=== PATIENT | male | born 1945 | race Caucasian/White ===

== ENCOUNTER 2017-05-19 15:28 | Emergency (ER) | payer OTHER ==
[~2017-05-19] VITALS: Ht 167.6 cm; Wt 79.8 kg
[~2017-05-19 15:28] MED LIST changes: -AUG0.05O4 TOP; -LDXO60 TOP; -NXM/40 PO; -OMEG10007 PO; -OXYC-57 PO; -TPRSR/50 PO
[2017-05-19 15:58] VITALS: BP 153/70; PULSE 84; TEMP 37.7; O2SAT 95; Ht 167.6 cm; Wt 79.8 kg
== END 2017-05-19 17:04 | disposition left against medical advice (07) ==
LOC: C.EDB 15:29
DX: Z53.21 Procedure and treatment not carried out due to patient leaving prior to being seen by health care provider (principal)

== ENCOUNTER → 2017-05-19 | Outpatient (CLI) | payer OTHER ==
[~2017-05-19] MED LIST: ASPI81TA21 PO; AUG0.05O4 TOP; BACL10TA PO; CHOL100027 PO; CLOP1TAB15 PO; COEN1CAP7 PO; CYAN100020 PO; ESOM40GR PO; EZET10TA63 PO; FISHOIL PO; LDXO60 TOP; LSN25 PO; MELA3TAB12 PO; MRLP17X PO; NITR0.4S76 BU; NRN100 PO; NSP500 PO; NXM/40 PO; OMEG10007 PO; OPTIRAY 320 IV PRN; OXYC-57 PO; TPRSR/50 PO
--- NOTE | 2017-05-19 14:01 | DIAGNOSTIC IMAGING REPORT ---
ABDOMEN AND PELVIS CT WITH IV AND ORAL CONTRAST FOR THE PURPOSE OF AN ENTEROGRAPHY CT DOSE: 753.93 mGycm HISTORY: Generalized ABD PAIN - ENTEROGRAPHY TECHNIQUE: Multiaxial CT images of the abdomen and pelvis were performed following the use of intravenous and oral Volumen contrast. A dose lowering technique was utilized adhering to the principles of ALARA. Sagittal, coronal, and maximum intensity projection images of the abdomen and pelvis were performed at the workstation by the radiologist. COMPARISON STUDY: Chest abdomen pelvis CTA 08/15/2016. FINDINGS: There are few small calcified pleural plaques bilaterally. No pneumoperitoneum. No pneumatosis. No suspicious lytic or blastic osseous lesions. A few borderline enlarged distal esophageal lymph nodes. Dominant lymph node measures 8 mm in short axis diameter. Punctate metallic density within the left upper quadrant anterior abdominal wall subcutaneous fat. This remains unchanged. There is a 2.2 cm diverticulum at the second portion of the duodenum. The liver, gallbladder, and pancreas are unremarkable. Punctate calcified granuloma within the spleen. Moderate bilateral cortical renal thinning/scarring. No hydronephrosis. Mild bilateral perinephric edema, unchanged. This is likely chronic. Mildly enlarged portacaval lymph node which may be reactive. Moderate calcified plaque within the normal caliber abdominal aorta. Bladder is not well-distended but appears unremarkable. The gallbladder is mildly distended. There is trace pericholecystic fluid and mild gallbladder wall thickening. There is surrounding inflammatory change. Therefore, these findings are consistent with acute cholecystitis. Common bile duct is normal in caliber. No bowel wall thickening or obstruction. Colonic diverticulosis. Normal appendix. The small bowel is normal and course and caliber. IMPRESSION: 1. There is gallbladder wall thickening with surrounding inflammatory change. This is consistent with acute cholecystitis. 2. No bowel wall thickening or obstruction. 3. Colonic diverticulosis. 4. Normal appendix. 5. These findings were discussed with Dr. Carrera at 1:55 PM on 05/19/17.. Electronically signed by: Julian Decker M.D. 05/19/2017 1:59 PM Dictated Date/Time: 05/19/2017 1:46 PM
== END | disposition home or self-care (01) ==
LOC: C.CTS 11:57
PROVIDERS: ATTEND Internal Medicine Gastroenterology
DX: R10.9 Unspecified abdominal pain (principal); K57.30 Diverticulosis of large intestine without perforation or abscess without bleeding; K82.8 Other specified diseases of gallbladder

== ENCOUNTER → 2017-05-19 | Outpatient (CLI) | payer OTHER ==
[~2017-05-19] MED LIST changes: -OPTIRAY 320 IV PRN
[2017-05-19 12:20] LABS: BLOOD UREA NITROGEN 20 mg/dl (7-18); BUN/CREATININE RATIO 16.4 (10-20); CALCIUM 9.2 mg/dl (8.5-10.1); CARBON DIOXIDE 27 mmol/L (21-32); CHLORIDE 104 mmol/L (98-107); GLUCOSE 137 mg/dl (70-99); POTASSIUM 3.4 mmol/L (3.5-5.1); SODIUM 138 mmol/L (136-145)
[2017-05-19 12:45] LABS: PHOSPHORUS 1.4 mg/dl (2.5-4.9)
== END | disposition home or self-care (01) ==
LOC: C.LAB 10:23
PROVIDERS: ATTEND Internal Medicine Gastroenterology
DX: R10.9 Unspecified abdominal pain (principal)

== ENCOUNTER 2017-06-01 17:40 | Emergency (ER) | payer OTHER ==
[~2017-06-01] VITALS: Ht 167.6 cm; Wt 76.0 kg
[2017-06-01 17:55] VITALS: Ht 167.6 cm; Wt 76.0 kg
[2017-06-01 18:15] VITALS: O2SAT 96
[2017-06-01] MEDS ORDERED: PIPERACILLIN/TAZOBACTAM 4.5 GM/100ML D5W IV STA (18:29)
[2017-06-01] MEDS ORDERED: SODIUM CHLORIDE 0.9% 1000ML 2,000 ML IV STA (18:29)
[2017-06-01] MEDS ORDERED: ACETAMINOPHEN 500 MG TAB PO STA (18:29)
[2017-06-01 18:35] LABS: URINE APPEARANCE CLOUDY (CLEAR); URINE COLOR DK YELLOW; URINE EPITHELIAL CELL AUTO >30 /lpf (0-5); URINE NITRITE NEG (NEG); URINE SPECIFIC GRAVITY 1.033 (1.000-1.030); UROBILINOGEN NEG (NEG)
[2017-06-01 18:36] LABS: MANUAL MICROSCOPIC REQUIRED? NO; REVIEW REQ? YES
[2017-06-01 18:38] LABS: URINE BILIRUBIN NEG (NEG)
[2017-06-01 18:46] LABS: URINE MUCUS PRESENT (NONE PRSENT)
[2017-06-01 18:59] LABS: BASO % 0.1 %; BASO ABS # 0.02 K/uL (0-0.2); COMPLETE YES; EOS % 1.1 %; IG% 0.2 %; LYMPH % 4.4 %; LYMPH ABS # 0.74 K/uL (1.2-3.4); MEAN CELL VOLUME 97.4 fL (80-100); MEAN CORPUSCULAR HEMOGLOBIN 32.4 pg (25-34); MEAN CORPUSCULAR HGB CONC 33.2 g/dl (32-36); MEAN PLATELET VOLUME 9.2 fL (7.4-10.4); MONO % 5.8 %; NEUT % 88.4 %; PLATELET COUNT 516 K/uL (130-400); WHITE BLOOD COUNT 16.96 K/uL (4.8-10.8)
[2017-06-01 19:08] LABS: ALT/SGPT 20 U/L (12-78); BLOOD UREA NITROGEN 19 mg/dl (7-18); BUN/CREATININE RATIO 14.4 (10-20); CALCIUM 8.8 mg/dl (8.5-10.1); CARBON DIOXIDE 23 mmol/L (21-32); CHLORIDE 101 mmol/L (98-107); GLUCOSE 140 mg/dl (70-99); MAGNESIUM 1.8 mg/dl (1.8-2.4); POTASSIUM 3.5 mmol/L (3.5-5.1); SODIUM 134 mmol/L (136-145)
[2017-06-01 19:13] LABS: ALKALINE PHOSPHATASE 146 U/L (45-117); AST/SGOT 20 U/L (15-37)
[2017-06-01] MEDS ORDERED: OPTIRAY 320 IV PRN (19:15)
--- NOTE | 2017-06-01 19:16 | DIAGNOSTIC IMAGING REPORT ---
CHEST ONE VIEW PORTABLE CLINICAL HISTORY: 71 years-old Male presenting with fever. TECHNIQUE: Portable upright AP view of the chest was obtained. COMPARISON: 08/15/2016. FINDINGS: Atherosclerosis of the aortic arch. Cardiac silhouette normal. Minimal hazy opacity in the lingula, new from prior. No pleural effusion or pneumothorax. Anterior cervical fusion hardware noted. Upper abdomen normal. IMPRESSION: 1. Minimal hazy opacity in the lingula, which could represent a focal infiltrate. Infectious etiology not excluded. Electronically signed by: Dwayne Powers M.D. 06/01/2017 7:15 PM Dictated Date/Time: 06/01/2017 7:14 PM
[2017-06-01] MEDS ORDERED: OXYC-57 PO (19:28)
[2017-06-01] MEDS ORDERED: OMEG10007 PO (19:28)
[2017-06-01 19:29] LABS: ISTAT CREATININE 1.2 mg/dl (0.6-1.3); ISTAT HEMOGLOBIN 12.2 g/dl (14.0-18.0); ISTAT IONIZED CALCIUM 1.14 mmol/l (1.12-1.32)
[2017-06-01] MEDS ORDERED: TPRSR/50 PO (19:31)
[2017-06-01] MEDS ORDERED: NXM/40 PO (19:46)
[2017-06-01] MEDS ORDERED: LDXO60 TOP (19:46)
[2017-06-01] MEDS ORDERED: AUG0.05O4 TOP (19:46)
--- NOTE | 2017-06-01 19:57 | DIAGNOSTIC IMAGING REPORT ---
ABD/PELVIS IV CONTRAST ONLY CLINICAL HISTORY: 71 years-old Male presenting with fever w/ gbag removed recently. TECHNIQUE: Multidetector CT of the abdomen and pelvis was performed after the administration of intravenous contrast. IV contrast: 118 mL of Optiray 320. A dose lowering technique was used consistent with the principles of ALARA (as low as reasonably achievable). COMPARISON: 05/19/2017. CT DOSE (mGy.cm): The estimated cumulative dose is 371.27 mGy.cm. 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 Lung bases: Lung bases clear. Normal heart size. Coronary artery calcification. No pericardial or pleural effusion. Liver: Interval development of periportal edema. Normal liver morphology. Heterogeneity of parenchymal enhancement along the gallbladder fossa subjacent to the subsequently described collection. No parenchymal liver lesion. Hepatic vasculature remains patent. Biliary: No intrahepatic or extrahepatic biliary ductal dilatation. Interval cholecystectomy with surgical clips noted. A 6.1 cm gas and fluid collection with significant surrounding inflammatory change is seen in the gallbladder fossa. This extends inferiorly minimally involving the hepatic flexure and transverse mesocolon. Pancreas: Small duodenal diverticulum suspected at the pancreatic head. Pancreatic parenchyma normal. Spleen: Normal. Adrenal glands: Normal. Kidneys and ureters: No nephrolithiasis. No hydronephrosis. Cortical defect in the interpolar region to lower pole of the left kidney, likely prior injury, infection, or infarct. Ureters normal. Bladder: Incompletely evaluated secondary to underdistention. Pelvic organs: Prostate and seminal vesicles normal. Bowel: Mild wall thickening of the hepatic flexure, which is felt to be secondary to adjacent gallbladder fossa inflammation. No bowel obstruction. Additional mild wall thickening of the gastric antrum adjacent to the gallbladder fossa collection also noted. Peritoneal cavity: Outside of the collection in the gallbladder fossa, no free fluid or gas. Vasculature: Atherosclerosis of the normal caliber abdominal aorta. IVC patent. Lymph nodes: Scattered prominent upper abdominal lymph nodes measuring up to 9 mm in the short axis, likely reactive. Abdominal wall: Minimal postsurgical changes noted in the ventral abdominal wall. Musculoskeletal: Degenerative changes of the spine. IMPRESSION: 1. Postsurgical changes of cholecystectomy with apparent interval development of a gas and fluid collection in the gallbladder fossa. The appearance in part could relate to expected postsurgical change, however the degree of surrounding inflammatory change and parenchymal changes in the liver are unexpected and concerning for the development of an abscess. 2. Reactive upper abdominal lymph nodes. Electronically signed by: Dwayne Powers M.D. 06/01/2017 7:55 PM Dictated Date/Time: 06/01/2017 7:48 PM
[2017-06-01 20:40] VITALS: TEMP 37.1
[2017-06-01 20:57] LABS: ZZUR CULT IF INDIC CLEAN CATCH NO
[2017-06-01 22:04] VITALS: BP 117/59; PULSE 74; O2SAT 96
--- NOTE | 2017-06-02 00:47 | EMERGENCY ROOM VISIT NOTE ---
History Report prepared by Joe: Megan Sousa Under the Supervision of: Dr. Kumar Davies D.O. First contact with patient: 18:10 Chief Complaint: FEVER Stated Complaint: SHAKING, URINARY PROBLEMS History of Present Illness The patient is a 71 year old male who presents to the Emergency Room with complaints of persistent fever starting today. He presents to the ED by EMS. The patient has been feeling hot and cold for the past 2 days with chills, shaking, and diaphoresis. Today, he started having a fever. He has had these symptoms before at which time they found that he had an infection. He reports dysuria, rhinorrhea, sore throat, and abdominal pain. He denies any cough, nausea, vomiting, or diarrhea. He had an oxycodone before EMS arrived. He had gallbladder surgery 2 weeks ago at [facility]. He does not have any open wounds or sores. Source of History: patient, family Onset: today Position: other (global) Quality: other (fever) Timing: other (persistent) Associated Symptoms: + chills, + diaphoresis, + sorethroat, + abdominal pain , + urinary symptoms, No cough, No nausea, No vomiting, No diarrhea Note: Pt reports rhinorrhea. Review of Systems See HPI for pertinent positives & negatives. A total of 10 systems reviewed and were otherwise negative. Past Medical & Surgical Medical Problems: (1) Arthritis (2) Crohn's disease (3) Diabetes (4) Gastroparesis (5) GERD (gastroesophageal reflux disease) (6) Psoriasis Family History Patient reports no known family medical history. Social History Smoking Status: Former Smoker Alcohol Use: none Drug Use: none Marital Status: Housing Status: lives with family Occupation Status: retired Current/Historical Medications Scheduled Aspirin Enteric Coated (Ecotrin Or Generic), 81 MG PO DAILY Cholecalciferol (Vitamin D 1000 Unit), 1,000 INTER.UNIT PO DAILY Clopidogrel (Plavix), 75 MG PO DAILY Coenzyme Q10 (Ubidecarenone) (Coq10), 200 MG PO DAILY Cyanocobalamin (Vitamin B12), 1 TAB PO DAILY Ezetimibe (Zetia), 10 MG PO DAILY Fish Oil ([place]-3), 3 CAP PO QAM Lisinopril (Lisinopril), 2.5 MG PO DAILY Melatonin-Pyridoxine (Melatonin), 1 TAB PO HS Metoprolol Succinate (Metoprolol Succinate ER), 1 TAB PO DAILY Nitroglycerin (Nitroglycerin Lingual), 1 SPRAY BU UD Polyethylene (Miralax), 17 GM PO UD Scheduled PRN Baclofen (Lioresal), 10 MG PO HS PRN for Muscle Spasms Betamethasone Dip Aug 0.05% (Diprolene 0.05%), 1 APPLN TOP BID PRN for Esomeprazole Magnesium (Nexium), 40 MG PO DAILY PRN for Dyspepsia Fluocinonide (Lidex 0.05% Oint), 1 APPLN TOP BID PRN for PRN Gabapentin (Gabapentin), 100 MG PO BID PRN for Pain Oxycodone/Acetaminophen 5MG/325MG (Percocet 5MG/325MG), 1 TABLET PO Q4H PRN for Pain Allergies Coded Allergies: Statins (Verified Allergy, Unknown, muscle aches, 06/01/17) HMG-CoA-R Inhibitors (Verified Adverse Reaction, Unknown, MUSCLE ACHES, ) Physical Exam Vital Signs Date Time Temp Pulse Resp B/P (MAP) Pulse Ox O2 Delivery O2 Flow Rate FiO2 06/01/17 22:04 74 12 117/59 96 06/01/17 20:40 37.1 81 22 109/61 95 Room Air 06/01/17 19:28 95 21 123/64 95 Room Air 06/01/17 18:27 98 06/01/17 18:15 96 Room Air 06/01/17 17:55 39.2 107 20 129/97 97 Room Air Physical Exam GENERAL: sitting up in bed, disheveled, ill appearing EYE EXAM: normal conjunctiva OROPHARYNX: no exudate, no erythema, lips, buccal mucosa, and tongue normal and mucous membranes are moist NECK: supple, no nuchal rigidity, no adenopathy, non-tender LUNGS: Clear to auscultation. Normal chest wall mechanics HEART: tachycardic, no murmurs, S1 normal and S2 normal ABDOMEN: abdomen is distended, port incisions clean dry and intact, minimal epigastric tenderness, normo-active bowel sounds, no masses, no rebound or guarding. BACK: Back is symmetrical on inspection and there is no deformity, no midline tenderness, no CVA tenderness. SKIN: no rashes and no bruising UPPER EXTREMITIES: upper extremities are grossly normal. LOWER EXTREMITIES: No pitting edema. NEURO EXAM: Normal sensorium, cranial nerves II-XII grossly intact, normal speech, no gross weakness of arms, no gross weakness of legs. Medical Decision & Procedures ER Provider Diagnostic Interpretation: Radiology results as stated below per my review and the radiologist's interpretation: CHEST ONE VIEW PORTABLE CLINICAL HISTORY: 71 years-old Male presenting with fever. TECHNIQUE: Portable upright AP view of the chest was obtained. COMPARISON: 08/15/2016. FINDINGS: Atherosclerosis of the aortic arch. Cardiac silhouette normal. Minimal hazy opacity in the lingula, new from prior. No pleural effusion or pneumothorax. Anterior cervical fusion hardware noted. Upper abdomen normal. IMPRESSION: 1. Minimal hazy opacity in the lingula, which could represent a focal infiltrate. Infectious etiology not excluded. Electronically signed by: Dwayne Powers M.D. 06/01/2017 7:15 PM Dictated Date/Time: 06/01/2017 7:14 PM ABD/PELVIS IV CONTRAST ONLY CLINICAL HISTORY: 71 years-old Male presenting with fever w/ gbag removed recently. TECHNIQUE: Multidetector CT of the abdomen and pelvis was performed after the administration of intravenous contrast. IV contrast: 118 mL of Optiray 320. A dose lowering technique was used consistent with the principles of ALARA (as low as reasonably achievable). COMPARISON: 05/19/2017. CT DOSE (mGy.cm): The estimated cumulative dose is 371.27 mGy.cm. 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 Lung bases: Lung bases clear. Normal heart size. Coronary artery calcification. No pericardial or pleural effusion. Liver: Interval development of periportal edema. Normal liver morphology. Heterogeneity of parenchymal enhancement along the gallbladder fossa subjacent to the subsequently described collection. No parenchymal liver lesion. Hepatic vasculature remains patent. Biliary: No intrahepatic or extrahepatic biliary ductal dilatation. Interval cholecystectomy with surgical clips noted. A 6.1 cm gas and fluid collection with significant surrounding inflammatory change is seen in the gallbladder fossa. This extends inferiorly minimally involving the hepatic flexure and transverse mesocolon. Pancreas: Small duodenal diverticulum suspected at the pancreatic head. Pancreatic parenchyma normal. Spleen: Normal. Adrenal glands: Normal. Kidneys and ureters: No nephrolithiasis. No hydronephrosis. Cortical defect in the interpolar region to lower pole of the left kidney, likely prior injury, infection, or infarct. Ureters normal. Bladder: Incompletely evaluated secondary to underdistention. Pelvic organs: Prostate and seminal vesicles normal. Bowel: Mild wall thickening of the hepatic flexure, which is felt to be secondary to adjacent gallbladder fossa inflammation. No bowel obstruction. Additional mild wall thickening of the gastric antrum adjacent to the gallbladder fossa collection also noted. Peritoneal cavity: Outside of the collection in the gallbladder fossa, no free fluid or gas. Vasculature: Atherosclerosis of the normal caliber abdominal aorta. IVC patent. Lymph nodes: Scattered prominent upper abdominal lymph nodes measuring up to 9 mm in the short axis, likely reactive. Abdominal wall: Minimal postsurgical changes noted in the ventral abdominal wall. Musculoskeletal: Degenerative changes of the spine. IMPRESSION: 1. Postsurgical changes of cholecystectomy with apparent interval development of a gas and fluid collection in the gallbladder fossa. The appearance in part could relate to expected postsurgical change, however the degree of surrounding inflammatory change and parenchymal changes in the liver are unexpected and concerning for the development of an abscess. 2. Reactive upper abdominal lymph nodes. Electronically signed by: Dwayne Powers M.D. 06/01/2017 7:55 PM Dictated Date/Time: 06/01/2017 7:48 PM Laboratory Results 06/01/17 18:03 Red Blood Count 3.80, Mean Corpuscular Volume 97.4, Mean Corpuscular Hemoglobin 32.4, Mean Corpuscular Hemoglobin Concent 33.2, Mean Platelet Volume 9.2, Neutrophils (%) (Auto) 88.4, Lymphocytes (%) (Auto) 4.4, Monocytes (%) (Auto) 5.8, Eosinophils (%) (Auto) 1.1, Basophils (%) (Auto) 0.1, Neutrophils # (Auto) 14.98, Lymphocytes # (Auto) 0.74, Monocytes # (Auto) 0.99, Eosinophils # (Auto) 0.19, Basophils # (Auto) 0.02 06/01/17 18:03 Test 06/01/17 18:03 06/01/17 18:15 06/01/17 18:27 06/01/17 19:12 White Blood Count 16.96 K/uL (4.8-10.8) Red Blood Count 3.80 M/uL (4.7-6.1) Hemoglobin 12.3 g/dL (14.0-18.0) Hematocrit 37.0 % (42-52) Mean Corpuscular Volume 97.4 fL (80-100) Mean Corpuscular Hemoglobin 32.4 pg (25-34) Mean Corpuscular Hemoglobin Concent 33.2 g/dl (32-36) Platelet Count 516 K/uL (130-400) Mean Platelet Volume 9.2 fL (7.4-10.4) Neutrophils (%) (Auto) 88.4 % Lymphocytes (%) (Auto) 4.4 % Monocytes (%) (Auto) 5.8 % Eosinophils (%) (Auto) 1.1 % Basophils (%) (Auto) 0.1 % Neutrophils # (Auto) 14.98 K/uL (1.4-6.5) Lymphocytes # (Auto) 0.74 K/uL (1.2-3.4) Monocytes # (Auto) 0.99 K/uL (0.11-0.59) Eosinophils # (Auto) 0.19 K/uL (0-0.5) Basophils # (Auto) 0.02 K/uL (0-0.2) RDW Standard Deviation 43.2 fL (36.4-46.3) RDW Coefficient of Variation 12.1 % (11.5-14.5) Immature Granulocyte % (Auto) 0.2 % Immature Granulocyte # (Auto) 0.04 K/uL (0.00-0.02) Prothrombin Time 11.0 SECONDS (9.0-12.0) Prothromb Time International Ratio 1.0 (0.9-1.1) Est Creatinine Clear Calc Drug Dose 47.0 ml/min Estimated GFR () 63.6 Estimated GFR (Non- 54.9 BUN/Creatinine Ratio 14.4 (10-20) Calcium Level 8.8 mg/dl (8.5-10.1) Magnesium Level 1.8 mg/dl (1.8-2.4) Total Bilirubin 0.4 mg/dl (0.2-1) Direct Bilirubin 0.1 mg/dl (0-0.2) Aspartate Amino Transf (AST/SGOT) 20 U/L (15-37) Alanine Aminotransferase (ALT/SGPT) 20 U/L (12-78) Alkaline Phosphatase 146 U/L (45-117) Total Creatine Kinase 35 U/L (39-308) Creatine Kinase MB < 0.5 ng/ml (0.5-3.6) Troponin I < 0.015 ng/ml (0-0.045) Total Protein 7.3 gm/dl (6.4-8.2) Albumin 2.9 gm/dl (3.4-5.0) Urine Color DK YELLOW Urine Appearance CLOUDY (CLEAR) Urine pH 5.0 (4.5-7.5) Urine Specific [place] 1.033 (1.000-1.030) Urine Protein 2+ (NEG) Urine Glucose (UA) NEG (NEG) Urine Ketones 1+ (NEG) Urine Occult Blood NEG (NEG) Urine Nitrite NEG (NEG) Urine Bilirubin NEG (NEG) Urine Urobilinogen NEG (NEG) Urine Leukocyte Esterase TRACE (NEG) Urine WBC (Auto) 5-10 /hpf (0-5) Urine RBC (Auto) 0-4 /hpf (0-4) Urine Hyaline Casts (Auto) 1-5 /lpf (0-5) Urine Epithelial Cells (Auto) >30 /lpf (0-5) Urine Bacteria (Auto) NEG (NEG) Urine Pathogenic Casts /lpf (0) Urine Mucus PRESENT (NONE PRSENT) Creatine Kinase MB Ratio (0-3.0) Bedside Lactic Acid Venous 1.28 mmol/L (0.90-1.70) Test 06/01/17 19:17 Bedside Hemoglobin 12.2 g/dl (14.0-18.0) Bedside Hematocrit 36 % (42-52) Bedside Sodium 135 mEq/L (135-144) Bedside Potassium 3.6 mEq/L (3.3-5.0) Bedside Chloride 100 mEq/L (101-112) Bedside Total CO2 23 mEq/l (24-31) Anion Gap 17.0 mmol/L (16-25) Bedside Blood Urea Nitrogen 20 mg/dl (7-18) Bedside Creatinine 1.2 mg/dl (0.6-1.3) Bedside Glucose (other) 115 mg/dl (70-99) Bedside Ionized Calcium (Sherri) 1.14 mmol/l (1.12-1.32) Laboratory results per my review. Medications Administered Medications (Trade) Dose Ordered Sig/Ramesh Route Start Time Stop Time Status Last Admin Dose Admin Piperacillin Sod/ Tazobactam Sod (Zosyn Iv) 4.5 gm NOW STAT IV 06/01/17 18:29 06/01/17 18:30 DC 06/01/17 19:30 4.5 GM Sodium Chloride 2,000 ml @ 999 mls/hr Q2H1M STAT IV 06/01/17 18:29 06/01/17 20:29 DC 06/01/17 19:30 999 MLS/HR Acetaminophen (Tylenol Tab) 1,000 mg NOW STAT PO 06/01/17 18:29 06/01/17 18:31 DC 06/01/17 19:30 1,000 MG ECG Indication: diaphoresis Rate (beats per minute): 93 Rhythm: sinus rhythm Findings: no ectopy, other (poor baseline) ED Course ED COURSE: Vital signs were reviewed and showed fever, tachycardia. The patients medical record was reviewed The above diagnostic studies were performed and reviewed. ED treatments and interventions as stated above. 1821: The patient was evaluated in room B11B. A complete history and physical examination was performed. 1828: Acetaminophen 1000 mg PO, NSS 2000 ml @ 999 mls/hr IV, Zosyn Iv 4.5 gm IV. 2005: I discussed the patient's case with Dr. Phillips, [facility]. He recommend the patient be transferred. 2007: I reevaluated the patient. His heart rate is down to the 80s. He is feeling better. 2016: I discussed the patient's case with Dr. Arana, [facility] surgery. He declines the patient. 2022: [facility] was paged, but they have a 24-48 hour wait so Daria was paged. 2040: I discussed the patient's case with Dr. Jackson, [facility]. The patient has been accepted to their facility, bed 20-37. 2054: Upon reevaluation, the patient is stable.I discussed my findings with the patient and his family and they understand and agree with the treatment plan. Based on the patients age, coexisting illnesses, exam and lab findings the decision to treat as an inpatient was made. The patient remained stable while under my care. The patient will be transferred to [facility] for further treatment. Medical Decision Differential diagnosis includes etiologies such as sepsis, UTI, pneumonia, metabolic, electrolyte abnormalities, cardiac sources, intracerebral event, toxicologic, neurologic, as well as others were entertained. Patient is a 71-year-old male that presents to the ER for fever. Positive presentation he is febrile and tachycardic. 2 weeks ago he had his gallbladder removed laparoscopically which was found to be necrotic. Patient was given 2 L normal saline along with Zosyn. CT of abdomen and pelvis shows 6cm abscess. Discussed with my surgeon who recommended transfer as there is no IR present. Discussed with [facility] initially and eventually [facility] who accepted the patient in transfer. Her return down to the 80s. Patient rested comfortably in the ER. He was given Tylenol. He was transferred to [facility] with an abdominal abscess. Medication Reconcilliation Current Medication List: was personally reviewed by me Blood Pressure Screening Patient's blood pressure: Normal blood pressure Blood pressure disposition: Did not require urgent referral Consults Time Called: 2003 Consulting Physician: Dr. Phillips, [facility] Returned Call: 2004 I discussed the patient's case with him. He recommend the patient be transferred. Additional Consults: Time Called: 2009 Consulted Physician: Dr. Arana, [facility], [facility] general surgery Returned Call: 2015 Additional Comments: I discussed the patient's case with him. He declines the patient. Time Called: 2022 Consulted Physician: Dr. Jackson, [facility] Returned Call: 2040 Additional Comments: I discussed the patient's case with him. The patient has been accepted to their facility, bed 20-37. Impression Primary Impression: Sepsis Additional Impression: Abdominal abscess Scribe Attestation The scribe's documentation has been prepared under my direction and personally reviewed by me in its entirety. I confirm that the note above accurately reflects all work, treatment, procedures, and medical decision making performed by me. Departure Information Dispostion Transfer Acute Care Facility Referrals Shaina Kenyon M.D. (PCP) Patient Instructions My [facility] Problem Qualifiers Primary Impression: Sepsis Sepsis type: sepsis due to unspecified organism Qualified Codes: A41.9 - Sepsis, unspecified organism
== END 2017-06-01 22:04 | disposition short-term general hospital (02) ==
LOC: EDBD 17:40 → C.EDB 17:41
DX: A41.9 Sepsis, unspecified organism (principal); K65.1 Peritoneal abscess; T81.4XXA Infection following a procedure, initial encounter; Y83.8 Other surgical procedures as the cause of abnormal reaction of the patient, or of later complication, without mention of misadventure at the time of the procedure; M19.90 Unspecified osteoarthritis, unspecified site; K50.90 Crohn's disease, unspecified, without complications; E11.9 Type 2 diabetes mellitus without complications; K21.9 Gastro-esophageal reflux disease without esophagitis; K31.84 Gastroparesis; L40.9 Psoriasis, unspecified; Z87.891 Personal history of nicotine dependence; Z79.82 Long term (current) use of aspirin

== ENCOUNTER → 2017-09-19 | Outpatient (CLI) | payer OTHER ==
[~2017-09-19] MED LIST changes: +AUG0.05O4 TOP; -ESOM40GR PO; -FISHOIL PO; +LDXO60 TOP; +NITR0.1S BU; -NITR0.4S76 BU; -NSP500 PO; +NXM/40 PO; +OMEG10007 PO; +OXYC-57 PO; +TPRSR/50 PO
--- NOTE | 2017-09-19 08:22 | DIAGNOSTIC IMAGING REPORT ---
ABDOMEN COMPLETE (US) CLINICAL HISTORY: Generalized abdominal pain. History of gallbladder surgery. COMPARISON STUDY: CT scan dated 06/01/2017, ultrasound dated 03/13/2012 FINDINGS: The pancreas appears normal as visualized. No focal hepatic masses are visualized. There is splenic masses are visualized. The spleen measures 11 cm. The gallbladder is surgically absent. There is no ductal dilatation. The common bile duct measures 5 mm. The right kidney measures 10.3 cm in length. The left kidney measures 10.3 cm in length. There is no hydronephrosis. There is no evidence of abdominal aortic dilatation. IMPRESSION: Surgically absent gallbladder. Otherwise unremarkable abdominal ultrasound. Electronically signed by: Guillermo Metcalf M.D. 09/19/2017 8:21 AM Dictated Date/Time: 09/19/2017 8:19 AM
== END | disposition home or self-care (01) ==
LOC: C.ULTR 06:56
PROVIDERS: ATTEND Internal Medicine Gastroenterology
DX: R10.9 Unspecified abdominal pain (principal)

== ENCOUNTER 2017-09-30 10:10 | Emergency (ER) | payer OTHER ==
[~2017-09-30] VITALS: Ht 167.6 cm; Wt 81.2 kg
[~2017-09-30 10:10] MED LIST changes: -ASPI81TA21 PO; -CHOL100027 PO; -COEN1CAP7 PO; -LDXO60 TOP; -OMEG10007 PO; -TPRSR/50 PO
[2017-09-30 10:12] VITALS: TEMP 36.8; O2SAT 98; Ht 167.6 cm; Wt 81.2 kg
[2017-09-30] MEDS ORDERED: NITROGLYCERIN OINT 2% 1GM PACKET EXT STA (10:24)
[2017-09-30] MEDS ORDERED: ASPIRIN 81 MG CHEW PO STA (10:24)
--- NOTE | 2017-09-30 10:30 | EMERGENCY ROOM VISIT NOTE ---
History Report prepared by Joe: Carlos Becker Under the Supervision of: Dr. Osbaldo Hoyos M.D. First contact with patient: 10:16 Chief Complaint: CHEST PAIN Stated Complaint: CHEST PAIN History of Present Illness The patient is a 72 year old male with a history of Crohn's disease, a heart attack, and stent placements who presents to the Emergency Room with complaints of intermittent chest pain that started 2 weeks ago. The patient's family doctor (Dr. Kenyon) reports that the patient has had some weakness and nausea as well, with his symptoms that are the worst at night. The patient was seen by Dr. Kenyon for a regular appointment this morning. The patient states that he currently is having some pain across his chest and up into his neck. He rates his pain as a 6 out of 10 in severity. The patient notes that twisting may make the pain a bit worse, and he adds that he has been short of breath with the pain. He says that nothing makes the pain better except for [place]. He states that he has been having intermittent nausea and sweats for 2 weeks, but they are not related to the pain. He notes that exertion does not worsen the pain. The patient says that he has been able to eat sometimes. He denies any cough, congestion, or vomiting. The patient's notes that the patient is scheduled for a colonoscopy in mid-October. The patient says that he has not had a stress test in the past few years. He states that he takes a baby Aspirin daily. The patient says that he has not taken any Nitroglycerin over the past few weeks. He adds that his last stent placement was over 10 years ago. The patient states that he has taken his daily medications this morning, including his blood pressure medication. Source of History: patient, spouse/significant other Onset: 2 weeks ago Position: chest Symptom Intensity: 6/10 Quality: other (pain) Timing: intermittent Modifying Factors (Worsening): movement Associated Symptoms: + diaphoresis, + neck pain, + SOB, + nausea, + weakness , No cough (or congestion), No vomiting Note: No other associated symptoms noted. Review of Systems See HPI for pertinent positives & negatives. A total of 10 systems reviewed and were otherwise negative. Past Medical & Surgical Medical Problems: (1) Arthritis (2) Crohn's disease (3) Diabetes (4) Gastroparesis (5) GERD (gastroesophageal reflux disease) (6) Psoriasis Family History Patient reports no known family medical history. Social History Smoking Status: Former Smoker Alcohol Use: none Drug Use: none Marital Status: Housing Status: lives with family Occupation Status: retired Current/Historical Medications Scheduled Aspirin Enteric Coated (Ecotrin Or Generic), 81 MG PO DAILY Cholecalciferol (Vitamin D 1000 Unit), 1,000 INTER.UNIT PO DAILY Clopidogrel (Plavix), 75 MG PO DAILY Coenzyme Q10 (Ubidecarenone) (Coq10), 200 MG PO DAILY Cyanocobalamin (Vitamin B12), 1 TAB PO DAILY Ezetimibe (Zetia), 10 MG PO DAILY Fish Oil ([place]-3), 3 CAP PO QAM Lisinopril (Lisinopril), 10 MG PO DAILY Melatonin-Pyridoxine (Melatonin), 1 TAB PO HS Metoprolol Succinate (Metoprolol Succinate ER), 1 TAB PO DAILY Nitroglycerin (Nitroglycerin Lingual), 1 SPRAY BU UD Polyethylene (Miralax), 17 GM PO UD Scheduled PRN Baclofen (Lioresal), 10 MG PO HS PRN for Muscle Spasms Betamethasone Dip Aug 0.05% (Diprolene 0.05%), 1 APPLN TOP BID PRN for Esomeprazole Magnesium (Nexium), 40 MG PO DAILY PRN for Dyspepsia Fluocinonide (Lidex 0.05% Oint), 1 APPLN TOP BID PRN for PRN Oxycodone/Acetaminophen 5MG/325MG (Percocet 5MG/325MG), 1 TABLET PO Q4H PRN for Pain Allergies Coded Allergies: Statins (Verified Allergy, Unknown, muscle aches, 09/30/17) HMG-CoA-R Inhibitors (Verified Adverse Reaction, Unknown, MUSCLE ACHES, ) Physical Exam Vital Signs Date Time Temp Pulse Resp B/P (MAP) Pulse Ox O2 Delivery O2 Flow Rate FiO2 09/30/17 14:45 64 9 09/30/17 14:15 64 22 09/30/17 14:00 152/82 09/30/17 13:45 70 16 09/30/17 13:30 155/74 09/30/17 13:15 55 13 09/30/17 13:14 56 09/30/17 13:00 138/76 09/30/17 12:45 59 12 09/30/17 12:30 141/83 09/30/17 12:15 56 9 09/30/17 12:10 60 8 09/30/17 12:00 140/80 09/30/17 11:40 60 10 09/30/17 11:30 137/75 09/30/17 11:10 60 10 09/30/17 11:00 145/69 09/30/17 10:58 98 Room Air 09/30/17 10:49 148/72 09/30/17 10:31 155/76 09/30/17 10:23 67 09/30/17 10:12 36.8 65 18 218/103 98 Room Air Physical Exam GENERAL: Patient is in no acute distress. HEENT: No acute trauma, normocephalic atraumatic, mucous membranes moist, no nasal congestion, no scleral icterus. NECK: No stridor, no adenopathy, no meningismus, trachea is midline. LUNGS: Clear to auscultation bilaterally, no wheeze, no rhonchi, breath sounds equal. HEART: Without murmurs gallops or rubs, regular rate and rhythm. CHEST: Possible mild discomfort across anterior chest wall. ABDOMEN: Soft, nontender, bowel sounds positive, no hernias, no peritonitis. EXTREMITIES: No cyanosis or edema, full range of motion of all the joints without pain or difficulty, no signs for acute trauma. NEUROLOGIC: Oriented x 3, no acute motor or sensory deficits, no focal weakness. SKIN: No rash, no jaundice, no diaphoresis. Medical Decision & Procedures ER Provider Diagnostic Interpretation: X-ray results as stated below per interpretation by me and the radiologist: CHEST ONE VIEW PORTABLE HISTORY: Atypical CHEST PAIN COMPARISON: Chest 06/01/2017. FINDINGS: The lungs are clear. Cardiac silhouette is normal in size. No pleural effusions. No pneumothorax. Cervical spinal fusion hardware is again noted. IMPRESSION: No acute process. Electronically signed by: Julian Decker M.D. 09/30/2017 10:47 AM Dictated Date/Time: 09/30/2017 10:46 AM Laboratory Results 09/30/17 10:30 09/30/17 10:30 Test 09/30/17 10:30 09/30/17 14:23 Red Blood Count 4.38 M/uL (4.7-6.1) Mean Corpuscular Volume 88.4 fL (80-100) Mean Corpuscular Hemoglobin 28.8 pg (25-34) Mean Corpuscular Hemoglobin Concent 32.6 g/dl (32-36) RDW Standard Deviation 43.8 fL (36.4-46.3) RDW Coefficient of Variation 13.5 % (11.5-14.5) Mean Platelet Volume 10.3 fL (7.4-10.4) Prothrombin Time 10.7 SECONDS (9.0-12.0) Prothromb Time International Ratio 1.0 (0.9-1.1) Activated Partial Thromboplast Time 25.7 SECONDS (21.0-31.0) Partial Thromboplastin Ratio 1.0 Anion Gap 5.0 mmol/L (3-11) Est Creatinine Clear Calc Drug Dose 44.2 ml/min Estimated GFR () 52.7 Estimated GFR (Non- 45.5 BUN/Creatinine Ratio 13.9 (10-20) Calcium Level 9.0 mg/dl (8.5-10.1) Phosphorus Level 2.8 mg/dl (2.5-4.9) Total Bilirubin 0.3 mg/dl (0.2-1) Aspartate Amino Transf (AST/SGOT) 17 U/L (15-37) Alanine Aminotransferase (ALT/SGPT) 19 U/L (12-78) Alkaline Phosphatase 99 U/L (45-117) Total Protein 7.0 gm/dl (6.4-8.2) Albumin 3.6 gm/dl (3.4-5.0) Globulin 3.4 gm/dl (2.5-4.0) Albumin/Globulin Ratio 1.1 (0.9-2) Lipase 258 U/L (73-393) D-Dimer 390 ug/L FEU (0-500) Troponin I < 0.015 ng/ml (0-0.045) Laboratory results reviewed by me. Medications Administered Medications (Trade) Dose Ordered Sig/Ramesh Route Start Time Stop Time Status Last Admin Dose Admin Nitroglycerin (Nitroglycerin 2% Oint) 1 inch NOW STAT EXT 09/30/17 10:24 09/30/17 10:27 DC 09/30/17 10:38 1 INCH Aspirin (Aspirin Chew) 324 mg NOW STAT PO 09/30/17 10:24 09/30/17 10:27 DC 09/30/17 10:38 324 MG Ketorolac Tromethamine (Toradol Inj) 30 mg STK-MED ONCE .ROUTE 09/30/17 13:37 09/30/17 13:38 DC 09/30/17 13:43 30 MG Al Hydroxide/Mg Hydroxide (Maalox Susp) 30 ml STK-MED ONCE .ROUTE 09/30/17 13:37 09/30/17 13:38 DC 09/30/17 13:40 30 ML ECG Indication: chest pain Rate (beats per minute): 67 Rhythm: sinus rhythm Findings: PVC, no acute ischemic change, other (baseline artifact) ED Course 1017: The patient was evaluated in room B10. A complete history and physical exam was performed. 1024: Ordered Aspirin Chew 324 mg PO, Nitroglycerin 2% Oint 1 inch EXT. 1133: Upon reexamination the patient is feeling better with the Nitro, and his blood pressure is better too. I discussed results and treatment plan with the patient. He verbalizes agreement and understanding. The patient will be evaluated for further management. 1203: Discussed the patient's case with Dr. Smith - [facility] rfid specialist. The patient will be evaluated for further management. 1509: At the recommendation of Dr. Smith who did an evaluation, the patient will go home and follow-up as an outpatient. The patient was discharged. Medical Decision Differential diagnosis includes but is not limited to musculoskeletal pain, gastritis, reflux, CT, angina, anemia, PE, aortic dissection. There is no leukocytosis or concerning anemia. No significant electrolyte abnormality or kidney failure. There is no hepatitis or coagulopathy. Cardiac enzyme testing 1 is not consistent with acute cardiac injury. EKG shows a sinus rhythm with a rate of 67. There is no acute ischemia by EKG. Chest film does not show pneumonia or pneumothorax. The patient was given oral aspirin and nitroglycerin paste. He felt better after these medications. His blood pressure improved. Given his cardiac history, given his chest discomfort and improvement with aspirin and nitroglycerin, I did feel a cardiac workup was warranted. A hospital stay seemed warranted. I spoke to the patient and case management. The on-call hospitalist was consulted. After being seen by the hospitalist, the patient decided that he wanted to leave. The hospitalist on-call felt the patient was stable for discharge. I went back to talk with the patient, he was adamant that he was leaving and not returning to this hospital. I did express to him that the ER was always open and willing to see him for any worsening symptoms or chest discomfort. His was present during the conversation. Patient has agreed to follow with his doctor next week. Medication Reconcilliation Current Medication List: was personally reviewed by me Blood Pressure Screening Patient's blood pressure: Elevated blood pressure Referred to rfid specialist. Consults Time Called: 1145 Consulting Physician: Dr. Sarah RDZ rfid specialist Returned Call: 1203 Discussed the patient's case with Dr. Sarah RDZ rfid specialist. The patient will be evaluated for further management. Impression Primary Impression: Precordial chest pain Scribe Attestation The scribe's documentation has been prepared under my direction and personally reviewed by me in its entirety. I confirm that the note above accurately reflects all work, treatment, procedures, and medical decision making performed by me. Departure Information Dispostion Home / Self-Care Referrals Shaina Kenyon M.D. (PCP) Forms Call Back Authorization, HOME CARE DOCUMENTATION FORM, IMPORTANT VISIT INFORMATION Patient Instructions My [facility] Additional Instructions see your doctor as as outpatient next week return for worsening chest pain rest do not over exert yourself return for worsening symptoms or pain
--- NOTE | 2017-09-30 10:48 | DIAGNOSTIC IMAGING REPORT ---
CHEST ONE VIEW PORTABLE HISTORY: Atypical CHEST PAIN COMPARISON: Chest 06/01/2017. FINDINGS: The lungs are clear. Cardiac silhouette is normal in size. No pleural effusions. No pneumothorax. Cervical spinal fusion hardware is again noted. IMPRESSION: No acute process. Electronically signed by: Julian Decker M.D. 09/30/2017 10:47 AM Dictated Date/Time: 09/30/2017 10:46 AM
[2017-09-30 10:55] LABS: HEMATOCRIT 38.7 % (42-52); HEMOGLOBIN 12.6 g/dL (14.0-18.0); MEAN CELL VOLUME 88.4 fL (80-100); MEAN CORPUSCULAR HEMOGLOBIN 28.8 pg (25-34); MEAN CORPUSCULAR HGB CONC 32.6 g/dl (32-36); MEAN PLATELET VOLUME 10.3 fL (7.4-10.4); PLATELET COUNT 238 K/uL (130-400); RED CELL DISTRIBUTION WIDTH CV 13.5 % (11.5-14.5); RED CELL DISTRIBUTION WIDTH SD 43.8 fL (36.4-46.3); WHITE BLOOD COUNT 8.45 K/uL (4.8-10.8)
[2017-09-30 10:58] VITALS: O2SAT 98
[2017-09-30 11:07] LABS: PTT PATIENT 25.7 SECONDS (21.0-31.0)
[2017-09-30 11:15] LABS: ALBUMIN 3.6 gm/dl (3.4-5.0); BLOOD UREA NITROGEN 21 mg/dl (7-18); CARBON DIOXIDE 27 mmol/L (21-32); CREATININE 1.51 mg/dl (0.60-1.40); GLUCOSE 110 mg/dl (70-99); LIPASE 258 U/L (73-393); SODIUM 139 mmol/L (136-145)
[2017-09-30 11:21] LABS: ALKALINE PHOSPHATASE 99 U/L (45-117); ALT/SGPT 19 U/L (12-78); AST/SGOT 17 U/L (15-37)
--- NOTE | 2017-09-30 12:26 | History and Physical ---
History & Physical Date & Time of Service: Sep 30, 2017 at 12:15 Chief Complaint: Chest Pain Primary Care Physician: Shaina Kenyon M.D. History of Present Illness Source: patient 72 y/o M Hx CAD - distant stent placement, HTH, HPL, Crohn's, CKD 2-3, GERD. Presents with persistent CP x 2 weeks. The pain is bilateral and involves the chest and upper abdomen. It does not worsen with exertion and does not respond to NTG. He is occasionally nauseous and states the pain can worsen with inspiration. He denies vomiting, diaphoresis or lightheadedness. The pt does state that the pain is exacerbated when he twists left or right and is disturbing his sleep due to persistence. He has not taken any analgesics. Past Medical/Surgical History PAST MEDICAL HISTORY: 1. CAD, he has a very distant history of an AR with a cath and placement of 3 stents. 2. Probable CKD, 2-3. 3. The patient states that he had a previous history of diabetes, but has not required medication for approximately one year - may have coincided with weight loss. 4. Hyperlipidemia. 5. Hypertension. 6. Formerly obese 7. Gastroparesis. 8. Crohn's - not requiring treatment per pt 9. Osteoarthritis Surgical: 1. Fusion of cervical spine Family History Patient reports no known family medical history. Does not know cause of parent's demise Social History Smoking Status: Former Smoker Drug Use: none Marital Status: Housing status: lives with family Occupational Status: retired Immunizations History of Influenza Vaccine: Yes Influenza Vaccine Date: Jun 11, 2011 History of Tetanus Vaccine?: Yes Tetanus Immunization Date: Mar 11, 2008 History of Pneumococcal: Unknown Pneumococcal Date: Jun 11, 2010 History of Hepatitis B Vaccine: Yes Hepatitis Immunization Date: Mar 11, 2012 Multi-Drug Resistant Organisms History of MDRO: Yes Type of MDRO: MRSA Allergies Coded Allergies: Statins (Verified Allergy, Unknown, muscle aches, 09/30/17) HMG-CoA-R Inhibitors (Verified Adverse Reaction, Unknown, MUSCLE ACHES, ) Home Medications Scheduled Aspirin Enteric Coated (Ecotrin Or Generic), 81 MG PO DAILY Cholecalciferol (Vitamin D 1000 Unit), 1,000 INTER.UNIT PO DAILY Clopidogrel (Plavix), 75 MG PO DAILY Coenzyme Q10 (Ubidecarenone) (Coq10), 200 MG PO DAILY Cyanocobalamin (Vitamin B12), 1 TAB PO DAILY Ezetimibe (Zetia), 10 MG PO DAILY Fish Oil ([place]-3), 3 CAP PO QAM Lisinopril (Lisinopril), 10 MG PO DAILY Melatonin-Pyridoxine (Melatonin), 1 TAB PO HS Metoprolol Succinate (Metoprolol Succinate ER), 1 TAB PO DAILY Nitroglycerin (Nitroglycerin Lingual), 1 SPRAY BU UD Polyethylene (Miralax), 17 GM PO UD Scheduled PRN Baclofen (Lioresal), 10 MG PO HS PRN for Muscle Spasms Betamethasone Dip Aug 0.05% (Diprolene 0.05%), 1 APPLN TOP BID PRN for Esomeprazole Magnesium (Nexium), 40 MG PO DAILY PRN for Dyspepsia Fluocinonide (Lidex 0.05% Oint), 1 APPLN TOP BID PRN for PRN Oxycodone/Acetaminophen 5MG/325MG (Percocet 5MG/325MG), 1 TABLET PO Q4H PRN for Pain Review of Systems Constitutional: No fever, No chills, No sweats Eyes: No worsening of vision ENT: No hearing loss, No unusual epistaxis, No nasal symptoms Respiratory: + shortness of breath (difficulty with deep breaths), No cough, No sputum, No wheezing Cardiovascular: + chest pain, No orthopnea, No PND Abdomen: + pain (epigastric), + nausea Musculoskeletal: + joint pain (BL costal margins) Genitourinary - Male: No hematuria, No dysuria Neurologic: No memory loss, No paralysis, No weakness Psychiatric: No depression symptoms Endocrine: No fatigue Hematologic / Lymphatic: No abnormal bleeding/bruising Integumentary: No rash Allergic / Immunologic: No environmental allergies Physical Exam Vital Signs Date Time Temp Pulse Resp B/P (MAP) Pulse Ox O2 Delivery O2 Flow Rate FiO2 09/30/17 10:58 98 Room Air 09/30/17 10:12 36.8 65 18 218/103 98 Room Air General Appearance: WD/WN, no apparent distress, + pertinent finding (Pleasant , elderly male - in no distress) Head: normocephalic Eyes: normal inspection Neck: supple, no JVD Respiratory/Chest: lungs clear, normal breath sounds, no respiratory distress, no accessory muscle use, + pertinent finding (Chest wall is tender to palpation - mostly at sternal area) Cardiovascular: regular rate, rhythm, no edema, no gallop, no JVD Abdomen/GI: normal bowel sounds, non tender, soft Back: normal inspection, no CVA tenderness Extremities/Musculoskelatal: normal inspection, no calf tenderness, normal capillary refill, no pedal edema, normal range of motion Neurologic/Psych: door liner II-XII nml as tested, no motor/sensory deficits, alert, oriented x 3 Skin: normal color Diagnostics Laboratory Results Results Past 24 Hours Test 09/30/17 10:30 09/30/17 12:13 Range/Units White Blood Count 8.45 4.8-10.8 K/uL Red Blood Count 4.38 4.7-6.1 M/uL Hemoglobin 12.6 14.0-18.0 g/dL Hematocrit 38.7 42-52 % Mean Corpuscular Volume 88.4 80-100 fL Mean Corpuscular Hemoglobin 28.8 25-34 pg Mean Corpuscular Hemoglobin Concent 32.6 32-36 g/dl RDW Standard Deviation 43.8 36.4-46.3 fL RDW Coefficient of Variation 13.5 11.5-14.5 % Platelet Count 238 130-400 K/uL Mean Platelet Volume 10.3 7.4-10.4 fL Prothrombin Time 10.7 9.0-12.0 SECONDS Prothromb Time International Ratio 1.0 0.9-1.1 Activated Partial Thromboplast Time 25.7 21.0-31.0 SECONDS Partial Thromboplastin Ratio 1.0 Sodium Level 139 136-145 mmol/L Potassium Level 4.0 3.5-5.1 mmol/L Chloride Level 107 98-107 mmol/L Carbon Dioxide Level 27 21-32 mmol/L Anion Gap 5.0 3-11 mmol/L Blood Urea Nitrogen 21 7-18 mg/dl Creatinine 1.51 0.60-1.40 mg/dl Est Creatinine Clear Calc Drug Dose 44.2 ml/min Estimated GFR () 52.7 Estimated GFR (Non- 45.5 BUN/Creatinine Ratio 13.9 10-20 Random Glucose 110 70-99 mg/dl Calcium Level 9.0 8.5-10.1 mg/dl Total Bilirubin 0.3 0.2-1 mg/dl Aspartate Amino Transf (AST/SGOT) 17 15-37 U/L Alanine Aminotransferase (ALT/SGPT) 19 12-78 U/L Alkaline Phosphatase 99 45-117 U/L Troponin I < 0.015 0-0.045 ng/ml Total Protein 7.0 6.4-8.2 gm/dl Albumin 3.6 3.4-5.0 gm/dl Globulin 3.4 2.5-4.0 gm/dl Albumin/Globulin Ratio 1.1 0.9-2 Lipase 258 73-393 U/L CXR normal EKG Sinus, PACs, no acute changes or evidence of acute ischemia Impression Assessment and Plan 72 y/o M Hx CAD - distant stent placement, HTH, HPL, Crohn's, CKD 2-3, GERD. Presents with persistent CP x 2 weeks. The pain is bilateral and involves the chest and upper abdomen. It does not worsen with exertion and does not respond to NTG. He is occasionally nauseous and states the pain can worsen with inspiration. He denies vomiting, diaphoresis or lightheadedness. The pt does state that the pain is exacerbated when he twists left or right and is disturbing his sleep due to persistence. He has not taken any analgesics. 1) CP - due top the persistence of his pain, diffuse location, reproducibility, this is more likely either musculoskeletal or possibly GI-related. He does not have a troponin elevation or EKG changes despite the duration of the pain. We will provide the pt with a dose of Toradol and a GI cocktail. We will check an additional troponin and a D-dimer as well. If no relevant abnormalities are present, would consider outpt stress-testing. He is on daily ASA, Bblocker, fish oil and Zetia - he is statin intolerant. It is noted that the pt had a similar presentation the previous year where the pain was again persistent and unresponsive. A dissection was ruled out at the time, however, he did not have follow-up stress testing. Stress testing should therefore be scheduled regardless, but is unlikely to take place until the holiday has passed. We would then recommend that the pt return to the hospital with new or worsening symptoms, or if he is unable to control his pain. 2) Crohn's = not currently treated - scheduled for upper and lower scope later in month. 3) HTN - cont Metoprolol, Lisinopril 4) CKD - creat slightly above baseline per records - will receive IVF prior to DC Please consider above a consult Dispo - pt will be discharged from the ER - advised on above and follow-up stress testing Total time for this consult including review of labs, records, EKG - additional labs and treatment of pt in ER - discussion with pt//ER attending - 38 min
[2017-09-30] MEDS ORDERED: KETOROLAC TROMETHAMINE 30 MG/ML VIAL IV STA (12:40)
[2017-09-30] MEDS ORDERED: SODIUM CHLORIDE 0.9% 1000ML 1,000 ML IV SCH (12:45)
[2017-09-30] MEDS ORDERED: ALUMINUM/MAGNESIUM SUSP 30 ML UDC PO STA (12:54)
[2017-09-30] MEDS ORDERED: KETOROLAC TROMETHAMINE 30 MG/ML VIAL ONE (13:37)
[2017-09-30] MEDS ORDERED: ALUMINUM/MAGNESIUM SUSP 30 ML UDC ONE (13:37)
[2017-09-30 14:00] VITALS: BP 152/82
[2017-09-30 14:45] VITALS: PULSE 64
[2018-02-05] MEDS ORDERED: LISI-461 PO (10:20)
[2018-02-05] MEDS ORDERED: CHOL100027 PO (11:48)
[2018-02-05] MEDS ORDERED: ASPI-319 PO (11:48)
[2018-02-05] MEDS ORDERED: LRS10 PO (15:13)
[2018-02-05] MEDS ORDERED: EZET10TA66 PO (15:13)
[2018-02-05] MEDS ORDERED: AMT25 PO (15:13)
[2018-02-05] MEDS ORDERED: PLV75 PO (15:13)
[2018-02-05] MEDS ORDERED: DPRSO45 TOP (15:13)
[2018-02-05] MEDS ORDERED: PANT40TA2 PO (15:13)
[2018-02-05] MEDS ORDERED: MELA1CAP9 PO (15:19)
[2018-02-05] MEDS ORDERED: MOML PO (15:19)
[2018-02-05] MEDS ORDERED: VTMB122500 SL (15:19)
[2018-02-05] MEDS ORDERED: COEN1CAP7 PO (19:18)
[2018-02-05] MEDS ORDERED: OMEG10007 PO (19:28)
[2018-02-05] MEDS ORDERED: TPRSR/50 PO (19:31)
[2018-02-05] MEDS ORDERED: LDXO60 TOP (19:46)
[2018-02-07] MEDS ORDERED: LISI-726 PO (14:55)
[2018-02-07] MEDS ORDERED: HYDR25TA5 PO (14:55)
[2018-02-07] MEDS ORDERED: DXY100 PO (14:55)
== END 2017-09-30 15:17 | disposition home or self-care (01) ==
LOC: C.EDB 10:10
DX: R07.2 Precordial pain (principal); I25.2 Old myocardial infarction; K50.90 Crohn's disease, unspecified, without complications; Z79.82 Long term (current) use of aspirin; E11.43 Type 2 diabetes mellitus with diabetic autonomic (poly)neuropathy; K21.9 Gastro-esophageal reflux disease without esophagitis; L40.9 Psoriasis, unspecified; Z87.891 Personal history of nicotine dependence; Z79.899 Other long term (current) drug therapy; Z95.5 Presence of coronary angioplasty implant and graft; E78.5 Hyperlipidemia, unspecified; N18.3 Chronic kidney disease, stage 3 (moderate); I12.9 Hypertensive chronic kidney disease with stage 1 through stage 4 chronic kidney disease, or unspecified chronic kidney disease; M19.90 Unspecified osteoarthritis, unspecified site; Z98.1 Arthrodesis status; Z79.01 Long term (current) use of anticoagulants

== ENCOUNTER → 2017-10-18 | Outpatient (CLI) | payer OTHER ==
[~2017-10-18] MED LIST changes: +ASPI81TA21 PO; +CHOL100027 PO; +COEN1CAP7 PO; +LDXO60 TOP; +LISI-461 PO; -LSN25 PO; -NRN100 PO; +OMEG10007 PO; +TPRSR/50 PO
--- NOTE | 2017-10-18 14:50 | DIAGNOSTIC IMAGING REPORT ---
CERVICAL SPINE 4 OR 5 VIEWS CLINICAL HISTORY: Neck pain. COMPARISON STUDY: Cervical spine fluoroscopic images February 26, 2009. FINDINGS: The patient is status post C5-C6 and C6-C7 anterior fusion and discectomy. Fusion at the C5-C6 level appears complete. There is partial bony incorporation at the C6-C7 level. No fracture is identified. Hardware is intact. Moderate multilevel bony neural foraminal narrowing is present. IMPRESSION: 1. No acute cervical spine fracture or subluxation. 2. Status post C5-6 and C6-C7 anterior discectomy and fusion. Hardware intact. 3. Moderate multilevel bony neural foraminal narrowing. Electronically signed by: Martín Travis M.D. 10/18/2017 2:49 PM Dictated Date/Time: 10/18/2017 2:47 PM
== END | disposition home or self-care (01) ==
LOC: C.RDSM 11:14
PROVIDERS: ATTEND Family Medicine
DX: M54.2 Cervicalgia (principal); Z98.1 Arthrodesis status

== ENCOUNTER → 2018-05-06 | Outpatient (CLI) | payer OTHER ==
[~2018-05-06] MED LIST changes: +AMT25 PO; +ASPI-319 PO; -ASPI81TA21 PO; -AUG0.05O4 TOP; -BACL10TA PO; -CLOP1TAB15 PO; -CYAN100020 PO; +DPRSO45 TOP; +DXY100 PO; -EZET10TA63 PO; +EZET10TA66 PO; +HYDR25TA5 PO; -LISI-461 PO; +LISI-726 PO; +LRS10 PO; +MELA1CAP9 PO; -MELA3TAB12 PO; +MOML PO; -MRLP17X PO; -NITR0.1S BU; -NXM/40 PO; -OXYC-57 PO; +PANT40TA2 PO; +PLV75 PO; +VTMB122500 SL
--- NOTE | 2018-05-07 06:03 | PAP/PSG TECHNICIAN REPORT ---
[facility] Energy Risk Management Analyst Polysomnogram Report Study name: None Report date: 05/07/2018 Study date: 05/06/2018 Referring Physician: Ranjan Savage Name: SARAI FREEMAN Interpreting Physician: Jarocho See M.D. Date of : 1945 Energy Risk Management Analyst: Edison August RPSGT. Sex: Male Age: 72 StudyType: PSG Weight: 195 lbs Height: 72 years, Height 5' 6" BMI: 31.47 Medications: CLOPIDOGREL BISULFATE 75 MG, METOPROLOL SUCCINATE ER 50 MG, NITROGLYCERIN 0.4 MG, LISINOPRIL 20 MG, CO Q 10 200 MG, ASPIRIN 81 MG, MELATONIN 10 MG Patient History PATIENT HAS HISTORY OF HYPERTENSION, CAD AND MYOCARDIAL INFARCTION. ALSO HAS HISTORY OF FEELING LOW ON ENERGY AND TIRED MOST OF THE DAY. HE GENERALLY WILL TAKE SEVERAL NAPS A DAY. 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 HE IS HERE TODAY FOR AN EVALUATION FOR BROOK. ESS = 9 RM 5 Parameters Monitored NPSG: E1-M2, E2-M1, Fp1-M2, Fp2-M1, F3-M2, F4-M2, F4-M1, C3-M2, C4-M2, C4-M1, O1-M2, O2-M2, O2-M1, T3-M2, T4-M1, P3-M2, P4-M1, CHIN1, CHIN2, HR, EKG, Legs, PFLOW, SNOR, FLOW, CFLOW, Tidal Volume, THOR, ABDO, SpO2, PLTH, CPRESS, ETCO2 Wave, ETCO2, pH Sleep Architecture Sleep Stages Time at Lights Off 9:01:27 PM STAGES Time (min.) TST (%) Time at Lights On 5:32:57 AM Wake 284.5 -- Total Recording Time (TRT) 512.00 min. N1 16.0 7 Total Sleep Period (TSP) 338.0 min. N2 157.5 69 Total Sleep Time (TST) 227.0min. N3 28.5 13 Awake Time 284.5 min. REM 25.0 11 Wake after Sleep Onset 111.0 min. Sleep Efficiency (SE) 44 % Sleep Onset Latency (DELORIS) 173.5 min. Number of Stage 1 Shifts None Awakenings 11 Stage Changes 52 Number of REM periods 2 REM 25.0 11 REM Latency 181.5 min. NREM 202.0 89 Body Position Analysis Supine Right Left Side Prone Vertical Total Sleep Time (min.) 238.3 0.0 166.5 166.50 0.0 0.0 Total Sleep Time (%) 27% 0% 73% 73 0% N/A% Total Sleep Time REM (min.) 6.5 0.0 18.5 None 0.0 0.0 Total Sleep Time NREM (min.) 54.0 0.0 148.0 None 0.0 0.0 Intermittent Wake (min.) 177.8 0.0 106.7 None 0.0 0.0 Total Sleep Period (%) 34% None None None None None Arousals Myoclonus (PLM) * Events Count Index Events Count Index Spontaneous 53 14 Events Awake (PLMW) 176 37.1 Respiratory 15 4.2 Events Asleep w/ Arousal (PLMA) 4 1.1 PLM 4 1 Events Asleep w/o Arousal (PLMS) 66 17.4 Snoring 1 0 Total Asleep 70 18.5 Total 73 19 Total 246 29 Respiratory Analysis * CA OA MA CH H RERA Total Count 0 69 5 0 42 0 116 Index 0.0 18.2 1.3 0 11.1 0 30.7 Mean Duration 0.0 19.0 18.3 0.00 21.3 0.0 19.8 Longest Duration 0.0 33.8 20.6 0.00 20.6 0.0 40.9 Respiratory Event Summary Total Supine ~Supine Right Left Prone REM NREM Apneas Count 74 74 0 N/A 0 N/A 8 66 Index 19.6 73 0 N/A 0.0 N/A 19 20 Hypopneas (4% Desat) Count 42 16 26 N/A 26 N/A 13 29 Index 11.1 15.9 9 N/A 9.4 N/A 31.2 8.6 Apneas & All Hypopneas Count 116 90 26 N/A 26 N/A 21 95 Index 30.7 89 9 N/A 9 N/A 50.4 28.2 Respiratory Events (Policy Officer+All Hyp+RERA) Count 116 90 26 N/A 26 N/A 21 95 Index 30.7 89 9 N/A 9.4 N/A 50.4 28.2 Respiratory Related Arousal Count 15 90 4 N/A 4 N/A 4 12 Index 4.2 12 1 N/A 1 N/A 10 4 Snoring Analysis Supine Right Left Prone REM NREM Total Snore duration 1.0 min Snores count 11 N/A 47 N/A 5 53 58 Snore mean duration 1.0 Sec Snores index 11 N/A 17 N/A 12.0 15.7 15.3 TST with snoring (%) 0.4% Desaturation Event Summary: Minimum %SpO2 Event Count Mean/Min/Max Duration(sec.) Desaturation Index % Time In Bed > 90 137 21.2 / 9.8 / 55.8 17.2 96.0 86 - 90 2 24.1 / 15.3 / 33.0 6.3 3.8 81 - 85 0 N/A 0.0 0.2 76 - 80 0 N/A 0.0 0.0 71 - 75 0 N/A 0.0 0.0 66 - 70 0 N/A 0.0 0.0 61 - 65 0 N/A 0.0 0.0 56 - 60 0 N/A 0.0 0.0 51 - 55 0 N/A 0.0 0.0 < 50 0 N/A 0.0 0.0 Total REM NREM Awake <50% 0.0 min. 0.0 min. 0.0 min. 0.0 min. 51 - 60% 0.0 min. 0.0 min. 0.0 min. 0.0 min. 61 - 70% 0.0 min. 0.0 min. 0.0 min. 0.0 min. 71 - 80% 0.0 min. 0.0 min. 0.0 min. 0.0 min. 81 - 90% 20.0 min. 6.3 min. 11.4 min. 2.3 min. 91 - 100% 477.5 min. 18.7 min. 190.6 min. 268.2 min. Average 93 92 93 94 Minimum SpO2 80 80 87 88 Desaturation Event Index 16.1 50.4 27.3 5.3 # Desat. Events below 89% 25 11 13 1 Time(%) with Saturation below 89% 0.8 0.5 0.2 0.0 Time(min.) with Saturation below 89% 4.0 2.6 1.2 0.1 Time (mins) REM (mins) NREM (mins) % of TST SpO2 Below 90% 83 20 N63 3.4 SpO2 Below 88% 12 0 0 1 Heart Rate Analysis Min (bpm) Max (bpm) Average (bpm) Awake 37 83 74 NREM 56 75 69 REM 58 77 69 Overall 56 77 69 Supplemental O2 Values Minimum O2 level: None Value Start Time End Time Energy Risk Management Analyst Comments Mr. Freeman slept in the left and supine positions. PVC's noted. Leg movements noted. No bruxism noted. Snoring was noted and scored as a 3 on a scale of 1 through 5. (0=no snoring, 5=snoring loud enough to be heard through a closed door or down the blanco way) Mr. Freeman awoke to use the restroom 1 time during the night. Mr. Freeman stated I slept as well as I do when I am in my own bed. The final report will be interpreted and signed by a sleep physician. The completed physician report will then be placed in the patient medical record. Therapy (cm H2O) 0 TIB (min.) 511.5 TST (min.) 227.0 Sleep Onset (min.) 173.5 REM Onset From Sleep (min.) 181.5 Sleep Efficiency % 44 Wakefulness (%) 56 Wakefulness (min.) 284.5 NREM 1 (%) 7 NREM 1 (min.) 16.0 NREM 2 (%) 69 NREM 2 (min.) 157.5 NREM 3 (%) 13 NREM 3 (min.) 28.5 REM (%) 11 REM (min.) 25.0 # Arousals 73 Arousal Index 19 # Snore 58 Snore Index 15.3 AHI 30.7 AHI Supine 89 AHI Non-Supine 9 NREM AHI 28.2 REM AHI 50.4 RDI 30.7 # Obstructive Apnea 69 # Central Apnea 0 # Mixed Apnea 5 # Hypopneas 42 RERAs 0 Total Respiratory Events 120 Time Below SpO2 89% (min.) 3.8 Mean NREM SpO2 (%) 93 Mean REM SpO2 (%) 92 Mean Sleep SpO2 (%) 93 Min NREM SpO2 (%) 87 Min REM SpO2 (%) 80 Position Supine (min.) 238.3 Position Non-supine (min.) 166.5 LM Index Sleep 18.5 LM Index NREM 16.9 LM Index REM 31.2 Mean Heart Rate (bpm) 69 Min Heart Rate (bpm) 56
--- NOTE | 2018-05-15 08:21 | POLYSOMNOGRAPH REPORT ---
CLINICAL DATA: A 72-year-old male with BMI of 31.[address] Savage with previous history of coronary artery disease, fatigue, and napping during the day. 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 SLEEP ARCHITECTURE: Total recording time was 512 minutes. Total sleep period was 338 minutes. Total sleep time was 227 minutes divided between 202 minutes of non-REM sleep and 25 minutes of REM sleep. Sleep latency was markedly delayed at 173.5 minutes. REM latency was 181.5 minutes. Sleep efficiency was 44%. Wake after sleep onset was 111 minutes. Sleep consisted of stage N1 7%, stage N2 69%, stage N3 13%, and REM 11%. AROUSAL DATA: 73 arousals were recorded for an index of 19 per hour. PLM DATA: 70 limb movements during sleep were noted for an index of 18.5 per hour with an arousal index of 1.1 per hour. RESPIRATORY DATA: Severe sleep apnea was documented. The AHI was 30.7. There were 69 obstructive and 5 mixed apneic episodes. The longest duration of apnea was 33.8 seconds. There were 42 hypopneic episodes. The longest hypopneic episode was 20.6 seconds. OXIMETRY DATA: Nocturnal hypoxemia was seen. Oxygen enoch was 80% during REM. Mean saturation was 93%. Time below 88% was 12 minutes. EKG: Heart rates ranged from 56 to 77 beats per minute. PVCs were noted. ADJUSTER AND INSPECTOR'S COMMENTS: The patient slept in the left and supine positions. Snoring was moderate, rated 3 on a scale of 1 through 5. The patient had marked delayed sleep onset. Once sleep was achieved, severe sleep apnea was seen. IMPRESSION: Severe obstructive sleep apnea/hypopnea with an AHI of 30.7 with nocturnal hypoxemia. RECOMMENDATIONS: The patient may benefit from a repeat sleep study with CPAP or sleep medicine consultation. If a repeat sleep study with CPAP is considered, the patient should be given Ambien 10 mg to use on the night of CPAP titration study. MTDD
== END | disposition home or self-care (01) ==
LOC: C.NEUR 20:00
PROVIDERS: ATTEND Internal Medicine Cardiovascular Disease
DX: G47.33 Obstructive sleep apnea (adult) (pediatric) (principal); G47.36 Sleep related hypoventilation in conditions classified elsewhere

== ENCOUNTER 2019-12-27 11:00 | Inpatient (IN) ==
--- NOTE | 2019-12-27 11:40 | XRay Report ---
XR chest 1V portable CLINICAL HISTORY: 74 years-old Male presenting with Chest Pain. TECHNIQUE: Portable upright AP view of the chest was obtained. COMPARISON: 12/06/2019. FINDINGS: Atherosclerosis of the aortic arch. Cardiac silhouette top normal in size. No focal opacity. No large effusion or pneumothorax. Anterior cervical fusion hardware. Upper abdomen normal. IMPRESSION: 1. No acute cardiopulmonary disease. ACT 112: Negative or not required by law. Electronically signed by: Dwayne Powers M.D. 12/27/2019 11:38 AM
[2019-12-27 11:55] LABS: Basophils # (auto) 0.04 K/uL (0-0.2); Basophils % (auto) 0.3 %; Eosinophils # (auto) 0.62 K/uL (0-0.5); Eosinophils % (auto) 4.8 %; Hematocrit (blood only) 42.9 % (42-52); Hemoglobin 14.1 g/dL (14.0-18.0); Immature Granulocytes # (auto) 0.05 K/uL (0.00-0.02); Immature Granulocytes % (auto) 0.4 %; Lymphocytes # (auto) 3.05 K/uL (1.2-3.4); Lymphocytes % (auto) 23.4 %; Mean Corpuscular Hemoglobin 30.4 pg (25-34); Mean Corpuscular Hgb Conc 32.9 g/dL (32-36); Mean Corpuscular Volume 92.5 fL (80-100); Monocytes # (auto) 1.05 K/uL (0.11-0.59); Monocytes % (auto) 8.1 %; Platelet Count 240 K/uL (130-400); RDW Coefficient of Variation 13.9 % (11.5-14.5); RDW Standard Deviation 46.7 fL (36.4-46.3); Red Blood Count 4.64 M/uL (4.7-6.1); White Blood Count 13.01 K/uL (4.8-10.8)
[2019-12-27 12:03] LABS: Appearance Urine Clear (Clear); Bacteria Urine Automated Negative (Negative); Bilirubin Urine Negative (Negative); Blood Urine 3+ (Negative); Color Urine Yellow; Glucose Urine UA Negative (Negative); Ketones Urine Negative (Negative); Leukocyte Esterase Urine Negative (Negative); Nitrite Urine Negative (Negative); Protein Urine 2+ (Negative); Specific Gravity Urine 1.019 (1.000-1.030); Urobilinogen Urine Negative (Negative)
[2019-12-27 12:08] LABS: INR 1.1 (0.9-1.1); Partial Thromboplastin Ratio 1.1; Partial Thromboplastin Time 30.8 Seconds (21.0-31.0); Prothrombin Time 11.3 Seconds (9.0-12.0)
--- NOTE | 2019-12-27 12:08 | Emergency Department Note ---
Impression & Plan Non-ST elevated myocardial infarction, ILIA (acute kidney injury), Elevated troponin I level, Acute electrocardiogram changes, Hypoglycemia Allergies Allergies Allergy/AdvReac Type Severity Reaction Status Date / Time Uidelzw-Xee-Qyt Reductase Allergy Unknown muscle Verified 12/27/19 11:21 Inhibitor aches HMG-CoA-R Inhibitors AdvReac Unknown MUSCLE Uncoded 12/27/19 11:21 ACHES Home Meds Home Medications Medication Instructions Recorded Confirmed glipizide 5 mg tablet 5 mg PO DAILY tab 05/16/19 12/27/19 amitriptyline 25 mg tablet 25 mg PO DAILY 06/14/19 12/27/19 baclofen 10 mg tablet 10 mg PO TID PRN 06/14/19 12/27/19 betamethasone dipropionate 0.05 % 1 appln TOP BID PRN 06/14/19 12/27/19 topical cream magnesium chloride 71.5 mg 143 mg PO BID tab 06/14/19 12/27/19 (magnesium chloride) tablet,delayed release omega-3 fatty acids 1,000 mg 1,000 mg PO DAILY 06/14/19 12/27/19 capsule pravastatin 10 mg tablet 10 mg PO DAILY 06/14/19 12/27/19 triamcinolone acetonide 0.1 % 1 appln TOP DAILY PRN 06/14/19 12/27/19 topical cream chlorpheniramine maleate [Allergy 4 mg PO Q8H PRN 08/01/19 12/27/19 (chlorpheniramine)] cholecalciferol (vitamin D3) 1,000 unit PO DAILY 08/01/19 12/27/19 [Vitamin D3] insulin glargine [Lantus Solostar 12 unit SUBCUT QPM 08/01/19 12/27/19 U-100 Insulin] lisinopril 40 mg PO DAILY 08/01/19 12/27/19 aspirin 81 mg PO DAILY 12/27/19 12/27/19 fluticasone propionate [Flonase 2 sprays INTNAS DAILY PRN 12/27/19 12/27/19 Allergy Relief] Previous Rx's Medication Instructions Recorded nitroglycerin 400 mcg/spray 0.4 mg SL Q5M PRN #4.9 gm 06/22/19 translingual clopidogrel 75 mg tablet 75 mg PO DAILY #90 tab 07/14/19 metoprolol succinate 50 mg 50 mg PO DAILY #90 tab 08/07/19 tablet,extended release 24 hr hydrochlorothiazide 12.5 mg tablet 12.5 mg PO DAILY #90 tab 09/06/19 pantoprazole 40 mg tablet,delayed 40 mg PO BID #180 tab 10/15/19 release ED Provider Note NAME: SARAI FREEMAN AGE: 74 SEX: M ARRIVES VIA: Ambulance INFORMANT: [Patient] ED PROVIDER(S): Jarocho Piña MD CHIEF COMPLAINT: Hypertension and shortness of breath PLAN: Disposition: Admitted Condition: [Good] MEDICAL DECISION MAKING: The patient presented and was complaining of chest pressure. He also noted hypertension. ECG revealed T wave inversions which were new laterally. Blood work was obtained. Chest imaging was negative. Patient was found to have a slight leukocytosis. He did have left lower quadrant abdominal pain and noted constipation. CT imaging was negative except for constipation. The patient was found to have an elevated troponin concerning for non-ST elevation [place]. He does have an extensive coronary history. The patient was started on IV heparin and Nitropaste was applied. He had already taken his metoprolol for the day. He was given additional baby aspirin. I did consult with Dr. Christianson of cardiology and he agreed with the treatment. The patient will be seen in the hospital for consultation. I discussed the case with the [facility] hospitalist team. He will be admitted under Dr. Ryder. Patient and were educated. They were pleased with the treatment. The patient was admitted for further management. Triage Nursing notes reviewed and agree them. [Additional history obtained from] the patient's [Prior medical records reviewed] the patient has a history of diabetes and hypertension. Coronary disease noted. Vital Signs: reviewed and remarkable for [no significant abnormalities] Differential diagnosis: Reactive airway disease, benign hypertension, hypertensive crisis, ACS, pneumonia, pneumothorax, COPD, CHF, infections, cardiac ischemia, pulmonary embolism, musculoskeletal, gastrointestinal, as well as other pathologies. ER treatment provided: IV heparin Nitropaste Oral aspirin Diagnostics interpreted by me: ECG:Rate: 66 Rhythm: Normal sinus rhythm [place]: Normal axis QRS: Prolonged QT ST segements: T wave inversions laterally Other: No PACs or PVCs Cardiac Monitoring: Cardiac monitoring ordered by me: The patient was placed on continuous cardiac monitoring and observed. It revealed a normal sinus rhythm at 74 beats per minute without ectopy or evidence of dysrhythmia. Laboratory studies: [See below] elevated troponin, mild ILIA, mild hypoglycemia. Imaging studies: chest x-ray and CT scan performed. These were negative for acute pathology. Constipation noted on CT. Consultation(s): Cardiology and internal medicine HPI: The patient is a 74 year old male who presents to the Emergency Room with complaints of shortness of breath and hypertension. This started this morning and is stable. The patient also notes the following associated symptoms, cough for 1 month, left lower quadrant abdominal pain, constipation. The patient notes his blood pressure was over 200 systolic this morning. The patient has laxatives for the constipation as relieving factors. Current pain is rated as 4/10. Patient denies any recent travel or sick contacts. He does have a cardiac history. Pt denies LOC, headache, fevers, chills, diaphoresis, visual changes, neck pain, chest pain, breathing difficulties, nausea, vomiting, abdominal pain, back pain, melena, hematochezia, urinary symptoms, numbness, weakness, lymphadenopathy, rash, or other complaints. ROS: See above HPI for pertinent positives & negatives. A total of [10] systems reviewed and were otherwise negative. PAST MEDICAL HISTORY:[See Below] CAD, hypertension, chronic kidney disease PAST SURGICAL HISTORY:[See Below]coronary stent FAMILY HISTORY:[See Below] SOCIAL HISTORY:[See Below] . Former smoker HOME MEDICATIONS:[See above] ALLERGIES:[See above] VITALS:[See Below] PHYSICAL EXAMINATION: GENERAL: Awake, alert, well-appearing, in no distress HENT: Normocephalic, atraumatic. Oropharynx unremarkable. EYES: Normal conjunctiva. Sclera non-icteric. NECK: Inspection normal. Non-tender. Supple. No nuchal rigidity. FROM. No masses. RESPIRATORY: Clear to auscultation. No wheezes. No rales. Normal respiratory effort. CARDIAC: Normal rate. Normal rhythm. No murmurs. No rubs. Extremities warm and well perfused. Pulses equal. No JVD. GI: Soft, non-distended. No tenderness to palpation. No rebound or guarding. No masses. RECTAL: Deferred. MUSCULOSKELETAL: Atraumatic. Chest examination reveals no tenderness. The back is symmetrical on inspection without obvious abnormality. There is no CVA tenderness to palpation. No joint edema. LOWER EXTREMITIES: Calves are equal size bilaterally and non-tender. No edema. No discoloration. NEURO: Normal sensorium. No sensory or motor deficits noted. SKIN: No rash or jaundice noted. ED COURSE: Procedures: [none] [Critical Care:] I have personally spent greater than 36 minutes of critical care time in the direct management of this patient. This includes bedside care, interpretation of diagnostic studies, and testing, discussion with consultants, patient, and family members, and other required patient management activities. This 36 minutes is in excess of all separately billable procedures. Jarocho Piña MD Past Med/Surg History Social History Preferred Language: Niuean marital status: Current Living Situation: Spouse current occupational status: retired Feels Safe at Home: Yes Smoking Status: Former smoker Tobacco Type: cigarettes ; Age Started Using Tobacco: 8 ; Age Quit Using Tobacco: 48 ; packs per day: 1 ; Results & Data (ED) Vital Signs Vital Signs - 24 hr 12/27/19 10:55 12/27/19 11:04 12/27/19 11:25 Temperature 37.1 C Temperature Source Oral Pulse Rate 73 66 Pulse Rate from SpO2 Sensor 65 Pulse Rhythm Regular Pulse Strength Normal Respiratory Rate 15 12 Respiratory Effort / Characteristics Non-Labored Spontaneous Respiratory Depth Normal Respiratory Pattern Regular Blood Pressure 165/91 H 165/91 H Blood Pressure Mean 115 121 Blood Pressure Position Lying Pulse Oximetry 97 99 97 Oxygen Delivery Method Room Air Room Air Room Air Oxygen Flow Rate 97 Sepsis Recent Fever Within 48 Hours No Sepsis New/Unexplained Change in Mental Status No Sepsis Action Taken by Nursing No Action Required 12/27/19 11:37 12/27/19 12:00 12/27/19 12:30 Temperature Temperature Source Pulse Rate 71 65 66 Pulse Rate from SpO2 Sensor 71 65 67 Pulse Rhythm Pulse Strength Respiratory Rate 21 13 12 Respiratory Effort / Characteristics Respiratory Depth Respiratory Pattern Blood Pressure 172/95 H 149/92 H 146/74 H Blood Pressure Mean 117 115 99 Blood Pressure Position Pulse Oximetry 99 98 96 Oxygen Delivery Method Room Air Room Air Room Air Oxygen Flow Rate Sepsis Recent Fever Within 48 Hours Sepsis New/Unexplained Change in Mental Status Sepsis Action Taken by Nursing 12/27/19 13:01 Temperature Temperature Source Pulse Rate 71 Pulse Rate from SpO2 Sensor 71 Pulse Rhythm Pulse Strength Respiratory Rate 14 Respiratory Effort / Characteristics Respiratory Depth Respiratory Pattern Blood Pressure 178/55 H Blood Pressure Mean 95 Blood Pressure Position Pulse Oximetry 97 Oxygen Delivery Method Room Air Oxygen Flow Rate Sepsis Recent Fever Within 48 Hours Sepsis New/Unexplained Change in Mental Status Sepsis Action Taken by Nursing Laboratory Data Result diagrams: 12/27/19 11:42 12/27/19 11:42 Lab Results 12/27/19 12/27/19 12/27/19 Range/Units 11:30 11:42 11:42 WBC 13.01 H (4.8-10.8) K/uL RBC 4.64 L (4.7-6.1) M/uL Hgb 14.1 (14.0-18.0) g/dL Hct 42.9 (42-52) % MCV 92.5 (80-100) fL MCH 30.4 (25-34) pg MCHC 32.9 (32-36) g/dL RDW Std Deviation 46.7 H (36.4-46.3) fL RDW Coeff of Amalia 13.9 (11.5-14.5) % Plt Count 240 (130-400) K/uL MPV 10.0 (7.4-10.4) fL Immature Gran % (Auto) 0.4 % Neut % (Auto) 63.0 % Lymph % (Auto) 23.4 % [place] % (Auto) 8.1 % Eos % (Auto) 4.8 % Baso % (Auto) 0.3 % Immature Gran # (Auto) 0.05 H (0.00-0.02) K/uL Neut # (Auto) 8.20 H (1.4-6.5) K/uL Lymph # (Auto) 3.05 (1.2-3.4) K/uL [place] # (Auto) 1.05 H (0.11-0.59) K/uL Eos # (Auto) 0.62 H (0-0.5) K/uL Baso # (Auto) 0.04 (0-0.2) K/uL PT 11.3 (9.0-12.0) Seconds INR 1.1 (0.9-1.1) APTT 30.8 (21.0-31.0) Seconds PTT Ratio 1.1 Sodium (136-145) mmol/L Potassium (3.5-5.1) mmol/L Chloride (98-107) mmol/L Carbon Dioxide (21-32) mmol/L Anion Gap (3-11) BUN (7-18) mg/dl Creatinine (0.6-1.4) mg/dl Est Cr Clr Drug Dosing ml/min Est GFR ( Amer) Est GFR (Non-Af Amer) BUN/Creatinine Ratio (10-20) Glucose (70-99) mg/dl POC Glucose (70-99) mg/dl Calcium (8.5-10.1) mg/dl Magnesium (1.8-2.4) mg/dl Total Bilirubin (0.2-1) mg/dl AST (15-37) U/L ALT (12-78) U/L Alkaline Phosphatase (45-117) U/L Troponin I (0-0.045) ng/ml Total Protein (6.4-8.2) gm/dl Albumin (3.4-5.0) gm/dl Globulin (2.5-4.0) gm/dl Albumin/Globulin Ratio (0.9-2) Lipase (73-393) U/L Specimen Hemolysis Urine Color Yellow Urine Appearance Clear (Clear) Urine pH 5.0 (4.5-7.5) Ur Specific Barry 1.019 (1.000-1.030) Urine Protein 2+ H (Negative) Urine Glucose (UA) Negative (Negative) Urine Ketones Negative (Negative) Urine Blood 3+ H (Negative) Urine Nitrite Negative (Negative) Urine Bilirubin Negative (Negative) Urine Urobilinogen Negative (Negative) Ur Leukocyte Esterase Negative (Negative) Urine WBC (Auto) 1-5 (0-5) /hpf Urine RBC (Auto) 10-30 H (0-4) /hpf U Hyaline Cast (Auto) 1-5 (0-5) /lpf U Epithel Cells (Auto) 10-20 H (0-5) /lpf Urine Bacteria (Auto) Negative (Negative) Influenza Type A (PCR) (Neg) Influenza Type B (PCR) (Neg) 12/27/19 12/27/19 12/27/19 Range/Units 11:42 11:45 12:52 WBC (4.8-10.8) K/uL RBC (4.7-6.1) M/uL Hgb (14.0-18.0) g/dL Hct (42-52) % MCV (80-100) fL MCH (25-34) pg MCHC (32-36) g/dL RDW Std Deviation (36.4-46.3) fL RDW Coeff of Amalia (11.5-14.5) % Plt Count (130-400) K/uL MPV (7.4-10.4) fL Immature Gran % (Auto) % Neut % (Auto) % Lymph % (Auto) % [place] % (Auto) % Eos % (Auto) % Baso % (Auto) % Immature Gran # (Auto) (0.00-0.02) K/uL Neut # (Auto) (1.4-6.5) K/uL Lymph # (Auto) (1.2-3.4) K/uL [place] # (Auto) (0.11-0.59) K/uL Eos # (Auto) (0-0.5) K/uL Baso # (Auto) (0-0.2) K/uL PT (9.0-12.0) Seconds INR (0.9-1.1) APTT (21.0-31.0) Seconds PTT Ratio Sodium 138 (136-145) mmol/L Potassium 3.9 (3.5-5.1) mmol/L Chloride 109 H (98-107) mmol/L Carbon Dioxide 27 (21-32) mmol/L Anion Gap 2.0 L (3-11) BUN 36 H (7-18) mg/dl Creatinine 2.59 H (0.6-1.4) mg/dl Est Cr Clr Drug Dosing 26.9 ml/min Est GFR ( Amer) 27.1 Est GFR (Non-Af Amer) 23.4 BUN/Creatinine Ratio 13.8 (10-20) Glucose 65 L (70-99) mg/dl POC Glucose 67 L* (70-99) mg/dl Calcium 8.6 (8.5-10.1) mg/dl Magnesium 1.7 L (1.8-2.4) mg/dl Total Bilirubin 0.4 (0.2-1) mg/dl AST 55 H (15-37) U/L ALT 22 (12-78) U/L Alkaline Phosphatase 75 (45-117) U/L Troponin I 4.430 H* (0-0.045) ng/ml Total Protein 7.5 (6.4-8.2) gm/dl Albumin 3.5 (3.4-5.0) gm/dl Globulin 4.0 (2.5-4.0) gm/dl Albumin/Globulin Ratio 0.9 (0.9-2) Lipase 244 (73-393) U/L Specimen Hemolysis Urine Color Urine Appearance (Clear) Urine pH (4.5-7.5) Ur Specific Barry (1.000-1.030) Urine Protein (Negative) Urine Glucose (UA) (Negative) Urine Ketones (Negative) Urine Blood (Negative) Urine Nitrite (Negative) Urine Bilirubin (Negative) Urine Urobilinogen (Negative) Ur Leukocyte Esterase (Negative) Urine WBC (Auto) (0-5) /hpf Urine RBC (Auto) (0-4) /hpf U Hyaline Cast (Auto) (0-5) /lpf U Epithel Cells (Auto) (0-5) /lpf Urine Bacteria (Auto) (Negative) Influenza Type A (PCR) Neg for Influ A (Neg) Influenza Type B (PCR) Neg for Influ B (Neg) Administered Medications Heparin Sodium/Dextrose (Heparin Sodium/Dextrose) 25,000 units in 500 mls @ 27 mls/hr IV .[id number] [facility]; Protocol Stop: 01/26/20 12:44 Last Admin: 12/27/19 13:13 Dose: 1,350 units/hr, 27 mls/hr Documented by: [id number] Cosigned by: [id number] Sodium Chloride (Nss 1000ml) 1,000 mls @ 125 mls/hr IV .Q8H STA Stop: 12/27/19 20:39 Last Admin: 12/27/19 13:12 Dose: 125 mls/hr Documented by: [id number] Discontinued Medications Aspirin (Aspirin) 243 mg PO NOW STA Stop: 12/27/19 12:33 Last Admin: 12/27/19 13:11 Dose: 243 mg Documented by: [id number] Heparin Sodium (Beef Lung) (Heparin Sod 5000u Heart Alert) Confirm Administered Dose 5,000 units .ROUTE .STK-MED ONE Stop: 12/27/19 12:53 Last Admin: 12/27/19 13:13 Dose: 5,000 units Documented by: [id number] Cosigned by: [id number] Heparin Sodium/Dextrose () 1 ea N/A NOW STA; Protocol Stop: 12/27/19 12:33 Last Admin: 12/27/19 13:28 Dose: Not Given Documented by: [id number] Nitroglycerin (Nitro-Bid 2%) 0.5 inch EXT NOW STA Stop: 12/27/19 12:33 Last Admin: 12/27/19 13:10 Dose: 0.5 inch Documented by: [id number] Discharge Plan Visit Data Chief Complaint: Illness ED Provider: Jarocho Piña Discharge Problem: Non-ST elevated myocardial infarction, ILIA (acute kidney injury), Elevated troponin I level, Acute electrocardiogram changes, Hypoglycemia Discharge Instructions Interventions: ED Discharge Assessment Last Done: 12/27/19 14:39 Forms Stand Alone Forms: My [facility] Prescriptions Prescriptions: No Action clopidogrel 75 mg tablet 75 mg PO DAILY Qty: 90 RF: 3 metoprolol succinate 50 mg tablet extended release 24 hr 50 mg PO DAILY Qty: 90 RF: 3 pantoprazole 40 mg tablet,delayed release (DR/EC) 40 mg PO BID Qty: 180 RF: 3 glipizide 5 mg tablet 5 mg PO DAILY RF: 0 nitroglycerin 400 mcg/spray spray,non-aerosol 0.4 mg SL Q5M PRN (Reason: chest pain) Qty: 4.9 RF: 1 amitriptyline 25 mg tablet 25 mg PO DAILY RF: 0 baclofen 10 mg tablet 10 mg PO TID PRN (Reason: muscle spasms) RF: 0 betamethasone dipropionate 0.05 % cream 1 appln TOP BID PRN (Reason: flare ups) RF: 0 Slow-Mag 71.5 mg tablet,delayed release (DR/EC) 143 mg PO BID RF: 0 omega-3 fatty acids [Fish Oil Concentrate] 1,000 mg capsule 1,000 mg PO DAILY RF: 0 pravastatin 10 mg tablet 10 mg PO DAILY RF: 0 triamcinolone acetonide 0.1 % cream 1 appln TOP DAILY PRN (Reason: flare ups) RF: 0 hydrochlorothiazide 12.5 mg tablet 12.5 mg PO DAILY Qty: 90 RF: 3 aspirin 81 mg Tablet,Delayed Release (Dr/Ec) 81 mg PO DAILY RF: 0 fluticasone propionate [Flonase Allergy Relief] 50 mcg/actuation spray,suspension 2 sprays INTNAS DAILY PRN (Reason: Congestion) RF: 0 lisinopril 40 mg Tablet 40 mg PO DAILY RF: 0 Lantus Solostar U-100 Insulin 100 unit/mL (3 mL) insulin pen 12 unit subcut QPM RF: 0 cholecalciferol (vitamin D3) [Vitamin D3] 1,000 unit Tablet,Chewable 1,000 unit PO DAILY RF: 0 chlorpheniramine maleate [Allergy (chlorpheniramine)] 4 mg tablet 4 mg PO Q8H PRN (Reason: Itching) RF: 0 Referrals Referrals: Shaina Kenyon [Primary Care Provider] -
[2019-12-27 12:15] LABS: Albumin Level 3.5 gm/dl (3.4-5.0); BUN Creatinine Ratio 13.8 (10-20); Calcium 8.6 mg/dl (8.5-10.1); Creatinine Clr Calc Pharmacy 26.9 ml/min; Est GFR (African American) 27.1; Est GFR (Non-African American) 23.4; Magnesium 1.7 mg/dl (1.8-2.4); Potassium 3.9 mmol/L (3.5-5.1)
[2019-12-27 12:23] LABS: Albumin Globulin Ratio 0.9 (0.9-2); Bilirubin,Total 0.4 mg/dl (0.2-1); Total Protein 7.5 gm/dl (6.4-8.2); Troponin I 4.43 ng/ml (0-0.045)
--- NOTE | 2019-12-27 12:26 | CT Scan Report ---
CT SCAN OF THE ABDOMEN AND PELVIS WITHOUT IV CONTRAST CLINICAL HISTORY: Left lower quadrant abdominal pain. Dyspnea. Chills. COMPARISON STUDY: Abdominal CT dated 05/25/2019. TECHNIQUE: CT scan of the abdomen and pelvis is performed from the lung bases to the proximal femora. Images are reviewed in the axial, sagittal, and coronal planes. IV contrast was not administered for this examination as per the referring clinician. Note that the examination was performed in suboptim al fashion without oral and IV contrast. A dose lowering technique was utilized adhering to the [facility] of [place]. CT DOSE: 656.36 mGy.cm FINDINGS: Lung bases: The heart is normal in size and without pericardial effusion. The coronary arteries are d ensely calcified. There is a small hiatal hernia. Calcified plural plaque is noted at the left lung b ase. The lung bases are otherwise clear. Liver: The unenhanced liver is normal in size, contour, and attenuation. There is no intrahepatic dorita iary ductal dilatation. Gallbladder: Surgically absent noting clips in the gallbladder fossa. Spleen: Normal in size and attenuation. A calcified splenic granuloma is noted. Pancreas: Unremarkable. Adrenal glands: Unremarkable. Kidneys: The unenhanced kidneys demonstrate cortical atrophy and are without hydronephrosis. There ar e no renal calculi identified. There is no evidence of contour deforming renal mass lesion. Abdominal vasculature: The abdominal aorta is normal in course and caliber noting moderate to advance d atherosclerotic calcification. Bowel: There is no bowel obstruction. There is mild colonic diverticulosis without CT evidence of ac lummi diverticulitis. The appendix is well visualized and normal. Peritoneum: There is no intraperitoneal free air or abdominal ascites. There is a small fat-containin g umbilical hernia. Lymphadenopathy: None. Pelvic viscera: The bladder, prostate, and seminal vesicles are normal as visualized. Skeletal structures: The skeletal structures are osteopenic. Moderate lumbosacral spondylosis is obs erved. No lytic or blastic lesions are seen. IMPRESSION: 1. There are no acute infectious or inflammatory findings in the abdomen or pelvis. 2. Mild colonic diverticulosis without CT evidence of acute diverticulitis. ACT 112: Negative or not required by law. Electronically signed by: Osbaldo Martinez M.D. 12/27/2019 12:25 PM
[2019-12-27 12:29] LABS: Influenza A virus by PCR Neg for Influ A (Neg); Influenza B virus by PCR Neg for Influ B (Neg)
[2019-12-27] MEDS ORDERED: ASPIRIN CHEW 324 MG PO STA (12:32)
[2019-12-27] MEDS ORDERED: NITROGLYCERIN 2% OINTMENT 30GM TUBE EXT STA (12:32)
[2019-12-27] MEDS ORDERED: SODIUM CHLORIDE 0.9% 1000ML 1,000 ML IV STA (12:40)
[2019-12-27] MEDS ORDERED: HEPARIN SQ 5000 UNIT HEART ALERT CARP ONE (12:52)
[2019-12-27] MEDS: HEPARIN SODIUM/DEXTROSE 25,000 UNITS/500 ML BAG IV SCH (13:13)
--- NOTE | 2019-12-27 14:33 | History & Physical Report ---
Date of Service December 27, 2019 Assessment & Plan (1) Chest pain: - Admit to telemetry for observation With unstable angina, trop + at 4, ECG with TWIs lateral leads Now ches tpain free with ASA and nitro - Cardiology consult - Follow serial cardiac biomarkers, initial troponin was 4.430, trending 2 more sets - Will order ECHO. - Checking lipids, A1c morning labs - Will make NPO after midnight for possible cardiac cath tomorrow if ILIA improved. - Continue Pravastatin 10mg daily. Patient is intolerant of higher dosing due muscle cramping and pain. - Heparin drip started. -continue ASA, Plavix, metoprolol - Supportive management with O2 -continue nitropaste, and morphine -needs improved BP control--> start diltiazem 30mg po q6h (2) NSTEMI (non-ST elevated myocardial infarction): as above (3) Acute kidney injury: -Acute renal failure in setting of chronic kidney disease stage 3. Cr elevated at 2.59 with baseline of 1.4-1.7. -Hold HCTZ and Lisinopril. -Will order 1000ml NSS bolus at 70mls/hr x 1. -Repeat BMP at 1800. UA with 3+ blood and 2+ protein, no casts BUN elevated also -seems prerenal in setting of diuretic and ACEi use -check Ur Na+ and Ur chief engineer research (4) Chronic kidney disease: as above, -avoid nephrotoxins -renally dose medications (5) Hypertension: -BP elevated at 178/55. Noted to be 205/115 upon waking this morning. With hypertensive urgency/emergency with elevated troponin and NSTEMI -HCTZ and Lisinopril held d/t elevated Cr. -Continue metoprolol PO 50mg daily. -can give Lopressor 5mg IV q4 PRN for SBP >180 and diastolic BP >110. -start diltiazem 30mg po q6h -started nitropaste 1 in q6h (6) Diabetes: - Type II Diabetes. - Glipizide held. - Continue Lantus, but will decrease dose to 6 units from his home dose of 12 units as he will be make NPO after midnight. - HgbA1C in AM. (7) GERD (gastroesophageal reflux disease): -Continue pantoprazole. (8) Psoriasis: -Currently controlled. Hold home topicals. (9) Crohn's disease: - Currently controlled. Patient c/o constipation. Had CT abd/pel on admission for report of abd pain which he is now denying -normal CT, nontender on exam - Daily Miralax dose and MOM PRN. (10) Hypomagnesemia: -Replace with 1gm IV x 1 dose. Repeat lab in AM. (11) DVT prophylaxis: DVT proph - Heparin Drip CODE: Full Code Dispo: From home, likely to remain in the hospital x 2-3 days. History of Present Illness Chief Complaint: Chest pain, dizziness Primary Care Provider: Shaina Kenyon 74 yo male presents today with c/o chest pain and dizziness which started upon waking this morning around 8am. He also reports nausea and chills. He did not take his temperature at home, but reports subjective fevers. He is currently afebrile. Patient reports he took his BP upon waking, and it was noted to be 205/115, so the EMS was summoned. He also reports chest pressure radiating down his arms bilaterally. Patient has a hx of CAD and acute MD on FEBRUARY 23, 2004. Hx of cardiac stent to the mid RCA in 2003, and stent placement to the early-mid RCA in 2007, followed with a proximal left circumflex stent placement several days later in February 2008. He has a hx of HTN on HCTZ and lisinopril. Cr noted to be elevated today at 2.59. He has baseline CKD stage III with a baseline Cr of 1.4-1.7. Patient has a hx of type II diabetes with last Hgb A1C noted to be 7.9% October 2018. Glucose noted to be 67 upon arrival. He denies eating any breakfast this morning as he was not feeling well. He is currently on glipizide and lantus. Other PMH includes a hx of GERD, gastroparesis, Crohn's disease, psoriasis, arthritis, vitamin D deficiency, and constipation. Allergies Allergy/AdvReac Type Severity Reaction Status Date / Time Rxtzhzw-Pke-Yet Reductase Allergy Unknown muscle Verified 12/27/19 11:21 Inhibitor aches HMG-CoA-R Inhibitors AdvReac Unknown MUSCLE Uncoded 12/27/19 11:21 ACHES Home Medications Home Medications Medication Instructions Recorded Confirmed Type glipizide 5 mg tablet 5 mg PO DAILY tab 05/16/19 12/27/19 History betamethasone dipropionate 0.05 % 1 appln TOP BID PRN 06/14/19 12/27/19 History topical cream magnesium chloride 71.5 mg 143 mg PO BID tab 06/14/19 12/27/19 History (magnesium chloride) tablet,delayed release omega-3 fatty acids 1,000 mg 3,000 mg PO DAILY 06/14/19 12/27/19 History capsule pravastatin 10 mg tablet 10 mg PO HS 06/14/19 12/27/19 History triamcinolone acetonide 0.1 % 1 appln TOP DAILY PRN 06/14/19 12/27/19 History topical cream nitroglycerin 400 mcg/spray 0.4 mg SL Q5M PRN #4.9 gm 06/22/19 12/27/19 Rx translingual clopidogrel 75 mg tablet 75 mg PO DAILY #90 tab 07/14/19 12/27/19 Rx chlorpheniramine maleate [Allergy 4 mg PO Q8H PRN 08/01/19 12/27/19 History (chlorpheniramine)] cholecalciferol (vitamin D3) 1,000 unit PO DAILY 08/01/19 12/27/19 History [Vitamin D3] insulin glargine [Lantus Solostar 12 unit SUBCUT QPM 08/01/19 12/27/19 History U-100 Insulin] lisinopril 40 mg PO DAILY 08/01/19 12/27/19 History metoprolol succinate 50 mg 50 mg PO DAILY #90 tab 08/07/19 12/27/19 Rx tablet,extended release 24 hr hydrochlorothiazide 12.5 mg tablet 12.5 mg PO DAILY #90 tab 09/06/19 12/27/19 Rx pantoprazole 40 mg tablet,delayed 40 mg PO BID #180 tab 10/15/19 12/27/19 Rx release aspirin 81 mg PO HS 12/27/19 12/27/19 History coQ10 (ubiquinol) 400 mg PO DAILY 12/27/19 12/27/19 History fluticasone propionate [Flonase 2 sprays INTNAS DAILY PRN 12/27/19 12/27/19 History Allergy Relief] melatonin 10 mg PO HS 12/27/19 12/27/19 History vitamin E 400 unit PO DAILY 12/27/19 12/27/19 History Past Med/Surg History Medical History (Updated 12/27/19 @ 18:05 by Kat Ryder MD) Accelerated hypertension Arthritis (Chronic) Chest pain (Acute 07/11/14) Chronic kidney disease (Chronic) Constipation (Acute) Crohn's disease (Chronic) Diabetes (Chronic) Dysmetria (Resolved) Expressive aphasia Gastroparesis (Chronic) GERD (gastroesophageal reflux disease) (Chronic) Hypertension (Chronic) Psoriasis (Chronic) Pyelonephritis (Resolved) Thrombocytopenia (Acute) Vitamin D deficiency (Chronic) Surgical History (Updated 12/27/19 @ 18:06 by Kat Ryder MD) History of cardiac catheterization History of Cath Stent 1 Type Drug-Eluting History of Cath Stent 2 Proximal Right Coronary Artery History of cholecystectomy History of PTCA Family History Father Coronary heart disease Brother Pulmonary embolism Colon cancer Hx of CABG Mother Coronary heart disease Social History Preferred Language: Nicaraguan Metal Trimmer Required: No Beliefs That Will Affect Care: None marital status: Current Living Situation: Spouse current occupational status: retired Other Information That Helps Us Care for You: No Feels Safe at Home: Yes Safety Concerns: Feels Safe At This Time Smoking Status: Former smoker Tobacco Type: cigarettes ; Age Started Using Tobacco: 8 ; Age Quit Using Tobacco: 48 ; packs per day: 1 ; Do You Dip or Chew Tobacco: Yes ; Second Hand Exposure: Yes ; Tobacco Cessation Education Requested by Patient: No Hx Alcohol Use: No Hx Substance Use: No Review of Systems Constitutional: + chills; no fever Eyes: no worsening vision Ear, Nose, Mouth, Throat: + dizziness Respiratory: no dyspnea Cardiovascular: + chest pain and + radiating jaw, neck or arm pain (radiating to the bilateral arms ) Gastrointestinal: + nausea and + constipation; no abdominal pain and no vomiting Genitourinary: no dysuria and no hematuria Neurologic: no falls Endocrine: no fatigue Physical Exam Physical Exam: Temp Pulse Resp BP Pulse Ox 37.1 C 71 14 178/55 H 97 12/27/19 10:55 12/27/19 13:01 12/27/19 13:01 12/27/19 13:01 12/27/19 13:01 Laboratory Results WBC 13.01 K/uL (4.8-1 0.8) H 12/27/19 11:42 RBC 4.64 M/uL (4.7-6. 1) L 12/27/19 11:42 Hgb 14.1 g/dL (14.0-1 8.0) 12/27/19 11:42 Hct 42.9 % (42-52) 12/27/19 11:42 MCV 92.5 fL (80-100) 12/27/19 11:42 MCH 30.4 pg (25-34) 12/27/19 11:42 MCHC 32.9 g/dL (32-36) 12/27/19 11:42 RDW Std Deviation 46.7 fL (36.4-46. 3) H 12/27/19 11:42 RDW Coeff of Amalia 13.9 % (11.5-14.5 ) 12/27/19 11:42 Plt Count 240 K/uL (130-400 ) 12/27/19 11:42 MPV 10.0 fL (7.4-10.4 ) 12/27/19 11:42 Immature Gran % (A uto) 0.4 % 12/27/19 11:42 Neut % (Auto) 63.0 % 12/27/19 11:42 Lymph % (Auto) 23.4 % 12/27/19 11:42 Treasure % (Auto) 8.1 % 12/27/19 11:42 Eos % (Auto) 4.8 % 12/27/19 11:42 Baso % (Auto) 0.3 % 12/27/19 11:42 Immature Gran # (A uto) 0.05 K/uL (0.00-0 .02) H 12/27/19 11:42 Neut # (Auto) 8.20 K/uL (1.4-6. 5) H 12/27/19 11:42 Lymph # (Auto) 3.05 K/uL (1.2-3. 4) 12/27/19 11:42 Treasure # (Auto) 1.05 K/uL (0.11-0 .59) H 12/27/19 11:42 Eos # (Auto) 0.62 K/uL (0-0.5) H 12/27/19 11:42 Baso # (Auto) 0.04 K/uL (0-0.2) 12/27/19 11:42 PT 11.3 Seconds (9.0 -12.0) 12/27/19 11:42 INR 1.1 (0.9-1.1) 12/27/19 11:42 APTT 30.8 Seconds (21. 0-31.0) 12/27/19 11:42 PTT Ratio 1.1 12/27/19 11:42 Sodium 138 mmol/L (136-1 45) 12/27/19 11:42 Potassium 3.9 mmol/L (3.5-5 .1) 12/27/19 11:42 Chloride 109 mmol/L (98-10 7) H 12/27/19 11:42 Carbon Dioxide 27 mmol/L (21-32) 12/27/19 11:42 Anion Gap 2.0 (3-11) L 12/27/19 11:42 BUN 36 mg/dl (7-18) H 12/27/19 11:42 Creatinine 2.59 mg/dl (0.6-1 .4) H 12/27/19 11:42 Est Cr Clr Drug Do sing 26.9 ml/min 12/27/19 11:42 Est GFR ( A nico) 27.1 12/27/19 11:42 Est GFR (Non-Af Am er) 23.4 12/27/19 11:42 BUN/Creatinine Rat io 13.8 (10-20) 12/27/19 11:42 Glucose 65 mg/dl (70-99) L 12/27/19 11:42 POC Glucose 67 mg/dl (70-99) L* 12/27/19 12:52 Calcium 8.6 mg/dl (8.5-10 .1) 12/27/19 11:42 Magnesium 1.7 mg/dl (1.8-2. 4) L 12/27/19 11:42 Total Bilirubin 0.4 mg/dl (0.2-1) 12/27/19 11:42 AST 55 U/L (15-37) H 12/27/19 11:42 ALT 22 U/L (12-78) 12/27/19 11:42 Alkaline Phosphata se 75 U/L (45-117) 12/27/19 11:42 Troponin I 4.430 ng/ml (0-0. 045) H* 12/27/19 11:42 Total Protein 7.5 gm/dl (6.4-8. 2) 12/27/19 11:42 Albumin 3.5 gm/dl (3.4-5. 0) 12/27/19 11:42 Globulin 4.0 gm/dl (2.5-4. 0) 12/27/19 11:42 Albumin/Globulin R atio 0.9 (0.9-2) 12/27/19 11:42 Lipase 244 U/L (73-393) 12/27/19 11:42 Specimen Hemolysis 12/27/19 11:42 Urine Color Yellow 12/27/19 11:30 Urine Appearance Clear (Clear) 12/27/19 11:30 Urine pH 5.0 (4.5-7.5) 12/27/19 11:30 Ur Specific Gravit y 1.019 (1.000-1.0 30) 12/27/19 11:30 Urine Protein 2+ (Negative) H 12/27/19 11:30 Urine Glucose (UA) Negative (Negati ve) 12/27/19 11:30 Urine Ketones Negative (Negati ve) 12/27/19 11:30 Urine Blood 3+ (Negative) H 12/27/19 11:30 Urine Nitrite Negative (Negati ve) 12/27/19 11:30 Urine Bilirubin Negative (Negati ve) 12/27/19 11:30 Urine Urobilinogen Negative (Negati ve) 12/27/19 11:30 Ur Leukocyte Noemy ase Negative (Negati ve) 12/27/19 11:30 Urine WBC (Auto) 1-5 /hpf (0-5) 12/27/19 11:30 Urine RBC (Auto) 10-30 /hpf (0-4) H 12/27/19 11:30 U Hyaline Cast (Au to) 1-5 /lpf (0-5) 12/27/19 11:30 U Epithel Cells (A uto) 10-20 /lpf (0-5) H 12/27/19 11:30 Urine Bacteria (Au to) Negative (Negati ve) 12/27/19 11:30 Influenza Type A ( PCR) Neg for Influ A (Neg) 12/27/19 11:45 Influenza Type B ( PCR) Neg for Influ B (Neg) 12/27/19 11:45 Constitutional: + obese; no acute distress Eyes: normal visual ochoa by confrontation ENMT: Ears: no hearing impairment Neck: normal visual inspection and trachea midline Thyroid: normal thyroid Respiratory: normal respiratory effort, lungs clear to auscultation Cardiovascular: RRR, no murmur, no edema Gastrointestinal (Abdomen): normal bowel sounds, soft, nontender, no hepatosplenomegaly Musculoskeletal: Extremities: extremities normal to inspection Skin: no rashes, warm and dry Psychiatric: A+Ox3, euthymic affect Lymphatic: no cervical lymphadenopathy Results & Data Results & Data ([facility]) Vital Signs (Past 12 Hours) Vital Signs Temp Pulse Resp BP Pulse Ox 12/27/19 13:01 71 14 178/55 H 97 12/27/19 12:30 66 12 146/74 H 96 12/27/19 12:00 65 13 149/92 H 98 12/27/19 11:37 71 21 172/95 H 99 12/27/19 11:25 97 12/27/19 11:04 66 12 165/91 H 99 12/27/19 10:55 37.1 C 73 15 165/91 H 97 ECG Indication: chest pain Additional Comments: 27-DEC-2019 11:08:49 [facility] ROUT[facility] RETRIEVAL Normal sinus rhythm ST & T wave abnormality, consider lateral ischemia Prolonged QT Abnormal ECG When compared with ECG of 01-AUG-2019 15:57, Criteria for Inferior infarct are no longer Present T wave inversion now evident in Lateral leads 25mm/s 10mm/mV 150Hz 9.0.9 12SL 241 EMMA: 11 Referred by: REFERRED SELF Unconfirmed Vent. rate 66 BPM ME interval 146 ms QRS duration 72 ms QT/QTc 450/471 ms P-R-T axes 66 16 144 Code Status & VTE Plan Code Status Full Code VTE Prophylaxis Plan VTE Prophylaxis will be ordered: Yes Supervising Physician Co-Signing Physician Notes ENDOCRINOLOGY TEACHER Supervision note: I have personally seen and examined the patient and discussed and verified the noel points of the history and physical along with the plan with ZAN Koroma with the following exceptions and/or additions: Pt presented with substernal chest pain and dizziness with pain radiating to bilateral upper extremities. [place] like a tight squeezing. Resolved with receiving nitro in ER. No recent fevers or chills, no abd pain but apparently did have some earlier nad had a CT abd/pel but now denies this. History and ROS reviewed Discussed case with Cardiology Vitals reviewed-quite hypertensive NAD, AAOx3 Anicteric sclerae, MMM RRR no mgr CTAB no wcr Abd +BS sot NT ND Ext no edema ECG reviewed--> +TWIs lateral leads, changed from previous ECHO with preserved EF, severe LVH 74 yo male here with NSTEMI and hypertensive emergency, ILIA. -heparin gtt, DAPT, metoprolol -add diltiazem as above -hydrate and plan for cath tomorrow Discussed his care with on phone PG Care Time/CCT Total # of Minutes Spent Total Time Spent with Patient: Total time spent is greater than 50% in coordination of care (as documented) at patient's floor/unit and/or counseling patient: Coding Level of Care Code 86793 Initial Inpt Care Lvl 3 Diagnoses Chest pain I25.9 Chest pain type: chest pain due to myocardial ischemia Ischemic chest pain type: unspecified angina pectoris type NSTEMI (non-ST elevated myocardial infarction) I21.4 Acute kidney injury N17.9 Chronic kidney disease N18.3 Chronic kidney disease stage: stage 3 (moderate) Hypertension I10 Hypertension type: unspecified Diabetes E11.22; N18.3; Z79.4 Chronic kidney disease stage: stage 3 (moderate) Diabetes mellitus complication detail: with chronic kidney disease Diabetes mellitus complication status: with kidney complications Diabetes mellitus vermin exterminator insulin use: with usp use Diabetes mellitus type: type 2 GERD (gastroesophageal reflux disease) K21.9 Esophagitis presence: without esophagitis Psoriasis L40.9 Crohn's disease K50.90 Digestive disease complication type: without complication Gastrointestinal tract location: unspecified location Hypomagnesemia E83.42 DVT prophylaxis Z29.9 (1) Diabetes Chronic kidney disease stage: stage 3 (moderate) Diabetes mellitus complication detail: with chronic kidney disease Diabetes mellitus complication status: with kidney complications Diabetes mellitus usp insulin use: with usp use Diabetes mellitus type: type 2 Qualified Code(s): E11.22 - Type 2 diabetes mellitus with diabetic chronic kidney disease; N18.3 - Chronic kidney disease, stage 3 (moderate); Z79.4 - terminal make up operator (current) use of insulin (2) Crohn's disease Digestive disease complication type: without complication Gastrointestinal tract location: unspecified location Qualified Code(s): K50.90 - Crohn's disease, unspecified, without complications (3) Chronic kidney disease Chronic kidney disease stage: stage 3 (moderate) Qualified Code(s): N18.3 - Chronic kidney disease, stage 3 (moderate) (4) GERD (gastroesophageal reflux disease) Esophagitis presence: without esophagitis Qualified Code(s): K21.9 - Gastro-esophageal reflux disease without esophagitis (5) Chest pain Chest pain type: chest pain due to myocardial ischemia Ischemic chest pain type: unspecified angina pectoris type Qualified Code(s): I25.9 - Chronic ischemic heart disease, unspecified (6) Hypertension Hypertension type: unspecified Qualified Code(s): I10 - Essential (primary) hypertension
[2019-12-27] MEDS ORDERED: CARBOHYDRATES FOR HYPOGLYCEMIA PO PRN (15:18)
[2019-12-27] MEDS ORDERED: MAGNESIUM HYDROXIDE SUSP 30 ML UDC PO PRN (15:18)
[2019-12-27] MEDS ORDERED: GLUCOSE 10 TABS/TUBE PO PRN (15:18)
[2019-12-27] MEDS ORDERED: GLUCOSE 40% GEL 15 GM TUBE PO PRN (15:18)
[2019-12-27] MEDS ORDERED: FLUTICASONE PROPIONATE NA SPR 16 GM BTL NAE PRN (15:18)
[2019-12-27] MEDS ORDERED: GLUCAGON FOR INJ 1 MG VIAL SQ PRN (15:18)
[2019-12-27] MEDS ORDERED: DEXTROSE 50% 50 ML SYRINGE IV PRN (15:18)
[2019-12-27] MEDS ORDERED: MoRPHine SULFATE 2 MG/ML CARP IV PRN (15:18)
[2019-12-27] MEDS ORDERED: ONDANSETRON INJ 2 MG/ML 2 ML VIAL IV PRN (15:18)
[2019-12-27] MEDS ORDERED: SODIUM CHLORIDE 0.9% 1000ML 1,000 ML IV ONE (15:25)
[2019-12-27] MEDS ORDERED: MAGNESIUM SULFATE / D5W 1 GM/100 ML BAG IV ONE (15:30)
[2019-12-27] MEDS ORDERED: METOPROLOL TARTRATE 1 MG/ML VIAL IV PRN (15:34)
--- NOTE | 2019-12-27 15:48 | Electrocardiogram Report ---
Test Reason : Blood Pressure : / mmHG Vent. Rate : 066 BPM Atrial Rate : 066 BPM P-R Int : 146 ms QRS Dur : 072 ms QT Int : 450 ms P-R-T Axes : 066 016 144 degrees QTc Int : 471 ms Normal sinus rhythm Prolonged QT Abnormal ECG When compared with ECG of 01-AUG-2019 15:57, Criteria for Inferior infarct are no longer Present T wave inversion now evident in Lateral leads Confirmed by David Christianson ([id number]) on 12/27/2019 3:48:03 PM Referred By: REFERRED SELF Confirmed By:Slim Christianson
[2019-12-27] MEDS ORDERED: METOPROLOL TARTRATE 1 MG/ML VIAL IV SCH (16:00)
--- NOTE | 2019-12-27 16:42 | Cardiology Consultation ---
Date of Consultation December 27, 2019 Assessment & Plan (1) NSTEMI (non-ST elevated myocardial infarction): Patient has known history of coronary artery disease having previously undergone percutaneous intervention to the right coronary artery and circumflex. His symptoms and biomarker elevation are consistent with an acute coronary syndrome. He does have some fairly nonspecific EKG changes as well. Certainly 1 could see elevations in the cardiac biomarkers with severe hypertension, but I doubt to this degree. He is currently pain-free. Ideally we will perform coronary angiography but I would like to see his renal function improved 1st. He can be continued on his beta-joe, topical nitrates, aspirin and heparin. I will add Plavix to his regimen as well. (2) Acute kidney injury: Will continue hydration overnight. Hopefully this will improve renal function to the point we can perform coronary angiography safely. (3) Accelerated hypertension: He reports high blood pressures at home. His medical record confirms the fact that he tends to have poorly controlled hypertension. At this point I think we can try a nitroglycerin infusion. If that is not successful in controlling his blood pressure than oral short-acting diltiazem may be helpful. He likely will require intensification of his antihypertensive regimen. This could include change from metoprolol to carvedilol. Changed to labetalol. Addition of amlodipine. History of Present Illness Reason for Consultation: Chest pain, elevated troponin Requesting Physician: Britni Attending Physician: Kat Ryder MD History of Present Illness The patient is a 74-year-old gentleman with a known history of coronary disease having previously undergone percutaneous intervention on 3 occasions who awoke from sleep early this morning with symptoms chest discomfort. This was described as a severe pressure sensation in the precordium. It was associated with a headache and diaphoresis. Patient also apparently had some symptoms of nausea. He took his blood pressure which was elevated. He attributed his symptoms to elevated blood pressure. His alerted EMS who arrived. Apparently he was administered his usual blood pressure medicines by his prior to transport to the hospital. He states that his symptoms lasted approximately an hour before improving. He apparently has had similar episodes in the past. He recognized the symptoms from previous hospitalizations. On most days he has no symptoms of this nature. However with exertion such as at ascending hills he does have significant dyspnea and has to stop on occasion due to breathing difficulty. He also claims to have some occasional chest discomforts with activity. Does check his blood pressure regularly and reports elevated readings most of the time. He states that his blood pressure generally speaking is 160-170 systolic. A blood pressure of 200 systolic is not unusual. Currently claims to be feeling well. He is not experiencing symptoms of chest discomfort, dizziness, diaphoresis, abdominal discomfort or breathing difficulty. Allergies Allergy/AdvReac Type Severity Reaction Status Date / Time Oloitwg-Vny-Omk Reductase Allergy Unknown muscle Verified 12/27/19 11:21 Inhibitor aches HMG-CoA-R Inhibitors AdvReac Unknown MUSCLE Uncoded 12/27/19 11:21 ACHES Home Medications Home Medications Medication Instructions Recorded Confirmed Type glipizide 5 mg tablet 5 mg PO DAILY tab 05/16/19 12/27/19 History amitriptyline 25 mg tablet 25 mg PO DAILY 06/14/19 12/27/19 History baclofen 10 mg tablet 10 mg PO TID PRN 06/14/19 12/27/19 History betamethasone dipropionate 0.05 % 1 appln TOP BID PRN 06/14/19 12/27/19 History topical cream magnesium chloride 71.5 mg 143 mg PO BID tab 06/14/19 12/27/19 History (magnesium chloride) tablet,delayed release omega-3 fatty acids 1,000 mg 1,000 mg PO DAILY 06/14/19 12/27/19 History capsule pravastatin 10 mg tablet 10 mg PO DAILY 06/14/19 12/27/19 History triamcinolone acetonide 0.1 % 1 appln TOP DAILY PRN 06/14/19 12/27/19 History topical cream nitroglycerin 400 mcg/spray 0.4 mg SL Q5M PRN #4.9 gm 06/22/19 12/27/19 Rx translingual clopidogrel 75 mg tablet 75 mg PO DAILY #90 tab 07/14/19 12/27/19 Rx chlorpheniramine maleate [Allergy 4 mg PO Q8H PRN 08/01/19 12/27/19 History (chlorpheniramine)] cholecalciferol (vitamin D3) 1,000 unit PO DAILY 08/01/19 12/27/19 History [Vitamin D3] insulin glargine [Lantus Solostar 12 unit SUBCUT QPM 08/01/19 12/27/19 History U-100 Insulin] lisinopril 40 mg PO DAILY 08/01/19 12/27/19 History metoprolol succinate 50 mg 50 mg PO DAILY #90 tab 08/07/19 12/27/19 Rx tablet,extended release 24 hr hydrochlorothiazide 12.5 mg tablet 12.5 mg PO DAILY #90 tab 09/06/19 12/27/19 Rx pantoprazole 40 mg tablet,delayed 40 mg PO BID #180 tab 10/15/19 12/27/19 Rx release aspirin 81 mg PO DAILY 12/27/19 12/27/19 History fluticasone propionate [Flonase 2 sprays INTNAS DAILY PRN 12/27/19 12/27/19 History Allergy Relief] Patient History Medical History Accelerated hypertension Arthritis (Chronic) Chest pain (Acute 07/11/14) Chronic kidney disease (Chronic) Constipation (Acute) Crohn's disease (Chronic) Diabetes (Chronic) Dysmetria Expressive aphasia Gastroparesis (Chronic) GERD (gastroesophageal reflux disease) (Chronic) Hypertension (Chronic) Hypokalemia (Acute) Hypomagnesemia (Acute) Psoriasis (Chronic) Pyelonephritis (Acute) Pyelonephritis (Acute) Sepsis (Acute) Thrombocytopenia (Acute) Thrombocytopenia (Acute) UTI (urinary tract infection) (Acute) UTI (urinary tract infection) (Acute) Vitamin D deficiency (Chronic) Surgical History History of cardiac catheterization History of Cath Stent 1 Type Drug-Eluting History of Cath Stent 2 Proximal Right Coronary Artery History of PTCA Family History Father Coronary heart disease Brother Pulmonary embolism Colon cancer Hx of CABG Mother Coronary heart disease Social History Preferred Language: Slovak Statistical Assistant Required: No Beliefs That Will Affect Care: None marital status: Current Living Situation: Spouse current occupational status: retired Other Information That Helps Us Care for You: No Feels Safe at Home: Yes Safety Concerns: Feels Safe At This Time Smoking Status: Former smoker Tobacco Type: cigarettes ; Age Started Using Tobacco: 8 ; Age Quit Using Tobacco: 48 ; packs per day: 1 ; Do You Dip or Chew Tobacco: Yes ; Second Hand Exposure: Yes ; Tobacco Cessation Education Requested by Patient: No Hx Alcohol Use: No Hx Substance Use: No Review of Systems Review of Systems: All systems reviewed & are unremarkable except as noted in HPI & below He does report constipation but had a bowel movement earlier this morning. He does report a productive cough which is chronic in nature. He had some subjective fevers and chills recently but nothing documented as abnormal. No swelling in lower extremities. Physical Exam Physical Exam: The patient is alert and oriented. Mood and affect appeared normal. He answered all questions appropriately. HEENT: Pupils are equal and reactive to light and accommodation. Extraocular movements are intact. The sclerae are anicteric. Neuro: Cranial nerves intact Neck: Patient's neck is supple. He has palpable carotid pulses bilaterally without bruits on auscultation. There is no evidence of jugular venous distention. The thyroid is not enlarged. Lungs: Clear to auscultation bilaterally. He has good air movement without use of accessory muscles. No rales wheezes or rhonchi. Cardiac: Heart demonstrates a regular rate and rhythm. Normal S1 and S2. No murmurs on examination. Pulses: The patient has palpable radial pulses bilaterally that are equal in intensity Extremities: There was no evidence of hypoperfusion. There is no cyanosis or clubbing. There is no edema. Skin: I did not appreciate any rashes on examination today. Results & Data ([facility]) Vital Signs (Past 12 Hours) Vital Signs Temp Pulse Resp BP BP Pulse Ox 12/27/19 15:00 36.3 C L 18 173/85 H 96 12/27/19 13:01 71 14 178/55 H 97 12/27/19 12:30 66 12 146/74 H 96 12/27/19 12:00 65 13 149/92 H 98 12/27/19 11:37 71 21 172/95 H 99 12/27/19 11:25 97 12/27/19 11:04 66 12 165/91 H 99 12/27/19 10:55 37.1 C 73 15 165/91 H 97 Laboratory Results Abnormal Lab Results 12/27/19 12/27/19 12/27/19 11:30 11:42 11:42 WBC 13.01 H RBC 4.64 L Hgb 14.1 Hct 42.9 MCV 92.5 MCH 30.4 MCHC 32.9 RDW Std Deviation 46.7 H RDW Coeff of Amalia 13.9 Plt Count 240 MPV 10.0 Immature Gran % (Auto) 0.4 Neut % (Auto) 63.0 Lymph % (Auto) 23.4 [place] % (Auto) 8.1 Eos % (Auto) 4.8 Baso % (Auto) 0.3 Immature Gran # (Auto) 0.05 H Neut # (Auto) 8.20 H Lymph # (Auto) 3.05 [place] # (Auto) 1.05 H Eos # (Auto) 0.62 H Baso # (Auto) 0.04 PT 11.3 INR 1.1 APTT 30.8 PTT Ratio 1.1 Sodium Potassium Chloride Carbon Dioxide Anion Gap BUN Creatinine Est Cr Clr Drug Dosing Est GFR ( Amer) Est GFR (Non-Af Amer) BUN/Creatinine Ratio Glucose POC Glucose Calcium Magnesium Total Bilirubin AST ALT Alkaline Phosphatase Troponin I Total Protein Albumin Globulin Albumin/Globulin Ratio Lipase Specimen Hemolysis Urine Color Yellow Urine Appearance Clear Urine pH 5.0 Ur Specific [place] 1.019 Urine Protein 2+ H Urine Glucose (UA) Negative Urine Ketones Negative Urine Blood 3+ H Urine Nitrite Negative Urine Bilirubin Negative Urine Urobilinogen Negative Ur Leukocyte Esterase Negative Urine WBC (Auto) 1-5 Urine RBC (Auto) 10-30 H U Hyaline Cast (Auto) 1-5 U Epithel Cells (Auto) 10-20 H Urine Bacteria (Auto) Negative Influenza Type A (PCR) Influenza Type B (PCR) 12/27/19 12/27/19 12/27/19 11:42 11:45 12:52 WBC RBC Hgb Hct MCV MCH MCHC RDW Std Deviation RDW Coeff of Amalia Plt Count MPV Immature Gran % (Auto) Neut % (Auto) Lymph % (Auto) [place] % (Auto) Eos % (Auto) Baso % (Auto) Immature Gran # (Auto) Neut # (Auto) Lymph # (Auto) [place] # (Auto) Eos # (Auto) Baso # (Auto) PT INR APTT PTT Ratio Sodium 138 Potassium 3.9 Chloride 109 H Carbon Dioxide 27 Anion Gap 2.0 L BUN 36 H Creatinine 2.59 H Est Cr Clr Drug Dosing 26.9 Est GFR ( Amer) 27.1 Est GFR (Non-Af Amer) 23.4 BUN/Creatinine Ratio 13.8 Glucose 65 L POC Glucose 67 L* Calcium 8.6 Magnesium 1.7 L Total Bilirubin 0.4 AST 55 H ALT 22 Alkaline Phosphatase 75 Troponin I 4.430 H* Total Protein 7.5 Albumin 3.5 Globulin 4.0 Albumin/Globulin Ratio 0.9 Lipase 244 Specimen Hemolysis Urine Color Urine Appearance Urine pH Ur Specific [place] Urine Protein Urine Glucose (UA) Urine Ketones Urine Blood Urine Nitrite Urine Bilirubin Urine Urobilinogen Ur Leukocyte Esterase Urine WBC (Auto) Urine RBC (Auto) U Hyaline Cast (Auto) U Epithel Cells (Auto) Urine Bacteria (Auto) Influenza Type A (PCR) Neg for Influ A Influenza Type B (PCR) Neg for Influ B 12/27/19 12/27/19 14:45 16:21 WBC RBC Hgb Hct MCV MCH MCHC RDW Std Deviation RDW Coeff of Amalia Plt Count MPV Immature Gran % (Auto) Neut % (Auto) Lymph % (Auto) [place] % (Auto) Eos % (Auto) Baso % (Auto) Immature Gran # (Auto) Neut # (Auto) Lymph # (Auto) [place] # (Auto) Eos # (Auto) Baso # (Auto) PT INR APTT PTT Ratio Sodium Potassium Chloride Carbon Dioxide Anion Gap BUN Creatinine Est Cr Clr Drug Dosing Est GFR ( Amer) Est GFR (Non-Af Amer) BUN/Creatinine Ratio Glucose POC Glucose 150 H 146 H Calcium Magnesium Total Bilirubin AST ALT Alkaline Phosphatase Troponin I Total Protein Albumin Globulin Albumin/Globulin Ratio Lipase Specimen Hemolysis Urine Color Urine Appearance Urine pH Ur Specific [place] Urine Protein Urine Glucose (UA) Urine Ketones Urine Blood Urine Nitrite Urine Bilirubin Urine Urobilinogen Ur Leukocyte Esterase Urine WBC (Auto) Urine RBC (Auto) U Hyaline Cast (Auto) U Epithel Cells (Auto) Urine Bacteria (Auto) Influenza Type A (PCR) Influenza Type B (PCR) Diagnostic Findings Chest x-ray did not demonstrate any acute cardiopulmonary disease Abdominal CT did not demonstrate any acute findings. Diverticulosis. Stress echocardiogram performed 07/24/2019: Normal baseline images with moderate LVH. No valvular abnormalities. Normal augmentation with dobutamine infusion. No inducible ischemia. ECG Additional Comments: Normal sinus rhythm with T-wave inversions in lateral precordial leads PG Care Time/CCT Total # of Minutes Spent Total Time Spent with Patient: Total time spent is greater than 50% in coordination of care (as documented) at patient's floor/unit and/or counseling patient: Coding Level of Care Code 65429 Initial Inpt Care Lvl 3 Diagnoses NSTEMI (non-ST elevated myocardial infarction) I21.4 Acute kidney injury N17.9 Accelerated hypertension I10
[2019-12-27] MEDS ORDERED: STAT IV Infusion **Titration per Protocol STA (16:43)
[2019-12-27] MEDS ORDERED: NITROGLYCERIN/D5W 100MCG/ML 250 ML IV SCH (16:45)
--- NOTE | 2019-12-27 16:53 | XCELERA ---
[id number] \\[id number]
[2019-12-27] MEDS: CLOPIDOGREL BISULFATE 75 MG TAB PO SCH (17:17)
[2019-12-27] MEDS: INSULIN ASPART 100 UNITS/ML 3 ML PEN SC SCH ×2 (17:25→20:23)
[2019-12-27] MEDS ORDERED: NITROGLYCERIN 2% OINTMENT 30GM TUBE EXT SCH (18:00)
[2019-12-27] MEDS: dilTIAZem HCL 30 MG TAB PO SCH ×2 (18:11→23:12)
[2019-12-27 18:18] LABS: BUN Creatinine Ratio 13.4 (10-20); Calcium 8.3 mg/dl (8.5-10.1); Creatinine Clr Calc Pharmacy 26.8 ml/min; Est GFR (African American) 28.1; Est GFR (Non-African American) 24.3
[2019-12-27 18:25] LABS: Troponin I 4.33 ng/ml (0-0.045)
[2019-12-27] MEDS: MAGNESIUM CHLORIDE 64MG DELAYED REL TAB PO SCH (20:22)
[2019-12-27] MEDS: PANTOprazole 40 MG TAB PO SCH (20:22)
[2019-12-27] MEDS: INSULIN GLARGINE SOLOSTAR 100 UNITS/ML 3 ML PEN SQ SCH (20:23)
[2019-12-27] MEDS: SODIUM CHLORIDE 0.9% 1000ML 1,000 ML IV SCH (20:42)
[2019-12-27 21:05] LABS: Partial Thromboplastin Ratio > 5.0
[2019-12-27 21:10] LABS: Partial Thromboplastin Time > 139.0 Seconds (21.0-31.0)
[2019-12-27 22:58] LABS: Partial Thromboplastin Ratio 2.5
[2019-12-27 23:08] LABS: Partial Thromboplastin Time 69.2 Seconds (21.0-31.0)
[2019-12-28 05:48] LABS: Hematocrit (blood only) 35.1 % (42-52); Hemoglobin 11.6 g/dL (14.0-18.0); Mean Corpuscular Hemoglobin 29.7 pg (25-34); Mean Platelet Volume 10.2 fL (7.4-10.4); Platelet Count 190 K/uL (130-400); RDW Coefficient of Variation 13.9 % (11.5-14.5); RDW Standard Deviation 45.3 fL (36.4-46.3); White Blood Count 9.38 K/uL (4.8-10.8)
[2019-12-28] MEDS: dilTIAZem HCL 30 MG TAB PO SCH ×3 (05:59→17:01)
[2019-12-28] MEDS: SODIUM CHLORIDE 0.9% 1000ML 1,000 ML IV SCH (05:59)
[2019-12-28 06:11] LABS: Partial Thromboplastin Ratio 2.5
[2019-12-28 06:16] LABS: Estimated Average Glucose 160 mg/dl; Hemoglobin A1C 7.2 % (4.5-5.6)
[2019-12-28 06:22] LABS: BUN Creatinine Ratio 12.5 (10-20); Creatinine Clr Calc Pharmacy 26.3 ml/min; Est GFR (African American) 27.3; Est GFR (Non-African American) 23.6; Magnesium 1.5 mg/dl (1.8-2.4); Potassium 3.8 mmol/L (3.5-5.1)
[2019-12-28] MEDS ORDERED: MAGNESIUM SULFATE / D5W 1 GM/100 ML BAG IV ONE ×2 (07:00→10:30)
[2019-12-28] MEDS: PRAVASTATIN SOD 10 MG TAB PO SCH (07:57)
[2019-12-28] MEDS: ASPIRIN 81 MG ECTAB PO SCH (07:57)
[2019-12-28] MEDS: CHOLECALCIFEROL 1,000 UNITS 25 MCG TAB PO SCH (07:58)
[2019-12-28] MEDS: PANTOprazole 40 MG TAB PO SCH ×2 (07:58→20:15)
[2019-12-28] MEDS: CLOPIDOGREL BISULFATE 75 MG TAB PO SCH (07:58)
[2019-12-28] MEDS: MAGNESIUM CHLORIDE 64MG DELAYED REL TAB PO SCH ×2 (07:59→20:15)
[2019-12-28] MEDS: INSULIN ASPART 100 UNITS/ML 3 ML PEN SC SCH ×4 (08:31→20:37)
[2019-12-28] MEDS ORDERED: METOPROLOL SUCC 50MG EXT REL TAB PO SCH (09:00)
[2019-12-28] MEDS ORDERED: PRAVASTATIN SOD 10 MG TAB PO SCH (09:00)
--- NOTE | 2019-12-28 10:41 | Nephrology Consultation ---
Date of Consultation December 28, 2019 Assessment & Plan (1) Acute kidney injury: -- ILIA in the setting of hypertensive urgency and NSTEMI. Urinalysis w/ microscopic hematuria. Noncontrast abdominal CT negative for mass or obstruction -- Stop Lisinopril and HCTZ -- Recheck urinalysis in am. If persistent hematuria may require Urology evaluation for cystoscopy prior to discharge -- Monitor serial PRP (2) Chronic kidney disease: -- Baseline Cr 1.7. 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 Recommend holding cardiac cath until renal function recovers. Will need IV hydration prior to and following cardiac cath for renal protection. Patient may benefit from a staged procedure if he needs PCI to limit dye load -- Await further Cardiology input History of Present Illness Reason for Consultation: ILIA/CKD Attending Physician: Kat Ryder MD History of Present Illness Mr. Negron is a 74 year old white male who is seen at the request of Dr. Ryder for evaluation of ILIA/CKD. Medical records in the EMR were reviewed today and are summarized as follows: Mr. Negron has stage III CKD (moderate impairment). His baseline Cr has been 1.7 w/ EGFR 55.4 cc/min. Previous evaluation revealed acellular urine sediment, no significant proteinuria and ~ 10 cm kidneys without obstruction/mass. His renal impairment is attributed to microvascular disease. Mr. Negron medical history is also significant for AODM, HTN, crohn's disease, GERD, BROOK, DOLAN, TIA, expressive aphasia and ASCVD s/p PCI x 3. Mr. Negron awoke this morning w/ chest pressure radiating down both arms, diaphoresis and THOMAS. His SBP was > 200 mmHg at the time. He was transported to the ED where ECG revealed TWI in lateral leads and Troponin I was 4.43. He was diagnosed w/ NQWMI and admitted to the PCU for IV Metoprolol and NTG. Echocardiogram revealed LVEF 55 - 60% w/ moderate LVH. No WMA. Cr was 2.59 on admission and urinalysis revealed microscopic hematuria. Noncontrast abdominal CT was negative for mass or hydronephrosis. Patient is now receiving IV hydration in anticipation of cardiac catheterization. Allergies Allergy/AdvReac Type Severity Reaction Status Date / Time Dgkireq-Uey-Imn Reductase Allergy Unknown muscle Verified 12/27/19 11:21 Inhibitor aches HMG-CoA-R Inhibitors AdvReac Unknown MUSCLE Uncoded 12/27/19 11:21 ACHES Home Medications Home Medications Medication Instructions Recorded Confirmed Type glipizide 5 mg tablet 5 mg PO DAILY tab 05/16/19 12/27/19 History betamethasone dipropionate 0.05 % 1 appln TOP BID PRN 06/14/19 12/27/19 History topical cream magnesium chloride 71.5 mg 143 mg PO BID tab 06/14/19 12/27/19 History (magnesium chloride) tablet,delayed release omega-3 fatty acids 1,000 mg 3,000 mg PO DAILY 06/14/19 12/27/19 History capsule pravastatin 10 mg tablet 10 mg PO HS 06/14/19 12/27/19 History triamcinolone acetonide 0.1 % 1 appln TOP DAILY PRN 06/14/19 12/27/19 History topical cream nitroglycerin 400 mcg/spray 0.4 mg SL Q5M PRN #4.9 gm 06/22/19 12/27/19 Rx translingual clopidogrel 75 mg tablet 75 mg PO DAILY #90 tab 07/14/19 12/27/19 Rx chlorpheniramine maleate [Allergy 4 mg PO Q8H PRN 08/01/19 12/27/19 History (chlorpheniramine)] cholecalciferol (vitamin D3) 1,000 unit PO DAILY 08/01/19 12/27/19 History [Vitamin D3] insulin glargine [Lantus Solostar 12 unit SUBCUT QPM 08/01/19 12/27/19 History U-100 Insulin] lisinopril 40 mg PO DAILY 08/01/19 12/27/19 History metoprolol succinate 50 mg 50 mg PO DAILY #90 tab 08/07/19 12/27/19 Rx tablet,extended release 24 hr hydrochlorothiazide 12.5 mg tablet 12.5 mg PO DAILY #90 tab 09/06/19 12/27/19 Rx pantoprazole 40 mg tablet,delayed 40 mg PO BID #180 tab 10/15/19 12/27/19 Rx release aspirin 81 mg PO HS 12/27/19 12/27/19 History coQ10 (ubiquinol) 400 mg PO DAILY 12/27/19 12/27/19 History fluticasone propionate [Flonase 2 sprays INTNAS DAILY PRN 12/27/19 12/27/19 History Allergy Relief] melatonin 10 mg PO HS 12/27/19 12/27/19 History vitamin E 400 unit PO DAILY 12/27/19 12/27/19 History Patient History Medical History (Updated 12/27/19 @ 18:05 by Kat Ryder MD) Accelerated hypertension Arthritis (Chronic) Chest pain (Acute 07/11/14) Chronic kidney disease (Chronic) Constipation (Acute) Crohn's disease (Chronic) Diabetes (Chronic) Dysmetria (Resolved) Expressive aphasia Gastroparesis (Chronic) GERD (gastroesophageal reflux disease) (Chronic) Hypertension (Chronic) Psoriasis (Chronic) Pyelonephritis (Resolved) Thrombocytopenia (Acute) Vitamin D deficiency (Chronic) Surgical History (Updated 12/27/19 @ 18:06 by Kat Ryder MD) History of cardiac catheterization History of Cath Stent 1 Type Drug-Eluting History of Cath Stent 2 Proximal Right Coronary Artery History of cholecystectomy History of PTCA Family History Father Coronary heart disease Brother Pulmonary embolism Colon cancer Hx of CABG Mother Coronary heart disease Social History Preferred Language: Bhutanese Communication Ability: Effective [employer] Operations Intelligence Chief Required: No Beliefs That Will Affect Care: None marital status: Current Living Situation: Spouse current occupational status: retired Other Information That Helps Us Care for You: No Feels Safe at Home: Yes Safety Concerns: Feels Safe At This Time Smoking Status: Former smoker Tobacco Type: cigarettes ; Age Started Using Tobacco: 8 ; Age Quit Using Tobacco: 48 ; packs per day: 1 ; Do You Dip or Chew Tobacco: Yes ; Second Hand Exposure: Yes ; Tobacco Cessation Education Requested by Patient: No Hx Alcohol Use: No Hx Substance Use: No Review of Systems Constitutional: no fever Eyes: no problem reported Ear, Nose, Mouth, Throat: no problem reported Respiratory: no cough and no dyspnea Cardiovascular: no chest pain, no palpitations and no edema Gastrointestinal: no abdominal pain, no nausea, no vomiting and no diarrhea/loose stools Genitourinary: no dysuria and no urinary hesitancy Musculoskeletal: no back pain Integumentary: no rash Neurologic: no falls, no dizziness and no confusion Physical Exam Constitutional: not in distress Eyes: PERRL, conjunctivae normal, anicteric sclerae ENMT: external ear and nose normal, oropharynx normal Neck: trachea midline, no thyromegaly Respiratory: normal respiratory effort, lungs clear to auscultation Cardiovascular: RRR, no murmur, no edema Gastrointestinal (Abdomen): normal bowel sounds, soft, nontender, no hepatosplenomegaly Musculoskeletal: Extremities: no cyanosis Skin: no rashes, warm and dry Neurologic: awake; not confused Results & Data Vital Signs (Past 12 Hours) Vital Signs Temp Pulse Pulse Resp BP Pulse Ox 12/28/19 08:44 68 12/28/19 07:01 37.1 C 69 22 154/77 H 96 12/28/19 05:59 138/77 12/28/19 04:00 36.9 C 70 20 161/84 H 97 12/27/19 22:59 37.1 C 68 18 119/75 96 Laboratory Results Laboratory Tests 12/27/19 12/28/19 12/28/19 17:44 01:40 05:08 WBC Hgb Hct Plt Count Sodium 138 Potassium 3.8 Chloride 109 H Carbon Dioxide 25 BUN 32 H Creatinine 2.57 H Glucose 126 H Calcium 8.0 L Troponin I 4.330 H* 4.080 H* 12/28/19 05:08 WBC 9.38 Hgb 11.6 L Hct 35.1 L Plt Count 190 Sodium Potassium Chloride Carbon Dioxide BUN Creatinine Glucose Calcium Troponin I PG Care Time/CCT Total # of Minutes Spent Total Time Spent with Patient: Total time spent is greater than 50% in coordin ation of care (as documented) at patient's floor/unit and/or counseling patient: Coding Level of Care Code 37657 Inpt Consult Level 5 Diagnoses Acute kidney injury N17.9 Chronic kidney disease N18.3 Chronic kidney disease stage: stage 3 (moderate) NSTEMI (non-ST elevated myocardial infarction) I21.4 (1) Chronic kidney disease Chronic kidney disease stage: stage 3 (moderate) Qualified Code(s): N18.3 - Chronic kidney disease, stage 3 (moderate)
[2019-12-28] MEDS: POLYETHYLENE (MIRALAX) 17 GM PACK PO SCH (11:01)
--- NOTE | 2019-12-28 11:03 | Hospitalist Progress Note ---
Date of Service December 28, 2019 Assessment & Plan (1) Chest pain: Presented with unstable angina, trop + at 4, ECG with TWIs lateral leads Has known CAD with a h/o stents to RCA, LAD Trop serially 4 x three Remains chest pain free after initially receiving nitropaste, ASA, and improved control of BP NSTEMI ECHO with preserved EF, no WMA, mod LVH Lipid panel good - Cardiology consult appreciated-plan for cath but renal function not improving as below--> plan for cath once renal function improves hopefully by Tuesday -continue heparin gtt - Continue Pravastatin 10mg daily. Patient is intolerant of higher dosing due muscle cramping and pain. -continue ASA, Plavix -change metoprolol to Coreg for improved BP control--> start Coreg 12.5mg po bid -needs improved BP control--> added Imdur 90mg po daily -nitropaste prn SBP>180 -continue tele monitoring -replace lytes as needed (2) NSTEMI (non-ST elevated myocardial infarction): as above (3) Acute kidney injury: -Acute renal failure in setting of chronic kidney disease stage 3. Cr elevated at 2.59 on admission with baseline of 1.4-1.7. Today housing liaison not improved despite hydration-remain sat 2.57 FeNa 2.6% consistent with ATN, no casts in UA, but with protein and microscopic hematuria CT abd/pel non-con on admission without obstruction ATN likely secondary to hypertensive urgency and NSTEMI in settin gof taking HCTZ and lisinopril at home making urine, not volume overloaded, lytes ok -permanently dc HCTZ and Lisinopril. -dc IVFs as not improving renal function and want to avoid volume overload -needs improved BP control--> Nephro recommends starting Imdur, stopping diltiazem, and changing metoprolol to Coreg -follow I/O, daily weights -follow BMP in AM -Appreciate Nephro consult -avoid cardiac cath right now and Nephro recommends staged procedure if possible in future to avoid excessive dye load, along with periprocedural IVF hydration (4) Chronic kidney disease: as above, -avoid nephrotoxins -renally dose medications (5) Hypertension: -BP elevated at 205/115 on admission--> now improved with addition of diltiazem and isosorbide With hypertensive urgency/emergency with elevated troponin and NSTEMI -HCTZ and Lisinopril held d/t elevated Cr. -change metoprolol to Coreg 12.5mg po bid and titrate up as able to based on HR -can give nitropaste SBP >180 -dc diltiazem -add Imdur 90mg daily (6) Diabetes: - Type II Diabetes. - Glipizide held. - Continue Lantus, but at decreased dose of 6 units from his home dose of 12 units - HgbA1C 7.2% here (7) GERD (gastroesophageal reflux disease): -Continue pantoprazole. (8) Psoriasis: -Currently controlled. Hold home topicals. (9) Crohn's disease: - Currently controlled. Patient c/o constipation. Had CT abd/pel on admission for report of abd pain which he is now denying -normal CT, nontender on exam - Daily Miralax dose and MOM PRN. (10) Hypomagnesemia: Low again today -Replace with 2gm IV - Repeat lab in AM. (11) DVT prophylaxis: DVT proph - Heparin Drip CODE: Full Code Dispo: continued stay on PCU Admission and Anticipated Discharge Date Admission Date: December 27, 2019 Subjective Pt feeling very well today. Denies any chest pain. No SOB, no abd pain or nausea. He is making urine. I discussed the case with Nephrology and Cardiology Tele with NSR, rates 60-70s Review of Systems Review of Systems: All systems reviewed & are unremarkable except as noted in HPI & below Physical Exam Constitutional: WD/WN, vitals as above Eyes: + anicteric sclerae Neck: trachea midline, no thyromegaly Respiratory: normal respiratory effort, lungs clear to auscultation Cardiovascular: RRR, no murmur, no edema Chest (Breasts): Chest: normal inspection of chest Gastrointestinal (Abdomen): normal bowel sounds, soft, nontender, no hepatosplenomegaly Musculoskeletal: Extremities: extremities normal to inspection; no cyanosis and no clubbing Skin: no rashes, warm and dry Neurologic: moves all extremities and awake; no focal motor deficits Psychiatric: A+Ox3, euthymic affect Lymphatic: no lymphedema Results & Data Results & Data ([facility]) Vital Signs (Past 12 Hours) Vital Signs Temp Pulse Pulse Resp BP Pulse Ox 12/28/19 08:44 68 12/28/19 07:01 37.1 C 69 22 154/77 H 96 12/28/19 05:59 138/77 12/28/19 04:00 36.9 C 70 20 161/84 H 97 Laboratory Results 12/28/19 12/28/19 12/28/19 Range/Units 17:42 16:15 12:02 WBC (4.8-10.8) K/uL RBC (4.7-6.1) M/uL Hgb (14.0-18.0) g/dL Hct (42-52) % MCV (80-100) fL MCH (25-34) pg MCHC (32-36) g/dL RDW Std Deviation (36.4-46.3) fL RDW Coeff of Amalia (11.5-14.5) % Plt Count (130-400) K/uL MPV (7.4-10.4) fL APTT 62.0 H* (21.0-31.0) Seconds PTT Ratio 2.2 Sodium 139 (136-145) mmol/L Potassium 4.1 (3.5-5.1) mmol/L Chloride 109 H (98-107) mmol/L Carbon Dioxide 25 (21-32) mmol/L Anion Gap 5.0 (3-11) BUN 30 H (7-18) mg/dl Creatinine 2.61 H (0.6-1.4) mg/dl Est Cr Clr Drug Dosing 25.9 ml/min Est GFR ( Amer) 26.8 Est GFR (Non-Af Amer) 23.1 BUN/Creatinine Ratio 11.6 (10-20) Glucose 137 H (70-99) mg/dl POC Glucose 119 H (70-99) mg/dl Estimat Average Glucose mg/dl Hemoglobin A1c (4.5-5.6) % Calcium 8.0 L (8.5-10.1) mg/dl Magnesium 2.1 (1.8-2.4) mg/dl Troponin I (0-0.045) ng/ml Triglycerides (0-150) mg/dl Cholesterol (0-200) mg/dl LDL Cholesterol, Calc mg/dl VLDL Cholesterol, Calc mg/dl HDL Cholesterol mg/dl Cholesterol/HDL Ratio Ur Random Creatinine mg/dl Ur Random Sodium mmol/L 03/12/28/19 12/28/19 Range/Units 11:12 07:31 05:08 WBC (4.8-10.8) K/uL RBC (4.7-6.1) M/uL Hgb (14.0-18.0) g/dL Hct (42-52) % MCV (80-100) fL MCH (25-34) pg MCHC (32-36) g/dL RDW Std Deviation (36.4-46.3) fL RDW Coeff of Amalia (11.5-14.5) % Plt Count (130-400) K/uL MPV (7.4-10.4) fL APTT 70.0 H* (21.0-31.0) Seconds PTT Ratio 2.5 Sodium (136-145) mmol/L Potassium (3.5-5.1) mmol/L Chloride (98-107) mmol/L Carbon Dioxide (21-32) mmol/L Anion Gap (3-11) BUN (7-18) mg/dl Creatinine (0.6-1.4) mg/dl Est Cr Clr Drug Dosing ml/min Est GFR ( Amer) Est GFR (Non-Af Amer) BUN/Creatinine Ratio (10-20) Glucose (70-99) mg/dl POC Glucose 128 H 120 H (70-99) mg/dl Estimat Average Glucose mg/dl Hemoglobin A1c (4.5-5.6) % Calcium (8.5-10.1) mg/dl Magnesium (1.8-2.4) mg/dl Troponin I (0-0.045) ng/ml Triglycerides (0-150) mg/dl Cholesterol (0-200) mg/dl LDL Cholesterol, Calc mg/dl VLDL Cholesterol, Calc mg/dl HDL Cholesterol mg/dl Cholesterol/HDL Ratio Ur Random Creatinine mg/dl Ur Random Sodium mmol/L 12/28/19 12/28/19 12/28/19 Range/Units 05:08 05:08 05:08 WBC 9.38 (4.8-10.8) K/uL RBC 3.90 L (4.7-6.1) M/uL Hgb 11.6 L (14.0-18.0) g/dL Hct 35.1 L (42-52) % MCV 90.0 (80-100) fL MCH 29.7 (25-34) pg MCHC 33.0 (32-36) g/dL RDW Std Deviation 45.3 (36.4-46.3) fL RDW Coeff of Amalia 13.9 (11.5-14.5) % Plt Count 190 (130-400) K/uL MPV 10.2 (7.4-10.4) fL APTT (21.0-31.0) Seconds PTT Ratio Sodium 138 (136-145) mmol/L Potassium 3.8 (3.5-5.1) mmol/L Chloride 109 H (98-107) mmol/L Carbon Dioxide 25 (21-32) mmol/L Anion Gap 4.0 (3-11) BUN 32 H (7-18) mg/dl Creatinine 2.57 H (0.6-1.4) mg/dl Est Cr Clr Drug Dosing 26.3 ml/min Est GFR ( Amer) 27.3 Est GFR (Non-Af Amer) 23.6 BUN/Creatinine Ratio 12.5 (10-20) Glucose 126 H (70-99) mg/dl POC Glucose (70-99) mg/dl Estimat Average Glucose 160 mg/dl Hemoglobin A1c 7.2 H (4.5-5.6) % Calcium 8.0 L (8.5-10.1) mg/dl Magnesium 1.5 L (1.8-2.4) mg/dl Troponin I (0-0.045) ng/ml Triglycerides 209 H (0-150) mg/dl Cholesterol 182 (0-200) mg/dl LDL Cholesterol, Calc 105 mg/dl VLDL Cholesterol, Calc 42 mg/dl HDL Cholesterol 35 mg/dl Cholesterol/HDL Ratio 5 Ur Random Creatinine mg/dl Ur Random Sodium mmol/L 12/28/19 12/27/19 12/27/19 Range/Units 01:40 Unknown Unknown WBC (4.8-10.8) K/uL RBC (4.7-6.1) M/uL Hgb (14.0-18.0) g/dL Hct (42-52) % MCV (80-100) fL MCH (25-34) pg MCHC (32-36) g/dL RDW Std Deviation (36.4-46.3) fL RDW Coeff of Amalia (11.5-14.5) % Plt Count (130-400) K/uL MPV (7.4-10.4) fL APTT (21.0-31.0) Seconds PTT Ratio Sodium (136-145) mmol/L Potassium (3.5-5.1) mmol/L Chloride (98-107) mmol/L Carbon Dioxide (21-32) mmol/L Anion Gap (3-11) BUN (7-18) mg/dl Creatinine (0.6-1.4) mg/dl Est Cr Clr Drug Dosing ml/min Est GFR ( Amer) Est GFR (Non-Af Amer) BUN/Creatinine Ratio (10-20) Glucose (70-99) mg/dl POC Glucose (70-99) mg/dl Estimat Average Glucose mg/dl Hemoglobin A1c (4.5-5.6) % Calcium (8.5-10.1) mg/dl Magnesium (1.8-2.4) mg/dl Troponin I 4.080 H* (0-0.045) ng/ml Triglycerides (0-150) mg/dl Cholesterol (0-200) mg/dl LDL Cholesterol, Calc mg/dl VLDL Cholesterol, Calc mg/dl HDL Cholesterol mg/dl Cholesterol/HDL Ratio Ur Random Creatinine 75.7 mg/dl Ur Random Sodium 102 mmol/L 12/27/19 12/27/19 12/27/19 Range/Units 22:07 20:00 19:26 WBC (4.8-10.8) K/uL RBC (4.7-6.1) M/uL Hgb (14.0-18.0) g/dL Hct (42-52) % MCV (80-100) fL MCH (25-34) pg MCHC (32-36) g/dL RDW Std Deviation (36.4-46.3) fL RDW Coeff of Amalia (11.5-14.5) % Plt Count (130-400) K/uL MPV (7.4-10.4) fL APTT 69.2 H* > 139.0 H* (21.0-31.0) Seconds PTT Ratio 2.5 > 5.0 Sodium (136-145) mmol/L Potassium (3.5-5.1) mmol/L Chloride (98-107) mmol/L Carbon Dioxide (21-32) mmol/L Anion Gap (3-11) BUN (7-18) mg/dl Creatinine (0.6-1.4) mg/dl Est Cr Clr Drug Dosing ml/min Est GFR ( Amer) Est GFR (Non-Af Amer) BUN/Creatinine Ratio (10-20) Glucose (70-99) mg/dl POC Glucose 102 H (70-99) mg/dl Estimat Average Glucose mg/dl Hemoglobin A1c (4.5-5.6) % Calcium (8.5-10.1) mg/dl Magnesium (1.8-2.4) mg/dl Troponin I (0-0.045) ng/ml Triglycerides (0-150) mg/dl Cholesterol (0-200) mg/dl LDL Cholesterol, Calc mg/dl VLDL Cholesterol, Calc mg/dl HDL Cholesterol mg/dl Cholesterol/HDL Ratio Ur Random Creatinine mg/dl Ur Random Sodium mmol/L PG Care Time/CCT Total # of Minutes Spent Total Time Spent with Patient: Total time spent is greater than 50% in coordination of care (as documented) at patient's floor/unit and/or counseling patient: Coding Level of Care Code 70686 Subseq Hosp Care Lvl 3 Diagnoses Chest pain I25.9 Chest pain type: chest pain due to myocardial ischemia Ischemic chest pain type: unspecified angina pectoris type NSTEMI (non-ST elevated myocardial infarction) I21.4 Acute kidney injury N17.9 Chronic kidney disease N18.3 Chronic kidney disease stage: stage 3 (moderate) Hypertension I10 Hypertension type: unspecified Diabetes E11.22; N18.3; Z79.4 Chronic kidney disease stage: stage 3 (moderate) Diabetes mellitus complication detail: with chronic kidney disease Diabetes mellitus complication status: with kidney complications Diabetes mellitus nursing home insulin use: with terminal press operator use Diabetes mellitus type: type 2 GERD (gastroesophageal reflux disease) K21.9 Esophagitis presence: without esophagitis Psoriasis L40.9 Crohn's disease K50.90 Digestive disease complication type: without complication Gastrointestinal tract location: unspecified location Hypomagnesemia E83.42 DVT prophylaxis Z29.9 (1) Diabetes Chronic kidney disease stage: stage 3 (moderate) Diabetes mellitus complication detail: with chronic kidney disease Diabetes mellitus complication status: with kidney complications Diabetes mellitus terminal press operator insulin use: with terminal press operator use Diabetes mellitus type: type 2 Qualified Code(s): E11.22 - Type 2 diabetes mellitus with diabetic chronic kidney disease; N18.3 - Chronic kidney disease, stage 3 (moderate); Z79.4 - intermediate accountant (current) use of insulin (2) Crohn's disease Digestive disease complication type: without complication Gastrointestinal tract location: unspecified location Qualified Code(s): K50.90 - Crohn's disease, unspecified, without complications (3) Chronic kidney disease Chronic kidney disease stage: stage 3 (moderate) Qualified Code(s): N18.3 - Chronic kidney disease, stage 3 (moderate) (4) GERD (gastroesophageal reflux disease) Esophagitis presence: without esophagitis Qualified Code(s): K21.9 - Gastro- esophageal reflux disease without esophagitis (5) Chest pain Chest pain type: chest pain due to myocardial ischemia Ischemic chest pain type: unspecified angina pectoris type Qualified Code(s): I25.9 - Chronic ischemic heart disease, unspecified (6) Hypertension Hypertension type: unspecified Qualified Code(s): I10 - Essential (primary) hypertension
[2019-12-28] MEDS: HEPARIN SODIUM/DEXTROSE 25,000 UNITS/500 ML BAG IV SCH (11:04)
[2019-12-28] MEDS ORDERED: NITROGLYCERIN 2% OINTMENT 30GM TUBE EXT PRN (11:08)
--- NOTE | 2019-12-28 12:13 | Cardiology Progress Note ---
Date of Service December 28, 2019 Assessment & Plan (1) NSTEMI (non-ST elevated myocardial infarction): Most likely related to acute coronary syndrome. This is based on his description of symptoms and biomarker elevation. Less likely hypertensive emergency. Will continue heparinization for another 24 hours. Can be discontinued at that time. Will continue dual anti-platelet therapy. He has been started on oral nitrates. Good blood pressure control is also paramount. (2) Acute kidney injury: Hopefully his renal function will improve. He will likely need coronary angiography at some point. If it is felt that he has reasonable chance of im proving his renal function over the next 2 days then postponing his catheterization seen reasonable based on the absence of recurrent symptoms. (3) Accelerated hypertension: Metoprolol changed to carvedilol. Isosorbide mononitrate added. Nikita inhibitor discontinued due to presumed acute renal injury Admission and Anticipated Discharge Date Admission Date: December 27, 2019 Subjective This morning patient may be feeling well. He did report some atypical chest discomfort last night. This appeared to be fleeting in nature and he attributed to arthritis. He was not similar to his presenting symptoms of chest discomfort. Otherwise he has been ambulatory to the [facility] and back without additional symptoms. Review of Systems Review of Systems: Per HPI Physical Exam Physical Exam: The patient is alert and oriented. Mood and affect appeared n ormal. He answered all questions appropriately. HEENT: Pupils are equal and reactive to light and accommodation. Extraocular movements are intact. The sclerae are anicteric. Neuro: Cranial nerves intact Lungs: Clear to auscultation bilaterally. He has good air movement without use of accessory muscles. No rales wheezes or rhonchi. Cardiac: Heart demonstrates a regular rate and rhythm. Normal S1 and S2. No murmurs on examination. Pulses: The patient has palpable radial pulses bilaterally that are equal in intensity Extremities: There was no evidence of hypoperfusion. There is no cyanosis or clubbing. There is no edema. Skin: I did not appreciate any rashes on examination today. Results & Data ([facility]) Vital Signs (Past 12 Hours) Vital Signs Temp Pulse Pulse Resp BP Pulse Ox 12/28/19 11:30 36.9 C 63 16 170/72 H 96 12/28/19 11:12 37.0 C 64 20 174/94 H 99 12/28/19 08:44 68 12/28/19 07:01 37.1 C 69 22 154/77 H 96 12/28/19 05:59 138/77 12/28/19 04:00 36.9 C 70 20 161/84 H 97 Laboratory Results Abnormal Lab Results 12/27/19 12/27/19 12/27/19 11:42 11:45 12:52 WBC RBC Hgb Hct MCV MCH MCHC RDW Std Deviation RDW Coeff of Amalia Plt Count MPV APTT PTT Ratio Sodium 138 Potassium 3.9 Chloride 109 H Carbon Dioxide 27 Anion Gap 2.0 L BUN 36 H Creatinine 2.59 H Est Cr Clr Drug Dosing 26.9 Est GFR ( Amer) 27.1 Est GFR (Non-Af Amer) 23.4 BUN/Creatinine Ratio 13.8 Glucose 65 L POC Glucose 67 L* Estimat Average Glucose Hemoglobin A1c Calcium 8.6 Magnesium 1.7 L Total Bilirubin 0.4 AST 55 H ALT 22 Alkaline Phosphatase 75 Troponin I 4.430 H* Total Protein 7.5 Albumin 3.5 Globulin 4.0 Albumin/Globulin Ratio 0.9 Triglycerides Cholesterol LDL Cholesterol, Calc VLDL Cholesterol, Calc HDL Cholesterol Cholesterol/HDL Ratio Lipase 244 Specimen Hemolysis Ur Random Creatinine Ur Random Sodium Influenza Type A (PCR) Neg for Influ A Influenza Type B (PCR) Neg for Influ B 12/27/19 12/27/19 12/27/19 14:45 16:21 17:44 WBC RBC Hgb Hct MCV MCH MCHC RDW Std Deviation RDW Coeff of Amalia Plt Count MPV APTT PTT Ratio Sodium 139 Potassium 4.0 Chloride 109 H Carbon Dioxide 24 Anion Gap 6.0 BUN 34 H Creatinine 2.51 H Est Cr Clr Drug Dosing 26.8 Est GFR ( Amer) 28.1 Est GFR (Non-Af Amer) 24.3 BUN/Creatinine Ratio 13.4 Glucose 130 H POC Glucose 150 H 146 H Estimat Average Glucose Hemoglobin A1c Calcium 8.3 L Magnesium Total Bilirubin AST ALT Alkaline Phosphatase Troponin I 4.330 H* Total Protein Albumin Globulin Albumin/Globulin Ratio Triglycerides Cholesterol LDL Cholesterol, Calc VLDL Cholesterol, Calc HDL Cholesterol Cholesterol/HDL Ratio Lipase Specimen Hemolysis Ur Random Creatinine Ur Random Sodium Influenza Type A (PCR) Influenza Type B (PCR) 12/27/19 12/27/19 12/27/19 19:26 20:00 22:07 WBC RBC Hgb Hct MCV MCH MCHC RDW Std Deviation RDW Coeff of Amalia Plt Count MPV APTT > 139.0 H* 69.2 H* PTT Ratio > 5.0 2.5 Sodium Potassium Chloride Carbon Dioxide Anion Gap BUN Creatinine Est Cr Clr Drug Dosing Est GFR ( Amer) Est GFR (Non-Af Amer) BUN/Creatinine Ratio Glucose POC Glucose 102 H Estimat Average Glucose Hemoglobin A1c Calcium Magnesium Total Bilirubin AST ALT Alkaline Phosphatase Troponin I Total Protein Albumin Globulin Albumin/Globulin Ratio Triglycerides Cholesterol LDL Cholesterol, Calc VLDL Cholesterol, Calc HDL Cholesterol Cholesterol/HDL Ratio Lipase Specimen Hemolysis Ur Random Creatinine Ur Random Sodium Influenza Type A (PCR) Influenza Type B (PCR) 12/27/19 12/27/19 12/28/19 Unknown Unknown 01:40 WBC RBC Hgb Hct MCV MCH MCHC RDW Std Deviation RDW Coeff of Amalia Plt Count MPV APTT PTT Ratio Sodium Potassium Chloride Carbon Dioxide Anion Gap BUN Creatinine Est Cr Clr Drug Dosing Est GFR ( Amer) Est GFR (Non-Af Amer) BUN/Creatinine Ratio Glucose POC Glucose Estimat Average Glucose Hemoglobin A1c Calcium Magnesium Total Bilirubin AST ALT Alkaline Phosphatase Troponin I 4.080 H* Total Protein Albumin Globulin Albumin/Globulin Ratio Triglycerides Cholesterol LDL Cholesterol, Calc VLDL Cholesterol, Calc HDL Cholesterol Cholesterol/HDL Ratio Lipase Specimen Hemolysis Ur Random Creatinine 75.7 Ur Random Sodium 102 Influenza Type A (PCR) Influenza Type B (PCR) 12/28/19 12/28/19 12/28/19 05:08 05:08 05:08 WBC 9.38 RBC 3.90 L Hgb 11.6 L Hct 35.1 L MCV 90.0 MCH 29.7 MCHC 33.0 RDW Std Deviation 45.3 RDW Coeff of Amalia 13.9 Plt Count 190 MPV 10.2 APTT PTT Ratio Sodium 138 Potassium 3.8 Chloride 109 H Carbon Dioxide 25 Anion Gap 4.0 BUN 32 H Creatinine 2.57 H Est Cr Clr Drug Dosing 26.3 Est GFR ( Amer) 27.3 Est GFR (Non-Af Amer) 23.6 BUN/Creatinine Ratio 12.5 Glucose 126 H POC Glucose Estimat Average Glucose 160 Hemoglobin A1c 7.2 H Calcium 8.0 L Magnesium 1.5 L Total Bilirubin AST ALT Alkaline Phosphatase Troponin I Total Protein Albumin Globulin Albumin/Globulin Ratio Triglycerides 209 H Cholesterol 182 LDL Cholesterol, Calc 105 VLDL Cholesterol, Calc 42 HDL Cholesterol 35 Cholesterol/HDL Ratio 5 Lipase Specimen Hemolysis Ur Random Creatinine Ur Random Sodium Influenza Type A (PCR) Influenza Type B (PCR) 12/28/19 12/28/19 12/28/19 05:08 07:31 11:12 WBC RBC Hgb Hct MCV MCH MCHC RDW Std Deviation RDW Coeff of Amalia Plt Count MPV APTT 70.0 H* PTT Ratio 2.5 Sodium Potassium Chloride Carbon Dioxide Anion Gap BUN Creatinine Est Cr Clr Drug Dosing Est GFR ( Amer) Est GFR (Non-Af Amer) BUN/Creatinine Ratio Glucose POC Glucose 120 H 128 H Estimat Average Glucose Hemoglobin A1c Calcium Magnesium Total Bilirubin AST ALT Alkaline Phosphatase Troponin I Total Protein Albumin Globulin Albumin/Globulin Ratio Triglycerides Cholesterol LDL Cholesterol, Calc VLDL Cholesterol, Calc HDL Cholesterol Cholesterol/HDL Ratio Lipase Specimen Hemolysis Ur Random Creatinine Ur Random Sodium Influenza Type A (PCR) Influenza Type B (PCR) PG Care Time/CCT Total # of Minutes Spent Total Time Spent with Patient: Total time spent is greater than 50% in coordination of care (as documented) at patient's floor/unit and/or counseling patient: Coding Level of Care Code 82920 Subseq Obs Care Lvl 3 Diagnoses NSTEMI (non-ST elevated myocardial infarction) I21.4 Acute kidney injury N17.9 Accelerated hypertension I10
[2019-12-28 12:31] LABS: Partial Thromboplastin Ratio 2.2
[2019-12-28] MEDS: ISOSORBIDE MONO EXTENDED REL 30 MG TABCR PO SCH (12:39)
[2019-12-28 18:13] LABS: BUN Creatinine Ratio 11.6 (10-20); Creatinine Clr Calc Pharmacy 25.9 ml/min; Est GFR (African American) 26.8; Est GFR (Non-African American) 23.1; Magnesium 2.1 mg/dl (1.8-2.4); Potassium 4.1 mmol/L (3.5-5.1)
[2019-12-28] MEDS ORDERED: CYCLOBENZAPRINE HCL 5 MG TAB PO PRN (19:29)
[2019-12-28] MEDS: carvediloL 12.5 MG TAB PO SCH (20:15)
[2019-12-28] MEDS: INSULIN GLARGINE SOLOSTAR 100 UNITS/ML 3 ML PEN SQ SCH (20:38)
[2019-12-29 05:53] LABS: Hematocrit (blood only) 34.4 % (42-52); Hemoglobin 11.2 g/dL (14.0-18.0); Mean Corpuscular Hemoglobin 29.3 pg (25-34); Mean Corpuscular Hgb Conc 32.6 g/dL (32-36); Mean Corpuscular Volume 90.1 fL (80-100); Mean Platelet Volume 10.1 fL (7.4-10.4); Platelet Count 186 K/uL (130-400); RDW Coefficient of Variation 13.9 % (11.5-14.5); Red Blood Count 3.82 M/uL (4.7-6.1); White Blood Count 9.61 K/uL (4.8-10.8)
[2019-12-29 06:18] LABS: BUN Creatinine Ratio 12.7 (10-20); Calcium 8.3 mg/dl (8.5-10.1); Creatinine Clr Calc Pharmacy 25.6 ml/min; Est GFR (African American) 26.7; Potassium 3.7 mmol/L (3.5-5.1)
[2019-12-29 06:25] LABS: Partial Thromboplastin Ratio 2.1
[2019-12-29 06:32] LABS: Partial Thromboplastin Time 58.7 Seconds (21.0-31.0)
[2019-12-29] MEDS: CLOPIDOGREL BISULFATE 75 MG TAB PO SCH (07:54)
[2019-12-29] MEDS: PANTOprazole 40 MG TAB PO SCH ×2 (07:54→20:32)
[2019-12-29] MEDS: PRAVASTATIN SOD 10 MG TAB PO SCH (07:54)
[2019-12-29] MEDS: CHOLECALCIFEROL 1,000 UNITS 25 MCG TAB PO SCH (07:54)
[2019-12-29] MEDS: ISOSORBIDE MONO EXTENDED REL 30 MG TABCR PO SCH (07:54)
[2019-12-29] MEDS: MAGNESIUM CHLORIDE 64MG DELAYED REL TAB PO SCH ×2 (07:54→20:31)
[2019-12-29] MEDS: carvediloL 12.5 MG TAB PO SCH ×2 (07:55→20:32)
[2019-12-29] MEDS: POLYETHYLENE (MIRALAX) 17 GM PACK PO SCH (07:55)
[2019-12-29] MEDS: ASPIRIN 81 MG ECTAB PO SCH (07:55)
[2019-12-29] MEDS: INSULIN ASPART 100 UNITS/ML 3 ML PEN SC SCH ×4 (07:57→20:33)
[2019-12-29] MEDS ORDERED: carvediloL 12.5 MG TAB PO SCH (09:00)
--- NOTE | 2019-12-29 10:30 | Hospitalist Progress Note ---
Date of Service December 29, 2019 Assessment & Plan (1) NSTEMI (non-ST elevated myocardial infarction): Patient with mild chest pain that is greatly improved since presentation. I do appreciate cardiology consultation, I eventual plan is for catheterization if renal function improves. They are also recommending discontinuation of heparin which we will order. Continue the aspirin and Plavix. Patient is intolerant to statins outside of pravastatin 10 mg which has been continued. Unfortunately, renal function has not recovered at all yet, may need to do staged catheterization versus aggressive medical intervention. (2) Acute kidney injury: Patient being followed by nephrology. Microscopic hematuria has been noted. He now has dysuria and we will check a repeat urinalysis. Unfortunately his lab work has not improved. I will continue to monitor off of lisinopril and hydrochlorothiazide. (3) Hypertension: Most improved with medication changes. Continue isosorbide 90 mg along with Coreg 12.5 mg twice daily. (4) Diabetes: Patient is on sliding scale along with Lantus 6 units every afternoon. Blood sugars have been acceptable on this. Admission and Anticipated Discharge Date Admission Date: December 27, 2019 Subjective Patient asleep easily arousable. Patient has no new complaints. He does describe some vague chest pressure across his chest. He has no shortness of breath. Vital signs appear stable outside of some mild hypertension. Renal function has not improved much by lab work. In addition, patient tells me he has developed dysuria yesterday afternoon. He is noticed no gross hematuria. He denies any fevers and chills. He denies any shortness of breath. Physical Exam Constitutional: cooperative; no acute distress Neck: trachea midline, no thyromegaly Respiratory: normal respiratory effort Auscultation: lungs clear to auscultation bilaterally; no crackles, no rales, no rhonchi and no wheezes Cardiovascular: Rate/Rhythm: regular rate and regular rhythm Heart Sounds: normal S1 and normal S2 Vessels: no JVD Extremities: no pedal edema No chest wall tenderness Gastrointestinal (Abdomen): Inspection/Auscultation: abdomen normal to inspection Percussion/Palpation: abdomen soft; abdomen nontender, no guarding, abdomen not rigid and no hepatosplenomegaly Skin: no rashes, warm and dry Results & Data Results & Data ([facility]) Vital Signs (Past 12 Hours) Vital Signs Temp Pulse Pulse Resp BP BP Pulse Ox 12/29/19 06:57 37.1 C 80 16 146/65 H 94 12/29/19 04:53 37.6 C H 80 18 145/69 H 95 12/29/19 01:12 68 12/29/19 00:10 36.7 C 69 18 128/64 96 Laboratory Results WBCs 9.6, hemoglobin 11.2, hematocrit of 34.4. Sodium 138, potassium 3.7, chloride 107, CO2 24. BUN 33 with creatinine to 2.62, this is not appreciably changed since admission. PG Care Time/CCT Total # of Minutes Spent Total Time Spent with Patient: Total time spent is greater than 50% in coordination of care (as documented) at patient's floor/unit and/or counseling patient: Coding Level of Care Code 70902 Subseq Hosp Care Lvl 2 Diagnoses NSTEMI (non-ST elevated myocardial infarction) I21.4 Acute kidney injury N17.9 Hypertension I10 Hypertension type: unspecified Diabetes E11.22; N18.3; Z79.4 Chronic kidney disease stage: stage 3 (moderate) Diabetes mellitus complication detail: with chronic kidney disease Diabetes mellitus complication status: with kidney complications Diabetes mellitus intermediate card tender insulin use: with intermediate card tender use Diabetes mellitus type: type 2 (1) Diabetes Chronic kidney disease stage: stage 3 (moderate) Diabetes mellitus complication detail: with chronic kidney disease Diabetes mellitus complication status: with kidney complications Diabetes mellitus intermediate card tender insulin use: with intermediate card tender use Diabetes mellitus type: type 2 Qualified Code(s): E11.22 - Type 2 diabetes mellitus with diabetic chronic kidney disease; N18.3 - Chronic kidney disease, stage 3 (moderate); Z79.4 - superintendent container terminal (current) use of insulin (2) Hypertension Hypertension type: unspecified Qualified Code(s): I10 - Essential (primary) hypertension
[2019-12-29] MEDS: HEPARIN SODIUM/DEXTROSE 25,000 UNITS/500 ML BAG IV SCH (11:10)
--- NOTE | 2019-12-29 11:39 | Nephrology Progress Note ---
Date of Service December 29, 2019 Assessment & Plan (1) Acute kidney injury: 74-year-old gentlemen with stage III CKD with a variable creatinine around 1.4-1.7, secondary to microvascular disease. Admitted to the hospital with NSTEMI. Started on IV heparin and optimized medical therapy with carvedilol, Imdur and nitroglycerin. On admission he was found to have ILIA with creatinine of 2.6 which has been stable over last few days. Was also found to have proteinuria and hematuria with no prior history of either. Imaging showed otherwise normal size kidney and bladder. Cardiac catheterization has been on hold considering AK I and stabilization of symptoms. Unclear etiology for acute kidney injury, ? Hemodynamic. Blood pressure initially was high which improved and has been slightly variable. EF normal. Record review shows there has been progressive worsening of renal function over last few months, creatinine was 1.4 in August 2019 and 1.9 in October and on admission this time creatinine was 2.6. With new finding of proteinuria and hematuria, there is some concern for possible underlying glomerular pathology. Lisinopril and hydrochlorothiazide has been on hold since admission. --pending repeat UA, if proteinuria and hematuria persist and no further improvement in renal function, will consider serological workup --considering complain of dysuria, if UA shows any evidence of bacteriuria, suggest starting on antibiotic for UTI --as patient remain chest pain-free and has been able to do minimum activity without any symptom, if no improvement in renal function, would suggest to continue hold catheterization for now while continued on optimized medical therapy --monitor renal function with daily renal panel --okay to hold lisinopril for now however if blood pressure not at goal, renal function stays relatively stable and no sign of hyperkalemia, it would be reasonable to resume lisinopril Will follow Subjective Guille Was seen and examined in his room this morning. Overall he is feeling well, denies any shortness of breath or chest pain. Has been getting off the bed and going to the bathroom and remained asymptomatic with those activities. He reports some dysuria since yesterday. Renal function staying about the same with creatinine around 2.5-2.6 over last few days, electrolyte acceptable. Blood pressure has been relatively well controlled. Review of Systems Review of Systems: All systems reviewed & are unremarkable except as noted in HPI & below Physical Exam Constitutional: WD/WN, vitals as above no acute distress Respiratory: normal respiratory effort, lungs clear to auscultation Cardiovascular: RRR, no murmur, no edema Skin: no rashes, warm and dry Neurologic: awake; no focal motor deficits and not confused Psychiatric: A+Ox3, euthymic affect Results & Data Vital Signs (Past 12 Hours) Vital Signs Temp Pulse Pulse Resp BP BP Pulse Ox 12/29/19 06:57 37.1 C 80 16 146/65 H 94 12/29/19 04:53 37.6 C H 80 18 145/69 H 95 12/29/19 01:12 68 12/29/19 00:10 36.7 C 69 18 128/64 96 PG Care Time/CCT Total # of Minutes Spent Total Time Spent with Patient: Total time spent is greater than 50% in coordination of care (as documented) at patient's floor/unit and/or counseling patient: Coding Level of Care Code 30299 Subseq Hosp Care Lvl 3 Diagnoses Acute kidney injury N17.9
--- NOTE | 2019-12-29 12:06 | Cardiology Progress Note ---
Date of Service December 29, 2019 Assessment & Plan (1) NSTEMI (non-ST elevated myocardial infarction): The patient likely presented with an acute coronary syndrome. He remains stable off a heparin drip. Continue dual anti-platelet therapy. May proceed with cardiac catheterization next week. (2) Acute kidney injury: Creatinine remains stable. (3) Accelerated hypertension: Adequate control on regimen of carvedilol and isosorbide mononitrate. Admission and Anticipated Discharge Date Admission Date: December 27, 2019 Subjective The patient is resting comfortably in bed without complaints of chest pain or dyspnea. We have discussed need for cardiac catheterization. Physical Exam Physical Exam: In general this is a well-developed well-nourished white male in no acute distress. HEENT exam is negative. Neck is supple with full carotid upstrokes. There are no carotid bruits. Jugular venous pressure is flat at 90. There is no thyromegaly. Cardiovascular exam reveals a regular rhythm with a normal S1 and S2. No obvious murmurs. Lungs are clear without rales, rhonchi, or wheezes. Abdomen is soft and nontender without bruits. Extremities reveal intact radial artery and posterior tibial pulses bilaterally. There is no peripheral edema. Results & Data ([facility]) Vital Signs (Past 12 Hours) Vital Signs Temp Pulse Pulse Resp BP BP Pulse Ox 12/29/19 08:00 63 12/29/19 06:57 37.1 C 80 16 146/65 H 94 12/29/19 04:53 37.6 C H 80 18 145/69 H 95 12/29/19 01:12 68 12/29/19 00:10 36.7 C 69 18 128/64 96 Diagnostic Findings site monitor noted normal sinus rhythm without significant dysrhythmia. PG Care Time/CCT Total # of Minutes Spent Total Time Spent with Patient: Total time spent is greater than 50% in coordination of care (as documented) at patient's floor/unit and/or counseling patient: Coding Level of Care Code 76546 Subseq Hosp Care Lvl 3 Diagnoses NSTEMI (non-ST elevated myocardial infarction) I21.4 Acute kidney injury N17.9 Accelerated hypertension I10
[2019-12-29] MEDS: INSULIN GLARGINE SOLOSTAR 100 UNITS/ML 3 ML PEN SQ SCH (20:33)
[2019-12-29 22:15] LABS: Appearance Urine Cloudy (Clear); Bacteria Urine Automated Negative (Negative); Bilirubin Urine Negative (Negative); Blood Urine 3+ (Negative); Color Urine Orange; Epithelial Cell Urine Auto 0-5 /lpf (0-5); Glucose Urine UA Negative (Negative); Ketones Urine Trace (Negative); Leukocyte Esterase Urine 2+ (Negative); Nitrite Urine Negative (Negative); Protein Urine 1+ (Negative); RBC Urine Automated >30 /hpf (0-4); Specific Gravity Urine 1.018 (1.000-1.030); Urobilinogen Urine Negative (Negative); WBC Urine Automated >30 /hpf (0-5)
[2019-12-30 06:20] LABS: Basophils # (auto) 0.03 K/uL (0-0.2); Basophils % (auto) 0.3 %; Eosinophils # (auto) 0.49 K/uL (0-0.5); Eosinophils % (auto) 5.2 %; Hematocrit (blood only) 33.7 % (42-52); Hemoglobin 10.8 g/dL (14.0-18.0); Immature Granulocytes # (auto) 0.03 K/uL (0.00-0.02); Immature Granulocytes % (auto) 0.3 %; Lymphocytes # (auto) 2.23 K/uL (1.2-3.4); Lymphocytes % (auto) 23.5 %; Mean Corpuscular Hemoglobin 29.6 pg (25-34); Mean Corpuscular Volume 92.3 fL (80-100); Mean Platelet Volume 10.2 fL (7.4-10.4); Monocytes # (auto) 1.17 K/uL (0.11-0.59); Monocytes % (auto) 12.3 %; Neutrophils # (auto) 5.54 K/uL (1.4-6.5); Neutrophils % (auto) 58.4 %; Platelet Count 169 K/uL (130-400); RDW Coefficient of Variation 13.8 % (11.5-14.5); RDW Standard Deviation 46.8 fL (36.4-46.3); Red Blood Count 3.65 M/uL (4.7-6.1); White Blood Count 9.49 K/uL (4.8-10.8)
[2019-12-30 06:50] LABS: Calcium 8.7 mg/dl (8.5-10.1); Creatinine Clr Calc Pharmacy 24.9 ml/min; Est GFR (African American) 23.8; Est GFR (Non-African American) 20.5; Potassium 3.9 mmol/L (3.5-5.1)
[2019-12-30] MEDS: ISOSORBIDE MONO EXTENDED REL 30 MG TABCR PO SCH (08:37)
[2019-12-30] MEDS: PRAVASTATIN SOD 10 MG TAB PO SCH (08:37)
[2019-12-30] MEDS: CLOPIDOGREL BISULFATE 75 MG TAB PO SCH (08:37)
[2019-12-30] MEDS: MAGNESIUM CHLORIDE 64MG DELAYED REL TAB PO SCH (08:37)
[2019-12-30] MEDS: ASPIRIN 81 MG ECTAB PO SCH (08:37)
[2019-12-30] MEDS: CHOLECALCIFEROL 1,000 UNITS 25 MCG TAB PO SCH (08:37)
[2019-12-30] MEDS: POLYETHYLENE (MIRALAX) 17 GM PACK PO SCH (08:37)
[2019-12-30] MEDS: carvediloL 12.5 MG TAB PO SCH ×2 (08:38→20:41)
[2019-12-30] MEDS: PANTOprazole 40 MG TAB PO SCH ×2 (08:38→20:41)
[2019-12-30] MEDS: INSULIN ASPART 100 UNITS/ML 3 ML PEN SC SCH ×4 (08:39→20:42)
[2019-12-30] MEDS ORDERED: FLUCONAZOLE 100 MG TAB PO ONE (09:30)
--- NOTE | 2019-12-30 09:30 | Hospitalist Progress Note ---
Date of Service December 30, 2019 Assessment & Plan (1) NSTEMI (non-ST elevated myocardial infarction): Patient's chest pain has completely resolved and he is no longer on IV heparin. I do appreciate cardiology consultation, eventual plan is for catheterization if renal function improves. Continue the aspirin and Plavix. Patient is intolerant to statins outside of pravastatin 10 mg which has been continued. Renal function still has not recovered, will defer to cardiology and nephrology regarding possible cardiac catheterization early next week. (2) Acute kidney injury: Patient being followed by nephrology. Microscopic hematuria has been noted. Repeat urinalysis shows leuk esterases, over 30 WBCs and RBCs as well as yeast. Concern for possible UTI versus symptomatic funguria. Will start patient on IV Rocephin along with Diflucan pending culture results. Nephrology had previously suggested urology consultation, will ask them to evaluate as well. (3) Hypertension: Most improved with medication changes. Continue isosorbide 90 mg along with Coreg 12.5 mg twice daily. (4) Diabetes: Patient is on sliding scale along with Lantus 6 units every afternoon. Blood sugars have been acceptable on this. Admission and Anticipated Discharge Date Admission Date: December 27, 2019 Subjective Patient is awake and alert. He has no further complaints of chest pain or pressure and has been off heparin for the past 24 hours. He does note continued dysuria. He is now noting some pink-tinged urine as well. He denies any suprapubic or CVA pain. He has been afebrile. He is mildly hypertensive. Physical Exam Constitutional: cooperative; no acute distress Neck: trachea midline, no thyromegaly Respiratory: normal respiratory effort Auscultation: lungs clear to auscultation bilaterally; no crackles, no rales, no rhonchi and no wheezes Cardiovascular: Rate/Rhythm: regular rate and regular rhythm Heart Sounds: normal S1 and normal S2 Gastrointestinal (Abdomen): Inspection/Auscultation: abdomen normal to inspection Percussion/Palpation: abdomen soft; abdomen nontender, no guarding, abdomen not rigid and no hepatosplenomegaly Skin: no rashes, warm and dry Genitourinary: no CVA tenderness No suprapubic tenderness Results & Data Results & Data ([facility]) Vital Signs (Past 12 Hours) Vital Signs Temp Pulse Pulse Resp BP Pulse Ox 12/30/19 08:13 37.4 C 79 20 156/72 H 93 12/30/19 03:41 37.4 C 78 18 142/76 H 95 12/29/19 23:31 37.5 C 76 18 136/67 96 12/29/19 22:53 80 PG Care Time/CCT Total # of Minutes Spent Total Time Spent with Patient: Total time spent is greater than 50% in coordination of care (as documented) at patient's floor/unit and/or counseling patient: Coding Level of Care Code 12610 Subseq Hosp Care Lvl 2 Diagnoses NSTEMI (non-ST elevated myocardial infarction) I21.4 Acute kidney injury N17.9 Hypertension I10 Hypertension type: unspecified Diabetes E11.22; N18.3; Z79.4 Diabetes mellitus type: type 2 Diabetes mellitus [facility] insulin use: with long goods drier use Diabetes mellitus complication status: with kidney complications Diabetes mellitus complication detail: with chronic kidney disease Chronic kidney disease stage: stage 3 (moderate) (1) Hypertension Hypertension type: unspecified Qualified Code(s): I10 - Essential (primary) hypertension (2) Diabetes Diabetes mellitus type: type 2 Diabetes mellitus [facility] insulin use: with long goods drier use Diabetes mellitus complication status: with kidney complications Diabetes mellitus complication detail: with chronic kidney disease Chronic kidney disease stage: stage 3 (moderate) Qualified Code(s): E11.22 - Type 2 diabetes mellitus with diabetic chronic kidney disease; N18.3 - Chronic kidney disease, stage 3 (moderate); Z79.4 - [facility] (current) use of insulin
[2019-12-30] MEDS: cefTRIAXone SODIUM 2,000 MG in DEXTROSE 5% 50 ML IV SCH (10:20)
--- NOTE | 2019-12-30 11:04 | Cardiology Progress Note ---
Date of Service December 30, 2019 Assessment & Plan (1) NSTEMI (non-ST elevated myocardial infarction): The patient presented with an acute coronary syndrome. Remains stable off a heparin drip. Continue dual anti-platelet therapy. May proceed with cardiac catheterization this week. (2) Acute kidney injury: Creatinine remains stable. (3) Accelerated hypertension: Adequate control on current regimen of carvedilol and isosorbide mononitrate. Admission and Anticipated Discharge Date Admission Date: December 27, 2019 Subjective The patient is resting comfortably in bed without complaints of chest pain or dyspnea. Physical Exam 2 Physical Exam: In general this is a well-developed well-nourished white male in no acute distress. HEENT exam is negative. Neck is supple with full carotid upstrokes. There are no carotid bruits. Jugular venous pressure is flat at 90. There is no thyromegaly. Cardiovascular exam reveals a regular rhythm with a normal S1 and S2. No obvious murmurs. Lungs are clear without rales, rhonchi, or wheezes. Abdomen is soft and nontender without bruits. Extremities reveal intact radial artery pulses bilaterally. There is no peripheral edema. Results & Data ([facility]) Vital Signs (Past 12 Hours) Vital Signs Temp Pulse Resp BP Pulse Ox 12/30/19 08:13 37.4 C 79 20 156/72 H 93 12/30/19 03:41 37.4 C 78 18 142/76 H 95 12/29/19 23:31 37.5 C 76 18 136/67 96 PG Care Time/CCT Total # of Minutes Spent Total Time Spent with Patient: Total time spent is greater than 50% in coordination of care (as documented) at patient's floor/unit and/or counseling patient: Coding Level of Care Code 73834 Subseq Hosp Care Lvl 3 Diagnoses NSTEMI (non-ST elevated myocardial infarction) I21.4 Acute kidney injury N17.9 Accelerated hypertension I10
--- NOTE | 2019-12-30 11:16 | Nephrology Progress Note ---
Date of Service December 30, 2019 Assessment & Plan (1) Acute kidney injury: 74-year-old gentlemen with stage III CKD with a variable creatinine around 1.4-1.7, secondary to microvascular disease. Admitted to the hospital with NSTEMI. Started on IV heparin and optimized medical therapy with carvedilol, Imdur and nitroglycerin. On admission he was found to have ILIA with creatinine of 2.6 which has been stable over last few days. Was also found to have proteinuria and hematuria with no prior history of either. Imaging showed otherwise normal size kidney and bladder. Cardiac catheterization has been on hold considering AK I and stabilization of symptoms. Unclear etiology for acute kidney injury, ? Hemodynamic. Blood pressure initially was high which improved and has been slightly variable. EF normal. Record review shows there has been progressive worsening of renal function over last few months, creatinine was 1.4 in August 2019 and 1.9 in October and on admission this time creatinine was 2.6. With new finding of proteinuria and hematuria, there is some concern for possible underlying glomerular pathology. Lisinopril and hydrochlorothiazide has been on hold since admission. Renal function continues to worsen, with persistent proteinuria and hematuria. --24 h urine for proteinuria and CrCl, serological workup --encourage adequate po intake. --considering complain of dysuria, if UA shows any evidence of bacteriuria, suggest starting on antibiotic for UTI --as patient remain chest pain-free and has been able to do minimum activity without any symptom and renal function worsening, hold catheterization for now while continued on optimized medical therapy --monitor renal function with daily renal panel Will follow Subjective Guille Was seen and examined in his room this morning. Overall he is feeling well, denies any shortness of breath or chest pain. Has been getting off the bed and going to the bathroom and remained asymptomatic with those activities. Renal function continues to worsen, creatinine 2.9, electrolyte acceptable. Blood pressure has been relatively well controlled. UO decent, unmeasured. Review of Systems Review of Systems: All systems reviewed & are unremarkable except as noted in HPI & below Physical Exam Constitutional: WD/WN, vitals as above no acute distress Respiratory: normal respiratory effort, lungs clear to auscultation Cardiovascular: RRR, no murmur, no edema Skin: no rashes, warm and dry Neurologic: awake; no focal motor deficits and not confused Psychiatric: A+Ox3, euthymic affect Results & Data Vital Signs (Past 12 Hours) Vital Signs Temp Pulse Resp BP Pulse Ox 12/30/19 08:13 37.4 C 79 20 156/72 H 93 12/30/19 03:41 37.4 C 78 18 142/76 H 95 12/29/19 23:31 37.5 C 76 18 136/67 96 PG Care Time/CCT Total # of Minutes Spent Total Time Spent with Patient: Total time spent is greater than 50% in coordination of care (as documented) at patient's floor/unit and/or counseling patient: Coding Level of Care Code 46992 Subseq Hosp Care Lvl 3 Diagnoses Acute kidney injury N17.9
[2019-12-30] MEDS: INSULIN GLARGINE SOLOSTAR 100 UNITS/ML 3 ML PEN SQ SCH (20:42)
[2019-12-31 06:58] LABS: Basophils # (auto) 0.03 K/uL (0-0.2); Basophils % (auto) 0.3 %; Eosinophils # (auto) 0.61 K/uL (0-0.5); Eosinophils % (auto) 5.7 %; Hematocrit (blood only) 35.9 % (42-52); Hemoglobin 11.8 g/dL (14.0-18.0); Immature Granulocytes # (auto) 0.02 K/uL (0.00-0.02); Immature Granulocytes % (auto) 0.2 %; Lymphocytes # (auto) 1.99 K/uL (1.2-3.4); Lymphocytes % (auto) 18.7 %; Mean Corpuscular Hemoglobin 29.7 pg (25-34); Mean Corpuscular Hgb Conc 32.9 g/dL (32-36); Mean Corpuscular Volume 90.4 fL (80-100); Mean Platelet Volume 10.3 fL (7.4-10.4); Monocytes # (auto) 1.17 K/uL (0.11-0.59); Neutrophils # (auto) 6.81 K/uL (1.4-6.5); Neutrophils % (auto) 64.1 %; Platelet Count 194 K/uL (130-400); RDW Coefficient of Variation 13.6 % (11.5-14.5); RDW Standard Deviation 44.6 fL (36.4-46.3); Red Blood Count 3.97 M/uL (4.7-6.1); White Blood Count 10.63 K/uL (4.8-10.8)
[2019-12-31 07:31] LABS: BUN Creatinine Ratio 12.6 (10-20); Calcium 8.8 mg/dl (8.5-10.1); Creatinine Clr Calc Pharmacy 21.3 ml/min; Est GFR (African American) 21.4; Est GFR (Non-African American) 18.4; Potassium 4.2 mmol/L (3.5-5.1)
[2019-12-31] MEDS: INSULIN ASPART 100 UNITS/ML 3 ML PEN SC SCH ×4 (07:59→20:58)
[2019-12-31] MEDS: FLUCONAZOLE 50 MG TAB PO SCH (08:00)
[2019-12-31] MEDS: PRAVASTATIN SOD 10 MG TAB PO SCH (08:00)
[2019-12-31] MEDS: CLOPIDOGREL BISULFATE 75 MG TAB PO SCH (08:00)
[2019-12-31] MEDS: ISOSORBIDE MONO EXTENDED REL 30 MG TABCR PO SCH (08:00)
[2019-12-31] MEDS: PANTOprazole 40 MG TAB PO SCH ×2 (08:00→20:58)
[2019-12-31] MEDS: CHOLECALCIFEROL 1,000 UNITS 25 MCG TAB PO SCH (08:00)
[2019-12-31] MEDS: POLYETHYLENE (MIRALAX) 17 GM PACK PO SCH ×2 (08:00→20:57)
[2019-12-31] MEDS: carvediloL 12.5 MG TAB PO SCH ×2 (08:00→20:56)
[2019-12-31] MEDS: ASPIRIN 81 MG ECTAB PO SCH (08:00)
[2019-12-31] MEDS ORDERED: BETAMETHASONE DIP AUG (DIPROLENE) 0.05% CR 15 GM TUBE EXT PRN (10:00)
[2019-12-31] MEDS ORDERED: SENNA 8.6 MG TAB PO ONE (10:00)
--- NOTE | 2019-12-31 10:26 | Nephrology Progress Note ---
Date of Service December 31, 2019 Assessment & Plan (1) Acute kidney injury: 74-year-old gentlemen with stage III CKD with a variable creatinine around 1.4-1.7, secondary to microvascular disease. Admitted to the hospital with NSTEMI. Started on IV heparin and optimized medical therapy with carvedilol, Imdur and nitroglycerin. On admission he was found to have ILIA with creatinine of 2.6 which has been stable over last few days. Was also found to have proteinuria and hematuria with no prior history of either. Imaging showed otherwise normal size kidney and bladder. Cardiac catheterization has been on hold considering AK I and stabilization of symptoms. Unclear etiology for acute kidney injury, ? Hemodynamic. Blood pressure initially was high which improved and has been slightly variable. EF normal. Record review shows there has been progressive worsening of renal function over last few months, creatinine was 1.4 in August 2019 and 1.9 in October and on admission this time creatinine was 2.6. With new finding of proteinuria and hematuria, there is some concern for possible underlying glomerular pathology. Lisinopril and hydrochlorothiazide has been on hold since admission. Renal function continues to worsen, with persistent proteinuria and hematuria. Otherwise asymptomatic, no uremic symptoms. --waiting on serological workup and 24 h urine proteinuria and CrCl. --encourage adequate po intake. --as patient remain chest pain-free and has been able to do minimum activity without any symptom and renal function worsening, hold catheterization for now while continued on optimized medical therapy --monitor renal function with daily renal panel Will follow Subjective Guille Was seen and examined in his room this morning. Overall he is feeling well, denies any shortness of breath or chest pain. Continues to have dysuria. Has been getting off the bed and going to the bathroom and remained asymptomatic with those activities. Renal function continues to worsen, creatinine 3.2, electrolyte remained acceptable. Blood pressure has been relatively well controlled. UO decent, net positive. Review of Systems Review of Systems: All systems reviewed & are unremarkable except as noted in HPI & below Physical Exam Constitutional: WD/WN, vitals as above no acute distress Respiratory: normal respiratory effort, lungs clear to auscultation Cardiovascular: RRR, no murmur, no edema Skin: no rashes, warm and dry Neurologic: awake; no focal motor deficits and not confused Psychiatric: A+Ox3, euthymic affect Results & Data Vital Signs (Past 12 Hours) Vital Signs Temp Pulse Pulse Resp BP BP Pulse Ox 12/31/19 07:30 37.0 C 73 20 149/76 H 95 12/31/19 04:31 36.6 C 78 20 148/70 H 96 12/31/19 01:16 37.2 C 77 16 159/67 H 95 12/30/19 23:17 75 PG Care Time/CCT Total # of Minutes Spent Total Time Spent with Patient: Total time spent is greater than 50% in coordination of care (as documented) at patient's floor/unit and/or counseling patient: Coding Level of Care Code 97245 Subseq Hosp Care Lvl 3 Diagnoses Acute kidney injury N17.9
[2019-12-31] MEDS: cefTRIAXone SODIUM 2,000 MG in DEXTROSE 5% 50 ML IV SCH (10:42)
--- NOTE | 2019-12-31 11:31 | Urology Consultation ---
Date of Consultation December 31, 2019 Assessment & Plan (1) Microscopic hematuria: 74 yo M with multiple comorbidities admitted for NSTEMI and ILIA. - Case reviewed with Dr. Conner - CT abd/pelvis reviewed, no acute findings - No need for acute urological intervention at present - Nephrology notes reviewed, undergoing workup, appreciate recs - Plan for outpatient cystoscopy in 3-4 months with our service to complete hematuria work-up Thank you for allowing us to participate in the acute care of Mr. Negron. Please reconsult us with additional questions, concerns or changes in patient status. History of Present Illness Attending Physician: Gregorio Keller MD History of Present Illness 74 yo M with multiple comorbidities admitted for NSTEMI and ILIA. New consultation for microscopic hematuria. Patient admitted via [facility] on 12/27/19. Presented with symptoms of shortness of breath and hypertension. EKG showed T wave inversions laterally and elevated troponin concerning for non-ST elevation SC. Treated with IV heparin, Nitropaste, and PO aspirin in ED. Creatinine on arrival was 2.59. UA with 2+ protein, 3+ blood, 10-30 RBCs, 10-20 epi's. Admitted for further evaluation and management. Currently being followed by Cardiology, Medicine, and Nephrology. Nephrology consulted due to ILIA, proteinuria and hematuria - undergoing serological workup and 24 h urine proteinuria and CrCl. Chart review Afebrile Creatinine 3.15 WBC - 10.63 Hgb - 11.8 UA (12/28) - 3+ blood, 1+ protein, 2+ Leuks, >30 WBCs, >30 RBCs, budding yeast, negative bacteria, negative nitrites UC&S - Three types of organisms present, all moderate counts Imaging: CT abd/pelvis wo con IMPRESSION: 1. There are no acute infectious or inflammatory findings in the abdomen or pelvis. 2. Mild colonic diverticulosis without CT evidence of acute diverticulitis. Awake, alert, resting comfortably in bed. No issues over night. Offers no complaints. Voiding spontaneously. Some urinary urgency. No daytime frequency. Nocturia x 1. No gross hematuria. No abdominal pain, flank pain, or suprapubic pain. No f/c/n/v. History of tobacco use. Quit cigarette smoking 50 years ago. Smoked 1 ppd for 30 years. Current tobacco chewing. Has never seen a urologist. No history of kidney stones. Denies personal history of prostate, kidney or bladder cancer. Family history of prostate cancer - Brother. He is unsure of prior PSA screening. He says Dr. Carrera examines his prostate. No additional urological concerns at this time. Allergies Allergy/AdvReac Type Severity Reaction Status Date / Time Azuaunz-Zhi-Ccx Reductase Allergy Unknown muscle Verified 12/27/19 11:21 Inhibitor aches HMG-CoA-R Inhibitors AdvReac Unknown MUSCLE Uncoded 12/27/19 11:21 ACHES Home Medications Home Medications Medication Instructions Recorded Confirmed Type glipizide 5 mg tablet 5 mg PO DAILY tab 05/16/19 12/27/19 History betamethasone dipropionate 0.05 % 1 appln TOP BID PRN 06/14/19 12/27/19 History topical cream magnesium chloride 71.5 mg 143 mg PO BID tab 06/14/19 12/27/19 History (magnesium chloride) tablet,delayed release omega-3 fatty acids 1,000 mg 3,000 mg PO DAILY 06/14/19 12/27/19 History capsule pravastatin 10 mg tablet 10 mg PO HS 06/14/19 12/27/19 History triamcinolone acetonide 0.1 % 1 appln TOP DAILY PRN 06/14/19 12/27/19 History topical cream nitroglycerin 400 mcg/spray 0.4 mg SL Q5M PRN #4.9 gm 06/22/19 12/27/19 Rx translingual clopidogrel 75 mg tablet 75 mg PO DAILY #90 tab 07/14/19 12/27/19 Rx chlorpheniramine maleate [Allergy 4 mg PO Q8H PRN 08/01/19 12/27/19 History (chlorpheniramine)] cholecalciferol (vitamin D3) 1,000 unit PO DAILY 08/01/19 12/27/19 History [Vitamin D3] insulin glargine [Lantus Solostar 12 unit SUBCUT QPM 08/01/19 12/27/19 History U-100 Insulin] lisinopril 40 mg PO DAILY 08/01/19 12/27/19 History metoprolol succinate 50 mg 50 mg PO DAILY #90 tab 08/07/19 12/27/19 Rx tablet,extended release 24 hr hydrochlorothiazide 12.5 mg tablet 12.5 mg PO DAILY #90 tab 09/06/19 12/27/19 Rx pantoprazole 40 mg tablet,delayed 40 mg PO BID #180 tab 10/15/19 12/27/19 Rx release aspirin 81 mg PO HS 12/27/19 12/27/19 History coQ10 (ubiquinol) 400 mg PO DAILY 12/27/19 12/27/19 History fluticasone propionate [Flonase 2 sprays INTNAS DAILY PRN 12/27/19 12/27/19 History Allergy Relief] melatonin 10 mg PO HS 12/27/19 12/27/19 History vitamin E 400 unit PO DAILY 12/27/19 12/27/19 History Patient History Medical History Accelerated hypertension Arthritis (Chronic) Chest pain (Acute 07/11/14) Chronic kidney disease (Chronic) Constipation (Acute) Crohn's disease (Chronic) Diabetes (Chronic) Dysmetria (Resolved) Expressive aphasia Gastroparesis (Chronic) GERD (gastroesophageal reflux disease) (Chronic) Hypertension (Chronic) Psoriasis (Chronic) Pyelonephritis (Resolved) Thrombocytopenia (Acute) Vitamin D deficiency (Chronic) Surgical History History of cardiac catheterization History of Cath Stent 1 Type Drug-Eluting History of Cath Stent 2 Proximal Right Coronary Artery History of cholecystectomy History of PTCA Family History Father Coronary heart disease Brother Pulmonary embolism Colon cancer Hx of CABG Mother Coronary heart disease Social History Preferred Language: Sudanese Communication Ability: Effective Special Education Resource Teacher Required: No Beliefs That Will Affect Care: None marital status: Current Living Situation: Spouse current occupational status: retired Other Information That Helps Us Care for You: No Feels Safe at Home: Yes Safety Concerns: Feels Safe At This Time Smoking Status: Former smoker Tobacco Type: cigarettes ; Age Started Using Tobacco: 8 ; Age Quit Using Tobacco: 48 ; packs per day: 1 ; Do You Dip or Chew Tobacco: Yes ; Second Hand Exposure: Yes ; Tobacco Cessation Education Requested by Patient: No Hx Alcohol Use: No Hx Substance Use: No Review of Systems Constitutional: as per Subjective / HPI Gastrointestinal: as per Subjective / HPI Genitourinary: + as per Subjective / HPI Physical Exam Constitutional: well developed, well nourished and + obese; no acute distress Respiratory: normal respiratory effort and able to speak in complete sentences; no respiratory distress and no labored breathing Cardiovascular: Extremities: no pedal edema Gastrointestinal (Abdomen): Inspection/Auscultation: abdomen normal to inspection; abdomen not distended Percussion/Palpation: abdomen soft; abdomen nontender and no guarding Neurologic: moves all extremities and awake Psychiatric: A+Ox3, euthymic affect Genitourinary: no CVA tenderness Voiding spontaneously, urine not vi sualized during exam Results & Data Vital Signs (Past 12 Hours) Vital Signs Temp Pulse Resp BP BP Pulse Ox 12/31/19 07:30 37.0 C 73 20 149/76 H 95 12/31/19 04:31 36.6 C 78 20 148/70 H 96 12/31/19 01:16 37.2 C 77 16 159/67 H 95 PG Care Time/CCT Total # of Minutes Spent Total Time Spent with Patient: Total time spent is greater than 50% in coordination of care (as documented) at patient's floor/unit and/or counseling patient: Coding Level of Care Code 08732 Inpt Consult Level 3 Diagnoses Microscopic hematuria R31.29
--- NOTE | 2019-12-31 12:22 | Cardiology Progress Note ---
Date of Service December 31, 2019 Assessment & Plan (1) NSTEMI (non-ST elevated myocardial infarction): The patient likely presented with an acute coronary syndrome. The plan was to consider cardiac catheterization this week, however, his renal function continues to deteriorate. It may be best to follow a conservative medical strategy at this time. The case was discussed with Dr. Christianson. (2) Acute kidney injury: Creatinine continues to increase. (3) Accelerated hypertension: Adequate control on current regimen of carvedilol and isosorbide mononitrate. Admission and Anticipated Discharge Date Admission Date: December 27, 2019 Subjective The patient is resting comfortably in bed without complaints of chest pain or dyspnea. Was able to ambulate the hallways yesterday without symptoms. We have discussed following a conservative medical strategy at this time. A cardiac cat heterization may place his kidneys at risk. Physical Exam Physical Exam: In general this is a well-developed well-nourished white male in no acute distress. HEENT exam is negative. Neck is supple with full carotid upstrokes. There are no carotid bruits. Jugular venous pressure is flat at 90. There is no thyromegaly. Cardiovascular exam reveals a regular rhythm with a normal S1 and S2. No obvious murmurs. Lungs are clear without rales, rhonchi, or wheezes. Abdomen is soft and nontender without bruits. Extremities reveal intact radial artery pulses bilaterally. There is no peripheral edema. Results & Data ([facility]) Vital Signs (Past 12 Hours) Vital Signs Temp Pulse Resp BP BP Pulse Ox 12/31/19 11:08 36.5 C 77 18 122/57 L 95 12/31/19 07:30 37.0 C 73 20 149/76 H 95 12/31/19 04:31 36.6 C 78 20 148/70 H 96 12/31/19 01:16 37.2 C 77 16 159/67 H 95 PG Care Time/CCT Total # of Minutes Spent Total Time Spent with Patient: Total time spent is greater than 50% in coordination of care (as documented) at patient's floor/unit and/or counseling patient: Coding Level of Care Code 89517 Subseq Hosp Care Lvl 3 Diagnoses NSTEMI (non-ST elevated myocardial infarction) I21.4 Acute kidney injury N17.9 Accelerated hypertension I10
[2019-12-31 13:44] LABS: Patient Weight 87.4 kg
--- NOTE | 2019-12-31 13:57 | Hospitalist Progress Note ---
Date of Service December 31, 2019 Assessment & Plan (1) NSTEMI (non-ST elevated myocardial infarction): Initial admission for chest pain, now resolved. Troponin peak 4.43 on admission. CXR clear on admission. History of x3 PCI to RCA and circumflex. Occurred in setting of hypertensive urgency. Continue ASA, Plavix, ISMN, Pravastatin (intolerant to higher intensity statins). Cardiac cath planned if renal function improved. (2) Acute kidney injury: ILIA on CKD stage 3. New microscopic hematuria/proteinuria. CT A/P w/o contrast ruled out post obstructive cause. Hopefully due to UTI/funguria (started treatment 12/29), prior history of this; will request previous urine cultures from [facility]. Otherwise multiple outstanding labs at this time including PIEDAD, ANCA, C3/4, Protein electrophoresis, GBM Ab, Urine 24 hour protein, electrophoresis. Appreciate nephrology ongoing management and recommendations. Main reason for continued stay. (3) Complicated urinary tract infection: Suspected from PMHx, dysuria and mixed urine culture in setting of ILIA. Bladder scan for PVR, although based on CT A/P urine retention is not an issue. Request prior urine cultures from [facility]. PSA in AM. Continue ceftriaxone 2g IV daily (started 12/29). Budding yeast on UA - continue fluconazole 50mg daily. (4) Microscopic hematuria: Appreciate urology r/v Cystoscopy planned for 3-4 months as outpatient. Suspect secondary to infection as above however. (5) Hypertension: Stable. Outpatient meds HCTZ/lisinopril discontinued secondary to ILIA Metoprolol succinate switched to carvedilol 12.5mg BID New medication this admission ISMN ER 90 mg QAM. (6) Diabetes: Hypoglycemia on admission HbA1C 7.2 BSG 87-138 last 24 hours. Continue Lantus 6 units QPM + Novolog (13 total units in last 24 hours) correction 30, carb ratio 1:10 (will tighten aim given NSTEMI 110-140) (7) Constipation: Increase MiraLAX to BID, Senna dose today. Possibly increasing risk of UTI. (8) Psoriasis: Restart home meds topical betamethasone 0.05% BID BEATRICE on affected areas. (9) GERD (gastroesophageal reflux disease): Continue pantoprazole. (10) DVT prophylaxis: No chemical anticoagulation since heparin drip was discontinued a number of days ago. Will start heparin 5000 units SQ q8h. Admission and Anticipated Discharge Date Admission Date: December 27, 2019 Continue PT/OT. Unclear discharge at this time as Cr continues to increase. Subjective Reviewed HPI and clinical course with the patient. No further chest pains, orthopnea, PND, palpitations. Patient reports continuing dysuria although improved since he started anti biotics yesterday. Remains constipated without a significant BM since admission. Urine output remains good. No back/flank pain. No fevers/chills. Review of Systems Review of Systems: All systems reviewed & are unremarkable except as noted in HPI & below Physical Exam Constitutional: well developed and + obese; no acute distress Eyes: + anicteric sclerae; normal pupil size ENMT: external ear and nose normal, oropharynx normal Neck: normal visual inspection and trachea midline Respiratory: normal respiratory effort; no respiratory distress Auscultation: lungs clear to auscultation bilaterally; no crackles, no rales, no rhonchi and no wheezes Cardiovascular: Rate/Rhythm: regular rate and regular rhythm Heart Sounds: no murmur Vessels: no JVD Extremities: normal capillary refill and + pedal edema Chest (Breasts): Chest: normal inspection of chest Gastrointestinal (Abdomen): Inspection/Auscultation: abdomen normal to inspection Percussion/Palpation: abdomen soft; abdomen nontender, no guarding, abdomen not rigid and no hepatosplenomegaly Musculoskeletal: Extremities: extremities normal to inspection Skin: no rashes, warm and dry Neurologic: moves all extremities and awake; no focal motor deficits and not confused Psychiatric: A+Ox3, euthymic affect Genitourinary: no CVA tenderness Results & Data Results & Data ([facility]) Vital Signs (Past 12 Hours) Vital Signs Temp Pulse Pulse Resp BP BP Pulse Ox 12/31/19 11:08 36.5 C 77 18 122/57 L 95 12/31/19 08:00 82 12/31/19 07:30 37.0 C 73 20 149/76 H 95 12/31/19 04:31 36.6 C 78 20 148/70 H 96 PG Care Time/CCT Total # of Minutes Spent Total Time Spent with Patient: Total time spent is greater than 50% in coordination of care (as documented) at patient's floor/unit and/or counseling patient: Coding Level of Care Code 75986 Subseq Hosp Care Lvl 3 Diagnoses NSTEMI (non-ST elevated myocardial infarction) I21.4 Acute kidney injury N17.9 Complicated urinary tract infection N39.0 Microscopic hematuria R31.29 Hypertension I10 Hypertension type: unspecified Diabetes E11.22; N18.3; Z79.4 Chronic kidney disease stage: stage 3 (moderate) Diabetes mellitus complication detail: with chronic kidney disease Diabetes mellitus complication status: with kidney complications Diabetes mellitus superintendent container terminal insulin use: with superintendent container terminal use Diabetes mellitus type: type 2 Constipation K59.00 Constipation type: unspecified constipation type Psoriasis L40.9 GERD (gastroesophageal reflux disease) K21.9 Esophagitis presence: without esophagitis DVT prophylaxis Z29.9 (1) Diabetes Chronic kidney disease stage: stage 3 (moderate) Diabetes mellitus complication detail: with chronic kidney disease Diabetes mellitus complication status: with kidney complications Diabetes mellitus fdc insulin use: with fdc use Diabetes mellitus type: type 2 Qualified Code(s): E11.22 - Type 2 diabetes mellitus with diabetic chronic kidney disease; N18.3 - Chronic kidney disease, stage 3 (moderate); Z79.4 - emt intermediate (current) use of 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
[2019-12-31 14:25] LABS: Urine Creatinine 70.6 mg/dl
[2019-12-31 14:39] LABS: Urine Total Protein 32.4 mg/dl
[2019-12-31] MEDS: HEPARIN SOD 5,000 UNIT/0.5 ML VIAL SQ SCH ×2 (17:18→20:57)
[2019-12-31 19:09] LABS: Total Protein 24 Hour Urine 664.2 mg/24 Hr (0-149.1)
[2019-12-31] MEDS: INSULIN GLARGINE SOLOSTAR 100 UNITS/ML 3 ML PEN SQ SCH (20:56)
[2019-12-31] MEDS ORDERED: ACETAMINOPHEN 325 MG TAB PO PRN (23:12)
[2020-01-01] MEDS: HEPARIN SOD 5,000 UNIT/0.5 ML VIAL SQ SCH ×3 (05:27→20:45)
[2020-01-01 06:33] LABS: BUN Creatinine Ratio 13.1 (10-20); Calcium 8.5 mg/dl (8.5-10.1); Creatinine Clr Calc Pharmacy 21.3 ml/min; Est GFR (African American) 21.4; Est GFR (Non-African American) 18.4; Potassium 3.9 mmol/L (3.5-5.1)
[2020-01-01 06:38] LABS: Prostate Specific Antigen 2.72 ng/ml (0-4)
[2020-01-01] MEDS: INSULIN ASPART 100 UNITS/ML 3 ML PEN SC SCH ×4 (08:36→20:43)
[2020-01-01] MEDS: ISOSORBIDE MONO EXTENDED REL 30 MG TABCR PO SCH (08:38)
[2020-01-01] MEDS: carvediloL 12.5 MG TAB PO SCH ×2 (08:38→20:43)
[2020-01-01] MEDS: PRAVASTATIN SOD 10 MG TAB PO SCH (08:38)
[2020-01-01] MEDS: FLUCONAZOLE 50 MG TAB PO SCH (08:38)
[2020-01-01] MEDS: PANTOprazole 40 MG TAB PO SCH ×2 (08:38→20:43)
[2020-01-01] MEDS: ASPIRIN 81 MG ECTAB PO SCH (08:38)
[2020-01-01] MEDS: CLOPIDOGREL BISULFATE 75 MG TAB PO SCH (08:38)
[2020-01-01] MEDS: CHOLECALCIFEROL 1,000 UNITS 25 MCG TAB PO SCH (08:38)
[2020-01-01] MEDS: POLYETHYLENE (MIRALAX) 17 GM PACK PO SCH ×2 (08:39→20:44)
[2020-01-01] MEDS: cefTRIAXone SODIUM 2,000 MG in DEXTROSE 5% 50 ML IV SCH (10:43)
--- NOTE | 2020-01-01 12:01 | Nephrology Progress Note ---
Date of Service January 01, 2020 Assessment & Plan (1) Acute kidney injury: 74-year-old gentlemen with stage III CKD with a variable creatinine around 1.4-1.7, secondary to microvascular disease. Admitted to the hospital with NSTEMI. Started on IV heparin and optimized medical therapy with carvedilol, Imdur and nitroglycerin. On admission he was found to have ILIA with creatinine of 2.6 which has been stable over last few days. Was also found to have proteinuria and hematuria with no prior history of either. Imaging showed otherwise normal size kidney and bladder. Cardiac catheterization has been on hold considering AK I and stabilization of symptoms. Unclear etiology for acute kidney injury, ? Hemodynamic. Blood pressure initially was high which improved and has been slightly variable. EF normal. Record review shows there has been progressive worsening of renal function over last few months, creatinine was 1.4 in August 2019 and 1.9 in October and on admission this time creatinine was 2.6. With new finding of proteinuria and hematuria, there is some concern for possible underlying glomerular pathology. Lisinopril and hydrochlorothiazide has been on hold since admission. Renal function has been stable last 3 days, otherwise asymptomatic, no uremic symptoms. BP well controlled. -- continue to monitor renal function with daily renal panel, hopefully renal function will start to improve soon --waiting on serological workup --encourage adequate po intake. --as patient remain chest pain-free and has been able to do minimum activity without any symptom and renal function worsening, hold catheterization for now while continued on optimized medical therapy Will follow Subjective Guille Was seen and examined in his room this morning. Overall he is feeling well, denies any shortness of breath or chest pain. Anxious to be discharged home as he has been feeling well. Renal function relatively stable over last 3 days, creatinine 3.2, electrolyte remained acceptable. Blood pressure has been relatively well controlled. UO decent, net positive. Review of Systems Review of Systems: All systems reviewed & are unremarkable except as noted in HPI & below Physical Exam Constitutional: WD/WN, vitals as above Respiratory: normal respiratory effort, lungs clear to auscultation Cardiovascular: RRR, no murmur, no edema Skin: no rashes, warm and dry Neurologic: awake; no focal motor deficits and not confused Psychiatric: A+Ox3, euthymic affect Results & Data Vital Signs (Past 12 Hours) Vital Signs Temp Pulse Pulse Resp BP Pulse Ox 01/01/20 07:35 69 01/01/20 06:53 36.9 C 75 20 124/55 L 95 01/01/20 04:23 37.5 C 76 20 150/66 H 97 01/01/20 01:03 72 PG Care Time/CCT Total # of Minutes Spent Total Time Spent with Patient: Total time spent is greater than 50% in coordination of care (as documented) at patient's floor/unit and/or counseling patient: Coding Level of Care Code 83209 Subseq Hosp Care Lvl 3 Diagnoses Acute kidney injury N17.9
--- NOTE | 2020-01-01 12:50 | Cardiology Progress Note ---
Date of Service January 01, 2020 Assessment & Plan (1) NSTEMI (non-ST elevated myocardial infarction): The patient likely presented with an acute coronary syndrome. Cardiac catheterization was considered, however, his renal function continues to deteriorate. Best to follow a conservative medical strategy at this time. (2) Acute kidney injury: Creatinine is stable at 3.15. (3) Accelerated hypertension: Adequate control on current regimen of carvedilol and isosorbide mononitrate. Admission and Anticipated Discharge Date Admission Date: December 27, 2019 Subjective The patient is stable from a cardiovascular standpoint. He has been ambulatory without symptoms of chest discomfort or dyspnea. Physical Exam Physical Exam: In general this is a well-developed well-nourished white male in no acute distress. HEENT exam is negative. Neck is supple with full carotid upstrokes. There are no carotid bruits. Jugular venous pressure is flat at 90. There is no thyromegaly. Cardiovascular exam reveals a regular rhythm with a normal S1 and S2. No obvious murmurs. Lungs are clear without rales, rhonchi, or wheezes. Abdomen is soft and nontender without bruits. Extremities reveal intact radial artery pulses bilaterally. There is no peripheral edema. Results & Data ([place]) Vital Signs (Past 12 Hours) Vital Signs Temp Pulse Pulse Resp BP BP Pulse Ox 01/01/20 12:32 36.8 C 70 20 111/60 96 01/01/20 07:35 69 01/01/20 06:53 36.9 C 75 20 124/55 L 95 01/01/20 04:23 37.5 C 76 20 150/66 H 97 01/01/20 01:03 72 Diagnostic Findings desk monitor is benign. PG Care Time/CCT Total # of Minutes Spent Total Time Spent with Patient: Total time spent is greater than 50% in coordination of care (as documented) at patient's floor/unit and/or counseling patient: Coding Level of Care Code 11105 Subseq Hosp Care Lvl 3 Diagnoses NSTEMI (non-ST elevated myocardial infarction) I21.4 Acute kidney injury N17.9 Accelerated hypertension I10
[2020-01-01] MEDS ORDERED: GLYCERIN ADULT 12 SUPP/BOX SUPP PR ONE (14:16)
[2020-01-01] MEDS ORDERED: bisacodyL 10 MG SUPP PR ONE (16:00)
--- NOTE | 2020-01-01 16:23 | Hospitalist Progress Note ---
Date of Service January 01, 2020 Assessment & Plan (1) NSTEMI (non-ST elevated myocardial infarction): Initial admission for chest pain, now resolved. Troponin peak 4.43 on admission. CXR clear on admission. History of x3 PCI to RCA and circumflex. Occurred in setting of hypertensive urgency. Continue ASA, Plavix, ISMN, Pravastatin (intolerant to higher intensity statins). Unable to perform cardiac cath in setting of ILIA/CKD. (2) Acute kidney injury: ILIA on CKD stage 3. New microscopic hematuria/proteinuria. CT A/P w/o contrast ruled out post obstructive cause. Hopefully due to UTI/funguria (started treatment 12/29), prior history of this; prior urine cultures requested from [facility]. Appreciate nephrology ongoing management and recommendations. Main reason for continued stay, appears to be stable and creatinine may be at his new baseline. (3) Complicated urinary tract infection: Suspected from PMHx, dysuria and mixed urine culture in setting of ILIA. Bladder scan for PVR normal. Request prior urine cultures from [facility]. PSA unremarkable for prostatitis and no pain associated with this. Continue ceftriaxone 2g IV daily (started 12/29). Budding yeast on UA - continue fluconazole 50mg daily for total course 14 days. (4) Microscopic hematuria: Appreciate urology r/v Cystoscopy planned for 3-4 months as outpatient. Suspect secondary to infection as above however. (5) Hypertension: Stable. Outpatient meds HCTZ/lisinopril discontinued secondary to ILIA Continue carvedilol 12.5mg BID New medication this admission ISMN ER 90 mg QAM. (6) Diabetes: Hypoglycemia on admission HbA1C 7.2 Continue Lantus 6 units QPM + Novolog correction 30, carb ratio 1:10, aim 110- 140 (7) Constipation: MiraLAX to BID. glycerin + bisacodyl supp, today (8) Psoriasis: Continue topical betamethasone 0.05% BID BEATRICE on affected areas. (9) GERD (gastroesophageal reflux disease): Continue pantoprazole. (10) DVT prophylaxis: Continue heparin 5000 units SQ q8h. Admission and Anticipated Discharge Date Admission Date: December 27, 2019 Subjective No acute events overnight. Patient remains well, dysuria mostly resolved at this time. Keen to get out of hospital. Few hard pellets of BM but nothing significant this admission. No abdominal pain, nausea or vomiting. No chest pain, shortness of breath. Review of Systems Review of Systems: All systems reviewed & are unremarkable except as noted in HPI & below Physical Exam Constitutional: well developed and + obese; no acute distress Eyes: + anicteric sclerae; normal pupil size ENMT: external ear and nose normal, oropharynx normal Neck: normal visual inspection and trachea midline Respiratory: normal respiratory effort; no respiratory distress Auscultation: lungs clear to auscultation bilaterally; no crackles, no rales, no rhonchi and no wheezes Cardiovascular: Rate/Rhythm: regular rate and regular rhythm Heart Sounds: no murmur Vessels: no JVD Extremities: normal capillary refill and + pedal edema Chest (Breasts): Chest: normal inspection of chest Gastrointestinal (Abdomen): Inspection/Auscultation: abdomen normal to inspection Percussion/Palpation: abdomen soft; abdomen nontender, no gu arding, abdomen not rigid and no hepatosplenomegaly Skin: Psoriatic plaques present on elbows and back Neurologic: moves all extremities and awake; no focal motor deficits and not confused Psychiatric: A+Ox3, euthymic affect Genitourinary: no CVA tenderness Results & Data Results & Data ([facility]) Vital Signs (Past 12 Hours) Vital Signs Temp Pulse Pulse Resp BP BP Pulse Ox 01/01/20 16:08 68 01/01/20 15:01 37.1 C 70 18 136/58 L 95 01/01/20 12:32 36.8 C 70 20 111/60 96 01/01/20 07:35 69 01/01/20 06:53 36.9 C 75 20 124/55 L 95 PG Care Time/CCT Total # of Minutes Spent Total Time Spent with Patient: Total time spent is greater than 50% in coordination of care (as documented) at patient's floor/unit and/or counseling patient: Coding Level of Care Code 87422 Subseq Hosp Care Lvl 2 Diagnoses NSTEMI (non-ST elevated myocardial infarction) I21.4 Acute kidney injury N17.9 Complicated urinary tract infection N39.0 Microscopic hematuria R31.29 Hypertension I10 Hypertension type: unspecified Diabetes E11.22; N18.3; Z79.4 Chronic kidney disease stage: stage 3 (moderate) Diabetes mellitus complication detail: with chronic kidney disease Diabetes mellitus complication status: with kidney complications Diabetes mellitus vermin exterminator insulin use: with snf use Diabetes mellitus type: type 2 Constipation K59.00 Constipation type: unspecified constipation type Psoriasis L40.9 GERD (gastroesophageal reflux disease) K21.9 Esophagitis presence: without esophagitis DVT prophylaxis Z29.9 (1) Diabetes Chronic kidney disease stage: stage 3 (moderate) Diabetes mellitus complication detail: with chronic kidney disease Diabetes mellitus complication status: with kidney complications Diabetes mellitus snf insulin use: with vermin exterminator use Diabetes mellitus type: type 2 Qualified Code(s): E11.22 - Type 2 diabetes mellitus with diabetic chronic kidney disease; N18.3 - Chronic kidney disease, stage 3 (moderate); Z79.4 - [facility] (current) use of 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
[2020-01-01] MEDS: INSULIN GLARGINE SOLOSTAR 100 UNITS/ML 3 ML PEN SQ SCH (20:44)
[2020-01-02 05:20] LABS: Albumin 3.5 g/dL (3.8-4.8); Alpha 1 Globulin 0.3 g/dL (0.2-0.3); Alpha 2 Globulin 0.8 g/dL (0.5-0.9); Beta-1-Globulin 0.4 g/dL (0.4-0.6); Beta-2-Globulin 0.4 g/dL (0.2-0.5); Gamma Globulin 0.6 g/dL (0.8-1.7); Monoclonal Protein Band 1 DNR g/dL (NONE DETECTED); Monoclonal Protein Band 2 DNR g/dL (NONE DETECTED); Monoclonal Protein Band 3 DNR g/dL (NONE DETECTED); Total Protein 6.1 g/dL (6.1-8.1)
[2020-01-02] MEDS: HEPARIN SOD 5,000 UNIT/0.5 ML VIAL SQ SCH ×3 (05:30→21:00)
[2020-01-02 06:46] LABS: Basophils # (auto) 0.05 K/uL (0-0.2); Basophils % (auto) 0.7 %; Eosinophils # (auto) 0.52 K/uL (0-0.5); Eosinophils % (auto) 7.1 %; Hematocrit (blood only) 33.5 % (42-52); Immature Granulocytes # (auto) 0.01 K/uL (0.00-0.02); Immature Granulocytes % (auto) 0.1 %; Lymphocytes # (auto) 1.95 K/uL (1.2-3.4); Lymphocytes % (auto) 26.5 %; Mean Corpuscular Hemoglobin 29.6 pg (25-34); Mean Corpuscular Hgb Conc 32.8 g/dL (32-36); Mean Corpuscular Volume 90.1 fL (80-100); Mean Platelet Volume 9.9 fL (7.4-10.4); Monocytes # (auto) 0.88 K/uL (0.11-0.59); Monocytes % (auto) 11.9 %; Neutrophils # (auto) 3.96 K/uL (1.4-6.5); Neutrophils % (auto) 53.7 %; Platelet Count 190 K/uL (130-400); RDW Coefficient of Variation 13.7 % (11.5-14.5); RDW Standard Deviation 45.3 fL (36.4-46.3); Red Blood Count 3.72 M/uL (4.7-6.1); White Blood Count 7.37 K/uL (4.8-10.8)
[2020-01-02 07:36] LABS: BUN Creatinine Ratio 13.2 (10-20); Calcium 8.8 mg/dl (8.5-10.1); Creatinine Clr Calc Pharmacy 21.3 ml/min; Est GFR (African American) 21.5; Est GFR (Non-African American) 18.5; Potassium 4.1 mmol/L (3.5-5.1)
[2020-01-02] MEDS: INSULIN ASPART 100 UNITS/ML 3 ML PEN SC SCH ×4 (07:56→21:00)
[2020-01-02] MEDS: ISOSORBIDE MONO EXTENDED REL 30 MG TABCR PO SCH (07:58)
[2020-01-02] MEDS: CEFDINIR 300 MG CAP PO SCH (07:58)
[2020-01-02] MEDS: ASPIRIN 81 MG ECTAB PO SCH (07:59)
[2020-01-02] MEDS: PRAVASTATIN SOD 10 MG TAB PO SCH (07:59)
[2020-01-02] MEDS: CHOLECALCIFEROL 1,000 UNITS 25 MCG TAB PO SCH (07:59)
[2020-01-02] MEDS: CLOPIDOGREL BISULFATE 75 MG TAB PO SCH (07:59)
[2020-01-02] MEDS: FLUCONAZOLE 50 MG TAB PO SCH (08:00)
[2020-01-02] MEDS: carvediloL 12.5 MG TAB PO SCH ×2 (08:00→21:01)
[2020-01-02] MEDS: PANTOprazole 40 MG TAB PO SCH ×2 (08:00→21:01)
--- NOTE | 2020-01-02 10:39 | Nephrology Progress Note ---
Date of Service January 02, 2020 Assessment & Plan (1) Acute kidney injury: 74-year-old gentlemen with stage III CKD with a variable creatinine around 1.4-1.7, secondary to microvascular disease. Admitted to the hospital with NSTEMI. Started on IV heparin and optimized medical therapy with carvedilol, Imdur and nitroglycerin. On admission he was found to have ILIA with creatinine of 2.6 which has been stable over last few days. Was also found to have proteinuria and hematuria with no prior history of either. Imaging showed otherwise normal size kidney and bladder. Cardiac catheterization has been on hold considering AK I and stabilization of symptoms. Unclear etiology for acute kidney injury, ? Hemodynamic. Blood pressure initially was high which improved and has been slightly variable. EF normal. Record review shows there has been progressive worsening of renal function over last few months, creatinine was 1.4 in August 2019 and 1.9 in October and on admission this time creatinine was 2.6. With new finding of proteinuria and hematuria, there is some concern for possible underlying glomerular pathology. Lisinopril and hydrochlorothiazide has been on hold since admission. Slow recovery of renal function from recent AK I, creatinine leveled off and has been staying around 3.1-3.2 over last 4 days without further improvement, otherwise asymptomatic, no uremic symptoms. BP well controlled. No sign of volume overload the -- start on gentle IV hydration while waiting on serological workup -- continue to monitor renal function with daily renal panel, hopefully renal function will start to improve soon -- if function stays stable tomorrow, okay to be discharged with close outpatient lab monitoring --encourage adequate po intake. --as patient remain chest pain-free and has been able to do minimum activity without any symptom and renal function worsening, hold catheterization for now while continued on optimized medical therapy Will follow Subjective Guille Was seen and examined in his room this morning. Overall he is feeling well, denies any shortness of breath or chest pain. Appetite has been decent. He has been working in an out of but when around the room without getting short of breath. Renal function relatively stable over last 4 days, creatinine 3.1- 3.2, electrolyte remained acceptable. Blood pressure has been relatively well controlled. UO decent. Review of Systems Review of Systems: All systems reviewed & are unremarkable except as noted in HPI & below Physical Exam Constitutional: WD/WN, vitals as above no acute distress Respiratory: normal respiratory effort, lungs clear to auscultation Cardiovascular: RRR, no murmur, no edema Skin: no rashes, warm and dry Neurologic: awake; no focal motor deficits and not confused Psychiatric: A+Ox3, euthymic affect Results & Data Vital Signs (Past 12 Hours) Vital Signs Temp Pulse Pulse Resp BP BP Pulse Ox 01/02/20 07:29 71 01/02/20 06:30 36.9 C 74 18 159/69 H 95 01/02/20 03:53 37.1 C 83 20 106/54 L 94 01/02/20 03:28 76 01/01/20 23:05 37 C 77 18 160/77 H 95 PG Care Time/CCT Total # of Minutes Spent Total Time Spent with Patient: Total time spent is greater than 50% in coordination of care (as documented) at patient's floor/unit and/or counseling patient: Coding Level of Care Code 86904 Subseq Hosp Care Lvl 3 Diagnoses Acute kidney injury N17.9
[2020-01-02] MEDS: POLYETHYLENE (MIRALAX) 17 GM PACK PO SCH ×2 (12:38→21:01)
[2020-01-02] MEDS: LACTATED RINGER'S 1,000 ML IV SCH (13:59)
[2020-01-02] MEDS ORDERED: LAVAGE SOLUTION 4000ML PO SCH (17:30)
[2020-01-02] MEDS: INSULIN GLARGINE SOLOSTAR 100 UNITS/ML 3 ML PEN SQ SCH (21:00)
--- NOTE | 2020-01-02 21:48 | Hospitalist Progress Note ---
Date of Service January 02, 2020 Assessment & Plan (1) NSTEMI (non-ST elevated myocardial infarction): Initial admission for chest pain, now resolved. Troponin peak 4.43 on admission. CXR clear on admission. History of x3 PCI to RCA and circumflex. Occurred in setting of hypertensive urgency. Continue ASA, Plavix, ISMN, Pravastatin (intolerant to higher intensity statins). No cardiac cath planned given current eGFR. (2) Acute kidney injury: ILIA on CKD stage 3. New microscopic hematuria/proteinuria. CT A/P w/o contrast ruled out post obstructive cause. Hopefully due to UTI/funguria (started treatment 12/29), prior history of this; will request previous urine cultures from [facility]. Appreciate nephrology ongoing management and recommendations - planning on IV fluids overnight and repeat BMP in AM. Main reason for continued stay. (3) Complicated urinary tract infection: Suspected from PMHx, dysuria and mixed urine culture in setting of ILIA. Bladder scan for PVR normal. PSA WNL. Switch ceftriaxone to cefdinir to complete treatment course. Budding yeast on UA - continue fluconazole 50mg daily. (4) Microscopic hematuria: Appreciate urology r/v Cystoscopy planned for 3-4 months as outpatient. Suspect secondary to infection as above however. (5) Hypertension: Stable. Outpatient meds HCTZ/lisinopril discontinued secondary to ILIA Carvedilol 25mg BID New medication this admission ISMN ER 90 mg QAM. (6) Diabetes: Hypoglycemia on admission HbA1C 7.2 BSG 87-138 last 24 hours. Continue Lantus 6 units QPM + Novolog correction 30, carb ratio 1:10, aim given NSTEMI 110-140 (7) Constipation: Increase MiraLAX to BID. Golytely prescribed as no large BM since admission. Possibly increasing risk of UTI. (8) Psoriasis: Restart home meds topical betamethasone 0.05% BID BEATRICE on affected areas. (9) GERD (gastroesophageal reflux disease): Continue pantoprazole. (10) DVT prophylaxis: Continue heparin 5000 units SQ q8h. Admission and Anticipated Discharge Date Admission Date: December 27, 2019 Anticipated date of discharge: 01/03/20 Subjective No events overnight. No concerns or questions. Feels well. No chest pain or shortness of breath. Review of Systems Review of Systems: All systems reviewed & are unremarkable except as noted in HPI & below Physical Exam Constitutional: well developed and + obese; no acute distress Eyes: + anicteric sclerae; normal pupil size Neck: normal visual inspection and trachea midline Respiratory: normal respiratory effort; no respiratory distress Auscultation: lungs clear to auscultation bilaterally; no crackles, no rales, no rhonchi and no wheezes Cardiovascular: Rate/Rhythm: regular rate and regular rhythm Heart Sounds: no murmur Vessels: no JVD Extremities: normal capillary refill and + pedal edema Gastrointestinal (Abdomen): Inspection/Auscultation: abdomen normal to inspec tion Percussion/Palpation: abdomen soft; abdomen nontender, no guarding, abdomen not rigid and no hepatosplenomegaly Skin: no rashes, warm and dry Neurologic: moves all extremities and awake; no focal motor deficits and not confused Psychiatric: A+Ox3, euthymic affect Results & Data Results & Data ([facility]) Vital Signs (Past 12 Hours) Vital Signs Temp Pulse Pulse Resp BP Pulse Ox 01/02/20 19:20 36.5 C 74 18 155/73 H 96 01/02/20 15:28 36.9 C 77 17 103/65 95 01/02/20 15:00 72 01/02/20 12:01 36.6 C 78 18 141/78 H 97 PG Care Time/CCT Total # of Minutes Spent Total Time Spent with Patient: Total time spent is greater than 50% in coordin ation of care (as documented) at patient's floor/unit and/or counseling patient: Coding Level of Care Code 30593 Subseq Hosp Care Lvl 2 Diagnoses NSTEMI (non-ST elevated myocardial infarction) I21.4 Acute kidney injury N17.9 Complicated urinary tract infection N39.0 Microscopic hematuria R31.29 Hypertension I10 Hypertension type: unspecified Diabetes E11.22; N18.3; Z79.4 Chronic kidney disease stage: stage 3 (moderate) Diabetes mellitus complication detail: with chronic kidney disease Diabetes mellitus complication status: with kidney complications Diabetes mellitus heat treat technician insulin use: with heat treat technician use Diabetes mellitus type: type 2 Constipation K59.00 Constipation type: unspecified constipation type Psoriasis L40.9 GERD (gastroesophageal reflux disease) K21.9 Esophagitis presence: without esophagitis DVT prophylaxis Z29.9 (1) Diabetes Chronic kidney disease stage: stage 3 (moderate) Diabetes mellitus complication detail: with chronic kidney disease Diabetes mellitus complication status: with kidney complications Diabetes mellitus intermediate insulin use: with intermediate use Diabetes mellitus type: type 2 Qualified Code(s): E11.22 - Type 2 diabetes mellitus with diabetic chronic kidney disease; N18.3 - Chronic kidney disease, stage 3 (moderate); 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
[2020-01-03] MEDS: LACTATED RINGER'S 1,000 ML IV SCH ×2 (00:06→08:10)
[2020-01-03] MEDS: HEPARIN SOD 5,000 UNIT/0.5 ML VIAL SQ SCH ×2 (06:39→13:33)
[2020-01-03 06:53] LABS: BUN Creatinine Ratio 14.4 (10-20); Calcium 8.3 mg/dl (8.5-10.1); Creatinine Clr Calc Pharmacy 24.3 ml/min; Est GFR (Non-African American) 21.5; Potassium 3.8 mmol/L (3.5-5.1)
[2020-01-03] MEDS: POLYETHYLENE (MIRALAX) 17 GM PACK PO SCH (08:10)
[2020-01-03] MEDS: CEFDINIR 300 MG CAP PO SCH (08:10)
[2020-01-03] MEDS: ISOSORBIDE MONO EXTENDED REL 30 MG TABCR PO SCH (08:10)
[2020-01-03] MEDS: ASPIRIN 81 MG ECTAB PO SCH (08:11)
[2020-01-03] MEDS: CHOLECALCIFEROL 1,000 UNITS 25 MCG TAB PO SCH (08:11)
[2020-01-03] MEDS: INSULIN ASPART 100 UNITS/ML 3 ML PEN SC SCH ×2 (08:11→12:15)
[2020-01-03] MEDS: carvediloL 12.5 MG TAB PO SCH (08:11)
[2020-01-03] MEDS: CLOPIDOGREL BISULFATE 75 MG TAB PO SCH (08:11)
[2020-01-03] MEDS: PANTOprazole 40 MG TAB PO SCH (08:11)
[2020-01-03] MEDS: FLUCONAZOLE 50 MG TAB PO SCH (08:14)
[2020-01-03] MEDS: PRAVASTATIN SOD 10 MG TAB PO SCH (08:16)
[2020-01-03] MEDS ORDERED: carvediloL 12.5 MG TAB PO ONE (10:15)
--- NOTE | 2020-01-03 11:06 | Nephrology Progress Note ---
Date of Service January 03, 2020 Assessment & Plan (1) Acute kidney injury: 74-year-old gentlemen with stage III CKD with a variable creatinine around 1.4-1.7, secondary to microvascular disease. Admitted to the hospital with NSTEMI. Started on IV heparin and optimized medical therapy with carvedilol, Imdur and nitroglycerin. On admission he was found to have ILIA with creatinine of 2.6 which has been stable over last few days. Was also found to have proteinuria and hematuria with no prior history of either. Imaging showed otherwise normal size kidney and bladder. Cardiac catheterization has been on hold considering AK I and stabilization of symptoms. Unclear etiology for acute kidney injury, ? Hemodynamic. Blood pressure initially was high which improved and has been slightly variable. EF normal. Record review shows there has been progressive worsening of renal function over last few months, creatinine was 1.4 in August 2019 and 1.9 in October and on admission this time creatinine was 2.6. With new finding of proteinuria and hematuria, there is some concern for possible underlying glomerular pathology. Lisinopril and hydrochlorothiazide has been on hold since admission. Slow recovery of renal function from recent ILIA, creatinine leveled off and improved slightly, otherwise asymptomatic, no uremic symptoms. BP well controlled. No sign of volume overload the -- DC IV fluid -- OK to be discharged with out pt lab monitoring early next week and then weekly until ca back to baseline. pls schedule outpt f/u with Dr. Sandhu in 4 to 6 weeks with lab prior Will follow Subjective Guille Was seen and examined in his room this morning. Overall he is feeling well, denies any shortness of breath or chest pain. Appetite has been decent. Renal function slightly improved with IV fluid, creatinine 3.1-3.2, electrolyte remained acceptable. Blood pressure has been relatively well controlled. UO decent. Review of Systems Review of Systems: All systems reviewed & are unremarkable except as noted in HPI & below Physical Exam Constitutional: WD/WN, vitals as above no acute distress Respiratory: normal respiratory effort, lungs clear to auscultation Cardiovascular: RRR, no murmur, no edema Skin: no rashes, warm and dry Neurologic: awake; no focal motor deficits and not confused Psychiatric: A+Ox3, euthymic affect Results & Data Vital Signs (Past 12 Hours) Vital Signs Temp Pulse Pulse Resp BP BP Pulse Ox 01/03/20 10:51 78 01/03/20 07:45 37.1 C 80 20 154/81 H 97 01/03/20 04:00 36.8 C 64 18 141/95 H 95 01/03/20 01:42 71 PG Care Time/CCT Total # of Minutes Spent Total Time Spent with Patient: Total time spent is greater than 50% in coordination of care (as documented) at patient's floor/unit and/or counseling patient: Coding Level of Care Code 05466 Subseq Hosp Care Lvl 3 Diagnoses Acute kidney injury N17.9
[2020-01-03 12:15] LABS: ANCA Screen Negative (Negative); Albumin 3.2 g/dL (3.8-4.8); Alpha 1 Globulin 0.3 g/dL (0.2-0.3); Alpha 2 Globulin 0.7 g/dL (0.5-0.9); Anti Nuclear Antibody Screen NEGATIVE (NEGATIVE); Anti-Glom Basement Antibody <1.0 AI (<1.0); Beta-1-Globulin 0.3 g/dL (0.4-0.6); Beta-2-Globulin 0.4 g/dL (0.2-0.5); Complement C3 110 mg/dL (82-185); Free Kappa 35.9 mg/L (3.3-19.4); Free Kappa/Lambda Ratio 1.88 (0.26-1.65); Free Lambda 19.1 mg/L (5.7-26.3); Gamma Globulin 0.6 g/dL (0.8-1.7); Monoclonal Protein Band 1 DNR g/dL (NONE DETECTED); Monoclonal Protein Band 2 DNR g/dL (NONE DETECTED); Monoclonal Protein Band 3 DNR g/dL (NONE DETECTED); Myeloperoxidase Ab <1.0 AI (<1.0); Proteinase-3 AB <1.0 AI (<1.0); Total Protein 5.5 g/dL (6.1-8.1)
--- NOTE | 2020-01-03 13:42 | Discharge Summary ---
Date of Service January 03, 2020 Admission HPI Per Admitting Provider 74 yo male presents today with c/o chest pain and dizziness which started upon waking this morning around 8am. He also reports nausea and chills. He did not take his temperature at home, but reports subjective fevers. He is currently afebrile. Patient reports he took his BP upon waking, and it was noted to be 205/115, so the EMS was summoned. He also reports chest pressure radiating down his arms bilaterally. Patient has a hx of CAD and acute LA on FEBRUARY 23, 2004. Hx of cardiac stent to the mid RCA in 2003, and stent placement to the early-mid RCA in 2007, followed with a proximal left circumflex stent placement several days later in February 2008. He has a hx of HTN on HCTZ and lisinopril. Cr noted to be elevated today at 2.59. He has baseline CKD stage III with a baseline Cr of 1.4-1.7. Patient has a hx of type II diabetes with last Hgb A1C noted to be 7.9% October 2018. Glucose noted to be 67 upon arrival. He denies eating any breakfast this morning as he was not feeling well. He is currently on glipizide and lantus. Other PMH includes a hx of GERD, gastroparesis, Crohn's disease, psoriasis, arthritis, vitamin D deficiency, and constipation. Principal Diagnosis NSTEMI Complicated urinary tract infection Acute on chronic kidney injury Discharge Exam Constitutional well developed and + obese; no acute distress Eyes + anicteric sclerae; normal pupil size Respiratory normal respiratory effort; no respiratory distress Auscultation: lungs clear to auscultation bilaterally; no crackles, no rales, no rhonchi and no wheezes Cardiovascular Rate/Rhythm: regular rate and regular rhythm Heart Sounds: no murmur Vessels: no JVD Extremities: normal capillary refill and + pedal edema Chest (Breasts) Chest: normal inspection of chest Gastrointestinal (Abdomen) Inspection/Auscultation: abdomen normal to inspection Percussion/Palpation: abdomen soft; abdomen nontender, no guarding and abdomen not rigid Musculoskeletal Extremities: extremities normal to inspection Skin no rashes, warm and dry Neurologic moves all extremities and awake; not confused Psychiatric A+Ox3, euthymic affect Genitourinary no CVA tenderness Discharge Data Allergies Allergy/AdvReac Type Severity Reaction Status Date / Time Rwrcppc-Ppe-Cyu Reductase Allergy Unknown muscle Verified 12/27/19 11:21 Inhibitor aches HMG-CoA-R Inhibitors AdvReac Unknown MUSCLE Uncoded 12/27/19 11:21 ACHES Consultations 12/27/19 13:09 ED Decision to Admit Stat 12/27/19 15:18 Consult Cardiology Routine Consult Case Management - Discharge Planning Routine 12/28/19 10:07 Consult Nephrology Routine 12/30/19 09:31 Consult Urology Routine 12/31/19 14:16 Consult Health Information Management Routine Procedures Performed Operation Date: 12/28/19 11:30 <No data on this case meets the specified criteria> Ordered Studies 12/27/19 11:25 CT abd pelvis wo con Stat 12/28/19 10:42 CL Cath Imgs for PACS use only Routine Hospital Course (1) NSTEMI (non-ST elevated myocardial infarction): Mr Negron is a 74 year old male admitted to [facility] from December 26 to January 03 2020 due to chest pain, hypertension and subjective fevers. Diagnosed with NSTEMI managed medically due ILIA on CKD. Started ISMN to better manage blood pressure and anginal pain. Lisinopril and hydrochlorothiazide medications stopped due to ILIA and he will be followed up by nephrology on discharge. Possible ILIA also inpart due to UTI (dysuria described with mixed urine culture. Started on fluconazole for budding yeast and cefdinir for UTI. No changes to your diabetes medications was made. Microscopic hematuria reviewed by urology and recommended follow up cystoscopy in 3-4 months. (2) Acute kidney injury: (3) Complicated urinary tract infection: (4) Microscopic hematuria: (5) Hypertension: (6) Diabetes: (7) Constipation: (8) Psoriasis: (9) GERD (gastroesophageal reflux disease): (10) DVT prophylaxis: Total Time Total Time Spent Total Time Spent (In Minutes): 35 Total Time Includes: Examination of the Patient, Discharge Planning, Medication Reconciliation and Communication With Other Providers (Dr Newman) Discharge Plan Discharge Items Patient Disposition: Home - Self-Care Reason For Visit: Chest pain Discharge Diagnosis: Heart attack (non ST-elevation myocardial infarction) Complicated urinary tract infection Acute on chronic kidney injury Condition on Discharge: Good Activity: Resume your previous activity Non-emergency contact: Primary Care Provider and [employer] Marketing Executive Call non-emergency contact if: you have any medication questions and your symptoms worsen Follow-up/Referrals: Andi Sandhu MD [Physician] - (4-6 weeks with BMP prior to appointment) Martin Christianson MD [Physician] - (Approximately 4 weeks (? telemedicine)) Lizbeth Martin CRNP [Nurse Practitioner] - (cystoscopy to be arranged in 3-4 months) Shaina Kenyon [Primary Care Provider] - (no routine follow up required) Diet: Carb Consistent or DM2 and Heart Healthy Ambulatory Orders: Basic Metabolic Panel (Routine) Timeframe: [id number] Location: Determined by Patient Ordered By: Gregorio Meier Attending Provider Instructions: You were admitted to [facility] from December 26 to January 03 2020 due to chest pain, high blood pressure and subjective fevers. You were diagnosed with a heart attack which had to be managed medically due to your reduced function. You have been started on isosorbide mononitrate to manage this and your blood pressure. With regards to your acute on chronic kidney disease your lisinopril and hydrochlorothiazide medications have been stopped. This is most likely due to your heart attack and possible urinary tract infection. Given your painful urination you were suspected to have a urinary tract infection. Urine analysis was positive for budding yeast therefore you were treated with antifungal medication (fluconazole) and should continue complete course as prescribed. Urine culture grew more than three type of organisms therefore true bacterial infection was not confirmed but suspected based on your symptoms and you should continue antibiotics as prescribed. No changes to your diabetes medications was made. Given blood on your urine sample you were reviewed by urology and recommended arranging a cystoscopy for around 3-4 months. Recommend discussing this further with your primar care provider. Please follow up as above. Pending Studies at Discharge: No Stand-Alone Forms: My [facility], Smoking Cessation Medications and DC Order Prescriptions: New fluconazole 50 mg Tablet 50 mg PO QAM 10 Days Qty: 10 RF: 0 isosorbide mononitrate 120 mg tablet extended release 24 hr 120 mg PO QAM Qty: 30 RF: 0 carvedilol 25 mg Tablet 25 mg PO BID Qty: 60 RF: 0 Continued clopidogrel 75 mg tablet 75 mg PO DAILY Qty: 90 RF: 3 pantoprazole 40 mg tablet,delayed release (DR/EC) 40 mg PO BID Qty: 180 RF: 3 glipizide 5 mg tablet 5 mg PO DAILY RF: 0 nitroglycerin 400 mcg/spray spray,non-aerosol 0.4 mg SL Q5M PRN (Reason: chest pain) Qty: 4.9 RF: 1 betamethasone dipropionate 0.05 % cream 1 appln TOP BID PRN (Reason: flare ups) RF: 0 Slow-Mag 71.5 mg tablet,delayed release (DR/EC) 143 mg PO BID RF: 0 omega-3 fatty acids [Fish Oil Concentrate] 1,000 mg capsule 3,000 mg PO DAILY RF: 0 pravastatin 10 mg tablet 10 mg PO HS RF: 0 triamcinolone acetonide 0.1 % cream 1 appln TOP DAILY PRN (Reason: flare ups) RF: 0 aspirin 81 mg Tablet,Delayed Release (Dr/Ec) 81 mg PO HS RF: 0 fluticasone propionate [Flonase Allergy Relief] 50 mcg/actuation spray,suspension 2 sprays INTNAS DAILY PRN (Reason: Congestion) RF: 0 coQ10 (ubiquinol) 200 mg Capsule 400 mg PO DAILY RF: 0 melatonin 10 mg Tablet 10 mg PO HS RF: 0 Lantus Solostar U-100 Insulin 100 unit/mL (3 mL) insulin pen 12 unit subcut QPM RF: 0 cholecalciferol (vitamin D3) [Vitamin D3] 1,000 unit Tablet,Chewable 1,000 unit PO DAILY RF: 0 chlorpheniramine maleate [Allergy (chlorpheniramine)] 4 mg tablet 4 mg PO Q8H PRN (Reason: Itching) RF: 0 Discontinued metoprolol succinate 50 mg tablet extended release 24 hr 50 mg PO DAILY Qty: 90 RF: 3 hydrochlorothiazide 12.5 mg tablet 12.5 mg PO DAILY Qty: 90 RF: 3 vitamin E 400 unit Capsule 400 unit PO DAILY RF: 0 lisinopril 40 mg Tablet 40 mg PO DAILY RF: 0 Discharge Orders: Discharge Order (Routine); Ordered 01/03/20 Ordered By: Gregorio Smith/Other Patient Handouts: Diabetes Type 2 Managing, Foods Heart Healthy, After Heart Attack Living Well Admission Data Admit Date/Time: 12/27/19 14:19 Attending Provider: Gregorio Keller Admit Provider: Kat Ryder Primary Care Provider: Shaina Kenyon Other Providers: Martin Christianson ; Andi Sandhu ; Perry Conner I. Other Interventions: Discharge Summary Assessment (RN) Last Done: 01/03/20 12:29 DC Date/Time DO NOT enter until pt leaves facility: 01/03/20 16:28 Coding Level of Care Code D/C Day Management >30 mins Diagnoses NSTEMI (non-ST elevated myocardial infarction) I21.4 Acute kidney injury N17.9 Complicated urinary tract infection N39.0 Microscopic hematuria R31.29 Hypertension I10 Hypertension type: unspecified Diabetes E11.22; N18.3; Z79.4 Chronic kidney disease stage: stage 3 (moderate) Diabetes mellitus complication detail: with chronic kidney disease Diabetes mellitus complication status: with kidney complications Diabetes mellitus custodial insulin use: with custodial use Diabetes mellitus type: type 2 Constipation K59.00 Constipation type: unspecified constipation type Psoriasis L40.9 GERD (gastroesophageal reflux disease) K21.9 Esophagitis presence: without esophagitis DVT prophylaxis Z29.9
[2020-01-03] MEDS ORDERED: carvediloL 25 MG TAB PO SCH (21:00)
--- NOTE | 2020-01-04 12:04 | Coding Query ---
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 Please assist us with the question(s) below: Coding Question(s): There is Acute Kidney Injury documented in the record from H&P through Discharge Summary. The Progress Note on 12/28/19 documents, "Acute kidney injury: -Acute renal failure in setting of chronic kidney disease stage 3. Cr elevated at 2.59 on admission with baseline of 1.4-1.7. 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 This is not documented further or on Discharge Summary. It is not clear if this has been ruled-out or is still possible. Please clarify below, in your clinical opinion. (X) Acute Kidney Injury with Possible ATN ( ) Acute Kidney Injury only - ATN is Ruled-Out ( ) Other: Please Specify Physician's Response(s): Thank you Laura Carreno Principal Diagnosis: "that condition established after study, to be chiefly responsible for occasioning the admission of the patient to the hospital for care." Co-Existing Principal Diagnosis: "when two or more diagnoses equally meet the criteria for principal diagnosis as determined by the circumstances of admission, diagnostic work up, and/or therapy provided, and the Alphabetic Index, Tabular List, or another coding guideline does not provide sequencing direction, any one of the diagnoses may be sequenced first." "When the physician has documented what appears to be a current diagnosis in the body of the record, but has not included the diagnosis in the final diagnostic statement, the physician should be asked whether the diagnosis should be added." (Source Coding Clinic 2 QTR90. p3-4) ZO
== END 2020-01-03 16:28 | disposition home or self-care (01) | DRG 280 ==
LOC: ED 11:00 → SUATTDRO 14:19 → 2S 14:19 → 2W 12-31 13:57

== ENCOUNTER 2020-12-17 13:37 | Inpatient (IN) ==
[2020-12-17] MEDS ORDERED: OPTIRAY 320 125ml IV ONE (13:53)
--- NOTE | 2020-12-17 14:03 | Emergency Department Note ---
History of Present Illness General Chief complaint: Headache Time Seen by Provider: 12/17/20 13:38 Source: patient Mode of arrival: EMS History of Present Illness Provider complaint: Headache and blurring of vision Onset (ago): hour(s) Location: head Severity: moderate Pain Consistency: + constant Quality: + dull Relieved By: + none Associated symptoms: + chest pain (Has had intermittent chest pain but not recently), + cough (Mild cough), + diaphoresis, + headaches and + shortness of breath; no fever/chills, no nausea/vomiting and no weakness This is a 75-year-old male with a history of chronic headaches and neck pain presenting with a headache and blurry vision since this morning at approximately 8 or 9 AM. The patient states that he has had intermittent double vision for approximately 4 months. He also gets blurry vision and states that he had trouble reading license plates today. He has a dull headache to the back of his head down into his neck. He has a history of chronic neck pain and he believes that the headaches are from his chronic neck pain. No alleviating factors. No associated vomiting. He denies any fevers but states that he was sweaty. He has had a mild cough. He states that he has had occasional chest pain in the past but none recently. He did does complain of shortness of breath. He has no abdominal pain. He was sent over from the physician office across the street. Someone had noted left-sided weakness but the patient denies any left-sided weakness. He states that he has difficulty walking but this is a chronic thing for him. He states that he just does not go out very much. He has a walker but he does not use it. He denies any trouble with his speech or swallowing. He has no loss of vision. He does state that he feels dizzy which she describes as vertigo. He was reported to be hypertensive by EMS. He did not receive any medications prior to arrival. They were a [employer] crew. He does note that he has had both vertigo and blurry vision during the day yesterday and before he went to bed. He is not sure if he had it the day before. He did have double vision this morning which seems to be better but when examined he stated that he had do uble vision. Home Medications Medication Instructions Recorded Confirmed Type magnesium chloride 71.5 mg 143 mg PO BID tab 06/14/19 12/17/20 History (magnesium chloride) tablet,delayed release omega-3 fatty acids 1,000 mg 3,000 mg PO QAM 06/14/19 12/17/20 History capsule pravastatin 10 mg tablet 10 mg PO HS 06/14/19 12/17/20 History Lantus Solostar U-100 Insulin 12 unit SUBCUT QPM 08/01/19 12/17/20 History cholecalciferol (vitamin D3) 1,000 unit PO QAM 08/01/19 12/17/20 History [Vitamin D3] aspirin 81 mg PO HS 12/27/19 12/17/20 History coQ10 (ubiquinol) 400 mg PO QAM 12/27/19 12/17/20 History melatonin 10 mg PO HS 12/27/19 12/17/20 History carvedilol 25 mg tablet 25 mg PO BID #180 tab 01/30/20 12/17/20 Rx isosorbide mononitrate 120 mg 120 mg PO QAM #90 tab 09/01/20 12/17/20 Rx tablet,extended release 24 hr pantoprazole 40 mg tablet,delayed 40 mg PO BID #180 tab 10/07/20 12/17/20 Rx release betamethasone, augmented 1 applic TOPICAL BID PRN 12/17/20 12/17/20 History clopidogrel 75 mg PO QAM 12/17/20 12/17/20 History cyanocobalamin (vitamin B-12) 1,000 mcg PO QAM 12/17/20 12/17/20 History [Vitamin B-12] diclofenac sodium 4 g TOPICAL QID PRN 12/17/20 12/17/20 History duloxetine 20 mg PO QAM 12/17/20 12/17/20 History linaclotide [Linzess] 145 mcg PO DAILY PRN 12/17/20 12/17/20 History nitroglycerin 0.4 mg SL DIRECTED PRN 12/17/20 12/17/20 History vitamin E 400 unit PO QAM 12/17/20 12/17/20 History Allergies Allergy/AdvReac Type Severity Reaction Status Date / Time gabapentin Allergy Severe Nightmares Verified 10/21/20 10:12 Vipypvl-Hkj-Sit Reductase Allergy Unknown muscle Verified 10/21/20 10:12 Inhibitor aches HMG-CoA-R Inhibitors AdvReac Unknown MUSCLE Uncoded 10/21/20 10:12 ACHES Past Med/Surg History Medical History (Updated 12/17/20 @ 19:30 by Tavo Duvall MD) Accelerated hypertension Acute kidney injury Arthritis Chest pain (07/11/14) Chronic kidney disease Constipation Crohn's disease Diabetes Dysmetria Expressive aphasia Gastroparesis GERD (gastroesophageal reflux disease) Hypertension NSTEMI (non-ST elevated myocardial infarction) Psoriasis Pyelonephritis Thrombocytopenia Vitamin D deficiency Surgical History History of cardiac catheterization History of Cath Stent 1 Type Drug-Eluting History of Cath Stent 2 Proximal Right Coronary Artery History of cholecystectomy History of PTCA Family History Father , in his late 40s or early 50s of an [place] Coronary heart disease Myocardial infarction Brother Pulmonary embolism Colon cancer Hx of CABG Mother , age 62 of diabetes and heart disease Coronary heart disease Diabetes Social History Smoking Status: Former smoker Tobacco Type: Smokeless Tobacco (Dip or Chew) packs per day: 1; Years Smoked: 40; Number of Years Since Quit: 35; Second Hand Exposure: Yes; Hx Alcohol Use: No Hx Substance Use: No Preferred Language: Bahraini Communication Ability: Effective 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 and A total of 10 systems reviewed and were otherwise negative Physical Exam Vital Signs Vital Signs - 24 hr 12/17/20 13:43 12/17/20 14:06 12/17/20 14:47 Pulse Rate 64 Pulse Rate [Apical] 66 65 Pulse Rhythm [Apical] Pulse Strength [Apical] Respiratory Rate 18 18 18 Respiratory Effort / Characteristics Respiratory Depth Respiratory Pattern Blood Pressure 97/55 L Blood Pressure [Left Arm] 126/94 134/69 Blood Pressure Mean 69 Blood Pressure Mean [Left Arm] 104 90 Blood Pressure Position [Left Arm] Pulse Oximetry 97 97 97 Oxygen Delivery Method Room Air Room Air Room Air Sepsis Recent Fever Within 48 Hours No Sepsis New/Unexplained Change in Mental Status Yes Sepsis Action Taken by Nursing Physician Notified 12/17/20 16:23 12/17/20 18:28 Pulse Rate Pulse Rate [Apical] 63 67 Pulse Rhythm [Apical] Regular Regular Pulse Strength [Apical] Normal Normal Respiratory Rate 20 20 Respiratory Effort / Characteristics Non-Labored Spontaneous Non-Labored Spontaneous Respiratory Depth Normal Normal Respiratory Pattern Regular Regular Blood Pressure Blood Pressure [Left Arm] 127/68 148/76 H Blood Pressure Mean Blood Pressure Mean [Left Arm] 87 100 Blood Pressure Position [Left Arm] Sitting Sitting Pulse Oximetry 95 97 Oxygen Delivery Method Room Air Room Air Sepsis Recent Fever Within 48 Hours Sepsis New/Unexplained Change in Mental Status Sepsis Action Taken by Nursing Constitutional: Vital signs reviewed. Hypotensive but on recheck it was 126/94. Eyes: Pupils are equal round reactive to light. Conjunctiva are noninjected. ENT: Pharynx is clear without erythema or exudate. Mucous membranes are moist. Neck supple without meningeal signs. Respiratory: Clear to auscultation bilaterally. Breath sounds are equal bilaterally. Cardiovascular: Regular rate and rhythm. No rubs or gallops. GI: Soft, nondistended and nontender. Bowel sounds are present. Musculoskeletal: No peripheral edema. No lower extremity tenderness. Integumentary: No cyanosis. or jaundice. Neurologic: The patient is awake and alert. Cranial nerves II-XII are intact. Motor is 5 out of 5 all extremities. Sensation is intact to light touch all e xtremities. Normal speech. No pronator drift. No limb ataxia. Psychiatric: Normal affect. Not anxious appearing. Course Administered Medications Discontinued Medications Ioversol (Optiray 320 125ml) 120 ml IV ONCE ONE Stop: 12/17/20 13:54 Last Admin: 12/17/20 13:54 Dose: 120 ml Documented by: [id number] Lorazepam (Lorazepam 1 Mg Tab) 1 mg SL NOW STA Stop: 12/17/20 16:10 Last Admin: 12/17/20 16:23 Dose: 1 mg Documented by: [id number] Medical Decision Making Differential Diagnosis Vertebrobasilar insufficiency, CVA, intracranial hemorrhage, intracranial mass, complex migraine Medical Records Attestation: I reviewed the patient's medical records. I did perform a limited focused review of portions of the patient's old chart on the electronic medical record. The patient had a CT angiogram of the head and neck in January 2020 which showed high-grade stenosis of the right vertebral artery as well as atherosclerotic plaque in the left carotid bulb causes less than 50% luminal narrowing at the origin of the left internal carotid artery. He does have a history of chronic neck pain. Home Medications Current Medication List: was personally reviewed by me Laboratory Data Attestation: I reviewed the patient's lab results. Result diagrams: 12/17/20 13:52 12/17/20 13:52 Lab Results 12/17/20 12/17/20 12/17/20 Range/Units 13:43 13:52 13:52 WBC 9.66 (4.8-10.8) K/uL RBC 4.23 L (4.7-6.1) M/uL Hgb 12.8 L (14.0-18.0) g/dL Hct 38.5 L (42-52) % MCV 91.0 (80-100) fL MCH 30.3 (25-34) pg MCHC 33.2 (32-36) g/dL RDW Std Deviation 44.9 (36.4-46.3) fL RDW Coeff of Amalia 13.6 (11.5-14.5) % Plt Count 213 (130-400) K/uL MPV 9.8 (7.4-10.4) fL Immature Gran % (Auto) 0.2 % Neut % (Auto) 57.7 % Lymph % (Auto) 25.4 % [place] % (Auto) 6.9 % Eos % (Auto) 9.2 % Baso % (Auto) 0.6 % Neut # (Auto) 5.57 (1.4-6.5) K/uL Lymph # (Auto) 2.45 (1.2-3.4) K/uL [place] # (Auto) 0.67 H (0.11-0.59) K/uL Eos # (Auto) 0.89 H (0-0.5) K/uL Baso # (Auto) 0.06 (0-0.2) K/uL Immature Gran # (Auto) 0.02 (0.00-0.02) K/uL PT (9.0-12.0) Seconds INR (0.9-1.1) APTT (21.0-31.0) Seconds PTT Ratio Sodium (136-145) mmol/L Potassium (3.5-5.1) mmol/L Chloride (98-107) mmol/L Carbon Dioxide (21-32) mmol/L Anion Gap (3-11) BUN (7-18) mg/dl Creatinine (0.6-1.4) mg/dl Est Cr Clr Drug Dosing ml/min Est GFR ( Amer) Est GFR (Non-Af Amer) BUN/Creatinine Ratio (10-20) Glucose (70-99) mg/dl POC Glucose 140 H (70-99) mg/dl Calcium (8.5-10.1) mg/dl Magnesium (1.8-2.4) mg/dl Total Bilirubin (0.2-1) mg/dl AST (15-37) U/L ALT (12-78) U/L Alkaline Phosphatase (45-117) U/L Troponin I (0-0.045) ng/ml Total Protein (6.4-8.2) gm/dl Albumin (3.4-5.0) gm/dl Globulin (2.5-4.0) gm/dl Albumin/Globulin Ratio (0.9-2) COVID-19 Eval Order SARS-CoV-2, RNA, NAAT (NEGATIVE) Blood Type O Positive Antibody Screen NEGATIVE 12/17/20 12/17/20 12/17/20 Range/Units 13:52 13:52 15:30 WBC (4.8-10.8) K/uL RBC (4.7-6.1) M/uL Hgb (14.0-18.0) g/dL Hct (42-52) % MCV (80-100) fL MCH (25-34) pg MCHC (32-36) g/dL RDW Std Deviation (36.4-46.3) fL RDW Coeff of Amalia (11.5-14.5) % Plt Count (130-400) K/uL MPV (7.4-10.4) fL Immature Gran % (Auto) % Neut % (Auto) % Lymph % (Auto) % [place] % (Auto) % Eos % (Auto) % Baso % (Auto) % Neut # (Auto) (1.4-6.5) K/uL Lymph # (Auto) (1.2-3.4) K/uL [place] # (Auto) (0.11-0.59) K/uL Eos # (Auto) (0-0.5) K/uL Baso # (Auto) (0-0.2) K/uL Immature Gran # (Auto) (0.00-0.02) K/uL PT 10.6 (9.0-12.0) Seconds INR 1.0 (0.9-1.1) APTT 25.3 (21.0-31.0) Seconds PTT Ratio 1.0 Sodium 138 (136-145) mmol/L Potassium 4.3 (3.5-5.1) mmol/L Chloride 108 H (98-107) mmol/L Carbon Dioxide 24 (21-32) mmol/L Anion Gap 6.0 (3-11) BUN 31 H (7-18) mg/dl Creatinine 2.51 H (0.6-1.4) mg/dl Est Cr Clr Drug Dosing 25.9 ml/min Est GFR ( Amer) 27.9 Est GFR (Non-Af Amer) 24.1 BUN/Creatinine Ratio 12.5 (10-20) Glucose 179 H (70-99) mg/dl POC Glucose (70-99) mg/dl Calcium 9.4 (8.5-10.1) mg/dl Magnesium 2.0 (1.8-2.4) mg/dl Total Bilirubin 0.5 (0.2-1) mg/dl AST 10 L (15-37) U/L ALT 11 L (12-78) U/L Alkaline Phosphatase 110 (45-117) U/L Troponin I < 0.015 (0-0.045) ng/ml Total Protein 7.3 (6.4-8.2) gm/dl Albumin 3.3 L (3.4-5.0) gm/dl Globulin 4.0 (2.5-4.0) gm/dl Albumin/Globulin Ratio 0.8 L (0.9-2) COVID-19 Eval [facility] [place]2, RNA, NAAT (NEGATIVE) Blood Type Antibody Screen 12/17/20 Range/Units 15:30 WBC (4.8-10.8) K/uL RBC (4.7-6.1) M/uL Hgb (14.0-18.0) g/dL Hct (42-52) % MCV (80-100) fL MCH (25-34) pg MCHC (32-36) g/dL RDW Std Deviation (36.4-46.3) fL RDW Coeff of Amalia (11.5-14.5) % Plt Count (130-400) K/uL MPV (7.4-10.4) fL Immature Gran % (Auto) % Neut % (Auto) % Lymph % (Auto) % [place] % (Auto) % Eos % (Auto) % Baso % (Auto) % Neut # (Auto) (1.4-6.5) K/uL Lymph # (Auto) (1.2-3.4) K/uL [place] # (Auto) (0.11-0.59) K/uL Eos # (Auto) (0-0.5) K/uL Baso # (Auto) (0-0.2) K/uL Immature Gran # (Auto) (0.00-0.02) K/uL PT (9.0-12.0) Seconds INR (0.9-1.1) APTT (21.0-31.0) Seconds PTT Ratio Sodium (136-145) mmol/L Potassium (3.5-5.1) mmol/L Chloride (98-107) mmol/L Carbon Dioxide (21-32) mmol/L Anion Gap (3-11) BUN (7-18) mg/dl Creatinine (0.6-1.4) mg/dl Est Cr Clr Drug Dosing ml/min Est GFR ( Amer) Est GFR (Non-Af Amer) BUN/Creatinine Ratio (10-20) Glucose (70-99) mg/dl POC Glucose (70-99) mg/dl Calcium (8.5-10.1) mg/dl Magnesium (1.8-2.4) mg/dl Total Bilirubin (0.2-1) mg/dl AST (15-37) U/L ALT (12-78) U/L Alkaline Phosphatase (45-117) U/L Troponin I (0-0.045) ng/ml Total Protein (6.4-8.2) gm/dl Albumin (3.4-5.0) gm/dl Globulin (2.5-4.0) gm/dl Albumin/Globulin Ratio (0.9-2) COVID-19 Eval Order SARS-CoV-2, RNA, NAAT NEGATIVE (NEGATIVE) Blood Type Antibody Screen Imaging Data Radiologist's Impression: UNENHANCED CT OF THE BRAIN; CT ANGIOGRAM OF THE BRAIN; CT ANGIOGRAM OF THE NECK CLINICAL HISTORY: Dizziness. Stroke like symptoms. COMPARISON STUDY: CT of the brain dated 11/27/2020. CT angiogram of the head and neck dated 01/19/2020. TECHNIQUE: Unenhanced axial CT scan of the brain is performed. Subsequently, following the IV administration of 120 of Optiray 320, CT angiogram of the head and neck was performed from the aortic arch to the vertex. Images are reviewed in the axial, sagittal, and coronal planes. 3-D MIPS images are created and assessed. IV contrast was administered without complication. All measurements were calculated based on NASCET criteria. A dose lowering technique was utilized adhering to the principles of ALARA. CT DOSE: 1196.65 mGy.cm FINDINGS: Brain parenchyma: There is age-related involutional change noting mild subcortical and periventricular microangiopathic disease. There is no hemorrhage, mass effect, or evidence of acute territorial ischemia by CT criteria. There is no evidence of enhancing mass lesion on the angiogram phase images. The ventricles, sulci, and cisterns are prominent secondary to involutional change. Hodge-white matter differentiation is preserved. No extra- axial fluid collection is seen. Thoracic aorta: There is mild atherosclerotic calcification of the thoracic aorta. Visualized portions of the thoracic aorta are normal in caliber. The aortic arch demonstrates standard 3-vessel anatomy. Right carotid arterial system: The right common carotid artery is widely patent, as are the right internal and external carotid arteries. Calcified plaque is noted in the carotid bulb. There is tortuosity of the distal internal carotid artery. Left carotid arterial system: The left common carotid artery is widely patent. Atherosclerotic plaque causes less than 50% luminal narrowing at the origin of the left internal carotid artery. The left internal carotid artery and the left external carotid artery are otherwise widely patent. There is tortuosity of the distal internal carotid artery. Vertebral arteries: There is mild stenosis at the origin of the right vertebral artery. The vertebral arteries are otherwise widely patent bilaterally and codominant. Subclavian arteries: Widely patent bilaterally. Intracranial vasculature: There is atherosclerotic calcification of the cavernous carotid arteries. The internal carotid arteries are patent at the skull base, as are the anterior and middle cerebral arteries bilaterally. The vertebrobasilar system and posterior cerebral arteries are widely patent. The vertebral arteries are codominant. There is no aneurysm, high-grade stenosis, or focal vessel cut off seen throughout the intracranial circulation. Jugular veins: Patent bilaterally. Dural sinuses: Patent. Lung apices: Partially visualized upper lobe lung parenchyma appears clear. Soft tissues: The visualized pharyngeal soft tissues are normal in appearance noting angiographic phase technique. The oropharyngeal airway appears widely patent. A 7 mm low-attenuation nodule is noted in the left lobe of the thyroid gland. The salivary glands are normal in appearance. No cervical lymphadenopathy is seen. Skeletal structures: The skeletal structures are osteopenic. The calvarium ap pears intact. The cervical spine is maintained noting multilevel spondylosis. Fusion hardware is noted in the lower cervical spine. No lytic or blastic lesion is seen. Orbits: The bony orbits are intact. Orbital contents are normal as visualized. Sinuses and mastoids: The paranasal sinuses are clear. The mastoid air cells are well pneumatized. IMPRESSION: 1. There is no hemorrhage, mass effect, or evidence of acute territorial ischemia by CT criteria. 2. Unremarkable CT angiogram of the brain. 3. There is mild stenosis at the origin of the right vertebral artery. 4. There is no evidence of hemodynamically significant carotid artery stenosis. ACT 112: Negative or not required by law. Electronically signed by: Osbaldo Martinez M.D. 12/17/2020 2:15 PM Dictated: 12/17/20 1404 Transcribed: 12/17/20 1404 SINGLE VIEW CHEST CLINICAL HISTORY: Strokelike symptoms. FINDINGS: An AP, portable, upright chest radiograph is compared to study dated 11/07/2020. The examination is degraded by portable technique and apical lordotic positioning. The cardiomediastinal silhouette is unremarkable noting atherosclerotic calcification of the thoracic aorta. There are left basilar airspace opacities. No large pleural effusion or pneumothorax is seen. The skeletal structures are osteopenic. The bony thorax is grossly intact. Fusion hardware is noted in the lower cervical spine. IMPRESSION: Left basilar opacities could represent scarring/atelectasis versus a mild infectious/inflammatory pneumonitis. Clinical correlation will be required. ACT 112: Negative or not required by law. Electronically signed by: Osbaldo Martinez M.D. 12/17/2020 2:33 PM Dictated: 12/17/20 143 Transcribed: 12/17/20 143 ECG Data Attestation: I personally reviewed and interpreted this ECG as follows: Indication: + weakness Rate (beats per minute): 61 Rhythm: + normal sinus ECG ST segments: no ST elevation ECG Findings: + Q waves; no PVCs MDM Narrative I did immediately evaluate the patient on arrival as noted above. The patient is a rather poor historian and has difficulty relating his symptoms. He states he does not know why he was sent here. He is complaining of a chronic headache which she states feels like his prior headaches. He states that the only new symptom really is that he has severe blurry vision although he has had that in the past as well. He also states that he has had double vision in the past. On exam he states he has double vision currently. He denies any loss of vision. He also complains of vertigo. Looking at his old chart he does have a history of right vertebral artery stenosis. I was concerned about a possible posterior circulation CVA and so I called a stroke alert. His most recent creatinine was 2 so I discussed this with the radiologist Dr. Travis who stated that it would be fine to give him the contrast at this time. The patient is not an IV TPA candidate as his last known well was sometime yesterday. IV access was established. I did order a stat CT of the head and CT angiogram of the head and neck. I did review the images myself as well as the radiology report as described above. There is no evidence of acute intracranial abnormality. He does have mild stenosis at the origin of the right vertebral artery. There is also some luminal narrowing at the origin of the left internal carotid artery. I did place an order for continuous cardiac monitoring. The monitor showed normal sinus rhythm at a rate of 65 bpm. I did order and personally review the patient's 12-lead EKG as described above. There are no acute ischemic changes. I did order and personally reviewed the images of the patient's chest x-ray as described above. He had some mild left basilar opacities which are likely atelectatic. I did order and review the patient's blood work as noted in the electronic medical record. He has mild anemia with a hemoglobin of 12.8. His creatinine is 2.5. He does have a history of chronic kidney disease. Glucose is elevated 179. Troponin is negative. Covid testing is negative. I did consult the [place] stroke neurologist, Dr. Armstrong. She did see the patient via telehealth. She recommended hospitalization for MRI as well as further management. She did suggest that the patient be placed on Brilinta tomorrow rather than Plavix. I did discuss the test results with the patient. I did discuss the case with the clinical case manager and hospitalist. Impression & Plan Diplopia, Vertigo, Blurred vision, Chronic kidney disease Discharge Plan Visit Data Chief Complaint: Headache ED Provider: Tavo Duvall Discharge Problem: Diplopia, Vertigo, Blurred vision, Chronic kidney disease Forms Stand Alone Forms: My [facility] Prescriptions Prescriptions: No Action carvedilol 25 mg tablet 25 mg PO BID Qty: 180 RF: 3 isosorbide mononitrate 120 mg tablet extended release 24 hr 120 mg PO QAM Qty: 90 RF: 3 pantoprazole 40 mg tablet,delayed release (DR/EC) 40 mg PO BID Qty: 180 RF: 3 Slow-Mag 71.5 mg tablet,delayed release (DR/EC) 143 mg PO BID RF: 0 omega-3 fatty acids [Fish Oil Concentrate] 1,000 mg capsule 3,000 mg PO QAM RF: 0 pravastatin 10 mg tablet 10 mg PO HS RF: 0 aspirin 81 mg Tablet,Delayed Release (Dr/Ec) 81 mg PO HS RF: 0 coQ10 (ubiquinol) 200 mg Capsule 400 mg PO QAM RF: 0 melatonin 10 mg Tablet 10 mg PO HS RF: 0 Lantus Solostar U-100 Insulin 100 unit/mL (3 mL) insulin pen 12 unit subcut QPM RF: 0 cholecalciferol (vitamin D3) [Vitamin D3] 1,000 unit Tablet,Chewable 1,000 unit PO QAM RF: 0 clopidogrel 75 mg tablet 75 mg PO QAM RF: 0 nitroglycerin 400 mcg/spray spray,non-aerosol 0.4 mg SL DIRECTED PRN (Reason: Chest Pain) RF: 0 Linzess 145 mcg capsule 145 mcg PO DAILY PRN (Reason: Constipation) RF: 0 cyanocobalamin (vitamin B-12) [Vitamin B-12] 1,000 mcg Tablet 1,000 mcg PO QAM RF: 0 vitamin E 400 unit Tablet 400 unit PO QAM RF: 0 betamethasone, augmented 0.05 % ointment 1 applic TOPICAL BID PRN (Reason: Psoriasis) RF: 0 duloxetine 20 mg capsule,delayed release(DR/EC) 20 mg PO QAM RF: 0 diclofenac sodium 1 % gel 4 g TOPICAL QID PRN (Reason: Joint Pain) RF: 0 Referrals Referrals: Shaina Kenyon [Primary Care Provider] - Discharge Problem: Chronic kidney disease Qualifiers: Chronic kidney disease stage: unspecified stage Qualified Code(s): N18.9 - Chronic kidney disease, unspecified
[2020-12-17 14:10] LABS: Basophils # (auto) 0.06 K/uL (0-0.2); Basophils % (auto) 0.6 %; Eosinophils # (auto) 0.89 K/uL (0-0.5); Eosinophils % (auto) 9.2 %; Hematocrit (blood only) 38.5 % (42-52); Hemoglobin 12.8 g/dL (14.0-18.0); Immature Granulocytes # (auto) 0.02 K/uL (0.00-0.02); Immature Granulocytes % (auto) 0.2 %; Lymphocytes # (auto) 2.45 K/uL (1.2-3.4); Lymphocytes % (auto) 25.4 %; Mean Corpuscular Hemoglobin 30.3 pg (25-34); Mean Corpuscular Hgb Conc 33.2 g/dL (32-36); Mean Platelet Volume 9.8 fL (7.4-10.4); Monocytes # (auto) 0.67 K/uL (0.11-0.59); Monocytes % (auto) 6.9 %; Neutrophils # (auto) 5.57 K/uL (1.4-6.5); Neutrophils % (auto) 57.7 %; Platelet Count 213 K/uL (130-400); RDW Coefficient of Variation 13.6 % (11.5-14.5); RDW Standard Deviation 44.9 fL (36.4-46.3); Red Blood Count 4.23 M/uL (4.7-6.1); White Blood Count 9.66 K/uL (4.8-10.8)
--- NOTE | 2020-12-17 14:16 | CT Scan Report ---
UNENHANCED CT OF THE BRAIN; CT ANGIOGRAM OF THE BRAIN; CT ANGIOGRAM OF THE NECK CLINICAL HISTORY: Dizziness. Stroke like symptoms. COMPARISON STUDY: CT of the brain dated 11/27/2020. CT angiogram of the head and neck dated 01/19/2020 . TECHNIQUE: Unenhanced axial CT scan of the brain is performed. Subsequently, following the IV adminis tration of 120 of Optiray 320, CT angiogram of the head and neck was performed from the aortic arch t o the vertex. Images are reviewed in the axial, sagittal, and coronal planes. 3-D MIPS images are cre ated and assessed. IV contrast was administered without complication. All measurements were calculate d based on NASCET criteria. A dose lowering technique was utilized adhering to the principles of ALA RA. CT DOSE: 1196.65 mGy.cm FINDINGS: Brain parenchyma: There is age-related involutional change noting mild subcortical and periventricula r microangiopathic disease. There is no hemorrhage, mass effect, or evidence of acute territorial isc hemia by CT criteria. There is no evidence of enhancing mass lesion on the angiogram phase images. Th e ventricles, sulci, and cisterns are prominent secondary to involutional change. Hodge-white matter d ifferentiation is preserved. No extra-axial fluid collection is seen. Thoracic aorta: There is mild atherosclerotic calcification of the thoracic aorta. Visualized portion s of the thoracic aorta are normal in caliber. The aortic arch demonstrates standard 3-vessel anatomy . Right carotid arterial system: The right common carotid artery is widely patent, as are the right int ernal and external carotid arteries. Calcified plaque is noted in the carotid bulb. There is tortuosi ty of the distal internal carotid artery. Left carotid arterial system: The left common carotid artery is widely patent. Atherosclerotic plaque causes less than 50% luminal narrowing at the origin of the left internal carotid artery. The left i nternal carotid artery and the left external carotid artery are otherwise widely patent. There is tor tuosity of the distal internal carotid artery. Vertebral arteries: There is mild stenosis at the origin of the right vertebral artery. The vertebral arteries are otherwise widely patent bilaterally and codominant. Subclavian arteries: Widely patent bilaterally. Intracranial vasculature: There is atherosclerotic calcification of the cavernous carotid arteries. T he internal carotid arteries are patent at the skull base, as are the anterior and middle cerebral ar teries bilaterally. The vertebrobasilar system and posterior cerebral arteries are widely patent. The vertebral arteries are codominant. There is no aneurysm, high-grade stenosis, or focal vessel cut of f seen throughout the intracranial circulation. Jugular veins: Patent bilaterally. Dural sinuses: Patent. Lung apices: Partially visualized upper lobe lung parenchyma appears clear. Soft tissues: The visualized pharyngeal soft tissues are normal in appearance noting angiographic pha se technique. The oropharyngeal airway appears widely patent. A 7 mm low-attenuation nodule is noted in the left lobe of the thyroid gland. The salivary glands are normal in appearance. No cervical lymp hadenopathy is seen. Skeletal structures: The skeletal structures are osteopenic. The calvarium appears intact. The cervic al spine is maintained noting multilevel spondylosis. Fusion hardware is noted in the lower cervical spine. No lytic or blastic lesion is seen. Orbits: The bony orbits are intact. Orbital contents are normal as visualized. Sinuses and mastoids: The paranasal sinuses are clear. The mastoid air cells are well pneumatized. IMPRESSION: 1. There is no hemorrhage, mass effect, or evidence of acute territorial ischemia by CT criteria. 2. Unremarkable CT angiogram of the brain. 3. There is mild stenosis at the origin of the right vertebral artery. 4. There is no evidence of hemodynamically significant carotid artery stenosis. ACT 112: Negative or not required by law. Electronically signed by: Osbaldo Martinez M.D. 12/17/2020 2:15 PM
[2020-12-17 14:28] LABS: Partial Thromboplastin Time 25.3 Seconds (21.0-31.0); Prothrombin Time 10.6 Seconds (9.0-12.0)
[2020-12-17 14:33] LABS: Alanine Aminotransferase 11 U/L (12-78); Albumin Globulin Ratio 0.8 (0.9-2); Albumin Level 3.3 gm/dl (3.4-5.0); Alkaline Phosphatase 110 U/L (45-117); Aspartate Aminotransferase 10 U/L (15-37); BUN Creatinine Ratio 12.5 (10-20); Bilirubin,Total 0.5 mg/dl (0.2-1); Blood Urea Nitrogen 31 mg/dl (7-18); Calcium 9.4 mg/dl (8.5-10.1); Carbon Dioxide 24 mmol/L (21-32); Chloride 108 mmol/L (98-107); Creatinine Clr Calc Pharmacy 25.9 ml/min; Est GFR (African American) 27.9; Est GFR (Non-African American) 24.1; Glucose 179 mg/dl (70-99); Potassium 4.3 mmol/L (3.5-5.1); Sodium 138 mmol/L (136-145); Total Protein 7.3 gm/dl (6.4-8.2); Troponin I < 0.015 ng/ml (0-0.045)
--- NOTE | 2020-12-17 14:35 | XRay Report ---
SINGLE VIEW CHEST CLINICAL HISTORY: Strokelike symptoms. FINDINGS: An AP, portable, upright chest radiograph is compared to study dated 11/07/2020. The examinat ion is degraded by portable technique and apical lordotic positioning. The cardiomediastinal silhouet te is unremarkable noting atherosclerotic calcification of the thoracic aorta. There are left basilar airspace opacities. No large pleural effusion or pneumothorax is seen. The skeletal structures are o steopenic. The bony thorax is grossly intact. Fusion hardware is noted in the lower cervical spine. IMPRESSION: Left basilar opacities could represent scarring/atelectasis versus a mild infectious/infl ammatory pneumonitis. Clinical correlation will be required. ACT 112: Negative or not required by law. Electronically signed by: Osbaldo Martinez M.D. 12/17/2020 2:33 PM
[2020-12-17] MEDS ORDERED: LORazepam 1 MG TAB SL STA (16:09)
--- NOTE | 2020-12-17 16:23 | History & Physical Report ---
Date of Service December 17, 2020 Assessment & Plan (1) Stroke-like symptoms: Confusing history from the patient regarding whether this was similar to prior occasions. Inpatient admission recommended by [facility] telestroke MRI brain w/o contrast with no acute intracranial abnormality therefore will defer further workup including TTE to neurology in AM Repeat lipid panel (prior LDL > 100), patient intolerant to statins HbA1C with AM labs PT/OT Consult neurology (2) Vertigo: Unclear from history (3) Diplopia: (4) Blurred vision: (5) Dizziness: Consider orthostatics if he continues to have dizziness. (6) Hypertension: Continue his usual medications with carvedilol 25 mg p.o. twice daily (7) Type II diabetes mellitus with complication: HbA1C with AM labs Reduce lantus to 5 units BID with Novolog correction and carb coverage Consider reducing lantus on discharge pending HbA1C. (8) GERD (gastroesophageal reflux disease): Continue pantoprazole 40 mg p.o. twice daily (9) CKD (chronic kidney disease), stage IV: Patient appears to be close to his baseline. NSS bolus now with repeat BMP in a.m. (10) DVT prophylaxis: SCDs Admission and Anticipated Discharge Date Admission Date: December 17, 2020 History of Present Illness Chief Complaint: Diplopia, blurred vision Primary Care Provider: Shaina Kenyon Guille Negron is a 75-year-old male who presents to the ER on advice of his PCP due to with sudden onset diplopia. Very difficult to take history from patient as his story appears to change on multiple occasions. He does appear to have a history of intermittent vertigo and dizziness although reports this occasion was different to his prior episodes due to diplopia and blurring of his vision. He reports sudden onset of his symptoms around 8 AM. He reported to the ER physician that he had diplopia for approximately 4 months although to myself he reported 1 other episode of diplopia 4 months ago or perhaps 1.5 years ago. He was seen by his PCP today who was concerned about a left-sided weakness although the patient denies this therefore telemetry stroke evaluation was performed in the emergency room. He currently denies any diplopia, blurred vision, headache or left-sided weakness. Telemetry stroke evaluation in the emergency room recommended inpatient observation with stroke work-up including MRI brain without contrast and switching Plavix to Brilinta. Allergies Allergy/AdvReac Type Severity Reaction Status Date / Time gabapentin Allergy Severe Nightmares Verified 10/21/20 10:12 Dxwxaio-Mwk-Yea Reductase Allergy Unknown muscle Verified 10/21/20 10:12 Inhibitor aches HMG-CoA-R Inhibitors AdvReac Unknown MUSCLE Uncoded 10/21/20 10:12 ACHES Home Medications Medication Instructions Recorded Confirmed Type magnesium chloride 71.5 mg 143 mg PO BID tab 06/14/19 12/17/20 History (magnesium chloride) tablet,delayed release omega-3 fatty acids 1,000 mg 3,000 mg PO QAM 06/14/19 12/17/20 History capsule pravastatin 10 mg tablet 10 mg PO HS 06/14/19 12/17/20 History Lantus Solostar U-100 Insulin 12 unit SUBCUT QPM 08/01/19 12/17/20 History cholecalciferol (vitamin D3) 1,000 unit PO QAM 08/01/19 12/17/20 History [Vitamin D3] aspirin 81 mg PO HS 12/27/19 12/17/20 History coQ10 (ubiquinol) 400 mg PO QAM 12/27/19 12/17/20 History melatonin 10 mg PO HS 12/27/19 12/17/20 History carvedilol 25 mg tablet 25 mg PO BID #180 tab 01/30/20 12/17/20 Rx isosorbide mononitrate 120 mg 120 mg PO QAM #90 tab 09/01/20 12/17/20 Rx tablet,extended release 24 hr pantoprazole 40 mg tablet,delayed 40 mg PO BID #180 tab 10/07/20 12/17/20 Rx release betamethasone, augmented 1 applic TOPICAL BID PRN 12/17/20 12/17/20 History clopidogrel 75 mg PO QAM 12/17/20 12/17/20 History cyanocobalamin (vitamin B-12) 1,000 mcg PO QAM 12/17/20 12/17/20 History [Vitamin B-12] diclofenac sodium 4 g TOPICAL QID PRN 12/17/20 12/17/20 History duloxetine 20 mg PO QAM 12/17/20 12/17/20 History linaclotide [Linzess] 145 mcg PO DAILY PRN 12/17/20 12/17/20 History nitroglycerin 0.4 mg SL DIRECTED PRN 12/17/20 12/17/20 History vitamin E 400 unit PO QAM 12/17/20 12/17/20 History Past Med/Surg History Medical History (Updated 12/18/20 @ 11:04 by Gregorio Keller MD) Accelerated hypertension Acute kidney injury Arthritis Chest pain (07/11/14) Chronic kidney disease Constipation Crohn's disease Diabetes Dysmetria Expressive aphasia Gastroparesis GERD (gastroesophageal reflux disease) Hypertension NSTEMI (non-ST elevated myocardial infarction) Psoriasis Pyelonephritis Thrombocytopenia Vitamin D deficiency Surgical History History of cardiac catheterization History of Cath Stent 1 Type Drug-Eluting History of Cath Stent 2 Proximal Right Coronary Artery History of cholecystectomy History of PTCA Family History Father , in his late 40s or early 50s of an [place] Coronary heart disease Myocardial infarction Brother Pulmonary embolism Colon cancer Hx of CABG Mother , age 62 of diabetes and heart disease Coronary heart disease Diabetes Social History Smoking Status: Never smoker Tobacco Type: Smokeless Tobacco (Dip or Chew) packs per day: 1; Years Smoked: 40; Number of Years Since Quit: 35; Second Hand Exposure: No; Do You Dip or Chew Tobacco: Yes; Tobacco Cessation Education Requested by Patient: No Hx Alcohol Use: No Hx Substance Use: No Preferred Language: Serbian Communication Ability: Effective Marketing Lead Required: No Beliefs That Will Affect Care: None marital status: Current Living Situation: Spouse current occupational status: retired current occupation: Retired in his early 50s as a [employer] Other Information That Helps Us Care for You: No Feels Safe at Home: Yes Safety Concerns: Feels Safe At This Time Assistive Devices: Glasses Review of Systems Review of Systems: All systems reviewed & are unremarkable except as noted in HPI & below Genitourinary: + urinary frequency Physical Exam Constitutional: WD/WN, vitals as above Eyes: PERRL, conjunctivae normal, anicteric sclerae EOM intact bilaterally (No diplopia) ENMT: external ear and nose normal, oropharynx normal Respiratory: normal respiratory effort, lungs clear to auscultation Skin: no rashes, warm and dry Neurologic: moves all extremities and awake; no focal motor deficits and not confused Speech / Cognition: normal speech Motor/Sensory: no tremor and no pronator drift Cranial Nerves: PERRL, EOM intact bilaterally, normal facial strength, tongue midline, able to rotate head bilaterally, able to elevate shou lders bilaterally, no nystagmus and symmetric palate elevation Psychiatric: A+Ox3, euthymic affect Genitourinary: no CVA tenderness Results & Data Results & Data ([facility]) Vital Signs (Past 12 Hours) Vital Signs Pulse Pulse Resp BP BP Pulse Ox 12/17/20 14:47 65 18 134/69 97 12/17/20 14:06 66 18 126/94 97 12/17/20 13:43 64 18 97/55 L 97 Diagnostic Findings SINGLE VIEW CHEST IMPRESSION: Left basilar opacities could represent scarring/atelectasis versus a mild infectious/inflammatory pneumonitis. Clinical correlation will be required. UNENHANCED CT OF THE BRAIN; CT ANGIOGRAM OF THE BRAIN; CT ANGIOGRAM OF THE NECK IMPRESSION: 1. There is no hemorrhage, mass effect, or evidence of acute territorial ischemia by CT criteria. 2. Unremarkable CT angiogram of the brain. 3. There is mild stenosis at the origin of the right vertebral artery. 4. There is no evidence of hemodynamically significant carotid artery stenosis. Medications Administered ER medications given: Lorazepam 1 mg sublingual ECG Rate (beats per minute): 61 Rhythm: normal sinus Comparison ECG Date: from (November 07, 2020) Change: no significant change Code Status & VTE Plan VTE Prophylaxis Plan VTE Prophylaxis will be ordered: Yes PG Care Time/CCT Total # of Minutes Spent Total Time Spent with Patient: Total time spent is greater than 50% in coordinat ion of care (as documented) at patient's floor/unit and/or counseling patient: Coding Level of Care Code 26847 OBS Care - Level 3 Diagnoses Stroke-like symptoms R29.90 Vertigo R42 Diplopia H53.2 Blurred vision H53.8 Dizziness R42 Hypertension I10 Type II diabetes mellitus with complication E11.8 GERD (gastroesophageal reflux disease) K21.9 Esophagitis presence: without esophagitis CKD (chronic kidney disease), stage IV N18.4 DVT prophylaxis Z29.9 (1) GERD (gastroesophageal reflux disease) Esophagitis presence: without esophagitis Qualified Code(s): K21.9 - Gastro- esophageal reflux disease without esophagitis
--- NOTE | 2020-12-17 16:56 | Magnetic Resonance Report ---
MRI OF THE BRAIN WITHOUT IV CONTRAST CLINICAL HISTORY: Diplopia. Vertigo. COMPARISON STUDY: CT of the brain dated 12/17/2020. MRI of the brain dated 02/06/2018. TECHNIQUE: MRI of the brain was performed utilizing various T1 and T2-weighted sequences in the axial , sagittal, and coronal planes. IV contrast was not administered for this examination. FINDINGS: Brain parenchyma: There is age-related involutional change noting moderate confluent subcortical and periventricular microangiopathic disease. There is no hemorrhage or mass effect. There is no restrict ed diffusion to suggest acute ischemia. Hodge-white matter differentiation is preserved. No extra-axia l fluid collection is seen. The cerebellar tonsils are normal in configuration. Ventricles, sulci, and cisterns: Prominent secondary to involutional change. Pituitary and sella: Unremarkable. Intracranial vasculature: Normal flow voids are maintained at the skull base. Orbits: The bony orbits are grossly intact. Orbital contents are normal in appearance. Sinuses and mastoids: Clear. Calvarium: Unremarkable. Cervical cord: Partially visualized cervical spinal cord is normal in morphology and signal intensity . IMPRESSION: No acute intracranial abnormality. ACT 112: Negative or not required by law. Electronically signed by: Osbaldo Martinez M.D. 12/17/2020 4:54 PM
[2020-12-17] MEDS ORDERED: ACETAMINOPHEN 325 MG TAB PO PRN (20:22)
[2020-12-17] MEDS ORDERED: PHARMACIST DISCHARGE MED REC CONSULT PRN (20:22)
[2020-12-17] MEDS ORDERED: GLUCOSE 10 TABS/TUBE PO PRN (21:03)
[2020-12-17] MEDS ORDERED: DEXTROSE 50% 50 ML SYRINGE IV PRN (21:03)
[2020-12-17] MEDS ORDERED: GLUCOSE 40% GEL 15 GM TUBE PO PRN (21:03)
[2020-12-17] MEDS ORDERED: GLUCAGON FOR INJ 1 MG VIAL SQ PRN (21:03)
[2020-12-17] MEDS ORDERED: CARBOHYDRATES FOR HYPOGLYCEMIA PO PRN (21:03)
[2020-12-17] MEDS ORDERED: SODIUM CHLORIDE 0.9% 1000ML 500 ML IV ONE (21:06)
[2020-12-17] MEDS ORDERED: LINACLOTIDE 145 MCG CAPSULE PO PRN (21:18)
[2020-12-17] MEDS: ASPIRIN 81 MG ECTAB PO SCH (22:14)
[2020-12-17] MEDS: PRAVASTATIN SOD 10 MG TAB PO SCH (22:14)
[2020-12-17] MEDS: INSULIN GLARGINE SOLOSTAR 100 UNITS/ML 3 ML PEN SC SCH (22:15)
[2020-12-17] MEDS: PANTOprazole 40 MG TAB PO SCH (22:15)
[2020-12-17] MEDS: carvediloL 25 MG TAB PO SCH (22:15)
[2020-12-18 02:21] LABS: Appearance Urine Clear (Clear); Bacteria Urine Automated Negative (Negative); Bilirubin Urine Negative (Negative); Blood Urine Negative (Negative); Cast Urine Automated 0 /lpf (0-5); Color Urine Yellow; Glucose Urine UA Negative (Negative); Ketones Urine Negative (Negative); Leukocyte Esterase Urine Negative (Negative); Nitrite Urine Negative (Negative); Protein Urine Trace (Negative); RBC Urine Automated 0-4 /hpf (0-4); Specific Gravity Urine > 1.045 (1.000-1.030); Urobilinogen Urine Negative (Negative)
[2020-12-18 06:27] LABS: Basophils # (auto) 0.02 K/uL (0-0.2); Basophils % (auto) 0.2 %; Eosinophils # (auto) 0.68 K/uL (0-0.5); Eosinophils % (auto) 7.4 %; Hematocrit (blood only) 33.1 % (42-52); Hemoglobin 11.4 g/dL (14.0-18.0); Lymphocytes # (auto) 2.69 K/uL (1.2-3.4); Lymphocytes % (auto) 29.4 %; Mean Corpuscular Hemoglobin 30.4 pg (25-34); Mean Corpuscular Hgb Conc 34.4 g/dL (32-36); Mean Corpuscular Volume 88.3 fL (80-100); Monocytes # (auto) 0.85 K/uL (0.11-0.59); Monocytes % (auto) 9.3 %; Neutrophils % (auto) 53.7 %; Platelet Count 198 K/uL (130-400); RDW Coefficient of Variation 13.6 % (11.5-14.5); RDW Standard Deviation 44.1 fL (36.4-46.3); Red Blood Count 3.75 M/uL (4.7-6.1); White Blood Count 9.14 K/uL (4.8-10.8)
[2020-12-18 07:02] LABS: BUN Creatinine Ratio 15.2 (10-20); Calcium 8.7 mg/dl (8.5-10.1); Creatinine Clr Calc Pharmacy 29.9 ml/min; Est GFR (African American) 33.5; Est GFR (Non-African American) 28.9; Potassium 3.4 mmol/L (3.5-5.1)
[2020-12-18 07:34] LABS: Estimated Average Glucose 146 mg/dl; Hemoglobin A1C 6.7 % (4.5-5.6)
--- NOTE | 2020-12-18 08:22 | Neurology Consultation ---
Date of Consultation December 18, 2020 Assessment & Plan (1) Diplopia: (2) Blurred vision: (3) Vertigo: (4) Cervical spondylosis: (5) Headache: (6) Cervical radicular pain: (7) Vertebral artery stenosis: the patient has a longstanding history of chronic neck pain with cervical spondylosis post cervical spine surgery years ago. His chronic, intermittent headaches are brief but seem to be related to his posterior cervical spine and muscle tension. He is getting cervical radicular pain in the C5 distribution intermittently as well. The patient has a history of severe right vertebral artery stenosis at the origin back in January of 2020. He has been on aspirin and Plavix ever since and his vertebral artery seems improved by recent angiography yesterday. MRI of the brain did not show any acute stroke but he has moderate old small vessel ischemia. Patient had an episode of blurry vision / double vision, and dizziness which seems to be a combination of lightheadedness and vertigo. Again, the symptoms were fairly short-lived. He is back to baseline this morning and has no focal neurologic findings, meningeal signs, or encephalopathy. Overall, this patient did not Have a stroke and I do not believe he had a TIA either. 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 He has had these symptoms many times in the past. I believe most of his symptoms are stemming from his cervical spine. He has risk factors for stroke including diabetes and previous cigarette smoking. His triglyceride is elevated , but his total cholesterol is 162. Recommendations: 1. MRI of the cervical spine with and without contrast ( had previous surgery). 2. continue 81 milligram aspirin and 75 milligram clopidogrel daily. 3. Increase activity as able 4. patient can be treated with a statin but I do not believe he needs high dose. 5. treat glucose and try the lower hemoglobin A1c closer to 6 6. patient can be followed as an outpatient Overall, I spent a total of 70 minutes with this case including review of records, review of MRI films, direct evaluation the patient bedside, and discussion of the case with the patient at bedside, RN at bedside, and Dr. Coronado, including differential diagnosis and treatment options. History of Present Illness Reason for Consultation: patient is a 75-year-old, who I was asked to see at the request of Dr. Keller, for neurologic consultation regarding probable TIA Requesting Physician: Dr. Keller Attending Physician: Lobo Coronado History of Present Illness I 1st saw this patient in January of 2020. He came to me with a history of chronic "dizziness" intermittently for up to 30 years. These episodes would occur somewhat frequently about once per week. He describes them a kind of combination of lightheadedness and occasional vertiginous movement sensations. They would last a couple of minutes. In addition, he had headaches then initiated in his posterior cervical spine and radiate up across the head to the bifrontal head region. These headaches would last several minutes and could be 2 or 3 times a week. Her always associated with increase in. His neurologic examination was unremarkable. Earlier that month he had had CT angiography of the head and neck. The head was unremarkable and the neck showed high-grade stenosis at the origin of the right vertebral artery. There was less than 50 percent stenosis in the origin of the left internal carotid artery. He was on aspirin 81 milligrams daily and clopidogrel 75 milligrams daily. In addition the patient had a history of severe cervical spondylosis post cervical spine surgery by Dr. Cunningham about 15 years ago. I have postulated that the patient was having vertebral basilar insufficiency symptoms from his cervical spondylosis and right vertebral artery stenosis coupled with some mild anemia. I did not see him since. Since the spring the patient has been doing fairly well. He had 1 syncopal episode while working in the garage taking a battery out of a car, about 2 months ago. He had no warning and became very lightheaded and felt that he lost consciousness for secondary to falling backwards. He did not injure himself. He gets headaches about every other day. They start in his posterior occipital cervical junction and radiate bifrontally. His eyes burn this is a deep achy pain that lasts 2-3 minutes. He has neck pain left greater than right side and pain that radiates into the arms to the elbows bilaterally, occasion. He has no symptoms in his lower extremities and he has no gait issues or incontinence of urine. The morning of December 17 he woke feeling fine at 0800. He got up, bathe himself, and dressed without issue. He was going to go out around 9 o'clock in the morning and had the onset of blurry and double vision. He had some burning behind his eyes usual an atypical bifrontal headache. The double vision was in any direction and he felt that all of these symptoms lasted several minutes. They then resolved. He had no weakness or numbness in the arms and legs, loss of consciousness, speech problem, or gait issues. He arrived to the emergency room December 17 at 1343, with a blood pressure of 97 /55, pulse 64, respiratory rate 18, and O2 saturation 97 percent. He was afebrile. Examination neurologically was unremarkable. He felt somewhat weak and sweaty. CBC showed mild anemia and Chem profile showed elevated BUN and creatinine (which is stable). CT scan of the head was unremarkable. CT angiography of the head was normal. CT angiography of the neck showed mild right vertebral artery origin stenosis only and the left internal carotid artery origin mild stenosis as well. MRI of the brain showed moderate generalized atrophy and small vessel ischemic disease but no acute stroke. I reviewed these films. While in the emergency room the patient's symptoms cleared and he has had no recurrence of any symptoms since admission. This morning he feels back to baseline. Blood pressure is 159/79. CBC shows mild anemia and Chem profile showed a BUN of 33 and creatinine of 2.16. Liver enzymes were unremarkable. Hemoglobin A1c was 6.7. Triglycerides were 172 and cholesterol 162. urinalysis was unremarkable. Allergies Allergy/AdvReac Type Severity Reaction Status Date / Time gabapentin Allergy Severe Nightmares Verified 10/21/20 10:12 Nsckuzo-Ldk-Qqh Reductase Allergy Unknown muscle Verified 10/21/20 10:12 Inhibitor aches HMG-CoA-R Inhibitors AdvReac Unknown MUSCLE Uncoded 10/21/20 10:12 ACHES Home Medications Medication Instructions Recorded Confirmed Type magnesium chloride 71.5 mg 143 mg PO BID tab 06/14/19 12/17/20 History (magnesium chloride) tablet,delayed release omega-3 fatty acids 1,000 mg 3,000 mg PO QAM 06/14/19 12/17/20 History capsule pravastatin 10 mg tablet 10 mg PO HS 06/14/19 12/17/20 History Lantus Solostar U-100 Insulin 12 unit SUBCUT QPM 08/01/19 12/17/20 History cholecalciferol (vitamin D3) 1,000 unit PO QAM 08/01/19 12/17/20 History [Vitamin D3] aspirin 81 mg PO HS 12/27/19 12/17/20 History coQ10 (ubiquinol) 400 mg PO QAM 12/27/19 12/17/20 History melatonin 10 mg PO HS 12/27/19 12/17/20 History carvedilol 25 mg tablet 25 mg PO BID #180 tab 01/30/20 12/17/20 Rx isosorbide mononitrate 120 mg 120 mg PO QAM #90 tab 09/01/20 12/17/20 Rx tablet,extended release 24 hr pantoprazole 40 mg tablet,delayed 40 mg PO BID #180 tab 10/07/20 12/17/20 Rx release betamethasone, augmented 1 applic TOPICAL BID PRN 12/17/20 12/17/20 History clopidogrel 75 mg PO QAM 12/17/20 12/17/20 History cyanocobalamin (vitamin B-12) 1,000 mcg PO QAM 12/17/20 12/17/20 History [Vitamin B-12] diclofenac sodium 4 g TOPICAL QID PRN 12/17/20 12/17/20 History duloxetine 20 mg PO QAM 12/17/20 12/17/20 History linaclotide [Linzess] 145 mcg PO DAILY PRN 12/17/20 12/17/20 History nitroglycerin 0.4 mg SL DIRECTED PRN 12/17/20 12/17/20 History vitamin E 400 unit PO QAM 12/17/20 12/17/20 History Patient History Medical History (Updated 12/18/20 @ 08:21 by Randall Ahuja MD) Accelerated hypertension Acute kidney injury Arthritis Chest pain (07/11/14) Chronic kidney disease Constipation Crohn's disease Diabetes Dysmetria Expressive aphasia Gastroparesis GERD (gastroesophageal reflux disease) Hypertension NSTEMI (non-ST elevated myocardial infarction) Psoriasis Pyelonephritis Thrombocytopenia Vitamin D deficiency Surgical History History of cardiac catheterization History of Cath Stent 1 Type Drug-Eluting History of Cath Stent 2 Proximal Right Coronary Artery History of cholecystectomy History of PTCA Family History Father , in his late 40s or early 50s of an [place] Coronary heart disease Myocardial infarction Brother Pulmonary embolism Colon cancer Hx of CABG Mother , age 62 of diabetes and heart disease Coronary heart disease Diabetes Social History Smoking Status: Never smoker Tobacco Type: Smokeless Tobacco (Dip or Chew) packs per day: 1; Years Smoked: 40; Number of Years Since Quit: 35; Second Hand Exposure: No; Do You Dip or Chew Tobacco: Yes; Tobacco Cessation Education Requested by Patient: No Hx Alcohol Use: No Hx Substance Use: No Preferred Language: [place] Communication Ability: Effective Hand Molder Required: No Beliefs That Will Affect Care: None marital status: Current Living Situation: Spouse current occupational status: retired current occupation: Retired in his early 50s as a [employer] Other Information That Helps Us Care for You: No Feels Safe at Home: Yes Safety Concerns: Feels Safe At This Time Assistive Devices: Glasses Review of Systems Constitutional: + fatigue; no fever and no weakness Eyes: no diplopia, no eye pain and no worsening vision Ear, Nose, Mouth, Throat: + hearing loss; no ear pain, no tinnitus, no dizziness, no hoarseness and no dysphagia Respiratory: no cough and no dyspnea Cardiovascular: no chest pain, no palpitations and no lightheadedness Gastrointestinal: no abdominal pain, no nausea and no vomiting Genitourinary: no dysuria and no urinary incontinence Musculoskeletal: + neck pain; no back pain, no radicular pain, no joint pain and no myalgia Integumentary: no rash and no lesions Neurologic: no gait abnormality, no localized weakness, no generalized weakness, no tingling, no numbness, no tremor(s), no abnormal movements, no headache(s), no abnormal speech, no confusion and no memory loss Psychiatric: no depression, no irritability, no anxiety, no difficulty concentrating, no confusion and no hallucinations Endocrine: no fatigue and no flushing Hematologic / Lymphatic: no easy bleeding and no easy bruising Allergy / Immunological: no urticaria and no problem reported Exam (Neuro) 2 Physical Exam: The patient is right-handed. The patient is awake, alert, and attentive. Speech is normal without any aphasia or dysarthria. he can name objects, repeat phrases, and has normal spontaneous speech. Mentation and thought processes are intact, with orientation to person, place and time, and normal fund of knowledge. Attention and concentrat ion are normal. Mood and affect are normal and appropriate. General appearance and grooming are normal. Short and long-term memory are intact. The discs are sharp with positive venous pulsations bilaterally. There are no exudates, hemorrhages, or blood vessel changes seen. Pupils are 4 mm bilaterally and reactive to light. Extraocular eye muscles are intact without nystagmus. Visual acuity and visual ochoa seem normal grossly to confrontation. There are no deficits to sensation in the face in all 3 distributions of the fifth cranial nerve bilaterally. Corneal reflexes are positive bilaterally. Facial strength and symmetry was normal bilaterally. Hearing seems normal to whisper and finger rub bilaterally. Palate moves well without asymmetry. There is normal sternocleidomastoid and trapezius (shoulder shrug) strength bilaterally. Tongue is midline with good strength bilaterally. Neck has a full range of motion without discomfort. There are no cervical bruits bilaterally. There are no cranial or ocular bruits. Heart is without murmur. There is a regular rhythm and rate. Cervical, thoracic, and lumbar spine are nontender to palpation. Gait is Not specifically tested but his stance at bedside was normal With outstretched arms there is no drift. There are no resting, postural, or action tremors. There is no ataxia with finger to nose testing. There is good facility in the hands. No other abnormal involuntary movements are noted. Motor strength is 5/5 diffusely in the arms bilaterally including deltoids, biceps, triceps, brachioradialis, wrist flexors and extensors, order entry administrator, and intrinsic hand muscles. Motor strength is 5/5 diffusely in the legs bilaterally including hip flexors, quadriceps, hamstrings, gastrocnemius, tibialis anterior, tibialis posterior, and Peroneii muscles. Toe extensors are normal and there is good bulk in the extensor digitorum brevis muscles bilaterally. The limbs have good tone without rigidity or spasticity. There is no atrophy noted in the muscles. Muscle bulk is normal, there is no tenderness to palpation, no myotonia to percussion, and no fasciculations seen. Sensory examination is intact to touch and pin throughout all 4 limbs diffusely. Reflexes are 2/4 in the biceps, triceps, and brachioradialis tendons bilaterally. quadriceps and Achilles tendon reflexes are 1/4 bilaterally. There is no clonus bilaterally. Toes are downgoing with plantar stimulation bilaterally. Peripheral pulses are present and of normal quality distally in all 4 limbs. There is no peripheral edema noted in the limbs. Results & Data ([facility]) Vital Signs (Past 12 Hours) Vital Signs Temp Pulse Pulse Pulse Resp BP Pulse Ox 12/18/20 06:56 36.5 C 74 16 159/79 H 97 12/18/20 03:54 36.4 C L 73 16 150/65 H 94 12/18/20 00:46 69 12/17/20 23:00 36.4 C L 72 18 159/68 H 97 12/17/20 20:58 71 12/17/20 20:25 36.6 C 78 18 154/81 H 96 PG Care Time/CCT Total # of Minutes Spent Total Time Spent with Patient: Total time spent is greater than 50% in coordination of care (as documented) at patient's floor/unit and/or counseling patient: Coding Level of Care Code 05812 OBS Care - Level 3 Diagnoses Diplopia H53.2 Blurred vision H53.8 Vertigo R42 Cervical spondylosis M47.812 Headache R51.9 Cervical radicular pain M54.12 Vertebral artery stenosis I65.09 Time Spent (min) 70 Comment Add modifiers as needed
[2020-12-18] MEDS: carvediloL 25 MG TAB PO SCH ×2 (08:51→21:00)
[2020-12-18] MEDS: DULoxetine HCL 20 MG CAP PO SCH (08:51)
[2020-12-18] MEDS: ISOSORBIDE MONO EXTENDED REL 60 MG TABCR PO SCH (08:51)
[2020-12-18] MEDS: OMEGA-3 (PURIFIED FISH OIL) 1 GM CAP PO SCH (08:51)
[2020-12-18] MEDS: TOCOPHERYL, DL-ALPHA 400 UNITS CAP PO SCH (08:52)
[2020-12-18] MEDS: CYANOCOBALAMIN 500 MCG TABLET (VITAMIN B-12) PO SCH (08:52)
[2020-12-18] MEDS: CHOLECALCIFEROL 1,000 UNITS 25 MCG TAB PO SCH (08:52)
[2020-12-18] MEDS: PANTOprazole 40 MG TAB PO SCH ×2 (08:52→21:01)
[2020-12-18] MEDS: MAGNESIUM CHLORIDE 64MG DELAYED REL TAB PO SCH ×2 (08:52→21:01)
[2020-12-18] MEDS: INSULIN GLARGINE SOLOSTAR 100 UNITS/ML 3 ML PEN SC SCH ×2 (08:53→21:00)
[2020-12-18] MEDS ORDERED: TICAGRELOR 90 MG TAB PO ONE (09:00)
[2020-12-18] MEDS ORDERED: NON-FORMULARY MEDICATION (Coq10 (Ubiquinol) 200 mg Capsule) PO SCH (09:00)
[2020-12-18] MEDS ORDERED: GADOBUTROL 65ML VIAL IV ONE (13:03)
--- NOTE | 2020-12-18 13:35 | Magnetic Resonance Report ---
CERVICAL SPINE MRI WITH AND WITHOUT CONTRAST HISTORY: neck pain TECHNIQUE: Multiplanar multisequence MRI of the cervical spine was performed both before and after th e use of 8.5 cc of Gadavist contrast. COMPARISON STUDY: Cervical spine MRI 03/01/2009. FINDINGS: Mild to moderate motion artifact resulting in suboptimal evaluation of the cervical spine. There is straightening of the cervical spine. Minimal anterior wedging at T1 remains unchanged. No ac radha fractures identified within the cervical spine. Anterior cervical discectomy and fusion from C5 t hrough C7 is again noted. Mild disc space narrowing at C4-C5 and C7-T1. The cervical spinal cord inse rtion normal signal intensity. Prevertebral soft tissues and the C1-C2 interval are intact. The visua lized posterior fossa is unremarkable. At the C6 level within the left paraspinal soft tissues abutti ng the posterior aspect of the left C6 lamina and spinous process there is an oval-shaped circumscrib ed 2.3 x 1.6 cm T2 hyperintense, T1 hypointense enhancing lesion. No associated bony destruction. Thi s is best seen on axial image 16 of 23. This favors a neurogenic tumor. No additional masses identifi ed within the cervical spine. C2-C3: No significant central canal or neural foraminal narrowing. C3-C4: Small broad-based posterior disc osteophyte complex resulting in mild central canal and modera te bilateral neural foraminal narrowing. C4-C5: Broad-based posterior disc osteophyte complex with ligamentum hypertrophy resulting in moderat e central canal and moderate to severe bilateral neural foraminal narrowing. There is minimal cord de formity at this level due to the moderate central canal narrowing. C5-C6: No significant central canal narrowing. There is severe right and moderate left neural foramin al narrowing. C6-C7: No significant central canal narrowing. There is moderate bilateral neural foraminal narrowing . C7-T1: Small broad-based posterior disc bulge resulting in mild central canal narrowing. There is als o moderate bilateral neural foraminal narrowing. IMPRESSION: 1. A 2.3 x 1.6 cm T2 hyperintense, T1 hypointense enhancing lesion within the left posterior paraspin al soft tissues at the C6 level. This abuts the posterior aspect of the left C6 lamina without bony d estruction. 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 Surgical consultation recommended. 2. Prior C5-C7 ACDF. 3. Multilevel cervical spondylosis as described above most pronounced at the C4-C5 level where there is moderate central canal and moderate to severe bilateral neural foraminal narrowing. ACT 112: Positive. There are findings on this exam that require communication between the performing entity and the patient following Patient Test Result Information Act ([place] Act 112) guidelines. Electronically signed by: Julian Decker M.D. 12/18/2020 1:34 PM
[2020-12-18] MEDS: TICAGRELOR 90 MG TAB PO SCH (20:59)
[2020-12-18] MEDS: ASPIRIN 81 MG ECTAB PO SCH (21:00)
[2020-12-18] MEDS ORDERED: MELATONIN 3 MG TAB PO SCH (21:00)
[2020-12-18] MEDS: PRAVASTATIN SOD 10 MG TAB PO SCH (21:01)
--- NOTE | 2020-12-18 22:20 | Hospitalist Progress Note ---
Date of Service December 18, 2020 Assessment & Plan (1) Stroke-like symptoms: Confusing history from the patient regarding whether this was similar to prior occasions. Inpatient admission recommended by [facility] telestroke MRI brain w/o contrast with no acute intracranial abnormality therefore will defer further workup including TTE to neurology in AM Repeat lipid panel (prior LDL > 100), patient intolerant to statins HbA1C with AM labs PT/OT Consult neurology appreciate input. obtained cervical MRI. showin. A 2.3 x 1.6 cm T2 hyperintense, T1 hypointense enhancing lesion within the left posterior paraspinal soft tissues at the C6 level. This abuts the posterior aspect of the left C6 lamina without bony destruction. 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 Surgical consultation recommended. 2. Prior C5-C7 ACDF. 3. Multilevel cervical spondylosis as described above most pronounced at the C4- C5 level where there is moderate central canal and moderate to severe bilateral neural foraminal narrowing. will consult ortho. (2) Vertigo: Unclear from history (3) Diplopia: (4) Blurred vision: (5) Dizziness: Consider orthostatics if he continues to have dizziness. (6) Hypertension: Continue his usual medications with carvedilol 25 mg p.o. twice daily (7) Type II diabetes mellitus with complication: HbA1C with AM labs Reduce lantus to 5 units BID with Novolog correction and carb coverage Consider reducing lantus on discharge pending HbA1C. (8) GERD (gastroesophageal reflux disease): Continue pantoprazole 40 mg p.o. twice daily (9) CKD (chronic kidney disease), stage IV: Patient appears to be close to his baseline. NSS bolus now with repeat BMP in a.m. (10) DVT prophylaxis: SCDs Admission and Anticipated Discharge Date Admission Date: December 17, 2020 Subjective Patient reports feeling better. He has no new complaints. Review of Systems Review of Systems: All systems reviewed & are unremarkable except as noted in HPI & below Physical Exam Physical Exam: Constitutional: WD/WN, vitals as above Eyes: PERRL, conjunctivae normal, anicteric sclerae EOM intact bilaterally (No diplopia) ENMT: external ear and nose normal, oropharynx normal Respiratory: normal respiratory effort, lungs clear to auscultation Skin: no rashes, warm and dry Neurologic: moves all extremities and awake; no focal motor deficits and not confused Speech / Cognition: normal speech Motor/Sensory: no tremor and no pronator drift Cranial Nerves: PERRL, EOM intact bilaterally, normal facial strength, tongue midline, able to rotate head bilaterally, able to elevate shoulders bilaterally, no nystagmus and symmetric palate elevation Psychiatric: A+Ox3, euthymic affect Genitourinary: no CVA tenderness Results & Data Results & Data ([facility]) Vital Signs (Past 12 Hours) Vital Signs Temp Pulse Resp BP BP Pulse Ox 12/18/20 19:24 37.0 C 84 20 176/97 H 96 12/18/20 15:25 37.2 C 73 18 131/74 97 12/18/20 11:18 37.0 C 73 18 160/78 H 97 PG Care Time/CCT Total # of Minutes Spent Total Time Spent with Patient: Total time spent is greater than 50% in coordination of care (as documented) at patient's floor/unit and/or counseling patient: Coding Level of Care Code 99575 Subseq Obs Care Lvl 3 Diagnoses Stroke-like symptoms R29.90 Vertigo R42 Diplopia H53.2 Blurred vision H53.8 Dizziness R42 Hypertension I10 Type II diabetes mellitus with complication E11.8 GERD (gastroesophageal reflux disease) K21.9 Esophagitis presence: without esophagitis CKD (chronic kidney disease), stage IV N18.4 DVT prophylaxis Z29.9 Time Spent (min) 35 (1) GERD (gastroesophageal reflux disease) Esophagitis presence: without esophagitis Qualified Code(s): K21.9 - Gastro- esophageal reflux disease without esophagitis
[2020-12-19] MEDS ORDERED: hydrALAZINE HCL 20 MG/ML VIAL IV ONE (04:16)
--- NOTE | 2020-12-19 05:20 | Electrocardiogram Report ---
Test Reason : Blood Pressure : / mmHG Vent. Rate : 061 BPM Atrial Rate : 061 BPM P-R Int : 150 ms QRS Dur : 084 ms QT Int : 438 ms P-R-T Axes : 037 -09 080 degrees QTc Int : 440 ms Normal sinus rhythm Cannot rule out Inferior infarct Abnormal ECG When compared with ECG of 07-NOV-2020 16:50, No significant change Confirmed by Thaddeus Duarte ([id number]) on 12/19/2020 5:20:07 AM Referred By: REFERRED SELF Confirmed By:Thaddeus Duarte
[2020-12-19 07:03] LABS: Basophils # (auto) 0.03 K/uL (0-0.2); Basophils % (auto) 0.4 %; Eosinophils # (auto) 0.75 K/uL (0-0.5); Eosinophils % (auto) 9.1 %; Hematocrit (blood only) 35.2 % (42-52); Hemoglobin 11.9 g/dL (14.0-18.0); Immature Granulocytes # (auto) 0.01 K/uL (0.00-0.02); Immature Granulocytes % (auto) 0.1 %; Lymphocytes # (auto) 1.99 K/uL (1.2-3.4); Lymphocytes % (auto) 24.2 %; Mean Corpuscular Hemoglobin 30.1 pg (25-34); Mean Corpuscular Hgb Conc 33.8 g/dL (32-36); Mean Corpuscular Volume 89.1 fL (80-100); Mean Platelet Volume 9.8 fL (7.4-10.4); Monocytes # (auto) 0.83 K/uL (0.11-0.59); Monocytes % (auto) 10.1 %; Neutrophils # (auto) 4.63 K/uL (1.4-6.5); Neutrophils % (auto) 56.1 %; Platelet Count 188 K/uL (130-400); RDW Coefficient of Variation 13.3 % (11.5-14.5); RDW Standard Deviation 43.9 fL (36.4-46.3); Red Blood Count 3.95 M/uL (4.7-6.1); White Blood Count 8.24 K/uL (4.8-10.8)
[2020-12-19 07:37] LABS: BUN Creatinine Ratio 13.7 (10-20); Calcium 8.5 mg/dl (8.5-10.1); Creatinine Clr Calc Pharmacy 29.9 ml/min; Est GFR (African American) 33.9; Est GFR (Non-African American) 29.2; Potassium 3.3 mmol/L (3.5-5.1)
[2020-12-19] MEDS: MAGNESIUM CHLORIDE 64MG DELAYED REL TAB PO SCH (07:46)
[2020-12-19] MEDS: carvediloL 25 MG TAB PO SCH (07:46)
[2020-12-19] MEDS: DULoxetine HCL 20 MG CAP PO SCH (07:47)
[2020-12-19] MEDS: OMEGA-3 (PURIFIED FISH OIL) 1 GM CAP PO SCH (07:47)
[2020-12-19] MEDS: TOCOPHERYL, DL-ALPHA 400 UNITS CAP PO SCH (07:47)
[2020-12-19] MEDS: PANTOprazole 40 MG TAB PO SCH (07:47)
[2020-12-19] MEDS: CYANOCOBALAMIN 500 MCG TABLET (VITAMIN B-12) PO SCH (07:47)
[2020-12-19] MEDS: ISOSORBIDE MONO EXTENDED REL 60 MG TABCR PO SCH (07:47)
[2020-12-19] MEDS: TICAGRELOR 90 MG TAB PO SCH (07:48)
[2020-12-19] MEDS: INSULIN GLARGINE SOLOSTAR 100 UNITS/ML 3 ML PEN SC SCH (08:21)
[2020-12-19] MEDS: CHOLECALCIFEROL 1,000 UNITS 25 MCG TAB PO SCH (09:36)
--- NOTE | 2020-12-19 09:52 | Orthopedic Consultation ---
Date of Consultation December 19, 2020 Assessment & Plan (1) Cervical spondylosis: I have reviewed the films and physical exam findings with Dr. Henriquez. While the spondylosis at C4-5 is likely contributing to his neck pain and radicular complaints we were concerned about the lesion dorsal to the C6 lamina. Dr. Henriquez is recommended the patient be evaluated through tertiary care facility specializing in these types of lesions. The patient does not appear to be myelopathic on exam and there is no need for urgent intervention in terms of the spondylosis at C4-5. Please contact Dr. Henriquez with any other questions or concerns. History of Present Illness Attending Physician: Lobo Coronado History of Present Illness Patient is a pleasant 75-year-old male who was seen bedside in room 282. He presented to the emergency room after an episode of blurred vision dizziness and mild confusion. He has been having episodes like this on and off for a number of years. He also has history sacrum for previous anterior cervical scheduling fusion performed over 10 years ago. He states that his symptoms have resolved at this point. He does have chronic neck pain and intermittent symptoms going down both of his arms. He occasionally have numbness and tingling in the hands as well. On this visit he had undergone an MRI of the cervical spine with abnormal findings and we are consulted. He denies any fevers or chills no significant weight loss no night sweats or fatigue. Allergies Allergy/AdvReac Type Severity Reaction Status Date / Time gabapentin Allergy Severe Nightmares Verified 10/21/20 10:12 Nzgsoeh-Jkx-Cdg Reductase Allergy Unknown muscle Verified 10/21/20 10:12 Inhibitor aches HMG-CoA-R Inhibitors AdvReac Unknown MUSCLE Uncoded 10/21/20 10:12 ACHES Home Medications Medication Instructions Recorded Confirmed Type magnesium chloride 71.5 mg 143 mg PO BID tab 06/14/19 12/17/20 History (magnesium chloride) tablet,delayed release omega-3 fatty acids 1,000 mg 3,000 mg PO QAM 06/14/19 12/17/20 History capsule pravastatin 10 mg tablet 10 mg PO HS 06/14/19 12/17/20 History Lantus Solostar U-100 Insulin 12 unit SUBCUT QPM 08/01/19 12/17/20 History cholecalciferol (vitamin D3) 1,000 unit PO QAM 08/01/19 12/17/20 History [Vitamin D3] aspirin 81 mg PO HS 12/27/19 12/17/20 History coQ10 (ubiquinol) 400 mg PO QAM 12/27/19 12/17/20 History melatonin 10 mg PO HS 12/27/19 12/17/20 History carvedilol 25 mg tablet 25 mg PO BID #180 tab 01/30/20 12/17/20 Rx isosorbide mononitrate 120 mg 120 mg PO QAM #90 tab 09/01/20 12/17/20 Rx tablet,extended release 24 hr pantoprazole 40 mg tablet,delayed 40 mg PO BID #180 tab 10/07/20 12/17/20 Rx release betamethasone, augmented 1 applic TOPICAL BID PRN 12/17/20 12/17/20 History clopidogrel 75 mg PO QAM 12/17/20 12/17/20 History cyanocobalamin (vitamin B-12) 1,000 mcg PO QAM 12/17/20 12/17/20 History [Vitamin B-12] diclofenac sodium 4 g TOPICAL QID PRN 12/17/20 12/17/20 History duloxetine 20 mg PO QAM 12/17/20 12/17/20 History linaclotide [Linzess] 145 mcg PO DAILY PRN 12/17/20 12/17/20 History nitroglycerin 0.4 mg SL DIRECTED PRN 12/17/20 12/17/20 History vitamin E 400 unit PO QAM 12/17/20 12/17/20 History Patient History Medical History (Updated 12/18/20 @ 11:04 by Gregorio Keller MD) Accelerated hypertension Acute kidney injury Arthritis Chest pain (07/11/14) Chronic kidney disease Constipation Crohn's disease Diabetes Dysmetria Expressive aphasia Gastroparesis GERD (gastroesophageal reflux disease) Hypertension NSTEMI (non-ST elevated myocardial infarction) Psoriasis Pyelonephritis Thrombocytopenia Vitamin D deficiency Surgical History History of cardiac catheterization History of Cath Stent 1 Type Drug-Eluting History of Cath Stent 2 Proximal Right Coronary Artery History of cholecystectomy History of PTCA Family History Father , in his late 40s or early 50s of an MA Coronary heart disease Myocardial infarction Brother Pulmonary embolism Colon cancer Hx of CABG Mother , age 62 of diabetes and heart disease Coronary heart disease Diabetes Social History Smoking Status: Never smoker Tobacco Type: Smokeless Tobacco (Dip or Chew) packs per day: 1; Years Smoked: 40; Number of Years Since Quit: 35; Second Hand Exposure: No; Do You Dip or Chew Tobacco: Yes; Tobacco Cessation Education Requested by Patient: No Hx Alcohol Use: No Hx Substance Use: No Preferred Language: Lithuanian Communication Ability: Effective Quiller Runner Required: No Beliefs That Will Affect Care: None marital status: Current Living Situation: Spouse current occupational status: retired 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 He has well- preserved range of motion cervical spine. Is nontender palpation. His upper extremity motor exam reveals no focal atrophy strength 5 out of 5 to detailed muscle testing without exception. Sensations intact to light touch proprioception is also intact he has negative Tinel's, Pierce's, Phalen signs. He has normal reflexive throughout no clonus is noted. Results & Data ([facility]) Vital Signs (Past 12 Hours) Vital Signs Temp Pulse Pulse Resp BP Pulse Ox 12/19/20 08:00 37.2 C 73 18 160/79 H 98 12/19/20 06:16 178/82 H 12/19/20 03:59 36.9 C 75 18 188/89 H 96 12/19/20 00:54 72 12/18/20 23:00 36.9 C 71 18 172/74 H 97 Diagnostic Findings MRI of the cervical spine performed. The hospital is reviewed. This reveals postoperative changes noted C5-6. On the left-hand side dorsal to the C6 lamina there is an ovoid mass that is hypointense on T1 and T2's images. At C4-5 above his fusion is severe bilateral neuroforaminal stenosis with moderate canal stenosis and mild alteration in contour of the cord without gliosis.
--- NOTE | 2020-12-19 09:56 | Neurology Progress Note ---
Date of Service December 19, 2020 Assessment & Plan (1) Diplopia: (2) Blurred vision: (3) Vertigo: (4) Cervical spondylosis: (5) Headache: (6) Cervical radicular pain: (7) Vertebral artery stenosis: This patient has a longstanding history of chronic neck pain with cervical spondylosis, post cervical spine surgery years ago. His chronic, intermittent headaches are brief but seem to be related to his posterior cervical spine and muscle tension. He is getting cervical radicular pain in the C5 distribution intermittently as well. The patient has a history of severe right vertebral artery stenosis at the origin back in January of 2020. He has been on aspirin and Plavix ever since and his vertebral artery seems improved by recent angiography yesterday. The aspirin and clopidogrel may have improved this stenosis overtime. MRI of the brain did not show any acute stroke but he has moderate old small vessel ischemia. Patient had an episode of blurry vision / double vision, and dizziness which seems to be a combination of lightheadedness and vertigo. Again, the symptoms were fairly short-lived. He is back to baseline this morning and has no focal neurologic findings, meningeal signs, or encephalopathy. Today he is asymptomatic. Overall, this patient did not have a stroke and I do not believe he had a TIA either. 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 He has had these symptoms many times in the past. I believe most of his symptoms are stemming from his cervical spine. MRI of the cervical spine show significant spinal stenosis at C4-5. He does not have a myelopathy on examination but I believe his neck issues explain his pain, symptoms, and C5 radicular symptoms. 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 He has risk factors for stroke including diabetes and previous cigarette smoking. His triglyceride is elevated , but his total cholesterol is 162. Recommendations: 1. Continue 81 milligram aspirin and 75 milligram clopidogrel daily. 3. Increase activity as able 4. patient can be treated with a statin but I do not believe he needs high dose. 5. treat glucose and try the lower hemoglobin A1c closer to 6 6. follow-up with Dr. Henriquez as an outpatient. 7. Follow up with peripheral neurosurgery at [facility] for an opinion regarding the probable neurogenic spine tumor. 8. I can follow up in clinic after this. Overall, I spent a total of 70 minutes with this case including review of records, review of MRI films, direct evaluation the patient bedside, and discussion of the case with the patient at bedside, Dr. Martinez, Dr. Henriquez, and Dr. Coronado, including differential diagnosis and treatment options. Admission and Anticipated Discharge Date Admission Date: December 19, 2020 Subjective Patient has no symptoms of diplopia, blurry vision, dizziness, or headache. He feels back to his baseline. He still has neck pain. MRI of the cervical spine showed significant spinal stenosis at C4-5 with no obvious cord edema. There was also a left-sided circumscribed tumor that looked like a schwannoma or other neurogenic tumor. I reviewed these films with Dr. Martinez. We also reviewed CT angiography from January of 2020 and this hospitalization. Apparently her right vertebral artery at the origin went from severe stenosis to mild stenosis. I spoke with Dr. Henriquez regarding these films as well. Blood pressure is 160/79. CBC shows an anemia and he still has elevated BUN and creatinine. Results & Data ([facility]) Vital Signs (Past 12 Hours) Vital Signs Temp Pulse Pulse Resp BP Pulse Ox 12/19/20 08:00 37.2 C 73 18 160/79 H 98 12/19/20 06:16 178/82 H 12/19/20 03:59 36.9 C 75 18 188/89 H 96 12/19/20 00:54 72 12/18/20 23:00 36.9 C 71 18 172/74 H 97 Exam (Neuro) Physical Exam: He is awake and alert. Speech is without aphasia or dysarthria. Mood and affect are normal appropriate. Thought processes are intact. Stance and gait is normal. Coordination and strength of the limbs is symmetrical. Extraocular eye muscles are intact without nystagmus and he has no facial droop. PG Care Time/CCT Total # of Minutes Spent Total Time Spent with Patient: Total time spent is greater than 50% in coordination of care (as documented) at patient's floor/unit and/or counseling patient: Coding Level of Care Code 95271 Subseq Hosp Care Lvl 3 Diagnoses Diplopia H53.2 Blurred vision H53.8 Vertigo R42 Cervical spondylosis M47.812 Headache R51.9 Cervical radicular pain M54.12 Vertebral artery stenosis I65.09 Time Spent (min) 70 Comment add modifiers as needed
--- NOTE | 2020-12-25 21:14 | Discharge Summary ---
Date of Service December 19, 2020 Admission HPI Per Admitting Provider Guille Negron is a 75-year-old male who presents to the ER on advice of his PCP due to with sudden onset diplopia. Very difficult to take history from patient as his story appears to change on multiple occasions. He does appear to have a history of intermittent vertigo and dizziness although reports this occasion was different to his prior episodes due to diplopia and blurring of his vision. He reports sudden onset of his symptoms around 8 AM. He reported to the ER physician that he had diplopia for approximately 4 months although to myself he reported 1 other episode of diplopia 4 months ago or perhaps 1.5 years ago. He was seen by his PCP today who was concerned about a left-sided weakness although the patient denies this therefore telemetry stroke evaluation was performed in the emergency room. He currently denies any diplopia, blurred vision, headache or left-sided weakness. Telemetry stroke evaluation in the emergency room recommended inpatient observation with stroke work-up including MRI brain without contrast and switching Plavix to Brilinta. Principal Diagnosis cervical spondylosis Discharge Exam Constitutional: WD/WN, vitals as above Eyes: PERRL, conjunctivae normal, anicteric sclerae EOM intact bilaterally (No diplopia) ENMT: external ear and nose normal, oropharynx normal Respiratory: normal respiratory effort, lungs clear to auscultation Skin: no rashes, warm and dry Neurologic: moves all extremities and awake; no focal motor deficits and not confused Speech / Cognition: normal speech Motor/Sensory: no tremor and no pronator drift Cranial Nerves: PERRL, EOM intact bilaterally, normal facial strength, tongue midline, able to rotate head bilaterally, able to elevate shoulders bilaterally, no nystagmus and symmetric palate elevation Psychiatric: A+Ox3, euthymic affect Genitourinary: no CVA tenderness Discharge Data Allergies Allergy/AdvReac Type Severity Reaction Status Date / Time gabapentin Allergy Severe Nightmares Verified 10/21/20 10:12 Otrrgqj-Cpq-Qzk Reductase Allergy Unknown muscle Verified 10/21/20 10:12 Inhibitor aches HMG-CoA-R Inhibitors AdvReac Unknown MUSCLE Uncoded 10/21/20 10:12 ACHES Consultations 12/17/20 14:56 ED Decision to Admit Stat 12/17/20 20:22 Consult Case Management - Discharge Planning Routine Consult Neurology Routine 12/18/20 15:53 Consult Orthopedic Surgery Routine 12/19/20 12:46 Burn CD for patient Stat Ordered Studies 12/17/20 13:47 CT angio head w con Stat CT angio neck with con Stat CT head/brain wo con Stat 12/17/20 15:30 MR brain wo con Routine 12/18/20 08:30 MR cervical spine wo/w con Routine Hospital Course (1) Stroke-like symptoms: Confusing history from the patient regarding whether this was similar to prior occasions. Inpatient admission recommended by Daria telestroke MRI brain w/o contrast with no acute intracranial abnormality therefore will defer further workup including TTE to neurology in AM Repeat lipid panel (prior LDL > 100), patient intolerant to statins HbA1C with AM labs PT/OT Consult neurology appreciate input. obtained cervical MRI. showin. A 2.3 x 1.6 cm T2 hyperintense, T1 hypointense enhancing lesion within the left posterior paraspinal soft tissues at the C6 level. This abuts the posterior aspect of the left C6 lamina without bony destruction. 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 Surgical consultation recommended. 2. Prior C5-C7 ACDF. 3. Multilevel cervical spondylosis as described above most pronounced at the C4- C5 level where there is moderate central canal and moderate to severe bilateral neural foraminal narrowing. Appreciate input from Neurology: This patient has a longstanding history of chronic neck pain with cervical spondylosis, post cervical spine surgery years ago. His chronic, intermittent headaches are brief but seem to be related to his posterior cervical spine and muscle tension. He is getting cervical radicular pain in the C5 distribution intermittently as well. The patient has a history of severe right vertebral artery stenosis at the origin back in January of 2020. He has been on aspirin and Plavix ever since and his vertebral artery seems improved by recent angiography yesterday. The aspirin and clopidogrel may have improved this stenosis overtime. MRI of the brain did not show any acute stroke but he has moderate old small vessel ischemia. Patient had an episode of blurry vision / double vision, and dizziness which seems to be a combination of lightheadedness and vertigo. Again, the symptoms were fairly short-lived. He is back to baseline this morning and has no focal n eurologic findings, meningeal signs, or encephalopathy. Today he is asymptomatic. Overall, this patient did not have a stroke and I do not believe he had a TIA either. 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 He has had these symptoms many times in the past. I believe most of his symptoms are stemming from his cervical spine. MRI of the cervical spine show significant spinal stenosis at C4-5. He does not have a myelopathy on examination but I believe his neck issues explain his pain, symptoms, and C5 radicular symptoms. 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 He has risk factors for stroke including diabetes and previous cigarette sm oking. His triglyceride is elevated , but his total cholesterol is 162. Recommendations: 1. Continue 81 milligram aspirin and 75 milligram clopidogrel daily. 3. Increase activity as able 4. patient can be treated with a statin but I do not believe he needs high dose. 5. treat glucose and try the lower hemoglobin A1c closer to 6 6. follow-up with Dr. Henriquez as an outpatient. 7. Follow up with peripheral neurosurgery at [facility] for an opinion regarding the probable neurogenic spine tumor. 8. I can follow up in clinic after this. Appreciate input from ortho I have reviewed the films and physical exam findings with Dr. Henriquez. While the spondylosis at C4-5 is likely contributing to his neck pain and radicular complaints we were concerned about the lesion dorsal to the C6 lamina. Dr. Henriquez is recommended the patient be evaluated through tertiary care facility specializing in these types of lesions. The patient does not appear to be myelopathic on exam and there is no need for urgent intervention in terms of the spondylosis at C4-5. Patient will followup with Neuro surgery as an outpatient, once plan for paraspinal mass is completed. Then patient will be seen by Dr. Henriquez, followed by Dr. Ahuja (2) Vertigo: Unclear from history (3) Diplopia: (4) Blurred vision: (5) Dizziness: improved. No signs of orthostasis.. (6) Hypertension: Continue his usual medications with carvedilol 25 mg p.o. twice daily (7) Type II diabetes mellitus with complication: will resume home regimen at discharge (8) GERD (gastroesophageal reflux disease): Continue pantoprazole 40 mg p.o. twice daily (9) CKD (chronic kidney disease), stage IV: Patient appears to be close to his baseline. NSS bolus now with repeat BMP in a.m. (10) DVT prophylaxis: SCDs Total Time Total Time Spent Total Time Spent (In Minutes): 32 Total Time Includes: Examination of the Patient Discharge Plan Discharge Items Patient Disposition: Home - Self-Care Reason For Visit: SEVERE CERVICAL SPONDYLOSIS/MASS Discharge Diagnosis: SEVERE CERVICAL SPONDYLOSIS/ MASS Activity: Resume your previous activity Non-emergency contact: Primary Care Provider Call non-emergency contact if: you have any medication questions Follow-up/Referrals: Shaina Kenyon [Primary Care Provider] - 12/24/20 8:30 am Diet: Carb Consistent or DM2 Addtl Attending Provider Instructions: Due to the findings in your MRI of the cervical spine, will recommend a followup with a Neurosurgeon. Given that you currently do not have any symptoms, you will be discharged, but recommend that you go see a Neurosurgeon. Once this is done, you can followup with Dr. Henriquez. Once you see Dr. Henriquez, then you can followup with Dr. Ahuja. Pending Studies at Discharge: No Stand-Alone Forms: My [facility] [employer], Smoking Cessation Medications and DC Order Prescriptions: Continued carvedilol 25 mg tablet 25 mg PO BID Qty: 180 RF: 3 isosorbide mononitrate 120 mg tablet extended release 24 hr 120 mg PO QAM Qty: 90 RF: 3 pantoprazole 40 mg tablet,delayed release (DR/EC) 40 mg PO BID Qty: 180 RF: 3 Slow-Mag 71.5 mg tablet,delayed release (DR/EC) 143 mg PO BID RF: 0 omega-3 fatty acids [Fish Oil Concentrate] 1,000 mg capsule 3,000 mg PO QAM RF: 0 pravastatin 10 mg tablet 10 mg PO HS RF: 0 aspirin 81 mg Tablet,Delayed Release (Dr/Ec) 81 mg PO HS RF: 0 coQ10 (ubiquinol) 200 mg Capsule 400 mg PO QAM RF: 0 melatonin 10 mg Tablet 10 mg PO HS RF: 0 Lantus Solostar U-100 Insulin 100 unit/mL (3 mL) insulin pen 12 unit subcut QPM RF: 0 cholecalciferol (vitamin D3) [Vitamin D3] 1,000 unit Tablet,Chewable 1,000 unit PO QAM RF: 0 clopidogrel 75 mg tablet 75 mg PO QAM RF: 0 nitroglycerin 400 mcg/spray spray,non-aerosol 0.4 mg SL DIRECTED PRN (Reason: Chest Pain) RF: 0 Linzess 145 mcg capsule 145 mcg PO DAILY PRN (Reason: Constipation) RF: 0 cyanocobalamin (vitamin B-12) [Vitamin B-12] 1,000 mcg Tablet 1,000 mcg PO QAM RF: 0 vitamin E 400 unit Tablet 400 unit PO QAM RF: 0 betamethasone, augmented 0.05 % ointment 1 applic TOPICAL BID PRN (Reason: Psoriasis) RF: 0 duloxetine 20 mg capsule,delayed release(DR/EC) 20 mg PO QAM RF: 0 diclofenac sodium 1 % gel 4 g TOPICAL QID PRN (Reason: Joint Pain) RF: 0 Discharge Orders: Discharge Order (Routine); Ordered 12/19/20 Ordered By: Lobo Smith/Other Patient Handouts: Managing Type 2 Diabetes, Managing Diabetes: The A1C Test Admission Data Admit Date/Time: 12/19/20 09:00 Attending Provider: Lobo Coronado Admit Provider: Gregorio Keller Primary Care Provider: Shaina Kenyon Other Providers: Gregorio Keller ; Randall Ahuja ; Jonatan Henriquez Other Interventions: Discharge Summary Assessment (RN) Last Done: 12/19/20 13:18 Coding Level of Care Code D/C Day Management >30 mins Diagnoses Stroke-like symptoms R29.90 Vertigo R42 Diplopia H53.2 Blurred vision H53.8 Dizziness R42 Hypertension I10 Type II diabetes mellitus with complication E11.8 GERD (gastroesophageal reflux disease) K21.9 Esophagitis presence: without esophagitis CKD (chronic kidney disease), stage IV N18.4 DVT prophylaxis Z29.9 Time Spent (min) 32
== END 2020-12-19 14:15 | disposition home or self-care (01) | DRG 69 ==
LOC: ED 13:37 → 2N 13:37 → SUATTDRO 15:45 → 2N 19:57

== ENCOUNTER 2021-02-09 07:46 | Inpatient (IN) ==
--- NOTE | 2021-01-16 13:05 | PAT Medication Instructions ---
Medication Instructions Date of Service January 16, 2021 Home Medications Medication Instructions Recorded carvedilol 25 mg tablet 25 mg PO BID #180 tab 01/30/20 isosorbide mononitrate 120 mg 120 mg PO QAM #90 tab 09/01/20 tablet,extended release 24 hr pantoprazole 40 mg tablet,delayed 40 mg PO BID #180 tab 10/07/20 release magnesium chloride 71.5 mg (magnesium chloride) tablet,delayed release 143 mg PO BID omega-3 fatty acids 1,000 mg capsule 3,000 mg PO QAM pravastatin 10 mg tablet 10 mg PO HS Lantus Solostar U-100 Insulin 12 unit SUBCUT QPM cholecalciferol (vitamin D3) [Vitamin D3] 1,000 unit PO QAM aspirin 81 mg PO HS coQ10 (ubiquinol) 400 mg PO QAM melatonin 10 mg PO HS carvedilol 25 mg tablet 25 mg PO BID isosorbide mononitrate 120 mg tablet,extended release 24 hr 120 mg PO QAM pantoprazole 40 mg tablet,delayed release 40 mg PO BID Linzess 145 mcg PO DAILY PRN betamethasone, augmented 1 applic TOPICAL BID PRN clopidogrel 75 mg PO QAM cyanocobalamin (vitamin B-12) [Vitamin B-12] 1,000 mcg PO QAM diclofenac sodium 4 g TOPICAL QID PRN duloxetine 20 mg PO QAM nitroglycerin 0.4 mg SL DIRECTED PRN vitamin E 400 unit PO QAM Continue as directed nitroglycerin 0.4 mg SL DIRECTED PRN (if needed) ASK your prescriber and surgeon aspirin 81 mg PO HS clopidogrel 75 mg PO QAM STOP taking 2 weeks before surgery (or as soon as possible if surgery is within 2 weeks) omega-3 fatty acids 1,000 mg capsule 3,000 mg PO QAM coQ10 (ubiquinol) 400 mg PO QAM vitamin E 400 unit PO QAM STOP taking 24 hours before surgery betamethasone, augmented 1 applic TOPICAL BID PRN diclofenac sodium 4 g TOPICAL QID PRN DO NOT take the morning of surgery magnesium chloride 71.5 mg (magnesium chloride) tablet,delayed release 143 mg PO BID cholecalciferol (vitamin D3) [Vitamin D3] 1,000 unit PO QAM Linzess 145 mcg PO DAILY PRN cyanocobalamin (vitamin B-12) [Vitamin B-12] 1,000 mcg PO QAM Take morning of surgery With a small sip of water, OTHERWISE NOTHING TO EAT OR DRINK AFTER MIDNIGHT: carvedilol 25 mg tablet 25 mg PO BID isosorbide mononitrate 120 mg tablet,extended release 24 hr 120 mg PO QAM pantoprazole 40 mg tablet,delayed release 40 mg PO BID duloxetine 20 mg PO QAM Take evening before surgery magnesium chloride 71.5 mg (magnesium chloride) tablet,delayed release 143 mg PO BID pravastatin 10 mg tablet 10 mg PO HS Lantus Solostar U-100 Insulin 12 unit SUBCUT QPM melatonin 10 mg PO HS carvedilol 25 mg tablet 25 mg PO BID pantoprazole 40 mg tablet,delayed release 40 mg PO BID Linzess 145 mcg PO DAILY PRN (if needed) Other Notes If you have any questions please call us at [phone] or [phone] or [phone] or [phone]
--- NOTE | 2021-01-19 10:24 | Anesthesiology Consultation ---
Date of Service January 19, 2021 Assessment & Plan (1) Encounter for pre-operative examination: - COVID screening: Per assessment on 01/19: Travel screen negative, no known COVID-19 positive contacts or current COVID-19 related symptoms. Patient fully v accinated. Surgeon arranging preop COVID testing (scheduled 02/02; surgeon's office). Awaiting results. - Nephrology office visit (11/14/20): ILIA (12/2019) in setting of hypertensive urgency and NSTEMI. Creatinine at time increased from 1.7 > 3.7. "Slowly recovering kidney function. Cr has improved to 2.0. Denies symptoms of volume overload. Electrolyte balance is acceptable." - Neurosurgery office visit (12/31/20): Seen in office due to " newly found enhancing lesion within the paraspinal soft tissue at around C6 level.. He had recently been seen by Dr. Henriquez in [place] and they are planning on proceeding with another surgery to extend the anterior cervical diskectomy and fusion.. 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 Dr. 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 The options for dealing with this are.. To observe for now and since this area is not affecting the spinal cord itself could watch this for 6 months and repeat an MRI scan at that time.. Second option would be to surgically remove the lesion without waiting 6 months. He does feel that it would be safe for Dr. Henriquez to proceed with doing his anterior cervical surgery as planned and then once the area has healed, we could repeat the MRI scan in 6 months and then decide on whether or not to remove the possible nerve sheath tumor at that time." - Check BSG AM DOS Chart Review Chart Review: Acceptable Risk for Surgery (pending surgeon-ordered cardio clearance) and Patient seen in Pre Admission Testing Teaching & Discussion Pre-Anesthesia Teaching/Discussion Notes: Instructed NPO after midnight before surgery,except medications with 15 cc of water. Medication instructions provided according to the PAT guidelines. History Surgery Operation Date: 02/09/21 09:35 Proposed Procedures p C4-C5 Anterior Cervical Discectomy and Fusion, Spinal Cord Monitoring - Jonatan Henriquez, DO Height/Weight Height: 5 ft 6 in Weight: 84.5 kg Allergies Allergy/AdvReac Type Severity Reaction Status Date / Time gabapentin AdvReac Severe Nightmares Verified 01/12/21 10:33 Inlwtmh-Loq-Jzt Reductase AdvReac Unknown Muscle Verified 01/19/21 10:20 Inhibitor aches morphine AdvReac Confusion, Verified 01/19/21 10:20 anger HMG-CoA-R Inhibitors AdvReac Unknown Muscle Uncoded 01/19/21 10:20 aches Medications Home Medications Medication Instructions Recorded Confirmed Last Taken magnesium chloride 71.5 mg 143 mg PO BID tab 06/14/19 01/12/21 12/17/20 (magnesium chloride) AM DOSE tablet,delayed release omega-3 fatty acids 1,000 mg 3,000 mg PO QAM 06/14/19 01/12/21 12/17/20 capsule pravastatin 10 mg tablet 10 mg PO HS 06/14/19 01/12/21 12/16/20 Lantus Solostar U-100 Insulin 12 unit SUBCUT QPM 08/01/19 01/12/21 12/16/20 cholecalciferol (vitamin D3) 1,000 unit PO QAM 08/01/19 01/12/21 12/17/20 [Vitamin D3] aspirin 81 mg PO HS 12/27/19 01/12/21 12/16/20 coQ10 (ubiquinol) 400 mg PO QAM 12/27/19 01/12/21 12/17/20 melatonin 10 mg PO HS 12/27/19 01/12/21 12/16/20 carvedilol 25 mg tablet 25 mg PO BID #180 tab 01/30/20 01/12/21 12/17/20 AM DOSE isosorbide mononitrate 120 mg 120 mg PO QAM #90 tab 09/01/20 01/12/21 12/17/20 tablet,extended release 24 hr pantoprazole 40 mg tablet,delayed 40 mg PO BID #180 tab 10/07/20 01/12/21 12/17/20 release AM DOSE Linzess 145 mcg PO DAILY PRN 12/17/20 01/12/21 Unknown betamethasone, augmented 1 applic TOPICAL BID PRN 12/17/20 01/12/21 Unknown clopidogrel 75 mg PO QAM 12/17/20 01/12/21 12/17/20 cyanocobalamin (vitamin B-12) 1,000 mcg PO QAM 12/17/20 01/12/21 12/17/20 [Vitamin B-12] diclofenac sodium 4 g TOPICAL QID PRN 12/17/20 01/12/21 Unknown duloxetine 20 mg PO QAM 12/17/20 01/12/21 12/17/20 nitroglycerin 0.4 mg SL DIRECTED PRN 12/17/20 01/12/21 Unknown vitamin E 400 unit PO QAM 12/17/20 01/12/21 12/17/20 Past Medical History Medical History (Updated 01/19/21 @ 15:17 by Janeth Dominguez) CAD (coronary artery disease) 2003 (stent x1) 2008 x 2 caths (stents x2) 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 Sandhu (baseline creatinine 2-2.5 per chart review) Crohn's disease Diverticulosis DM type 2 (diabetes mellitus, type 2) IDDM Fatty liver Gastroparesis GERD (gastroesophageal reflux disease) History of depression History of myocardial infarction 2004 History of TIA (transient ischemic attack) 2018 HLD (hyperlipidemia) Hypertension Orthostatic hypotension Osteoarthritis Sleep apnea CPAP Vertebral artery stenosis mild stenosis at the origin of the right vertebral artery per CTA 12/2020 Exercise / Class Metabolic Activity III < 4 Walking/Shop/Light housework Past Family History Family History Father , in his late 40s or early 50s of an [place] Coronary heart disease Myocardial infarction Brother Colon cancer Pulmonary embolism Hx of CABG Mother , age 62 of diabetes and heart disease Diabetes Coronary heart disease Other No family history of adverse response to anesthesia Past Surgical History Surgical History History of cardiac catheterization 2003 (stent x1) 2008 x 2 caths (stents x2) History of cervical spinal surgery C5-C7 ACDF History of cholecystectomy History of colonoscopy History of esophagogastroduodenoscopy (EGD) History of removal of cyst left elbow History of tooth extraction Past Anesthesia History No Hx of Anesthesia Complications and No Family Hx of Anesthesia Complications History of PONV No Hx of PONV and Hx of Motion Sickness (Mild) STOP BANG Total 6 Social History Smoking Status: Former smoker tobacco type: smokeless tobacco Do You Dip or Chew Tobacco: Yes (1 can/2 days > advised none AM DOS) Smoking End Date: Quit several years ago Hx Alcohol Use: No Hx Substance Use: Yes substance use type: marijuana Substance Use Type Other:: Medical marijuana (inhaled)- rare use Review of Systems Occasional SOB (unchanged). Patient denies chest pain, fever, chills, cough, wheezing, palpitations. Physical Exam Vital Signs VITALS BP 153/75 P 65 TEMP 98.3 SP02 94%RA RESP 16 PHYSICAL Decreased cervical extension range of motion (+ cervicalgia). Full TMJ range of motion. TMD 3 finger breaths Mallampati Score 3 Dentition: edentulous Lungs: clear throughout to auscultation Cardiac: regular rate and rhythm, no murmurs noted Spine: normal Carotid arteries: negative bruit Extremities: no edema Testing Laboratory Results 01/19/21 11:09 01/19/21 11:09 PT 10.5 Seconds (9.0-12.0) 01/19/21 11:09 INR 1.0 (0.9-1.1) 01/19/21 11:09 APTT 27.6 Seconds (21.0-31.0) 01/19/21 11:09 Urine Color Yellow 01/19/21 11:09 Urine Appearance Clear (Clear) 01/19/21 11:09 Urine pH 5.0 (4.5-7.5) 01/19/21 11:09 Ur Specific [place] 1.021 (1.000-1.030) 01/19/21 11:09 Urine Protein 1+ (Negative) H 01/19/21 11:09 Urine Glucose (UA) Negative (Negative) 01/19/21 11:09 Urine Ketones Negative (Negative) 01/19/21 11:09 Urine Nitrite Negative (Negative) 01/19/21 11:09 Ur Leukocyte Esterase Trace (Negative) H 01/19/21 11:09 Urine WBC (Auto) 5-10 /hpf (0-5) H 01/19/21 11:09 Urine RBC (Auto) 5-10 /hpf (0-4) H 01/19/21 11:09 U Hyaline Cast (Auto) 1-5 /lpf (0-5) 01/19/21 11:09 U Epithel Cells (Auto) >30 /lpf (0-5) H 01/19/21 11:09 Urine Bacteria (Auto) Negative (Negative) 01/19/21 11:09 Blood Type O Positive 01/19/21 11:09 Antibody Screen NEGATIVE 01/19/21 11:09 01/19/21 GFR 31.5 12/18/20 HGBA1C 6.7% Electrocardiogram Date: 12/17/20 Normal sinus rhythm at 61 bpm. Cannot rule out inferior infarct. No significant change compared to 11/07/2020 per dumpster operator review. Chest X-Ray Date: 01/19/21 FINDINGS: PA and lateral chest radiographs are compared to study dated 12/01. Correlation is made with chest CT dated 08/15/2016. The cardiomediastinal silhouette is unremarkable noting atherosclerotic calcification of the thoracic aorta. Chronic interstitial thickening is similar to previous. There is mild bibasilar scarring/atelectasis. No airspace consolidation or pleural effusion is identified. There is no pneumothorax. The skeletal structures are osteopenic. The bony thorax appears intact. Fusion hardware is noted in the lower cervical spine. Cholecystectomy clips are seen in the right upper quadrant. IMPRESSION: No active disease in the chest. Echocardiogram Date: 12/27/19 EF 55 to 60%. Proximal septal thickening is noted. Moderate concentric LVH. No regional wall motion abnormality. Mild MR/TR. Stress Test Date: 07/24/19 Type: DSE Negative DSE/ECG for myocardial ischemia at 88% MPHR. Mild RVD. Grade 1 diastolic dysfunction. Moderate concentric LVH. No significant valvular disease. Compared to stress echo of January/2006, there is no significant interval change per report. Other Testing Cervical spine MRI (12/18/20): A 2.3 x 1.6 cm T2 hyperintense, T1 hypointense enhancing lesion within the left posterior paraspinal soft tissues at the C6 level. This abuts the posterior aspect of the left C6 lamina without bony destruction. 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 Surgical consultation r ecommended. Prior C5-C7 ACDF. Multilevel cervical spondylosis as described above most pronounced at the C4-C5 level where there is moderate central canal and moderate to severe bilateral neural foraminal narrowing. Brain MRI (12/17/20): No acute intracranial abnormality. Head/Neck CTA (12/17/20): There is no hemorrhage, mass effect, or evidence of acute territorial ischemia by CT criteria. Unremarkable CT angiogram of the brain. There is mild stenosis at the origin of the right vertebral artery. There is no evidence of hemodynamically significant carotid artery stenosis.
--- NOTE | 2021-01-19 11:37 | XRay Report ---
TWO VIEW CHEST CLINICAL HISTORY: Preoperative examination. Spinal stenosis. History of hypertension, coronary artery disease, and chronic kidney disease. FINDINGS: PA and lateral chest radiographs are compared to study dated 12/17/2020. Correlation is made with chest CT dated 08/15/2016. The cardiomediastinal silhouette is unremarkable noting atherosclero tic calcification of the thoracic aorta. Chronic interstitial thickening is similar to previous. Ther e is mild bibasilar scarring/atelectasis. No airspace consolidation or pleural effusion is identified . There is no pneumothorax. The skeletal structures are osteopenic. The bony thorax appears intact. F usion hardware is noted in the lower cervical spine. Cholecystectomy clips are seen in the right uppe r quadrant. IMPRESSION: No active disease in the chest. ACT 112: Negative or not required by law. Electronically signed by: Osbaldo Martinez M.D. 01/19/2021 11:36 AM
[2021-01-19 11:57] LABS: Basophils # (auto) 0.04 K/uL (0-0.2); Basophils % (auto) 0.4 %; Eosinophils # (auto) 0.48 K/uL (0-0.5); Eosinophils % (auto) 4.8 %; Hematocrit (blood only) 37.6 % (42-52); Hemoglobin 12.7 g/dL (14.0-18.0); Immature Granulocytes # (auto) 0.01 K/uL (0.00-0.02); Immature Granulocytes % (auto) 0.1 %; Lymphocytes # (auto) 2.05 K/uL (1.2-3.4); Lymphocytes % (auto) 20.3 %; Mean Corpuscular Hemoglobin 30.5 pg (25-34); Mean Corpuscular Hgb Conc 33.8 g/dL (32-36); Mean Corpuscular Volume 90.2 fL (80-100); Monocytes # (auto) 0.63 K/uL (0.11-0.59); Monocytes % (auto) 6.2 %; Neutrophils # (auto) 6.89 K/uL (1.4-6.5); Neutrophils % (auto) 68.2 %; Platelet Count 199 K/uL (130-400); RDW Coefficient of Variation 13.7 % (11.5-14.5); Red Blood Count 4.17 M/uL (4.7-6.1)
[2021-01-19 12:01] LABS: Appearance Urine Clear (Clear); Bacteria Urine Automated Negative (Negative); Bilirubin Urine Negative (Negative); Blood Urine Negative (Negative); Color Urine Yellow; Epithelial Cell Urine Auto >30 /lpf (0-5); Glucose Urine UA Negative (Negative); Ketones Urine Negative (Negative); Leukocyte Esterase Urine Trace (Negative); Nitrite Urine Negative (Negative); Protein Urine 1+ (Negative); Specific Gravity Urine 1.021 (1.000-1.030); Urobilinogen Urine Negative (Negative)
[2021-01-19 12:07] LABS: Partial Thromboplastin Time 27.6 Seconds (21.0-31.0); Prothrombin Time 10.5 Seconds (9.0-12.0)
[2021-01-19 14:21] LABS: BUN Creatinine Ratio 12.7 (10-20); Calcium 8.5 mg/dl (8.5-10.1); Creatinine Clr Calc Pharmacy 32.4 ml/min; Est GFR (African American) 36.5; Est GFR (Non-African American) 31.5; Potassium 4.2 mmol/L (3.5-5.1)
[~2021-02-09 07:46] MED LIST changes: +ACETAMINOPHEN 500 MG TAB PO SCH; -AMT25 PO; -ASPI-319 PO; -CHOL100027 PO; -COEN1CAP7 PO; -DPRSO45 TOP; -DXY100 PO; -EZET10TA66 PO; +GABAPENTIN 300 MG CAP PO SCH; -HYDR25TA5 PO; -LDXO60 TOP; -LISI-726 PO; -LRS10 PO; -MELA1CAP9 PO; -MOML PO; -OMEG10007 PO; -PANT40TA2 PO; -PLV75 PO; +SODIUM CHLORIDE 0.9% 1000ML IV SCH; -TPRSR/50 PO; -VTMB122500 SL; +ceFAZolin 2000MG 2,000 MG/15 ML SYR IV SCH
[2021-02-09] MEDS ORDERED: fentaNYL citrate 100 MCG/2 ML VIAL ONE (08:38)
--- NOTE | 2021-02-09 09:45 | History & Physical Bridge Note ---
Date of Service February 09, 2021 History & Physical Bridge Note I have examined the patient, reviewed the History & Physical and in the interval since the performance of the History & Physical I have noted the following changes of clinical significance: no changes noted
--- NOTE | 2021-02-09 09:46 | History & Physical Report ---
Date of Service February 09, 2021 Assessment & Plan (1) Cervical stenosis of spinal canal: Admission and Anticipated Discharge Date Admission Date: C4-C5 anterior cervical discectomy and fusion History of Present Illness Chief Complaint: Neck and arm pain Primary Care Provider: Shaina Kenyon This is a 75-year-old male presents with chronic persistent neck and arm pain. Failing course of nonoperative care is here for surgical invention. Allergies Allergy/AdvReac Type Severity Reaction Status Date / Time gabapentin AdvReac Severe Nightmares Verified 02/09/21 08:24 Qtjugul-Dzl-Emf Reductase AdvReac Unknown Muscle Verified 02/09/21 08:24 Inhibitor aches morphine AdvReac Confusion, Verified 02/09/21 08:24 anger HMG-CoA-R Inhibitors AdvReac Unknown Muscle Uncoded 02/09/21 08:24 aches Home Medications Medication Instructions Recorded Confirmed Type magnesium chloride 71.5 mg 143 mg PO BID tab 06/14/19 02/09/21 History (magnesium chloride) tablet,delayed release omega-3 fatty acids 1,000 mg 3,000 mg PO QAM 06/14/19 02/09/21 History capsule pravastatin 10 mg tablet 10 mg PO HS 06/14/19 02/09/21 History Lantus Solostar U-100 Insulin 12 unit SUBCUT QPM 08/01/19 02/09/21 History cholecalciferol (vitamin D3) 1,000 unit PO QAM 08/01/19 02/09/21 History [Vitamin D3] aspirin 81 mg PO HS 12/27/19 02/09/21 History coQ10 (ubiquinol) 400 mg PO QAM 12/27/19 02/09/21 History melatonin 10 mg PO HS 12/27/19 02/09/21 History isosorbide mononitrate 120 mg 120 mg PO QAM #90 tab 09/01/20 02/09/21 Rx tablet,extended release 24 hr pantoprazole 40 mg tablet,delayed 40 mg PO BID #180 tab 10/07/20 02/09/21 Rx release Linzess 145 mcg PO DAILY PRN 12/17/20 02/09/21 History betamethasone, augmented 1 applic TOPICAL BID PRN 12/17/20 02/09/21 History clopidogrel 75 mg PO QAM 12/17/20 02/09/21 History cyanocobalamin (vitamin B-12) 1,000 mcg PO QAM 12/17/20 02/09/21 History [Vitamin B-12] diclofenac sodium 4 g TOPICAL QID PRN 12/17/20 02/09/21 History duloxetine 20 mg PO QAM 12/17/20 02/09/21 History nitroglycerin 0.4 mg SL DIRECTED PRN 12/17/20 02/09/21 History vitamin E 400 unit PO QAM 12/17/20 02/09/21 History carvedilol 25 mg tablet 25 mg PO BID #180 tab 01/21/21 02/09/21 Rx Past Med/Surg History Medical History (Updated 02/09/21 @ 09:46 by Jonatan Henriquez DO) CAD (coronary artery disease) 2003 (stent x1) 2007 x 2 caths (stents x2) 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 per CTA 12/2020 Surgical History History of cardiac catheterization 2003 (stent x1) 2008 x 2 caths (stents x2) History of cervical spinal surgery C5-C7 ACDF History of cholecystectomy History of colonoscopy History of esophagogastroduodenoscopy (EGD) History of removal of cyst left elbow History of tooth extraction Family History Father , in his late 40s or early 50s of an [place] Coronary heart disease Myocardial infarction Brother Colon cancer Pulmonary embolism Hx of CABG Mother , age 62 of diabetes and heart disease Diabetes Coronary heart disease Other No family history of adverse response to anesthesia Social History Smoking Status: Former smoker Tobacco Type: Smokeless Tobacco (Dip or Chew) packs per day: 1; Years Smoked: 40; Smoking End Date: Quit several years ago; Number of Years Since Quit: 35; Second Hand Exposure: No; Do You Dip or Chew Tobacco: Yes (1 can/2 days > advised none AM DOS); Tobacco Cessation Education Requested by Patient: No Hx Alcohol Use: No Hx Substance Use: Yes Substance Use Type Other:: Medical marijuana (inhaled)- rare use Preferred Language: Irish Communication Ability: Effective Coal Grader Required: No Beliefs That Will Affect Care: None marital status: Current Living Situation: Spouse current occupational status: retired current occupation: Retired in his early 50s as a [place] Feels Safe at Home: Yes Safety Concerns: Feels Safe At This Time Assistive Devices: Glasses Physical Exam Physical Exam: Patient is alert and oriented Heart regular in rhythm Lungs clear to auscultation Results & Data ([facility]) Vital Signs (Past 12 Hours) Vital Signs Temp Pulse Resp BP Pulse Ox 02/09/21 08:35 37 C 68 20 143/82 H 96
[2021-02-09] MEDS ORDERED: ONDANSETRON INJ 2 MG/ML 2 ML VIAL IV PRN ×2 (10:30→13:23)
[2021-02-09] MEDS ORDERED: FLUMAZENIL 0.1 MG/1 ML 10 ML VIAL IV PRN (10:30)
[2021-02-09] MEDS ORDERED: PROMETHAZINE HCL 12.5 MG in SODIUM CHLORIDE 0.9% 50 ML IV PRN ×2 (10:30→13:23)
[2021-02-09] MEDS ORDERED: NALOXONE HCL 0.4 MG/1 ML VIAL/CARP IV PRN ×2 (10:30→13:23)
[2021-02-09] MEDS ORDERED: LABETALOL HCL IV 5 MG/ML 20ML IV PRN (10:30)
[2021-02-09] MEDS ORDERED: ATROPINE SULFATE 0.1 MG/ML 10ML SYR IV PRN (10:30)
[2021-02-09] MEDS ORDERED: fentaNYL citrate 100 MCG/2 ML VIAL IV PRN (10:30)
[2021-02-09] MEDS ORDERED: ePHEDrine sulfate 50 MG/ML AMP IV PRN (10:30)
[2021-02-09] MEDS ORDERED: ROCURONIUM BROMIDE 10 MG/ML 5 ML VIAL IV ONE (10:40)
[2021-02-09] MEDS ORDERED: ONDANSETRON INJ 2 MG/ML 2 ML VIAL ONE (10:40)
[2021-02-09] MEDS ORDERED: DEXAMETHASONE SOD INJ 4 MG/ML VIAL ONE (10:40)
[2021-02-09] MEDS ORDERED: NEOSTIGMINE METHYLSULFATE 1 MG/ML 10ML VIAL ONE (10:40)
[2021-02-09] MEDS ORDERED: PROPOFOL IV EMULSION 10 MG/ML 20 ML VIAL IV ONE (10:40)
[2021-02-09] MEDS ORDERED: LIDOCAINE HCL 2% 2 ML VIAL/AMP(20MG/ML) INFIL ONE (10:40)
[2021-02-09] MEDS ORDERED: LARYING-O-JET KIT (LTA) ONE (10:40)
[2021-02-09] MEDS ORDERED: GLYCOPYRROLATE 0.2 MG/ML VIAL ONE (10:40)
[2021-02-09] MEDS ORDERED: ePHEDrine sulfate 50 MG/ML AMP ONE (10:40)
[2021-02-09] MEDS ORDERED: SUCCINYLCHOLINE CHLORIDE 20 MG/ML 10 ML VIAL IV ONE (10:40)
[2021-02-09] MEDS ORDERED: PHENYLEPHRINE HCL 10 MG/ML VIAL ONE (10:40)
--- NOTE | 2021-02-09 11:21 | Operative Report ---
Post Operative Report Pre & Post Diagnosis Operation Date: 02/09/21 09:35 Pre-Op Diagnosis: Spinal Stenosis, Cervical Region Post-Op Diagnosis: Spinal Stenosis, Cervical Region I identified the patient and participated in the time-out.: Yes Procedure Operation Date: 02/09/21 09:35 Actual Procedures #1 anterior cervical discectomy with bilateral foraminotomies C4-C5. #2 anterior cervical arthrodesis C4-C5. #3 placement of globus coalition interbody cage 8 mm in height filled with I factor bone graft. Surgeon Jonatan Henriquez, Pulp And Paper Tester Johanny Manjarrez Estimated Blood Loss 10 Findings Consistent with Post-Op Diagnosis Specimens None Indications This is a 75-year-old male who presents above-mentioned diagnosis after failing course of nonoperative care is here for the above meds procedure. Description of Procedure Patient was met with identified informed consent obtained. Patient was then taken to the operative suite underwent ablation placed in spine position Abilio table with head Baxter head ordered. All bony prominences well-padded eyes inspected to ensure no external pressure placed upon the. This point the anterior cervical spine was prepped and draped in a sterile fashion. The assistance of fluoroscopy identified the C4-C5 displacement transverse incision was placed along the right anterior aspect of the cervical spinal lines region. Sharp dissection with the assistance of bipolar electrocautery performed down to and exposing the anterior cervical spine at C4-C5. Self-retaining retractors placed. And then performed a complete discectomy at C4-5 out to the uncovertebral joints bilaterally. [place] distracting pins were utilized to assist in visualization. Removed all posterior annular fibers longitudinal ligament bilateral foraminotomies performed. The endplates were then burred to subcortically bone and a 8 mm coalition cage filled with I factor was tapped in position and 18 mm screws used to lock in the plate. The incision was then copiously irrigated explored to ensure no damage to surrounding structures remaining bleeding. 10 round MEDINA drain inserted. The incision was then closed with 2 Vicryl in the fascia and 4 Monocryl for final skin closure. Steri-Strip sterile dressings placed. Patient will continue to PACU stable condition. Please note spinal cord monitoring was utilized at the procedure no changes noted. Lastly Johanny Manjarrez was present at the entire surgery involved the patient positioning complex portions of the surgery and final skin closure. I attest to the content of the Intraoperative Record and any orders documented therein. Any exceptions are noted below.
--- NOTE | 2021-02-09 12:05 | Fluoroscopy Report ---
FL cervical 2-3V CLINICAL HISTORY: C4-C5 ACDF COMPARISON STUDY: October 18, 2017 FLUOROSCOPY TIME: 10 seconds. NUMBER OF FLUOROSCOPIC IMAGES: 2 FINDINGS: 2 intraoperative fluoroscopic spot images reveal postsurgical changes of an anterior cervic al discectomy and fusion at the C4-5 level. There is partial visualization of hardware more inferior to this level. IMPRESSION: Intraoperative fluoroscopic spot images demonstrating postsurgical changes of a C4-5 ant erior cervical discectomy and fusion ACT 112: Negative or not required by law. Electronically signed by: Guillermo Metcalf M.D. 02/09/2021 12:03 PM
[2021-02-09] MEDS ORDERED: hydrALAZINE HCL 20 MG/ML VIAL ONE (12:51)
[2021-02-09] MEDS ORDERED: hydrALAZINE HCL 20 MG/ML VIAL IV STA (12:53)
[2021-02-09] MEDS ORDERED: SOD PHOSPHATE/SOD BIPHOSPHATE ENEMA 132 ML BTL PR PRN (13:23)
[2021-02-09] MEDS ORDERED: METOCLOPRAMIDE HCL INJ 5 MG/ML 2 ML VIAL IV PRN (13:23)
[2021-02-09] MEDS ORDERED: MAGNESIUM HYDROXIDE SUSP 30 ML UDC PO PRN (13:23)
[2021-02-09] MEDS ORDERED: HYDROmorphone INJ 1 MG/ML SYRINGE IV PRN (13:23)
[2021-02-09] MEDS ORDERED: DO NOT ADMINISTER FLU VACCINE PRN (13:23)
[2021-02-09] MEDS ORDERED: dexAMETHasone 8 MG in SYRINGE 0 ML IV PRN (13:23)
[2021-02-09] MEDS ORDERED: ACETAMINOPHEN 500 MG TAB PO PRN (13:23)
[2021-02-09] MEDS ORDERED: ALUMINUM/MAGNESIUM SUSP 30 ML UDC PO PRN (13:23)
[2021-02-09] MEDS ORDERED: hydrOXYzine HCl 25 MG TAB PO PRN (13:23)
[2021-02-09] MEDS ORDERED: LORazepam 0.5 MG/1 ML VIAL IV PRN (13:23)
[2021-02-09] MEDS ORDERED: diphenhydrAMINE Capsule 25 MG CAP PO PRN (13:23)
[2021-02-09] MEDS ORDERED: oxyCODONE HCL IR 5 MG TAB (IMMEDIATE RELEASE) PO PRN (13:23)
[2021-02-09] MEDS ORDERED: ONDANSETRON 4 MG OD TAB PO PRN (13:23)
[2021-02-09] MEDS ORDERED: HYDROmorphone INJ 0.5 MG/0.5 ML SYR IV PRN (13:23)
[2021-02-09] MEDS ORDERED: DO NOT ADMINISTER PNEUMOCOCCAL VACCINE PRN (13:23)
[2021-02-09] MEDS ORDERED: LORazepam 0.5 MG TAB PO PRN (13:23)
[2021-02-09] MEDS ORDERED: traMADol HCL 50 MG TABLET PO PRN (13:23)
[2021-02-09] MEDS ORDERED: FAMOTIDINE 20 MG TAB PO PRN (13:23)
[2021-02-09] MEDS ORDERED: RACEPINEPHRINE 2.25% NEBU SOLN 0.5 ML VIAL INH PRN (13:23)
[2021-02-09] MEDS ORDERED: LINACLOTIDE 145 MCG CAPSULE PO PRN (13:48)
[2021-02-09] MEDS ORDERED: NITROGLYCERIN SL 0.4 MG/TAB TAB SL PRN (13:55)
[2021-02-09] MEDS ORDERED: PHARMACY GLYCEMIC MGMT CONSULT PRN (14:09)
[2021-02-09] MEDS: ACETAMINOPHEN 1,000 MG/100 ML VIAL IV PRN (14:26)
[2021-02-09] MEDS: SODIUM CHLORIDE 0.9% 1000ML 1,000 ML IV SCH (14:27)
[2021-02-09] MEDS ORDERED: INSULIN GLARGINE SOLOSTAR 100 UNITS/ML 3 ML PEN SC ONE (15:30)
[2021-02-09] MEDS: INSULIN ASPART 100 UNITS/ML 3 ML PEN SC SCH ×2 (17:42→21:23)
[2021-02-09] MEDS: ceFAZolin 2000MG 2,000 MG/15 ML SYR IV SCH (18:01)
[2021-02-09] MEDS: carvediloL 25 MG TAB PO SCH (18:07)
[2021-02-09 20:58] LABS: Basophils # (auto) 0.01 K/uL (0-0.2); Basophils % (auto) 0.1 %; Hematocrit (blood only) 37.7 % (42-52); Hemoglobin 12.5 g/dL (14.0-18.0); Immature Granulocytes # (auto) 0.02 K/uL (0.00-0.02); Immature Granulocytes % (auto) 0.2 %; Lymphocytes # (auto) 1.02 K/uL (1.2-3.4); Lymphocytes % (auto) 8.3 %; Mean Corpuscular Hemoglobin 29.6 pg (25-34); Mean Corpuscular Volume 89.3 fL (80-100); Mean Platelet Volume 9.9 fL (7.4-10.4); Monocytes # (auto) 0.32 K/uL (0.11-0.59); Monocytes % (auto) 2.6 %; Neutrophils # (auto) 10.87 K/uL (1.4-6.5); Neutrophils % (auto) 88.8 %; Platelet Count 216 K/uL (130-400); RDW Coefficient of Variation 13.6 % (11.5-14.5); RDW Standard Deviation 44.6 fL (36.4-46.3); Red Blood Count 4.22 M/uL (4.7-6.1); White Blood Count 12.24 K/uL (4.8-10.8)
[2021-02-09 21:20] LABS: Alanine Aminotransferase 14 U/L (12-78); Albumin Level 3.5 gm/dl (3.4-5.0); Aspartate Aminotransferase 18 U/L (15-37); BUN Creatinine Ratio 10.5 (10-20); Blood Urea Nitrogen 24 mg/dl (7-18); Calcium 8.9 mg/dl (8.5-10.1); Carbon Dioxide 19 mmol/L (21-32); Chloride 109 mmol/L (98-107); Creatinine Clr Calc Pharmacy 29.3 ml/min; Est GFR (African American) 32.2; Est GFR (Non-African American) 27.8; Glucose 161 mg/dl (70-99); Magnesium 1.6 mg/dl (1.8-2.4); Potassium 4.3 mmol/L (3.5-5.1); Sodium 136 mmol/L (136-145)
[2021-02-09 21:24] LABS: Alkaline Phosphatase 100 U/L (45-117); Bilirubin,Total 0.3 mg/dl (0.2-1); Globulin 3.7 gm/dl (2.5-4.0); Mean Corpuscular Hgb Conc 33.2 g/dL (32-36); Total Protein 7.2 gm/dl (6.4-8.2); Troponin I < 0.015 ng/ml (0-0.045)
[2021-02-09] MEDS ORDERED: hydrALAZINE HCL 20 MG/ML VIAL IV PRN (21:32)
[2021-02-09] MEDS: PRAVASTATIN SOD 10 MG TAB PO SCH (21:50)
[2021-02-09] MEDS: PANTOprazole 40 MG TAB PO SCH (21:50)
[2021-02-09] MEDS: ASPIRIN 81 MG ECTAB PO SCH (21:50)
[2021-02-09] MEDS: MAGNESIUM CHLORIDE 64MG DELAYED REL TAB PO SCH (21:51)
[2021-02-09] MEDS: DOCUSATE SODIUM/SENNA 50/8.6MG TAB PO SCH (21:51)
[2021-02-09] MEDS: MELATONIN 3 MG TAB PO SCH (21:52)
[2021-02-10] MEDS ORDERED: INSULIN ASPART 100 UNITS/ML 3 ML PEN SC SCH
[2021-02-10] MEDS: SODIUM CHLORIDE 0.9% 1000ML 1,000 ML IV SCH (00:44)
[2021-02-10] MEDS ORDERED: LIDOCAINE 5% 1 PATCH TD ONE (01:12)
--- NOTE | 2021-02-10 01:16 | Communication Note ---
Date of Service: February 10, 2021 Subjective: nursing call with patient complaint of chest pain, EKG ordered. The pain was after receiving Hydralazine for elevated blood pressure. pt. admits to pain previously but does not remember the event pt does have what he called warm going down his arm Objective: systolic BP 200's reproducible chest pain with palpation of the costochondral cartilage A/P 75 yo male post op w/ chest pain likely MSK in origin although will want to rule out cardiac ischemia - evaluate EKG when complete - ordered lidocaine patch - will get follow up Trop, previously nl. - continue to follow
[2021-02-10] MEDS ORDERED: METOPROLOL TARTRATE 25 MG TAB PO STA (01:40)
[2021-02-10] MEDS ORDERED: NITROGLYCERIN 2% OINTMENT 30GM TUBE ONE (01:49)
[2021-02-10] MEDS: NITROGLYCERIN 2% OINTMENT 30GM TUBE EXT SCH ×4 (01:55→16:50)
[2021-02-10] MEDS: ceFAZolin 2000MG 2,000 MG/15 ML SYR IV SCH (01:58)
[2021-02-10] MEDS ORDERED: METOPROLOL TARTRATE 1 MG/ML VIAL IV STA (02:41)
[2021-02-10] MEDS ORDERED: METOPROLOL TARTRATE 1 MG/ML VIAL IV ONE (03:07)
--- NOTE | 2021-02-10 03:37 | Hospitalist Consultation ---
Date of Consultation February 10, 2021 Assessment & Plan (1) Chest pain: 75 yo M w/ pMHx. of CKD, DM, BROOK, dyslipidemia, GERD, vertebral artery stenosis and hypertension and developed chest pain along with concerning findings on EKG overnight Chest pain/pressure with radiation to his left arm and neck concerning for ACS vs. demand ischemia Hx. of CAD with multiple stents placed Troponin elevated to >4 - transferred to PCU - EKG with new ST depression in V3,4,5,6; repeat with improvement in depression but still present - troponin negative, follow in 6 hours - given ASA - Nitro paste applied - working to lower BP as below HTN was given Carvedilol, Hydralazine and oral and IV Lopressor BP elevated to 200's systolic - goal of 140-160, cautiously given Hx. of vertebral artery stenosis and stroke like symptoms CODE: full Diet: NPO for now DVT prophylaxis: SCD's Supervising Physician Co-Signing Physician Notes Attending addendum: I have physically seen this patient, have supervised the medical residents act ivities, and agree with the H&P unless as otherwise noted. Assessment and Plan: Chest pain/uncontrolled blood pressure/abnormal EKG- Transfer to PCU. The patient will be admitted to telemetry for serial cardiac enzymes, serial EKG's, cardiac rhythm monitoring and a 2-D echocardiogram with Dopplers. EKG with new lateral ST depressions, with initial negative troponin. Give aspirin 324 mg now, Nitropaste 1 inch anterior chest wall every 6 hours, and place on oral and IV Lopressor. Continue baseline carvedilol. Continue aspirin 81 mg daily and clopidogrel 75 mg daily Consult cardiology Diabetes mellitus- Continue Lantus insulin 12 units subcu every afternoon. Placed on Accu-Cheks before meals and at bedtime with NovoLog coverage per scale Hyperlipidemia- On pravastatin 10 mg at bedtime Is intolerant of statins at higher doses GERD- Continue pantoprazole Remaining orders and notations as noted History of Present Illness Reason for Consultation: htn Attending Physician: Jonatan Henriquez, DO History of Present Illness Guille Negron had elevated blood pressure into the 180's at home with concern for vertebrobasilar insufficiency on prior admission in December 2020. Patient also has a hx. of CAD and acute OR on FEBRUARY 23, 2004. Hx of cardiac stent to the mid RCA in 2003, and stent placement to the early-mid RCA in 2007, followed with a proximal left circumflex stent placement several days later in February 2008. He has a hx of HTN and was on Carvedilol and Imdur at home. He was having elevated blood pressures into the 200's in the post operative setting. He had been given Hydralazine with no appreciable improvement in his blood pressure at that time. He then developed chest pain/pressure in the center of his chest 05/12 with radiation to his left arm and neck. His pain had improved after he was given oral Lopressor and then resolved after he was given IV Lopressor and his BP was back down into the 180's systolic. Other PMHx. includes a hx. of GERD, gastroparesis, Crohn's disease, psoriasis, arthritis, vitamin D deficiency, and constipation. He was admitted in December of 2019 for chest pain found to have an NSTEMI which was managed medically due ILIA on CKD. Allergies Allergy/AdvReac Type Severity Reaction Status Date / Time gabapentin AdvReac Severe Nightmares Verified 02/09/21 08:24 Iuikbai-Kht-Hvu Reductase AdvReac Unknown Muscle Verified 02/09/21 08:24 Inhibitor aches morphine AdvReac Confusion, Verified 02/09/21 08:24 anger HMG-CoA-R Inhibitors AdvReac Unknown Muscle Uncoded 02/09/21 08:24 aches Home Medications Medication Instructions Recorded Confirmed Type magnesium chloride 71.5 mg 143 mg PO BID tab 06/14/19 02/09/21 History (magnesium chloride) tablet,delayed release omega-3 fatty acids 1,000 mg 3,000 mg PO QAM 06/14/19 02/09/21 History capsule pravastatin 10 mg tablet 10 mg PO HS 06/14/19 02/09/21 History Lantus Solostar U-100 Insulin 12 unit SUBCUT QPM 08/01/19 02/09/21 History cholecalciferol (vitamin D3) 1,000 unit PO QAM 08/01/19 02/09/21 History [Vitamin D3] aspirin 81 mg PO HS 12/27/19 02/09/21 History coQ10 (ubiquinol) 400 mg PO QAM 12/27/19 02/09/21 History melatonin 10 mg PO HS 12/27/19 02/09/21 History isosorbide mononitrate 120 mg 120 mg PO QAM #90 tab 09/01/20 02/09/21 Rx tablet,extended release 24 hr pantoprazole 40 mg tablet,delayed 40 mg PO BID #180 tab 10/07/20 02/09/21 Rx release Linzess 145 mcg PO DAILY PRN 12/17/20 02/09/21 History betamethasone, augmented 1 applic TOPICAL BID PRN 12/17/20 02/09/21 History clopidogrel 75 mg PO QAM 12/17/20 02/09/21 History cyanocobalamin (vitamin B-12) 1,000 mcg PO QAM 12/17/20 02/09/21 History [Vitamin B-12] diclofenac sodium 4 g TOPICAL QID PRN 12/17/20 02/09/21 History duloxetine 20 mg PO QAM 12/17/20 02/09/21 History nitroglycerin 0.4 mg SL DIRECTED PRN 12/17/20 02/09/21 History vitamin E 400 unit PO QAM 12/17/20 02/09/21 History carvedilol 25 mg tablet 25 mg PO BID #180 tab 01/21/21 02/09/21 Rx oxycodone 5 mg PO Q6H PRN #20 tab 02/09/21 Rx tramadol 50 mg PO Q6H PRN #20 tab 02/09/21 Rx Patient History Medical History (Updated 02/11/21 @ 17:16 by Thaddeus Duarte MD) CAD (coronary artery disease) 2003 (stent x1) 2008 x 2 caths (stents x2) 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 Sandhu (baseline creatinine 2-2.5 per chart review) Crohn's disease Diverticulosis DM type 2 (diabetes mellitus, type 2) IDDM Fatty liver Gastroparesis GERD (gastroesophageal reflux disease) History of depression History of myocardial infarction 2004 History of TIA (transient ischemic attack) 2018 HLD (hyperlipidemia) Hypertension Orthostatic hypotension Osteoarthritis Sleep apnea CPAP Vertebral artery stenosis mild stenosis at the origin of the right vertebral artery per CTA 12/2020 Surgical History (Updated 02/10/21 @ 16:37 by Thaddeus Duarte MD) History of cardiac catheterization 2003 (stent x1) 2008 x 2 caths (stents x2) History of cervical spinal surgery C5-C7 ACDF History of cholecystectomy History of colonoscopy History of esophagogastroduodenoscopy (EGD) History of removal of cyst left elbow History of tooth extraction S/P coronary artery stent placement Family History Father , in his late 40s or early 50s of an OR Coronary heart disease Myocardial infarction Brother Colon cancer Pulmonary embolism Hx of CABG Mother , age 62 of diabetes and heart disease Diabetes Coronary heart disease Other No family history of adverse response to anesthesia Social History Smoking Status: Former smoker Tobacco Type: Smokeless Tobacco (Dip or Chew) packs per day: 1; Years Smoked: 40; Smoking End Date: Quit several years ago; Number of Years Since Quit: 35; Second Hand Exposure: No; Do You Dip or Chew Tobacco: Yes (1 can/2 days > advised none AM DOS); Tobacco Cessation Education Requested by Patient: No Hx Alcohol Use: No Hx Substance Use: Yes Substance Use Type Other:: Medical marijuana (inhaled)- rare use Preferred Language: Lao Communication Ability: Effective Paid Intern Required: No Beliefs That Will Affect Care: None marital status: Current Living Situation: Spouse current occupational status: retired current occupation: Retired in his early 50s as a [employer] Feels Safe at Home: Yes Safety Concerns: Feels Safe At This Time Assistive Devices: Brace/Splint/Immobilizer and Glasses Review of Systems Review of Systems: Constitutional: denies fevers, chills Cardiac: admits chest pain and palpitations initially that has resolved Pulm: denies cough, shortness of breath Physical Exam Constitutional: well developed; no acute distress Eyes: PERRL, conjunctivae normal, anicteric sclerae ENMT: external ear and nose normal, oropharynx normal Neck: bandage c/d/i drain with blood draining Respiratory: normal respiratory effort, lungs clear to auscultation Cardiovascular: Rate/Rhythm: regular rhythm and + tachycardic Heart Sounds: no murmur Extremities: no edema Chest (Breasts): Additional Comments: pain on palpation of the left costochondral cartilage Gastrointestinal (Abdomen): normal bowel sounds, soft, nontender, no hepatosplenomegaly Skin: no rashes, warm and dry Neurologic: no focal motor deficits Psychiatric: Orientation: alert Results & Data Results & Data ([facility]) Vital Signs (Past 12 Hours) Vital Signs Temp Pulse Pulse Pulse Resp BP BP 02/10/21 03:24 107 H 18 02/10/21 03:08 84 210/78 H 02/10/21 02:55 210/78 H 02/10/21 01:53 37 C 94 H 22 217/104 H 02/10/21 00:56 101 H 207/104 H 02/10/21 00:18 36.7 C 72 18 190/89 H 02/09/21 22:36 36.8 C 71 20 02/09/21 22:12 91 H 18 02/09/21 20:45 73 188/93 H 02/09/21 19:53 36.7 C 87 20 188/93 H 02/09/21 19:15 69 209/91 H 02/09/21 19:14 88 18 02/09/21 18:30 36.8 C 67 18 193/88 H 02/09/21 17:20 36.7 C 67 18 02/09/21 16:25 36.7 C 70 16 BP Pulse Ox 02/10/21 03:24 96 02/10/21 03:08 02/10/21 02:55 02/10/21 01:53 231/107 H 96 02/10/21 00:56 02/10/21 00:18 196/88 H 96 02/09/21 22:36 175/87 H 97 02/09/21 22:12 95 02/09/21 20:45 205/94 H 02/09/21 19:53 205/94 H 98 02/09/21 19:15 02/09/21 19:14 98 02/09/21 18:30 96 02/09/21 17:20 179/76 H 97 02/09/21 16:25 187/90 H 98 CBC Results Results Complete Blood Count Results: RBC 3.85 M/uL (4.7-6.1) L 02/11/21 WBC 13.46 K/uL (4.8-10.8) H 02/11/21 Hgb 11.6 g/dL (14.0-18.0) L 02/11/21 Hct 34.8 % (42-52) L 02/11/21 Plt Count 209 K/uL (130-400) 02/11/21 Chemistry ([facility]) Results [facility] Results: Sodium 141 mmol/L (136-145) 02/11/21 Potassium 3.5 mmol/L (3.5-5.1) 02/11/21 Chloride 108 mmol/L (98-107) H 02/11/21 BUN 36 mg/dl (7-18) H 02/11/21 Creatinine 2.21 mg/dl (0.6-1.4) H 02/11/21 Glucose 112 mg/dl (70-99) H 02/11/21 Resident Activity Tracking Resident Involvement: Resident Care Provided Care Provided: Adult Hospital Medicine (1) Chest pain Chest pain type: chest pain due to myocardial ischemia Ischemic chest pain type: unspecified angina pectoris type Qualified Code(s): I25.9 - Chronic isc hemic heart disease, unspecified
[2021-02-10] MEDS: POLYETHYLENE (MIRALAX) 17 GM PACK PO SCH ×3 (06:27→16:50)
[2021-02-10] MEDS: ACETAMINOPHEN 1,000 MG/100 ML VIAL IV PRN (06:30)
[2021-02-10] MEDS: MAGNESIUM CHLORIDE 64MG DELAYED REL TAB PO SCH ×2 (07:59→20:43)
[2021-02-10] MEDS: ISOSORBIDE MONO EXTENDED REL 60 MG TABCR PO SCH (08:00)
[2021-02-10] MEDS: OMEGA-3 (PURIFIED FISH OIL) 1 GM CAP PO SCH (08:00)
[2021-02-10] MEDS: carvediloL 25 MG TAB PO SCH ×2 (08:01→20:42)
[2021-02-10] MEDS: CHOLECALCIFEROL 1,000 UNITS 25 MCG TAB PO SCH (08:01)
[2021-02-10] MEDS: TOCOPHERYL, DL-ALPHA 400 UNITS 180 MG CAP PO SCH (08:01)
[2021-02-10] MEDS: CYANOCOBALAMIN 500 MCG TABLET (VITAMIN B-12) PO SCH (08:02)
[2021-02-10] MEDS: PANTOprazole 40 MG TAB PO SCH ×2 (08:02→20:43)
[2021-02-10] MEDS: INSULIN ASPART 100 UNITS/ML 3 ML PEN SC SCH ×4 (08:05→20:52)
[2021-02-10] MEDS ORDERED: NON-FORMULARY MEDICATION (Coq10 (Ubiquinol) 200 mg Capsule) PO SCH (09:00)
--- NOTE | 2021-02-10 09:45 | XCELERA ---
[id number]\[id number]
[2021-02-10 10:01] LABS: BUN Creatinine Ratio 11.8 (10-20); Calcium 8.7 mg/dl (8.5-10.1); Creatinine Clr Calc Pharmacy 32.4 ml/min; Est GFR (African American) 36.3; Est GFR (Non-African American) 31.3; Potassium 4.1 mmol/L (3.5-5.1)
[2021-02-10] MEDS: MAGNESIUM SULFATE / D5W 1 GM/100 ML BAG IV SCH ×2 (10:06→12:20)
--- NOTE | 2021-02-10 10:12 | Pharmacy Report ---
Pharmacy Glycemic Short Note 2 - Date of Service February 10, 2021 - Glycemic Short BSG Results (Last 24 hours): 02/09/21 02/09/21 02/09/21 11:37 14:06 17:04 Glucose POC Glucose 128 H 151 H 170 H 02/09/21 02/09/21 02/10/21 20:44 20:49 00:14 Glucose 161 H POC Glucose 154 H 139 H 02/10/21 02/10/21 07:23 09:03 Glucose 127 H POC Glucose 138 H OUTPATIENT ANTIDIABETIC REGIMEN: * Lantus 12 units HS ASSESSMENT: * 75 year old now POD 1 spinal surgery, type 2 diabetic managed on basal insulin at home * Patient received total of 22 units of insulin yesterday, of which 14 units were basal (stressed home dose) d/t steroids given * Fasting BSG this AM 127 mg/dL - plan to resume home Lantus for HS but with reduced dosing as insulin likely covering both basal/prandial needs at home PLAN FOR INPATIENT GLYCEMIC CONTROL: * Hold outpatient oral diabetes medications * Basal insulin * Lantus 8-10 units HS * Bolus insulin * NovoLog per scale ACHS or Q6hrs while NPO * Goal Range: Low 110 mg/dL - High 140 mg/dL * Correction Factor: 35 mg/dL/unit * Nutritional / Prandial insulin per carb ratio of 1 unit per 11 grams CHO consumed PLAN FOR DISCHARGE: * A1c - 6.7% - reasonable to continue home Lantus on discharge as long as patient is not reporting frequent hypoglycemia.
--- NOTE | 2021-02-10 15:21 | Orthopedic Progress Note ---
Date of Service February 10, 2021 Assessment & Plan (1) Cervical stenosis of spinal canal: Admission and Anticipated Discharge Date Admission Date: February 09, 2021 At this time patient's symptoms are markedly improved. We will await medical clearance and hopefully discharge home tomorrow. Subjective Patient's neck pain is controlled. Arm symptoms markedly improved. He has no swallowing difficulties. Denies any other issues. Physical Exam Physical Exam: Patient is in bed. He has good strength testing. Appears comfortable. Results & Data ([facility]) Vital Signs (Past 12 Hours) Vital Signs Temp Pulse Pulse Pulse Resp BP BP 02/10/21 11:40 78 18 02/10/21 11:35 36.8 C 73 18 179/80 H 02/10/21 07:29 67 16 02/10/21 05:53 182/82 H 02/10/21 03:53 83 02/10/21 03:24 107 H 18 BP Pulse Ox 02/10/21 11:40 98 02/10/21 11:35 02/10/21 07:29 98 02/10/21 05:53 02/10/21 03:53 186/87 H 02/10/21 03:24 96
--- NOTE | 2021-02-10 16:24 | Cardiology Consultation ---
Date of Consultation February 10, 2021 Assessment & Plan (1) Non-ST elevation (NSTEMI) myocardial infarction: (2) CAD (coronary artery disease): (3) S/P coronary artery stent placement: (4) Hypertension: (5) Dyslipidemia: ASSESSMENT/PLAN: 1. NSTEMI: Has had postoperative NSTEMI with anterior ST depression in the setting of severe hypertension with systolic blood pressure as high as 231 mmHg. Angina has since resolved and currently asymptomatic. Normal LV systolic function on echo. MT likely due to underlying CAD in the setting of severe hypertension in the postoperative state. Recommend conservative management as he is currently asymptomatic and has underlying CKD. Also, he is currently not a candidate to receive heparin or dual anti-platelet therapy as per discussion with Dr. Henriquez of Orthopedics given recent C-spine surgery. Continue carvedilol. Continue statin therapy as tolerated. Continue aspirin 81 mg daily. Resume Plavix 75 mg daily when safe from an orthopedic standpoint, which is tomorrow tentatively. Optimize blood pressure control. Consider calcium c hannel joe. 2. CAD s/p RCA and Cx PCI: Had anginal event overnight with NSTEMI. Continue anti-platelet therapy in the form of aspirin 81 mg daily. Start Plavix 75 mg once daily tomorrow if no significant bleeding from C-spine surgical site. Continue statin therapy as tolerated. Continue beta-joe. Recommend calcium channel joe. If safe from a renal standpoint, could consider JAKE-inhibitor. He follows with Nephrology. Continue nitrate therapy. 3. Hypertension: Blood pressure has been elevated throughout hospital stay. Will start low-dose amlodipine. Continue carvedilol. 4. Dyslipidemia: Has been intolerant to statin therapies in the past but is apparently tolerating pravastatin. Continue outpatient statin regimen. 5. Disposition: Cardiology will continue to follow. On discharge, recommend follow up with his primary cnc machine setter, Dr. Savage. Cardiac rehab can be considered as an outpatient if okay with after he follows up with Dr. Savage. Patient care communicated with Dr. Evans of the primary hospitalist service. Thank you for allowing me to participate in the care of your patient. Please call for any other questions or concerns. Sincerely, Geoffrey Duarte M.D. History of Present Illness Reason for Consultation: NSTEMI Requesting Physician: Dr. Kamermans Attending Physician: Jonatan Henriquez DO History of Present Illness Mr. Negron is a pleasant 75-year-old gentleman with a history significant for CAD s/p PCI (RCA and Cx), hypertension, dyslipidemia, type 2 diabetes, psoriatic arthritis, and Crohn's disease. His primary cnc machine setter is Dr. Savage. His cardiac history is significant for acute inferior MT on 02/23/2024 for which he underwent mid RCA PCI with 2.5 x 24 mm taxus at [facility]. 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 PTCA was performed to the mid RCA InStent restenosis however a stent could not be deployed. A 30% stenosis was left following PTCA and underwent prox to mid RCA PCI with 2.5 x 18 mm AJIT and then a few days later, proximal circumflex 4 x 15 mm [employer] Clerk Operator be BMS. He underwent anterior cervical diskectomy and bilateral foraminotomies of C4-C5 on 02/09/[address] Henriquez. He apparently did well with the procedure but early this morning on 02/10/2021, he developed chest discomfort. He reports that the chest discomfort was a burning across his chest without radiation or shortness of breath. He recalls mild diaphoresis. He states that nitroglycerin offer no benefit. He also received IV metoprolol. Within 2 or 3 hours, his chest pain resolved. He has not had any further chest discomfort. His troponin was initially unremarkable but has since increased 8.25, continuing to trend upward. His blood pressure overnight was as high as 231/107 mmHg. He appears to be somewhat of a poor historian. He does not recall having such discomfort in the past. He is completely chest pain-free currently. He is asking if he can go home today. He denies syncope, palpitations, edema, or bleeding such as melena, hematochezia, or hematuria. Review of systems: As above. Review of systems otherwise negative/unremarkable. Family history: Parents with CAD. Social history: Quit smoking greater than 30 years ago. No alcohol. Lives at home with his . Three children. He was unaccompanied in his hospital room. Allergies Allergy/AdvReac Type Severity Reaction Status Date / Time gabapentin AdvReac Severe Nightmares Verified 02/09/21 08:24 Vzouteb-Rts-Cvl Reductase AdvReac Unknown Muscle Verified 02/09/21 08:24 Inhibitor aches morphine AdvReac Confusion, Verified 02/09/21 08:24 anger HMG-CoA-R Inhibitors AdvReac Unknown Muscle Uncoded 02/09/21 08:24 aches Home Medications Medication Instructions Recorded Confirmed Type magnesium chloride 71.5 mg 143 mg PO BID tab 06/14/19 02/09/21 History (magnesium chloride) tablet,delayed release omega-3 fatty acids 1,000 mg 3,000 mg PO QAM 06/14/19 02/09/21 History capsule pravastatin 10 mg tablet 10 mg PO HS 06/14/19 02/09/21 History Lantus Solostar U-100 Insulin 12 unit SUBCUT QPM 08/01/19 02/09/21 History cholecalciferol (vitamin D3) 1,000 unit PO QAM 08/01/19 02/09/21 History [Vitamin D3] aspirin 81 mg PO HS 12/27/19 02/09/21 History coQ10 (ubiquinol) 400 mg PO QAM 12/27/19 02/09/21 History melatonin 10 mg PO HS 12/27/19 02/09/21 History isosorbide mononitrate 120 mg 120 mg PO QAM #90 tab 09/01/20 02/09/21 Rx tablet,extended release 24 hr pantoprazole 40 mg tablet,delayed 40 mg PO BID #180 tab 10/07/20 02/09/21 Rx release Linzess 145 mcg PO DAILY PRN 12/17/20 02/09/21 History betamethasone, augmented 1 applic TOPICAL BID PRN 12/17/20 02/09/21 History clopidogrel 75 mg PO QAM 12/17/20 02/09/21 History cyanocobalamin (vitamin B-12) 1,000 mcg PO QAM 12/17/20 02/09/21 History [Vitamin B-12] diclofenac sodium 4 g TOPICAL QID PRN 12/17/20 02/09/21 History duloxetine 20 mg PO QAM 12/17/20 02/09/21 History nitroglycerin 0.4 mg SL DIRECTED PRN 12/17/20 02/09/21 History vitamin E 400 unit PO QAM 03/17/21 05/10/21 History carvedilol 25 mg tablet 25 mg PO BID #180 tab 01/21/21 02/09/21 Rx oxycodone 5 mg PO Q6H PRN #20 tab 02/09/21 Rx tramadol 50 mg PO Q6H PRN #20 tab 02/09/21 Rx Patient History Medical History CAD (coronary artery disease) 2003 (stent x1) 2008 x 2 caths (stents x2) 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 per CTA 12/2020 Surgical History History of cardiac catheterization 2003 (stent x1) 2008 x 2 caths (stents x2) History of cervical spinal surgery C5-C7 ACDF History of cholecystectomy History of colonoscopy History of esophagogastroduodenoscopy (EGD) History of removal of cyst left elbow History of tooth extraction Family History Father , in his late 40s or early 50s of an MT Coronary heart disease Myocardial infarction Brother Colon cancer Pulmonary embolism Hx of CABG Mother , age 62 of diabetes and heart disease Diabetes Coronary heart disease Other No family history of adverse response to anesthesia Social History Smoking Status: Former smoker Tobacco Type: Smokeless Tobacco (Dip or Chew) packs per day: 1; Years Smoked: 40; Smoking End Date: Quit several years ago; Number of Years Since Quit: 35; Second Hand Exposure: No; Do You Dip or Chew Tobacco: Yes (1 can/2 days > advised none AM DOS); Tobacco Cessation Education Requested by Patient: No Hx Alcohol Use: No Hx Substance Use: Yes Substance Use Type Other:: Medical marijuana (inhaled)- rare use Preferred Language: Tajik Communication Ability: Effective Book Packer Required: No Beliefs That Will Affect Care: None marital status: Current Living Situation: Spouse current occupational status: retired current occupation: Retired in his early 50s as a [employer] [place] Feels Safe at Home: Yes Safety Concerns: Feels Safe At This Time Assistive Devices: None Physical Exam Physical Exam: Gen.: No acute distress. Alert and oriented x 3. HEENT: Anicteric sclera. Neck: No JVD. Bilateral carotid bruits, right greater than left. Normal carotid upstrokes bilaterally. Cardiac: PMI was nonpalpable. No ventricular heave. Regular. Normal S1-S2. 2/6 early peaking systolic ejection murmur. No rubs or gallops. Pulmonary: Clear to auscultation bilaterally without wheezes, rales, or rhonchi. Abdomen: Soft, nontender, nondistended, with normoactive bowel sounds. No bruits noted. Extremities: 2+ radial pulses bilaterally. 2+ posterior tibialis pulses bilaterally. No edema or cyanosis. Psychiatric: Affect appears appropriate. Results & Data ([facility]) Vital Signs (Past 12 Hours) Vital Signs Temp Pulse Pulse Resp BP BP Pulse Ox 02/10/21 15:17 71 16 96 02/10/21 11:40 78 18 98 02/10/21 11:35 36.8 C 73 18 179/80 H 02/10/21 07:29 67 16 98 02/10/21 05:53 182/82 H Laboratory Results Laboratory Results - last 24 hr 02/09/21 02/09/21 02/09/21 17:04 20:44 20:44 WBC 12.24 H RBC 4.22 L Hgb 12.5 L Hct 37.7 L MCV 89.3 MCH 29.6 MCHC 33.2 RDW Std Deviation 44.6 RDW Coeff of Amalia 13.6 Plt Count 216 MPV 9.9 Immature Gran % (Auto) 0.2 Neut % (Auto) 88.8 Lymph % (Auto) 8.3 Sherman % (Auto) 2.6 Eos % (Auto) 0.0 Baso % (Auto) 0.1 Neut # (Auto) 10.87 H Lymph # (Auto) 1.02 L Sherman # (Auto) 0.32 Eos # (Auto) 0.00 Baso # (Auto) 0.01 Immature Gran # (Auto) 0.02 Sodium 136 Potassium 4.3 Chloride 109 H Carbon Dioxide 19 L Anion Gap 8.0 BUN 24 H Creatinine 2.23 H Est Cr Clr Drug Dosing 29.3 Est GFR ( Amer) 32.2 Est GFR (Non-Af Amer) 27.8 BUN/Creatinine Ratio 10.5 Glucose 161 H POC Glucose 170 H Calcium 8.9 Magnesium 1.6 L Total Bilirubin 0.3 AST 18 ALT 14 Alkaline Phosphatase 100 Troponin I < 0.015 Total Protein 7.2 Albumin 3.5 Globulin 3.7 Albumin/Globulin Ratio 1.0 02/09/21 02/10/21 02/10/21 20:49 00:14 02:42 WBC RBC Hgb Hct MCV MCH MCHC RDW Std Deviation RDW Coeff of Amalia Plt Count MPV Immature Gran % (Auto) Neut % (Auto) Lymph % (Auto) Sherman % (Auto) Eos % (Auto) Baso % (Auto) Neut # (Auto) Lymph # (Auto) Sherman # (Auto) Eos # (Auto) Baso # (Auto) Immature Gran # (Auto) Sodium Potassium Chloride Carbon Dioxide Anion Gap BUN Creatinine Est Cr Clr Drug Dosing Est GFR ( Amer) Est GFR (Non-Af Amer) BUN/Creatinine Ratio Glucose POC Glucose 154 H 139 H Calcium Magnesium Total Bilirubin AST ALT Alkaline Phosphatase Troponin I < 0.015 Total Protein Albumin Globulin Albumin/Globulin Ratio 02/10/21 02/10/21 02/10/21 07:23 09:03 09:03 WBC RBC Hgb Hct MCV MCH MCHC RDW Std Deviation RDW Coeff of Amalia Plt Count MPV Immature Gran % (Auto) Neut % (Auto) Lymph % (Auto) Sherman % (Auto) Eos % (Auto) Baso % (Auto) Neut # (Auto) Lymph # (Auto) Sherman # (Auto) Eos # (Auto) Baso # (Auto) Immature Gran # (Auto) Sodium 140 Potassium 4.1 Chloride 109 H Carbon Dioxide 26 Anion Gap 5.0 BUN 24 H Creatinine 2.02 H Est Cr Clr Drug Dosing 32.4 Est GFR ( Amer) 36.3 Est GFR (Non-Af Amer) 31.3 BUN/Creatinine Ratio 11.8 Glucose 127 H POC Glucose 138 H Calcium 8.7 Magnesium Total Bilirubin AST ALT Alkaline Phosphatase Troponin I 4.980 H* Total Protein Albumin Globulin Albumin/Globulin Ratio 02/10/21 02/10/21 02/10/21 11:32 14:59 16:04 WBC RBC Hgb Hct MCV MCH MCHC RDW Std Deviation RDW Coeff of Amalia Plt Count MPV Immature Gran % (Auto) Neut % (Auto) Lymph % (Auto) Sherman % (Auto) Eos % (Auto) Baso % (Auto) Neut # (Auto) Lymph # (Auto) Sherman # (Auto) Eos # (Auto) Baso # (Auto) Immature Gran # (Auto) Sodium Potassium Chloride Carbon Dioxide Anion Gap BUN Creatinine Est Cr Clr Drug Dosing Est GFR ( Amer) Est GFR (Non-Af Amer) BUN/Creatinine Ratio Glucose POC Glucose 152 H 155 H Calcium Magnesium Total Bilirubin AST ALT Alkaline Phosphatase Troponin I 8.250 H* Total Protein Albumin Globulin Albumin/Globulin Ratio Diagnostic Findings ECGs personally reviewed: ECG 02/09/2021 at 10:51 p.m.: Sinus rhythm 70 beats per minute. Nonspecific ST/T-wave abnormality. ECG 02/10/2021 at 1:21 a.m.: Sinusrhythm 94 beats per minute. Anterior ST depression. ECG 02/10/2021 at 2:47 a.m.: Sinus rhythm 73 beats per minute. Anterior ST depression. ECG 02/10/2021 4:22 a.m.: Sinus rhythm 68 beats per minute. Nonspecific anterolateral ST abnormality. anterior ST depression has improved compared to prior ECG. Echo 02/10/2021: Normal LV size, wall motion, systolic function. EF 60-65%. Moderate LVH. Mild left atrial dilation. Mild AI. RVSP 40. Medications Administered Current Inpatient Medications Acetaminophen (Acetaminophen 500 Mg Tab) 1,000 mg PO Q8H PRN PRN Reason: MILD Pain Scale 1,2,3 & Pre PT Stop: 03/11/21 13:22 Al Hydrox/Mg Hydrox/Simethicone (Aluminum/Magnesium Susp 30 Ml Udc) 30 ml PO Q6H PRN PRN Reason: Dyspepsia Stop: 03/11/21 13:22 Last Admin: 02/10/21 00:49 Dose: 30 ml Documented by: Aspirin (Aspirin 81 Mg Ectab) 81 mg PO HS [facility] Stop: 03/11/21 20:59 Last Admin: 02/09/21 21:50 Dose: 81 mg Documented by: Bisacodyl (Bisacodyl 10 Mg Supp) 10 mg CO DAILY PRN PRN Reason: Constipation Stop: 03/13/21 11:22 Carvedilol (Carvedilol 25 Mg Tab) 25 mg PO BID [facility] Stop: 03/11/21 20:59 Last Admin: 02/10/21 08:01 Dose: 25 mg Documented by: Cyanocobalamin (Cyanocobalamin 500 Mcg Tablet (Vitamin B-12)) 1,000 mcg PO QAM [facility] Stop: 03/12/21 08:59 Last Admin: 02/10/21 08:02 Dose: 1,000 mcg Documented by: Diphenhydramine HCl (Diphenhydramine Capsule 25 Mg Cap) 25 mg PO Q6H PRN PRN Reason: Allergic Rhinitis/Insomnia Stop: 03/11/21 13:22 Epinephrine (Racepinephrine 2.25% Nebu Soln 0.5 Ml Vial) 0.5 ml INH NOW PRN PRN Reason: if stridor present Famotidine (Famotidine 20 Mg Tab) 20 mg PO Q12H PRN PRN Reason: Dyspepsia Stop: 03/11/21 13:22 Fish Oil ([place]-3 (Purified Fish Oil) 1 Gm Cap) 1 gm PO QAM [facility] Stop: 03/12/21 08:59 Last Admin: 02/10/21 08:00 Dose: 1 gm Documented by: Hydralazine HCl (Hydralazine Hcl 20 Mg/Ml Vial) 10 mg IV Q4H PRN PRN Reason: high blood pressure Stop: 03/11/21 21:31 Last Admin: 02/10/21 00:24 Dose: 10 mg Documented by: Hydromorphone HCl (Hydromorphone Inj 0.5 Mg/0.5 Ml Syr) 0.5 mg IV Q3H PRN PRN Reason: MOD pain (scale 4-6) & Pre PT Stop: 02/23/21 13:22 Hydromorphone HCl (Hydromorphone Inj 1 Mg/Ml Syringe) 1 mg IV Q3H PRN PRN Reason: severe pain (scale 7-10) Stop: 02/23/21 13:22 Hydroxyzine HCl (Hydroxyzine Hcl 25 Mg Tab) 25 mg PO Q8H PRN PRN Reason: Anxiety Stop: 03/11/21 13:22 Lorazepam (Ativan) 0.5 mg in 1 mls @ 1 mls/min IV Q8H PRN PRN Reason: Sedation/Anxiety Stop: 03/11/21 13:22 Dexamethasone 8 mg/ Syringe 2 mls @ 1 mls/min IV NOW PRN PRN Reason: stridor Promethazine HCl 12.5 mg/ (Sodium Chloride) 50.5 mls @ 202 mls/hr IV Q6H PRN PRN Reason: Nausea &/or Vomiting Stop: 03/11/21 13:22 Influenza Virus Vaccine Quadrival (Do Not Administer Flu Vaccine) 1 ea N/A PRN PRN PRN Reason: Notification Stop: 03/11/21 13:22 Insulin Aspart (Insulin Aspart 100 Units/Ml 3 Ml Pen) 0 units [facility] Stop: 03/11/21 16:29 Last Admin: 02/10/21 11:53 Dose: 1 units Documented by: Insulin Glargine (Insulin Glargine Solostar 100 Units/Ml 3 Ml Pen) 0 units [facility]; Protocol Stop: 03/12/21 20:59 Isosorbide Mononitrate (Isosorbide Sherman Extended Rel 60 Mg Tabcr) 120 mg PO QAM [facility] Stop: 03/12/21 08:59 Last Admin: 02/10/21 08:00 Dose: 120 mg Documented by: Linaclotide (Linaclotide 145 Mcg Capsule) 145 mcg PO DAILY PRN PRN Reason: Constipation Stop: 03/11/21 13:47 Lorazepam (Lorazepam 0.5 Mg Tab) 0.5 mg PO Q8H PRN PRN Reason: sedation/anxiety Stop: 03/11/21 13:22 Magnesium Chloride (Magnesium Chloride 64mg Delayed Rel Tab) 64 mg PO BID [facility] Stop: 03/11/21 20:59 Last Admin: 02/10/21 07:59 Dose: 64 mg Documented by: Magnesium Hydroxide (Magnesium Hydroxide Susp 30 Ml Udc) 30 ml PO Q24H PRN PRN Reason: Constipation Stop: 03/11/21 13:22 Melatonin (Melatonin 3 Mg Tab) 9 mg PO HS [facility]; Protocol Stop: 03/11/21 20:59 Last Admin: 02/09/21 21:52 Dose: 9 mg Documented by: Metoclopramide HCl (Metoclopramide Hcl Inj 5 Mg/Ml 2 Ml Vial) 10 mg IV Q6H PRN PRN Reason: Nausea &/or Vomiting Stop: 03/11/21 13:22 Miscellaneous Information (Pharmacy Glycemic Mgmt Consult) 1 ea N/A UD PRN PRN Reason: Consult Stop: 03/11/21 14:08 Naloxone HCl (Naloxone Hcl 0.4 Mg/1 Ml Vial/Carp) 0.1 mg IV Q5M PRN PRN Reason: Oversedation/respiratory dep Stop: 03/11/21 13:22 Nitroglycerin (Nitroglycerin Sl 0.4 Mg/Tab Tab) 0.4 mg SL UD PRN PRN Reason: Chest Pain Stop: 03/11/21 13:54 Nitroglycerin (Nitroglycerin 2% Ointment 30gm Tube) 1 inch EXT Q6 [facility] Stop: 03/12/21 01:51 Last Admin: 02/10/21 11:54 Dose: 1 inch Documented by: Ondansetron HCl (Ondansetron Inj 2 Mg/Ml 2 Ml Vial) 4 mg IV Q6H PRN PRN Reason: Nausea &/or Vomiting Stop: 03/11/21 13:22 Ondansetron HCl (Ondansetron 4 Mg Od Tab) 4 mg PO Q6H PRN PRN Reason: Nausea Stop: 03/11/21 13:22 Oxycodone HCl (Oxycodone Hcl Ir 5 Mg Tab (Immediate Release)) 5 - 10 mg PO Q4H PRN PRN Reason: Pain & Pre PT Stop: 02/23/21 13:22 Pantoprazole Sodium (Pantoprazole 40 Mg Tab) 40 mg PO BID [facility] Stop: 03/11/21 20:59 Last Admin: 02/10/21 08:02 Dose: 40 mg Documented by: Pneumococcal Polyvalent Vaccine (Do Not Administer Pneumococcal Vaccine) 1 ea N/A PRN PRN PRN Reason: Notification Stop: 03/11/21 13:22 Polyethylene Glycol (Polyethylene (Miralax) 17 Gm Pack) 17 gm PO Q6 [facility] Stop: 03/12/21 05:59 Last Admin: 02/10/21 12:20 Dose: 17 gm Documented by: Pravastatin Sodium (Pravastatin Sod 10 Mg Tab) 10 mg PO HS [facility] Stop: 03/11/21 20:59 Last Admin: 02/09/21 21:50 Dose: 10 mg Documented by: Senna/Docusate Sodium (Docusate Sodium/Senna 50/8.6mg Tab) 2 tab PO HS [facility] Stop: 03/11/21 20:59 Last Admin: 02/09/21 21:51 Dose: 2 tab Documented by: Sodium Biphosphate/Sodium Phosphate (Sod Phosphate/Sod Biphosphate Enema 132 Ml Btl) 132 ml CO ONE PRN PRN Reason: Constipation Stop: 03/11/21 13:22 Tramadol HCl (Tramadol Hcl 50 Mg Tablet) 50 - 100 mg PO Q4H PRN PRN Reason: Moderate-Severe pain & Pre PT Stop: 03/11/21 13:22 Vitamin D (Cholecalciferol 1,000 Units 25 Mcg Tab) [facility] [place]: 03/12/21 08:59 Last Admin: 02/10/21 08:01 Dose: 1,000 units Documented by: Vitamin E (Tocopheryl, Dl-Alpha 400 Units Cap) 400 units PO QAM [facility] Stop: 03/12/21 08:59 Last Admin: 02/10/21 08:01 Dose: 400 units Documented by: PG Care Time/CCT Total # of Minutes Spent Total Time Spent with Patient: Total time spent is greater than 50% in coordination of care (as documented) at patient's floor/unit and/or counseling patient: Coding Level of Care Code 53708 Initial Inpt Care Lvl 3 Diagnoses Non-ST elevation (NSTEMI) myocardial infarction I21.4 CAD (coronary artery disease) I25.10 S/P coronary artery stent placement Z95.5 Hypertension I10 Dyslipidemia E78.5
--- NOTE | 2021-02-10 16:41 | Ultrasound Report ---
CAROTID ARTERY ULTRASOUND CLINICAL HISTORY: new R sided bruit appreciated on PE COMPARISON STUDY: Carotid ultrasound August 09, 2008. TECHNIQUE: Real-time, grayscale, and color Doppler sonography of the carotid and vertebral arteries w as performed. Images were viewed in the transverse and longitudinal planes. FINDINGS: There is moderate atherosclerotic plaque present within the right carotid bifurcation. Velocity measu rements are listed below. COMMON CAROTID PEAK SYSTOLIC VELOCITY (CM/S): RIGHT 104 LEFT 96 ICA PEAK SYSTOLIC VELOCITY (CM/S): RIGHT 125 LEFT 115 Systolic ratios between the internal to common carotid arteries are normal. Note is made of elevated peak systolic velocity within the right external carotid artery of 277 cm/s. Antegrade flow is seen in the vertebral arteries. The external carotid arteries are patent. Blood pressure in the right arm measured 173/72. Blood pressure in the left arm measured 173/77. IMPRESSION: 1. Moderate atherosclerotic plaque within the proximal right internal carotid artery without evidence for a hemodynamically significant stenosis. 2. Probable stenosis of the proximal right external carotid artery. 3. Elevated blood pressure, as above. ACT 112: Negative or not required by law. Electronically signed by: Martín Travis M.D. 02/10/2021 4:40 PM
[2021-02-10] MEDS ORDERED: amLODIPine BESYLATE 5 MG TAB PO ONE (16:44)
--- NOTE | 2021-02-10 17:16 | Medical Student Progress Note ---
Date of Service February 10, 2021 Assessment & Plan (1) Non-ST elevation (NSTEMI) myocardial infarction: Guille Negron is a 75-year-old male with a PMHx of CAD with multiple stent placements, CKD, DM, dyslipidemia, BROOK, and vertebral artery stenosis who presented to [facility] emergency department 1 day s/p anterior cervical discectomy with chest pain radiating to the left arm and neck. He experienced significant hypertension in the post-operative period and he was admitted for investigation of demand ischemia vs acute infarction as the etiology of chest pain. Troponin elevation and ECG changes support the diagnosis of non-ST segment myocardial infarction. 1. NSTEMI * Troponin trending upward. undetectable on admission --> 4.98 --> 8.25. Continue trending * ECG on admission showed NSR with nonspecific ST and T wave abnormalities. Most recent ECG on 02/10/21 showed improvement with NSR. * ASA and Nitroglycerin administered in emergency department. Continue PRN * TTE performed 02/10/21: Normal LV size and function. EF 60-65%. Moderate LV hypertrophy. Mild LA dilation. Mild AR. Mild pulmonary HTN. * Cardiology consult appreciated. Awaiting cardiology input regarding PCI, heparin, and antiplatelet management. 2. Hypertension * Due to history of vertebrobasilar insufficiency and the patient's recent surgery, BP will be managed non-aggressively as long as patient remains asymptomatic. If patient experiences angina or other signs of hypertensive emergency, preload reduction will be indicated. JAKE inhibitors and ARBs will be avoided due to poor baseline kidney function * Carvedilol 25 mg BID. * Hydralazine PRN. Consider Consider IV beta joe or CCB if needed. 3. Hypomagnesemia * Magnesium 1.6 on admission. Repleted. Repeat BMP daily. Code Status: Full Code F/E/N: Normal Diet VTE PPx: SCDs Dispo: Medicine with Telemetry Admission and Anticipated Discharge Date Admission Date: February 09, 2021 Supervising Attestation I personally examined the patient and verified all noel points of history and exam, discussed case, and agree with decision making with Rogers Lopes MS4 Feeling better. No further chest pain. Otherwise no complaints. Vitals noted, in general he is awake and alert pleasant no distress. HEENT normocephalic atraumatic mucous membranes moist. Breathing unlabored no accessory muscle use good effort. Skin shows no rashes no pallor or icterus. Neuro shows no focal deficits. NSTEMIlikely related to marked hypertension with known coronary disease. Fortunately EKG changes have resolved and chest pain is resolved. No indication for urgent catheterization. Obviously having had a recent C-spine surgery we will need to be cautious with blood thinners, which is feasible given that his episode is resolved. Med management as best as possible. Otherwise as above Subjective Patient states that he feels well today. He denies chest pain, shortness of breath, palpitations, THOMAS, lightheadedness, or vision change. He is wearing a neck brace following the anterior cervical discectomy and he denies any neck pa in at rest or with minimal range of motion. The patient describes the post-operative symptom that originally brought him to the hospital was a feeling of burning facial sensation radiating to his chest. He notes that his bilateral face felt warm and tingly prior to experiencing a feeling of chest pressure more so than pain. During this time, he also had a headache and blurry vision lasting about 1 hour. He has not experienced any of these symptoms since presentation to the hospital. Review of Systems Constitutional: no fever, no chills, no body aches, no fatigue and no weakness Eyes: no problem reported Ear, Nose, Mouth, Throat: no problem reported Respiratory: as per Subjective / HPI Cardiovascular: as per Subjective / HPI Gastrointestinal: no abdominal pain, no nausea, no vomiting and no diarrhea/loose stools Genitourinary: no dysuria and no difficulty urinating Musculoskeletal: as per Subjective / HPI Neurologic: no generalized weakness, no loss of sensation, no tingling, no numbness and no headache(s) Physical Exam Constitutional: WD/WN, vitals as above no acute distress Eyes: PERRL, conjunctivae normal, anicteric sclerae ENMT: external ear and nose normal, oropharynx normal Neck: normal visual inspection Respiratory: normal respiratory effort, lungs clear to auscultation Cardiovascular: RRR, no murmur, no edema Gastrointestinal (Abdomen): normal bowel sounds, soft, nontender, no hepatosplenomegaly Skin: no rashes, warm and dry Psychiatric: A+Ox3, euthymic affect Results & Data ([facility]) Vital Signs (Past 12 Hours) Vital Signs Temp Pulse Pulse Resp BP BP Pulse Ox 02/10/21 15:17 71 16 96 02/10/21 11:40 78 18 98 02/10/21 11:35 36.8 C 73 18 179/80 H 02/10/21 07:29 67 16 98 02/10/21 05:53 182/82 H
--- NOTE | 2021-02-10 18:29 | Billing Data ---
Date of Service February 10, 2021 Coding Level of Care Code 92192 Subseq Hosp Care Lvl 3
[2021-02-10] MEDS: ASPIRIN 81 MG ECTAB PO SCH (20:42)
[2021-02-10] MEDS: PRAVASTATIN SOD 10 MG TAB PO SCH (20:44)
[2021-02-10] MEDS: DOCUSATE SODIUM/SENNA 50/8.6MG TAB PO SCH (20:47)
[2021-02-10] MEDS: MELATONIN 3 MG TAB PO SCH (20:48)
[2021-02-10] MEDS: INSULIN GLARGINE SOLOSTAR 100 UNITS/ML 3 ML PEN SC SCH (20:53)
[2021-02-11] MEDS: NITROGLYCERIN 2% OINTMENT 30GM TUBE EXT SCH ×4 (00:05→18:01)
[2021-02-11] MEDS: POLYETHYLENE (MIRALAX) 17 GM PACK PO SCH ×4 (00:05→18:01)
[2021-02-11 03:39] LABS: Basophils # (auto) 0.03 K/uL (0-0.2); Basophils % (auto) 0.2 %; Eosinophils # (auto) 0.18 K/uL (0-0.5); Eosinophils % (auto) 1.3 %; Hematocrit (blood only) 34.8 % (42-52); Hemoglobin 11.6 g/dL (14.0-18.0); Immature Granulocytes # (auto) 0.04 K/uL (0.00-0.02); Immature Granulocytes % (auto) 0.3 %; Lymphocytes # (auto) 2.71 K/uL (1.2-3.4); Lymphocytes % (auto) 20.1 %; Mean Corpuscular Hemoglobin 30.1 pg (25-34); Mean Corpuscular Hgb Conc 33.3 g/dL (32-36); Mean Corpuscular Volume 90.4 fL (80-100); Mean Platelet Volume 9.8 fL (7.4-10.4); Monocytes # (auto) 1.34 K/uL (0.11-0.59); Neutrophils # (auto) 9.16 K/uL (1.4-6.5); Neutrophils % (auto) 68.1 %; Platelet Count 209 K/uL (130-400); RDW Coefficient of Variation 13.8 % (11.5-14.5); Red Blood Count 3.85 M/uL (4.7-6.1); White Blood Count 13.46 K/uL (4.8-10.8)
--- NOTE | 2021-02-11 06:18 | Electrocardiogram Report ---
Test Reason : Blood Pressure : / mmHG Vent. Rate : 070 BPM Atrial Rate : 070 BPM P-R Int : 148 ms QRS Dur : 072 ms QT Int : 374 ms P-R-T Axes : 074 029 058 degrees QTc Int : 403 ms Normal sinus rhythm Nonspecific ST and T wave abnormality Abnormal ECG When compared with ECG of 17-DEC-2020 13:39, Criteria for Inferior infarct are no longer Present Nonspecific T wave abnormality now evident in Inferior leads Confirmed by Thaddeus Duarte ([id number]) on 02/11/2021 6:18:07 AM Referred By: Jonatan Henriquez Confirmed By:Thaddeus Duarte
--- NOTE | 2021-02-11 06:21 | Electrocardiogram Report ---
Test Reason : Blood Pressure : / mmHG Vent. Rate : 094 BPM Atrial Rate : 094 BPM P-R Int : 158 ms QRS Dur : 074 ms QT Int : 344 ms P-R-T Axes : 056 012 035 degrees QTc Int : 430 ms Normal sinus rhythm Cannot rule out Inferior infarct , age undetermined Abnormal ECG When compared with ECG of 09-FEB-2021 22:51, ST more depressed Anterior leads T wave inversion less evident in Anterolateral leads Confirmed by Thaddeus Duarte ([id number]) on 02/11/2021 6:20:45 AM Referred By: Jonatan Henriquez Confirmed By:Thaddeus Duarte
--- NOTE | 2021-02-11 06:24 | Electrocardiogram Report ---
Test Reason : Blood Pressure : / mmHG Vent. Rate : 068 BPM Atrial Rate : 068 BPM P-R Int : 154 ms QRS Dur : 076 ms QT Int : 298 ms P-R-T Axes : 053 021 082 degrees QTc Int : 316 ms Normal sinus rhythm Cannot rule out Inferior infarct , age undetermined Nonspecific ST and T wave abnormality Abnormal ECG When compared with ECG of 10-FEB-2021 02:47, ST less depressed in Anterior leads QT has shortened Confirmed by Thaddeus Duarte ([id number]) on 02/11/2021 6:24:42 AM Referred By: Jonatan Henriquez Confirmed By:Thaddeus Duarte
--- NOTE | 2021-02-11 06:24 | Electrocardiogram Report ---
Test Reason : Blood Pressure : / mmHG Vent. Rate : 073 BPM Atrial Rate : 073 BPM P-R Int : 154 ms QRS Dur : 076 ms QT Int : 388 ms P-R-T Axes : 061 029 080 degrees QTc Int : 427 ms Sinus rhythm with marked sinus arrhythmia Abnormal ECG When compared with ECG of 10-FEB-2021 01:21, No significant change Confirmed by Thaddeus Duarte ([id number]) on 02/11/2021 6:23:47 AM Referred By: Jonatan Henriquez Confirmed By:Thaddeus Duarte
[2021-02-11] MEDS: INSULIN ASPART 100 UNITS/ML 3 ML PEN SC SCH ×4 (08:10→20:37)
[2021-02-11] MEDS: CYANOCOBALAMIN 500 MCG TABLET (VITAMIN B-12) PO SCH (08:12)
[2021-02-11] MEDS: PANTOprazole 40 MG TAB PO SCH ×2 (08:13→20:21)
[2021-02-11] MEDS: OMEGA-3 (PURIFIED FISH OIL) 1 GM CAP PO SCH (08:13)
[2021-02-11] MEDS: carvediloL 25 MG TAB PO SCH ×2 (08:13→20:23)
[2021-02-11] MEDS: TOCOPHERYL, DL-ALPHA 400 UNITS 180 MG CAP PO SCH (08:13)
[2021-02-11] MEDS: MAGNESIUM CHLORIDE 64MG DELAYED REL TAB PO SCH ×2 (08:13→20:21)
[2021-02-11] MEDS: ISOSORBIDE MONO EXTENDED REL 60 MG TABCR PO SCH (08:13)
[2021-02-11] MEDS: CHOLECALCIFEROL 1,000 UNITS 25 MCG TAB PO SCH (08:14)
[2021-02-11] MEDS: amLODIPine BESYLATE 5 MG TAB PO SCH (09:12)
[2021-02-11 10:57] LABS: BUN Creatinine Ratio 16.5 (10-20); Calcium 8.6 mg/dl (8.5-10.1); Creatinine Clr Calc Pharmacy 29.1 ml/min; Est GFR (African American) 32.6; Est GFR (Non-African American) 28.1; Potassium 3.5 mmol/L (3.5-5.1)
[2021-02-11] MEDS: CLOPIDOGREL BISULFATE 75 MG TAB PO SCH (11:14)
[2021-02-11] MEDS ORDERED: bisacodyL 10 MG SUPP PR PRN (11:23)
--- NOTE | 2021-02-11 13:36 | Orthopedic Progress Note ---
Date of Service February 11, 2021 Assessment & Plan (1) Cervical stenosis of spinal canal: Admission and Anticipated Discharge Date Admission Date: February 09, 2021 At this time continue to monitor his medical status hopefully discharge home tomorrow. Subjective Patient's neck pain is well controlled. No arm symptoms. Has no other complaints today. Physical Exam Physical Exam: Patient is good strength to testing. Collar is in place. Results & Data ([facility]) Vital Signs (Past 12 Hours) Vital Signs Temp Pulse Pulse Pulse Resp BP Pulse Ox 02/11/21 11:23 36.2 C L 64 18 123/66 94 02/11/21 10:45 63 16 97 02/11/21 10:01 67 02/11/21 08:12 36.7 C 69 18 143/74 H 96 02/11/21 07:05 88 20 95 02/11/21 03:57 36.7 C 66 18 157/69 H 97 02/11/21 03:10 70 14 96
--- NOTE | 2021-02-11 17:07 | Cardiology Progress Note ---
Date of Service February 11, 2021 Assessment & Plan (1) Non-ST elevation (NSTEMI) myocardial infarction: (2) CAD (coronary artery disease): (3) S/P coronary artery stent placement: (4) Hypertension: (5) Ventricular tachycardia: (6) Dyslipidemia: ASSESSMENT/PLAN: 1. NSTEMI: Has had postoperative NSTEMI with anterior ST depression in the setting of severe hypertension with systolic blood pressure as high as 231 mmHg. Angina has since resolved and has remained asymptomatic. Normal LV systolic function on echo. ME likely due to underlying CAD in the setting of severe hypertension in the postoperative state. Recommend conservative management as he is currently asymptomatic and has underlying CKD. Continue carvedilol. Continue statin therapy as tolerated. Continue aspirin 81 mg daily. Plavix 75 mg once daily was resumed today (part of chronic regimen as well). Continue beau cium channel joe. Blood pressure much better controlled. 2. CAD s/p RCA and Cx PCI: Had anginal event with NSTEMI on research program coordinator 02/10/2021. Continue aspirin 81 mg daily. Resumed Plavix 75 mg today. Continue statin therapy as tolerated. Continue beta-joe. Amlodipine started yesterday; continue. If safe from a renal standpoint, could consider JAKE-inhibitor. He follows with Nephrology. Continue nitrate therapy. 3. Hypertension: Blood pressure much better controlled. Continue outpatient regimen with the addition of amlodipine started yesterday. 4. Dyslipidemia: Has been intolerant to statin therapies in the past but is apparently tolerating pravastatin. Continue outpatient statin regimen. 5. Ventricular tachycardia: Had 1 ventricular triplet noted on telemetry. No sustained arrhythmia. Continue beta-joe. 6. Disposition: Can be discharged from a cardiology perspective tomorrow, 48 hours after NSTEMI. If okay from ortho standpoint, consider cardiac rehab as an outpatient. Follow-up with Dr. Savage, primary market research interviewer, in 1 week. Admission and Anticipated Discharge Date Admission Date: February 09, 2021 Subjective He has not had any further chest pain. He denies shortness of breath, syncope, near-syncope, palpitations, edema, or bleeding. He had no questions or concerns. Review of systems: As above. Physical Exam Physical Exam: Gen.: No acute distress. Alert and oriented x 3. HEENT: Anicteric sclera. Neck: No JVD. Cardiac: Regular. Normal S1-S2. 2/6 early peaking systolic ejection murmur. No rubs or gallops. Pulmonary: Clear to auscultation bilaterally without wheezes, rales, or rhonchi. Abdomen: Soft, nontender, nondistended, with normoactive bowel sounds. No bruits noted. Extremities: 2+ radial pulses bilaterally. 2+ posterior tibialis pulses bilaterally. No edema or cyanosis. Psychiatric: Affect appears appropriate. Results & Data ([facility]) Vital Signs (Past 12 Hours) Vital Signs Temp Pulse Pulse Pulse Resp BP Pulse Ox 02/11/21 15:55 61 02/11/21 15:25 36.3 C L 63 20 111/70 95 02/11/21 14:53 66 17 96 02/11/21 11:23 36.2 C L 64 18 123/66 94 02/11/21 10:45 63 16 97 02/11/21 10:01 67 02/11/21 08:12 36.7 C 69 18 143/74 H 96 02/11/21 07:05 88 20 95 Laboratory Results Laboratory Results - last 24 hr 02/10/21 02/10/21 02/11/21 20:51 20:52 03:22 WBC RBC Hgb Hct MCV MCH MCHC RDW Std Deviation RDW Coeff of Amalia Plt Count MPV Immature Gran % (Auto) Neut % (Auto) Lymph % (Auto) Scott % (Auto) Eos % (Auto) Baso % (Auto) Neut # (Auto) Lymph # (Auto) Scott # (Auto) Eos # (Auto) Baso # (Auto) Immature Gran # (Auto) Sodium Potassium Chloride Carbon Dioxide Anion Gap BUN Creatinine Est Cr Clr Drug Dosing Est GFR ( Amer) Est GFR (Non-Af Amer) BUN/Creatinine Ratio Glucose POC Glucose 115 H Calcium Troponin I 8.380 H* 6.970 H* 02/11/21 02/11/21 02/11/21 03:22 07:38 10:19 WBC 13.46 H RBC 3.85 L Hgb 11.6 L Hct 34.8 L MCV 90.4 MCH 30.1 MCHC 33.3 RDW Std Deviation 45.0 RDW Coeff of Amalia 13.8 Plt Count 209 MPV 9.8 Immature Gran % (Auto) 0.3 Neut % (Auto) 68.1 Lymph % (Auto) 20.1 Scott % (Auto) 10.0 Eos % (Auto) 1.3 Baso % (Auto) 0.2 Neut # (Auto) 9.16 H Lymph # (Auto) 2.71 Scott # (Auto) 1.34 H Eos # (Auto) 0.18 Baso # (Auto) 0.03 Immature Gran # (Auto) 0.04 H Sodium 141 Potassium 3.5 Chloride 108 H Carbon Dioxide 27 Anion Gap 6.0 BUN 36 H Creatinine 2.21 H Est Cr Clr Drug Dosing 29.1 Est GFR ( Amer) 32.6 Est GFR (Non-Af Amer) 28.1 BUN/Creatinine Ratio 16.5 Glucose 112 H POC Glucose 110 H Calcium 8.6 Troponin I 02/11/21 02/11/21 11:21 16:29 WBC RBC Hgb Hct MCV MCH MCHC RDW Std Deviation RDW Coeff of Amalia Plt Count MPV Immature Gran % (Auto) Neut % (Auto) Lymph % (Auto) Scott % (Auto) Eos % (Auto) Baso % (Auto) Neut # (Auto) Lymph # (Auto) Scott # (Auto) Eos # (Auto) Baso # (Auto) Immature Gran # (Auto) Sodium Potassium Chloride Carbon Dioxide Anion Gap BUN Creatinine Est Cr Clr Drug Dosing Est GFR ( Amer) Est GFR (Non-Af Amer) BUN/Creatinine Ratio Glucose POC Glucose 117 H 113 H Calcium Troponin I Diagnostic Findings Telemetry personally reviewed: Sinus rhythm. One episode of ventricular tachycardia consisting of 3 beats. Medications Administered Current Inpatient Medications Acetaminophen (Acetaminophen 500 Mg Tab) 1,000 mg PO Q8H PRN PRN Reason: MILD Pain Scale 1,2,3 & Pre PT Stop: 03/11/21 13:22 Al Hydrox/Mg Hydrox/Simethicone (Aluminum/Magnesium Susp 30 Ml Udc) 30 ml PO Q6H PRN PRN Reason: Dyspepsia Stop: 03/11/21 13:22 Last Admin: 02/10/21 00:49 Dose: 30 ml Documented by: Amlodipine Besylate (Amlodipine Besylate 5 Mg Tab) 5 mg PO QAM [facility] Stop: 03/13/21 08:59 Last Admin: 02/11/21 09:12 Dose: 5 mg Documented by: Aspirin (Aspirin 81 Mg Ectab) 81 mg PO HS [facility] Stop: 03/11/21 20:59 Last Admin: 02/10/21 20:42 Dose: 81 mg Documented by: Bisacodyl (Bisacodyl 10 Mg Supp) 10 mg OR DAILY PRN PRN Reason: Constipation Stop: 03/13/21 11:22 Carvedilol (Carvedilol 25 Mg Tab) 25 mg PO BID [facility] Stop: 03/11/21 20:59 Last Admin: 02/11/21 08:13 Dose: 25 mg Documented by: Clopidogrel Bisulfate (Clopidogrel Bisulfate 75 Mg Tab) 75 mg PO [facility] Stop: 03/13/21 09:44 Last Admin: 02/11/21 11:14 Dose: 75 mg Documented by: Cyanocobalamin (Cyanocobalamin 500 Mcg Tablet (Vitamin B-12)) 1,000 mcg PO [facility] Stop: 03/12/21 08:59 Last Admin: 02/11/21 08:12 Dose: 1,000 mcg Documented by: Diphenhydramine HCl (Diphenhydramine Capsule 25 Mg Cap) 25 mg PO Q6H PRN PRN Reason: Allergic Rhinitis/Insomnia Stop: 03/11/21 13:22 Epinephrine (Racepinephrine 2.25% Nebu Soln 0.5 Ml Vial) 0.5 ml INH NOW PRN PRN Reason: if stridor present Famotidine (Famotidine 20 Mg Tab) 20 mg PO Q12H PRN PRN Reason: Dyspepsia Stop: 03/11/21 13:22 Fish Oil (Canvas-3 (Purified Fish Oil) 1 Gm Cap) 1 gm PO [facility] Stop: 03/12/21 08:59 Last Admin: 02/11/21 08:13 Dose: 1 gm Documented by: Hydralazine HCl (Hydralazine Hcl 20 Mg/Ml Vial) 10 mg IV Q4H PRN PRN Reason: high blood pressure Stop: 03/11/21 21:31 Last Admin: 02/10/21 00:24 Dose: 10 mg Documented by: Hydromorphone HCl (Hydromorphone Inj 0.5 Mg/0.5 Ml Syr) 0.5 mg IV Q3H PRN PRN Reason: MOD pain (scale 4-6) & Pre PT Stop: 02/23/21 13:22 Hydromorphone HCl (Hydromorphone Inj 1 Mg/Ml Syringe) 1 mg IV Q3H PRN PRN Reason: severe pain (scale 7-10) Stop: 02/23/21 13:22 Hydroxyzine HCl (Hydroxyzine Hcl 25 Mg Tab) 25 mg PO Q8H PRN PRN Reason: Anxiety Stop: 03/11/21 13:22 Lorazepam (Ativan) 0.5 mg in 1 mls @ 1 mls/min IV Q8H PRN PRN Reason: Sedation/Anxiety Stop: 03/11/21 13:22 Dexamethasone 8 mg/ Syringe 2 mls @ 1 mls/min IV NOW PRN PRN Reason: stridor Promethazine HCl 12.5 mg/ (Sodium Chloride) 50.5 mls @ 202 mls/hr IV Q6H PRN PRN Reason: Nausea &/or Vomiting Stop: 03/11/21 13:22 Influenza Virus Vaccine Quadrival (Do Not Administer Flu Vaccine) 1 ea N/A PRN PRN PRN Reason: Notification Stop: 03/11/21 13:22 Insulin Aspart (Insulin Aspart 100 Units/Ml 3 Ml Pen) 0 units [facility] Stop: 03/11/21 16:29 Last Admin: 02/11/21 16:56 Dose: 6 units Documented by: Insulin Glargine (Insulin Glargine Solostar 100 Units/Ml 3 Ml Pen) 0 units [facility]; Protocol Stop: 03/12/21 20:59 Last Admin: 02/10/21 20:53 Dose: 6 units Documented by: Isosorbide Mononitrate (Isosorbide Scott Extended Rel 60 Mg Tabcr) 120 mg PO [facility] Stop: 03/12/21 08:59 Last Admin: 02/11/21 08:13 Dose: 120 mg Documented by: Linaclotide (Linaclotide 145 Mcg Capsule) 145 mcg PO DAILY PRN PRN Reason: Constipation Stop: 03/11/21 13:47 Lorazepam (Lorazepam 0.5 Mg Tab) 0.5 mg PO Q8H PRN PRN Reason: sedation/anxiety Stop: 03/11/21 13:22 Magnesium Chloride (Magnesium Chloride 64mg Delayed Rel Tab) 64 mg PO BID [facility] Stop: 03/11/21 20:59 Last Admin: 02/11/21 08:13 Dose: 64 mg Documented by: Magnesium Hydroxide (Magnesium Hydroxide Susp 30 Ml Udc) 30 ml PO Q24H PRN PRN Reason: Constipation Stop: 03/11/21 13:22 Melatonin (Melatonin 3 Mg Tab) 9 mg PO HS [facility]; Protocol Stop: 03/11/21 20:59 Last Admin: 02/10/21 20:48 Dose: 9 mg Documented by: Metoclopramide HCl (Metoclopramide Hcl Inj 5 Mg/Ml 2 Ml Vial) 10 mg IV Q6H PRN PRN Reason: Nausea &/or Vomiting Stop: 03/11/21 13:22 Miscellaneous Information (Pharmacy Glycemic Mgmt Consult) 1 ea N/A UD PRN PRN Reason: Consult Stop: 03/11/21 14:08 Naloxone HCl (Naloxone Hcl 0.4 Mg/1 Ml Vial/Carp) 0.1 mg IV Q5M PRN PRN Reason: Oversedation/respiratory dep Stop: 03/11/21 13:22 Nitroglycerin (Nitroglycerin Sl 0.4 Mg/Tab Tab) 0.4 mg SL UD PRN PRN Reason: Chest Pain Stop: 03/11/21 13:54 Nitroglycerin (Nitroglycerin 2% Ointment 30gm Tube) 1 inch EXT Q6 [facility] Stop: 03/12/21 01:51 Last Admin: 02/11/21 12:10 Dose: 1 inch Documented by: Ondansetron HCl (Ondansetron Inj 2 Mg/Ml 2 Ml Vial) 4 mg IV Q6H PRN PRN Reason: Nausea &/or Vomiting Stop: 03/11/21 13:22 Ondansetron HCl (Ondansetron 4 Mg Od Tab) 4 mg PO Q6H PRN PRN Reason: Nausea Stop: 03/11/21 13:22 Oxycodone HCl (Oxycodone Hcl Ir 5 Mg Tab (Immediate Release)) 5 - 10 mg PO Q4H PRN PRN Reason: Pain & Pre PT Stop: 02/23/21 13:22 Pantoprazole Sodium (Pantoprazole 40 Mg Tab) 40 mg PO BID [facility] Stop: 03/11/21 20:59 Last Admin: 02/11/21 08:13 Dose: 40 mg Documented by: Pneumococcal Polyvalent Vaccine (Do Not Administer Pneumococcal Vaccine) 1 ea N/A PRN PRN PRN Reason: Notification Stop: 03/11/21 13:22 Polyethylene Glycol (Polyethylene (Miralax) 17 Gm Pack) 17 gm PO Q6 [facility] Stop: 03/12/21 05:59 Last Admin: 02/11/21 12:14 Dose: Not Given Documented by: Pravastatin Sodium (Pravastatin Sod 10 Mg Tab) 10 mg PO HS [facility] Stop: 03/11/21 20:59 Last Admin: 02/10/21 20:44 Dose: 10 mg Documented by: Senna/Docusate Sodium (Docusate Sodium/Senna 50/8.6mg Tab) 2 tab PO HS [facility] Stop: 03/11/21 20:59 Last Admin: 02/10/21 20:47 Dose: 2 tab Documented by: Sodium Biphosphate/Sodium Phosphate (Sod Phosphate/Sod Biphosphate Enema 132 Ml Btl) 132 ml OR ONE PRN PRN Reason: Constipation Stop: 03/11/21 13:22 Tramadol HCl (Tramadol Hcl 50 Mg Tablet) 50 - 100 mg PO Q4H PRN PRN Reason: Moderate-Severe pain & Pre PT Stop: 03/11/21 13:22 Vitamin D (Cholecalciferol 1,000 Units 25 Mcg Tab) 1,000 units PO QAM [facility] Stop: 03/12/21 08:59 Last Admin: 02/11/21 08:14 Dose: 1,000 units Documented by: Vitamin E (Tocopheryl, Dl-Alpha 400 Units Cap) 400 units PO QAM [facility] Stop: 03/12/21 08:59 Last Admin: 02/11/21 08:13 Dose: 400 units Documented by: PG Care Time/CCT Total # of Minutes Spent Total Time Spent with Patient: Total time spent is greater than 50% in coordination of care (as documented) at patient's floor/unit and/or counseling patient: Coding Level of Care Code 72805 Subseq Hosp Care Lvl 3 Diagnoses Non-ST elevation (NSTEMI) myocardial infarction I21.4 CAD (coronary artery disease) I25.10 S/P coronary artery stent placement Z95.5 Hypertension I10 Ventricular tachycardia I47.2 Dyslipidemia E78.5
--- NOTE | 2021-02-11 17:46 | Medical Student Progress Note ---
Date of Service February 11, 2021 Assessment & Plan (1) Non-ST elevation (NSTEMI) myocardial infarction: Guille Negron is a 75-year-old male with a PMHx of CAD with multiple stent placements, CKD, DM, dyslipidemia, BROOK, and vertebral artery stenosis who presented to [facility] emergency department 1 day s/p anterior cervical discectomy with chest pain radiating to the left arm and neck. He was found to have experienced a postoperative NSTEMI with anterior ST depression in the setting of severe hypertension. 1. NSTEMI * Troponin has peaked and started to trend downward. 4.98 --> 8.25 --> 6.97 * ECG on admission showed NSR with nonspecific ST and T wave abnormalities. Most recent ECG on 02/10/21 showed improvement with NSR. * Nitroglycerin administered in emergency department. * TTE performed 02/10/21: Normal LV size and function. EF 60-65%. Moderate LV hypertrophy. Mild LA dilation. Mild AR. Mild pulmonary HTN. * Cardiology consult appreciated. Recommend resuming dual anti-platelet therapy and addition of a CCB for tighter blood pressure control. Catheterization not recommended moving forward due to the patient's poor baseline kidney function * Initiated Clopidogrel 75 mg daily. Continue dual anti-platelet therapy with Clopidogrel 75 mg and ASA 81 mg. * Follow up with outpatient veterans contact representative, Dr. Savage 2. Hypertension * Carvedilol 25 mg BID. * Initiated Amlodipine 5 mg daily. Continue to monitor patient's blood pressure to determine if dose adjustment is necessary prior to discharge or at the time outpatient follow up 3. Hypomagnesemia * Magnesium 1.6 on admission. Repleted. Repeat BMP daily. Code Status: Full Code F/E/N: Normal Diet VTE PPx: SCDs Dispo: Medicine with Telemetry Admission and Anticipated Discharge Date Admission Date: February 09, 2021 Supervising Attestation I personally examined the patient and verified all noel points of history and exam, discussed case, and agree with decision making with Rogers Lopes MS4 feels fine. no new complaints. no chest pain no short of breath. Vitals noted, in general he is awake and alert pleasant no distress. HEENT normocephalic atraumatic mucous membranes moist. Breathing unlabored no accessory muscle use good effort. Skin shows no rashes no pallor or icterus. Neuro shows no focal deficits. NSTEMIlikely related to marked hypertension with known coronary disease. Fortunately EKG changes have resolved and chest pain is resolved. No indication for urgent catheterization. doing better, follow through today, hopefully home tomorrow. Otherwise as above Subjective Patient does not have any concerns today. He denies shortness of breath, chest pain, THOMAS, lightheadedness or dizziness with ambulation, or palpitations. Review of Systems Constitutional: no fever, no chills, no fatigue, no weakness and no anorexia Eyes: no problem reported Ear, Nose, Mouth, Throat: no problem reported Respiratory: as per Subjective / HPI Cardiovascular: as per Subjective / HPI Gastrointestinal: no abdominal pain, no heartburn, no nausea, no vomiting, no constipation and no diarrhea/loose stools Genitourinary: no problem reported Musculoskeletal: no neck pain Neurologic: no problem reported Psychiatric: no problem reported Physical Exam Constitutional: WD/WN, vitals as above no acute distress Eyes: PERRL, conjunctivae normal, anicteric sclerae ENMT: external ear and nose normal, oropharynx normal Neck: normal visual inspection (bandages present at site of surgical incision) Respiratory: normal respiratory effort, lungs clear to auscultation Cardiovascular: RRR, no murmur, no edema Gastrointestinal (Abdomen): normal bowel sounds, soft, nontender, no hepatosplenomegaly Skin: no rashes, warm and dry Psychiatric: A+Ox3, euthymic affect Results & Data ([facility]) Vital Signs (Past 12 Hours) Vital Signs Temp Pulse Pulse Pulse Resp BP Pulse Ox 02/11/21 15:55 61 02/11/21 15:25 36.3 C L 63 20 111/70 95 02/11/21 14:53 66 17 96 02/11/21 11:23 36.2 C L 64 18 123/66 94 02/11/21 10:45 63 16 97 02/11/21 10:01 67 02/11/21 08:12 36.7 C 69 18 143/74 H 96 02/11/21 07:05 88 20 95
--- NOTE | 2021-02-11 19:37 | Billing Data ---
Date of Service February 11, 2021 Coding Level of Care Code 68792 Subseq Hosp Care Lvl 3
[2021-02-11] MEDS: ASPIRIN 81 MG ECTAB PO SCH (20:22)
[2021-02-11] MEDS: PRAVASTATIN SOD 10 MG TAB PO SCH (20:22)
[2021-02-11] MEDS: DOCUSATE SODIUM/SENNA 50/8.6MG TAB PO SCH (20:23)
[2021-02-11] MEDS: INSULIN GLARGINE SOLOSTAR 100 UNITS/ML 3 ML PEN SC SCH (20:38)
[2021-02-11] MEDS: MELATONIN 3 MG TAB PO SCH (21:51)
--- NOTE | 2021-02-11 22:03 | Billing Data ---
Date of Service February 11, 2021 Coding Level of Care Code 22130 Inpt Consult Level 4
[2021-02-12] MEDS: NITROGLYCERIN 2% OINTMENT 30GM TUBE EXT SCH ×2 (00:05→06:16)
[2021-02-12] MEDS: POLYETHYLENE (MIRALAX) 17 GM PACK PO SCH ×2 (00:12→06:08)
[2021-02-12] MEDS: INSULIN ASPART 100 UNITS/ML 3 ML PEN SC SCH (07:48)
[2021-02-12] MEDS: MAGNESIUM CHLORIDE 64MG DELAYED REL TAB PO SCH (07:51)
[2021-02-12] MEDS: CYANOCOBALAMIN 500 MCG TABLET (VITAMIN B-12) PO SCH (07:51)
[2021-02-12] MEDS: amLODIPine BESYLATE 5 MG TAB PO SCH (07:51)
[2021-02-12] MEDS: CHOLECALCIFEROL 1,000 UNITS 25 MCG TAB PO SCH (07:52)
[2021-02-12] MEDS: ISOSORBIDE MONO EXTENDED REL 60 MG TABCR PO SCH (07:52)
[2021-02-12] MEDS: OMEGA-3 (PURIFIED FISH OIL) 1 GM CAP PO SCH (07:52)
[2021-02-12] MEDS: CLOPIDOGREL BISULFATE 75 MG TAB PO SCH (07:52)
[2021-02-12] MEDS: carvediloL 25 MG TAB PO SCH (07:53)
[2021-02-12] MEDS: TOCOPHERYL, DL-ALPHA 400 UNITS 180 MG CAP PO SCH (07:53)
[2021-02-12] MEDS: PANTOprazole 40 MG TAB PO SCH (08:21)
--- NOTE | 2021-02-12 09:42 | Orthopedic Progress Note ---
Date of Service February 12, 2021 Assessment & Plan (1) Cervical stenosis of spinal canal: Patient is orthopedically stable. We will plan for discharge home today. Admission and Anticipated Discharge Date Admission Date: February 09, 2021 Supervising Physician Co-Signing Physician Notes Dr. Jonatan Henriquez Subjective Patient is doing well status post ACDF. Denies any dysphonia or dysphagia. Denies any upper extremity pain, numbness, weakness. He is up and ambulatory around the hallways. Denies chest pain or shortness of breath. He has been deemed stable from a cardiac and medicine standpoint for discharge today. Physical Exam Physical Exam: Alert and oriented x3 anterior cervical dressing is clean dry and intact Strength is intact bilateral upper extremities Calves are soft nontender bilaterally Results & Data ([facility]) Vital Signs (Past 12 Hours) Vital Signs Temp Pulse Pulse Pulse Resp BP Pulse Ox 02/12/21 08:30 67 02/12/21 08:10 36.8 C 74 18 146/66 H 02/12/21 07:35 64 16 96 02/12/21 04:33 36.9 C 62 20 157/74 H 96 02/12/21 03:20 61 20 94 02/11/21 23:45 36.8 C 65 16 148/78 H 96 02/11/21 23:34 64 02/11/21 23:00 71 18 96
--- NOTE | 2021-02-12 13:09 | Med Student Discharge Summary ---
Date of Service February 12, 2021 Admission HPI Per Admitting Provider This is a 75-year-old male presents with chronic persistent neck and arm pain. Failing course of nonoperative care is here for surgical invention. Discharge Data Consultations 02/09/21 19:26 Consult Hospitalist Routine 02/10/21 02:28 Consult Cardiology Routine Procedures Performed Operation Date: 02/09/21 09:35 Actual Procedures p C4-C5 Anterior Cervical Discectomy and Fusion, Spinal Cord Monitoring - Jonatan Henriquez DO Hospital Course (1) Non-ST elevation (NSTEMI) myocardial infarction: Guille Negron is a 75-year-old male with a PMHx of CAD with multiple stent placements, CKD, DM, dyslipidemia, BROOK, and vertebral artery stenosis who presented to [facility] emergency department 1 day s/p anterior cervical discectomy with chest pain radiating to the left arm and neck. He was found to have experienced a postoperative NSTEMI with anterior ST depression in the setting of severe hypertension. 1. NSTEMI * Troponin has peaked and started to trend downward. 4.98 --> 8.25 --> 6.97 * ECG on admission showed NSR with nonspecific ST and T wave abnormalities. Most recent ECG on 02/10/21 showed improvement with NSR. * Nitroglycerin administered in emergency department. * TTE performed 02/10/21: Normal LV size and function. EF 60-65%. Moderate LV hypertrophy. Mild LA dilation. Mild AR. Mild pulmonary HTN. * Cardiology consult appreciated. Recommend resuming dual anti-platelet therapy and addition of a CCB for tighter blood pressure control. Catheterization not recommended moving forward due to the patient's poor baseline kidney function * Initiated Clopidogrel 75 mg daily. Continue dual anti-platelet therapy with Clopidogrel 75 mg and ASA 81 mg. * Dyslipidemia managed with Pravastatin 10 mg due to history of statin intolerance * Follow up with outpatient web publisher, Dr. Savage. The option of cardiac rehabilitation will be discussed during outpatient follow up 2. Hypertension * Carvedilol 25 mg BID. * Initiated Amlodipine 5 mg daily. Patient's blood pressure remains labile at time of discharge. Blood pressure lowered to 105/61 after initiating amlodipine but blood pressure increased to186/87 the following day (day of discharge). Patient remains asymptomatic. Recommend outpatient follow up to determine appropriate medical management 3. Hypomagnesemia * Magnesium 1.6 on admission. Repleted. Repeat BMP daily. Code Status: Full Code F/E/N: Normal Diet VTE PPx: Dispo: Discharge home Discharge Plan Discharge Items Patient Disposition: Home - Self-Care Reason For Visit: Spinal Stenosis, Cervical Region Discharge Diagnosis: Cervical spinal stenosis with radiculopathy Activity: As commented below Lifting: None Bathing Comment: may shower 02/12 Exercise/Sports: None Non-emergency contact: Primary Care Provider and Director Of Scientific Research Call non-emergency contact if: you have any medication questions Follow-up/Referrals: Ranjan Savage Jr, MD, [facility] [Physician] - 02/19/21 3:30 pm (Please follow up with Joshua Mejia PA-C (Dr. Savage) on 02/19/21 at 3:30 pm. Please arrive to the office at 3:15 pm for your appointment. If you are unable to keep this appointment, please call the office to reschedule at [phone]. ) Shaina Kenyon [Primary Care Provider] - Diet: Heart Healthy Addtl Attending Provider Instructions: ACTIVITY RECOMMENDATIONS: SELF CARE INSTRUCTIONS AFTER CERVICAL FUSIONS 1. No smoking. Smoking drastically decreases the chance of a solid fusion. 2. No bending, lifting more than 5 pounds, or twisting (roll like a log when turning in bed). 3. You may shower 3 days after surgery. Thoroughly dry wound. Do not soak in the tub. 4. Cervical collar: Must be worn at all times including sleeping. You may remove the brace only to bath, eat and if you are sitting in a recliner. 5. Please walk as much as you can for exercise. Gradually increase the distance that you walk as your endurance increases. SPECIAL CARE INSTRUCTIONS: VERY IMPORTANT TO READ AND REVIEW A. Do not take any anti-inflammatory medications (i.e. Indocin, Advil, Aspirin, Naprosyn, Aleve, Motrin, etc.) as these may inhibit the chance of a solid fusion. Tylenol is okay to take. B. Your surgical incision has been closed with a cosmetic suture under the skin that will dissolve in about 6 weeks. In 14 days, you can use a pair of clean scissors and cut the suture that is left outside of the skin at the ends of your incision. C. Complications are uncommon, but please contact us if you have any signs or symptoms of: 1. wound infection (fever higher than 102.5 degrees F, redness, separation of wound, drainage, or increasing pain from the incision) 2. blood clots in legs (pain, swelling, redness and warmth in legs) 3. urinary tract infection (fever higher than 102.5 degrees, burning upon urination or increased frequency of urination) 4. nerve problems (inability to walk on your toes or heels, numbness, loss of bowel or bladder control) 5. any other symptoms that concern you. D. Please call the office at if you have any concerns or questions about your operation or recovery. MANAGING PAIN AFTER SPINAL SURGERY 1. Narcotic medication is intended for short-term use and will be provided for surgical pain. Surgical pain usually lasts for a period of 4-6 weeks. Narcotic medication includes Percocet, Vicodin, Darvocet, Tylenol #3 or Lortab. 2. Longer-term pain is more appropriately treated with non-narcotic medication such as Tylenol ES. 3. Muscle spasm is not appropriately treated with narcotics. Muscle relaxers such as Soma, Flexeril or Skelaxin can be used along with Tylenol ES. 4. Remember that we all live with some "aches and pains". This is not unusual or uncommon after an injury or as we get older. 5. We will provide appropriate medication within the normal guidelines of their prescribed use. We will also be very cautious and aware of potential abuse and extended duration of patients' medication needs. 6. Please allow 2-3 days to process refills. Prescriptions will not be mailed but must be picked up at the office. FOLLOW UP VISIT: Keep your scheduled follow-up appointment. Any questions, please call the office at . Addtl Coin Machine Servicer Repairer Provider Instructions: After your surgery, your blood pressure was running very high - you then developed left-sided chest pain. An EKG showed evidence of lack of blood flow to the heart (this is called ischemia). A troponin (blood marker of cardiac stress) was checked and it was elevated. You likely suffered a small heart attack. Cardiology was consulted and recommend you follow up with Dr. Savage as an outpatient and consider participating in cardiac rehab (a supervised exercise program that works to promote cardiovascular health in patients who have had heart attacks). To make sure your blood pressure does not continue to run high, we have added a low dose of a medication called "amlodipine." Please take amlodipine, 5mg, daily. Pending Studies at Discharge: No Stand-Alone Forms: [facility], Smoking Cessation Medications and DC Order Prescriptions: New tramadol 50 mg tablet 50 mg PO Q6H PRN (Reason: pain, moderate) Qty: 20 RF: 0 oxycodone 5 mg tablet 5 mg PO Q6H PRN (Reason: pain, severe) Qty: 20 RF: 0 amlodipine [Norvasc] 5 mg Tablet 5 mg PO QAM Qty: 30 RF: 1 Continued isosorbide mononitrate 120 mg tablet extended release 24 hr 120 mg PO QAM Qty: 90 RF: 3 pantoprazole 40 mg tablet,delayed release (DR/EC) 40 mg PO BID Qty: 180 RF: 3 carvedilol 25 mg tablet 25 mg PO BID Qty: 180 RF: 3 Slow-Mag 71.5 mg tablet,delayed release (DR/EC) 143 mg PO BID RF: 0 omega-3 fatty acids [Fish Oil Concentrate] 1,000 mg capsule 3,000 mg PO QAM RF: 0 pravastatin 10 mg tablet 10 mg PO HS RF: 0 aspirin 81 mg Tablet,Delayed Release (Dr/Ec) 81 mg PO HS RF: 0 coQ10 (ubiquinol) 200 mg Capsule 400 mg PO QAM RF: 0 melatonin 10 mg Tablet 10 mg PO HS RF: 0 Lantus Solostar U-100 Insulin 100 unit/mL (3 mL) insulin pen 12 unit subcut QPM RF: 0 cholecalciferol (vitamin D3) [Vitamin D3] 1,000 unit Tablet,Chewable 1,000 unit PO QAM RF: 0 clopidogrel 75 mg tablet 75 mg PO QAM RF: 0 nitroglycerin 400 mcg/spray spray,non-aerosol 0.4 mg SL DIRECTED PRN (Reason: Chest Pain) RF: 0 Linzess 145 mcg capsule 145 mcg PO DAILY PRN (Reason: Constipation) RF: 0 cyanocobalamin (vitamin B-12) [Vitamin B-12] 1,000 mcg Tablet 1,000 mcg PO QAM RF: 0 vitamin E 400 unit Tablet 400 unit PO QAM RF: 0 betamethasone, augmented 0.05 % ointment 1 applic TOPICAL BID PRN (Reason: Psoriasis) RF: 0 duloxetine 20 mg capsule,delayed release(DR/EC) 20 mg PO QAM RF: 0 diclofenac sodium 1 % gel 4 g TOPICAL QID PRN (Reason: Joint Pain) RF: 0 Discharge Orders: Discharge Order (Routine); Ordered 02/12/21 Ordered By: Elvira Gilman Admission Data Admit Date/Time: 02/09/21 11:46 Attending Provider: Jonatan Henriquez Admit Provider: Jonatan Henriquez Primary Care Provider: Shaina Kenyon Other Providers: aRnjan Savage Jr ; Kumar Evans ; Chetan Renee Other Interventions: Discharge Summary Assessment (RN) Last Done: 02/12/21 10:16 DC Date/Time DO NOT enter until pt leaves facility: 02/12/21 11:02
--- NOTE | 2021-02-12 13:26 | Medical Student Progress Note ---
Date of Service February 12, 2021 Assessment & Plan (1) Non-ST elevation (NSTEMI) myocardial infarction: Guille Negron is a 75-year-old male with a PMHx of CAD with multiple stent placements, CKD, DM, dyslipidemia, BROOK, and vertebral artery stenosis who presented to [facility] emergency department 1 day s/p anterior cervical discectomy with chest pain radiating to the left arm and neck. He was found to have experienced a postoperative NSTEMI with anterior ST depression in the setting of severe hypertension. Dual antiplatelet therapy was initiated but heparin and catheterization were deferred due to the patient's postoperative status and poor baseline kidney function. Antihypertensive therapy was modified during the patient's hospital stay with the addition of low-dose amlodipine, but persistent labile blood pressures warrant close outpatient follow up in order to optimize medical management. 1. NSTEMI * Troponin has peaked and started to trend downward. 4.98 --> 8.25 --> 6.97 * ECG on admission showed NSR with nonspecific ST and T wave abnormalities. Most recent ECG on 02/10/21 showed improvement with NSR. * Nitroglycerin administered in emergency department. * TTE performed 02/10/21: Normal LV size and function. EF 60-65%. Moderate LV hypertrophy. Mild LA dilation. Mild AR. Mild pulmonary HTN. * Cardiology consult appreciated. Recommend resuming dual anti-platelet therapy and addition of a CCB for tighter blood pressure control. Catheterization not recommended moving forward due to the patient's poor baseline kidney function * Initiated Clopidogrel 75 mg daily. Continue dual anti-platelet therapy with Clopidogrel 75 mg and ASA 81 mg. * Dyslipidemia managed with Pravastatin 10 mg due to history of statin intolerance * Follow up with outpatient director of public works, Dr. Savage. The option of cardiac rehabilitation will be discussed during outpatient follow up 2. Hypertension * Carvedilol 25 mg BID. * Initiated Amlodipine 5 mg daily. Patient's blood pressure remains labile at time of discharge. Blood pressure lowered to 105/61 after initiating amlodipine but blood pressure increased to186/87 the following day (day of discharge). Patient remains asymptomatic. Recommend outpatient follow up to determine appropriate medical management 3. Hypomagnesemia * Magnesium 1.6 on admission. Repleted. Repeat BMP daily. Code Status: Full Code F/E/N: Normal Diet VTE PPx: Dispo: Discharge home Admission and Anticipated Discharge Date Admission Date: February 09, 2021 Supervising Attestation I personally examined the patient and verified all noel points of history and exam, discussed case, and agree with decision making with Rogers Lopes MS4 feeling good. walked - no cp no [place] no lightheaded no dizzy. feels up to going home. Vitals noted, in general he is awake and alert pleasant no distress. HEENT normocephalic atraumatic mucous membranes moist. Breathing unlabored no accessory muscle use good effort. Skin shows no rashes no pallor or icterus. Neuro shows no focal deficits. NSTEMIlikely related to marked hypertension with known coronary disease. Fortunately EKG changes have resolved and chest pain is resolved. No indication for urgent catheterization. doing better,walking well. appears stable for home. continue amlodipine Otherwise as above Subjective Patient does not have any concerns today. He denies shortness of breath, chest pain, THOMAS, lightheadedness or dizziness with ambulation, or palpitations. Review of Systems Constitutional: no fever, no chills, no body aches, no fatigue and no weakness Eyes: no problem reported Respiratory: no dyspnea and no dyspnea on exertion Cardiovascular: no chest pain, no palpitations, no lightheadedness and no calf pain Gastrointestinal: no problem reported Genitourinary: no problem reported Musculoskeletal: no problem reported Neurologic: no problem reported Psychiatric: no problem reported Physical Exam Constitutional: WD/WN, vitals as above no acute distress Eyes: PERRL, conjunctivae normal, anicteric sclerae ENMT: external ear and nose normal, oropharynx normal Neck: normal visual inspection Respiratory: normal respiratory effort, lungs clear to auscultation Cardiovascular: RRR, no murmur, no edema Gastrointestinal (Abdomen): normal bowel sounds, soft, nontender, no hepatosplenomegaly Skin: no rashes, warm and dry Psychiatric: A+Ox3, euthymic affect Results & Data ([facility]) Vital Signs (Past 12 Hours) Vital Signs Temp Pulse Pulse Pulse Resp BP BP 02/12/21 10:16 36.8 C 64 61 18 182/82 H 02/12/21 08:30 67 02/12/21 08:10 36.8 C 74 18 146/66 H 02/12/21 07:35 64 16 02/12/21 04:33 36.9 C 62 20 157/74 H 02/12/21 03:20 61 20 BP Pulse Ox 02/12/21 10:16 186/87 H 96 02/12/21 08:30 02/12/21 08:10 02/12/21 07:35 96 02/12/21 04:33 96 02/12/21 03:20 94
--- NOTE | 2021-02-12 17:40 | Billing Data ---
Date of Service February 12, 2021 Coding Level of Care Code 46273 Subseq Hosp Care Lvl 2
--- NOTE | 2021-02-15 08:55 | Discharge Summary ---
Date of Service February 15, 2021 Admission HPI Per Admitting Provider 75-year-old male with C4-5 severe cervical stenosis. Failed conservative treatment. Presents to undergo ACDF C4-5. Admission Exam (Per Admitting) Constitutional WD/WN, vitals as above Eyes normal visual ochoa by confrontation ENMT external ear and nose normal, oropharynx normal Neck normal visual inspection Respiratory normal respiratory effort Cardiovascular Extremities: normal capillary refill Chest (Breasts) Chest: normal inspection of chest Gastrointestinal (Abdomen) Inspection/Auscultation: abdomen normal to inspection Musculoskeletal no cyanosis or clubbing, extremities motor strength 5/5 Skin no rashes, warm and dry Neurologic normal touch/pain/proprioception and moves all extremities Psychiatric A+Ox3, euthymic affect Discharge Data Consultations 02/09/21 19:26 Consult Hospitalist Routine 02/10/21 02:28 Consult Cardiology Routine Procedures Performed Operation Date: 02/09/21 09:35 Actual Procedures p C4-C5 Anterior Cervical Discectomy and Fusion, Spinal Cord Monitoring - Jonatan Henriquez DO Hospital Course (1) Cervical stenosis of spinal canal: Postoperative day 0 ACDF at the C4-5 level patient was found to have elevated blood pressure of roughly 200/90. He then started having chest pain and discomfort. Lab work was ordered including EKG. EKG changes were noted. Troponins were elevated. He was transferred to a monitored unit. Cardiology was consulted. Patient was found to have a NSTEMI. Patient follows with Dr. Dena otto. Blood pressure was under better control. Patient was subsequently discharged home on postoperative day 3. Patient will follow up with Dr. Savage and his family physician postoperatively Discharge Instructions ACTIVITY RECOMMENDATIONS: SELF CARE INSTRUCTIONS AFTER CERVICAL FUSIONS 1. No smoking. Smoking drastically decreases the chance of a solid fusion. 2. No bending, lifting more than 5 pounds, or twisting (roll like a log when turning in bed). 3. You may shower 3 days after surgery. Thoroughly dry wound. Do not soak in the tub. 4. Cervical collar: Must be worn at all times including sleeping. You may remove the brace only to bath, eat and if you are sitting in a recliner. 5. Please walk as much as you can for exercise. Gradually increase the distance that you walk as your endurance increases. SPECIAL CARE INSTRUCTIONS: VERY IMPORTANT TO READ AND REVIEW A. Do not take any anti-inflammatory medications (i.e. Indocin, Advil, Aspirin, Naprosyn, Aleve, Motrin, etc.) as these may inhibit the chance of a solid fusion. Tylenol is okay to take. B. Your surgical incision has been closed with a cosmetic suture under the skin that will dissolve in about 6 weeks. In 14 days, you can use a pair of clean scissors and cut the suture that is left outside of the skin at the ends of your incision. C. Complications are uncommon, but please contact us if you have any signs or symptoms of: 1. wound infection (fever higher than 102.5 degrees F, redness, separation of wound, drainage, or increasing pain from the incision) 2. blood clots in legs (pain, swelling, redness and warmth in legs) 3. urinary tract infection (fever higher than 102.5 degrees, burning upon urination or increased frequency of urination) 4. nerve problems (inability to walk on your toes or heels, numbness, loss of bowel or bladder control) 5. any other symptoms that concern you. D. Please call the office at if you have any concerns or questions about your operation or recovery. MANAGING PAIN AFTER SPINAL SURGERY 1. Narcotic medication is intended for short-term use and will be provided for surgical pain. Surgical pain usually lasts for a period of 4-6 weeks. Narcotic medication includes Percocet, Vicodin, Darvocet, Tylenol #3 or Lortab. 2. Longer-term pain is more appropriately treated with non-narcotic medication such as Tylenol ES. 3. Muscle spasm is not appropriately treated with narcotics. Muscle relaxers such as Soma, Flexeril or Skelaxin can be used along with Tylenol ES. 4. Remember that we all live with some "aches and pains". This is not unusual or uncommon after an injury or as we get older. 5. We will provide appropriate medication within the normal guidelines of their prescribed use. We will also be very cautious and aware of potential abuse and extended duration of patients' medication needs. 6. Please allow 2-3 days to process refills. Prescriptions will not be mailed but must be picked up at the office. FOLLOW UP VISIT: Keep your scheduled follow-up appointment. Any questions, please call the office at . Supervising Physician Co-Signing Physician Notes Dr. Jonatan Henriquez
== END 2021-02-12 11:02 | disposition home or self-care (01) | DRG 471 ==
LOC: ASU 07:46 → 3E 11:46 → 2S 02-10 02:25

== ENCOUNTER 2022-01-28 00:19 | Inpatient (IN) ==
--- NOTE | 2022-01-28 00:34 | Emergency Department Note ---
Impression & Plan Elevated troponin ADMIT ED Provider Note HPI: The patient is a 76-year-old gentleman with history of coronary artery disease status post multiple stents, presents the emergency department with a chief complaint of chest pain. Patient states he has had some mild chest discomfort that has been constant for 3 days. He states that shortly prior to arrival he had a worsening sensation of "heaviness" on the center of his chest as if "there was 200 pounds on top of it". Patient states that he was given aspirin via EMS prior to arrival to the ED, he states that on arrival here to the ED he is chest pressure is greatly improved. He is resting comfortably on my initial evaluation, he is nontoxic-appearing, no diaphoresis, he is saturating well on room air. ROS: -Cardio: Chest pain/heaviness *10 point review systems was conducted and is otherwise negative unless stated above *Outpatient medications and allergy history reviewed PE: General: Alert, NAD HEENT: Normocephalic, atraumatic Eyes: Extraocular eye movement is intact, no scleral erythema Pulmonary: Clear to auscultation bilaterally, no wheezing Cardio: Regular rate and rhythm GI: Abdomen is soft, nontender : No suprapubic tenderness MSK: No evidence of trauma or malformation of the extremities, no edema Skin: No evidence of rash Neuro: Alert, no focal deficits Psychiatric: Cooperative nuclear monitoring technician: - An order was placed for continuous cardiac monitoring - Patient was noted to be in sinus rhythm with rate of 70 EKG: Rate: 75 Rhythm: Normal sinus rhythm Intervals: Within normal limits ST changes: No ST elevation Time: 0025 Medical Decision Making: Patient presented to the emergency department with a chief complaint of chest pain. By arrival to the ED his chest pain is largely resolved. He does have a history of coronary artery disease, has multiple stents. On arrival to the ED the patient is hemodynamically stable, he is otherwise in no acute distress. Shortly after arrival IV was established, lab work obtained, chest x-ray was ordered. EKG does not show any acute ischemic changes, appears similar to previous EKG. Lab work shows evidence of elevated high-sensitivity troponin at 1133, my reassessment the patient remains chest pain-free, no ST elevation on his EKG. Chest x-ray does not show any evidence of acute pathology on my interpretation. Given his history, will start heparin drip, patient was already given aspirin prior to arrival via EMS, will plan for admission to the hospitalist service with cardiology consultation likely in the morning. Patient is comfortable on my reassessment, he is in agreement to the above plan and he was admitted in stable condition. Critical care time: 42 minutes -Initiation of heparin drip for NSTEMI, time spent at the bedside, interpretation of EKG and diagnostic studies, discussion with other healthcare providers and arrangement of admission Diagnosis: 1. Chest pain, transient 2. Elevated high-sensitivity troponin 3. History of coronary artery disease with multiple stents Disposition: Admission Donato Sargent DO Emergency Medicine Past Med/Surg History Medical History CAD (coronary artery disease) Cervical spine tumor Cervical spondylosis Chest pain (07/11/14) CKD (chronic kidney disease) Crohn's disease Diverticulosis DM type 2 (diabetes mellitus, type 2) Dyslipidemia Fatty liver Gastroparesis GERD (gastroesophageal reflux disease) History of depression History of myocardial infarction History of TIA (transient ischemic attack) HLD (hyperlipidemia) Hypertension NSTEMI (non-ST elevated myocardial infarction) Orthostatic hypotension Osteoarthritis Sleep apnea Vertebral artery stenosis Surgical History H/O cervical discectomy History of cardiac catheterization History of cataract surgery History of cervical spinal surgery History of cholecystectomy History of colonoscopy History of esophagogastroduodenoscopy (EGD) History of removal of cyst History of tooth extraction Family History Father Coronary heart disease Myocardial infarction Brother Colon cancer Pulmonary embolism Hx of CABG Mother Diabetes Coronary heart disease Other No family history of adverse response to anesthesia Social History Smoking Status: Former smoker Tobacco Type: Cigarettes and Smokeless Tobacco (Dip or Chew) packs per day: 1; Years Smoked: 40; Number of Years Since Quit: 35; Second Hand Exposure: No; Hx Alcohol Use: No Hx Substance Use: No Preferred Language: Russian Communication Ability: Effective Hazardous Waste Management Specialist Required: No Beliefs That Will Affect Care: None marital status: Current Living Situation: Spouse current occupational status: retired current occupation: Retired in his early 50s as a [employer] [place] Feels Safe at Home: Yes Assistive Devices: CPAP, Denture - Upper, Denture - Lower and Glasses Allergies Allergies Allergy/AdvReac Type Severity Reaction Status Date / Time gabapentin AdvReac Intermediate Nightmares Verified 01/28/22 00:28 morphine AdvReac Intermediate Confusion, Verified 01/28/22 00:28 anger [id number] Reductase AdvReac Intermediate Muscle Verified 01/28/22 00:28 Inhibitor aches [Vfisrjn-Snj-Mrb Reductase Inhibitor] Home Meds Home Medications Medication Instructions Recorded Confirmed cholecalciferol (vitamin D3) 25 1,000 unit PO QAM 08/01/19 01/28/22 mcg (1,000 unit) chewable tablet (Vitamin D3) aspirin 81 mg tablet,delayed 81 mg PO QAM 12/27/19 01/28/22 release coQ10 (ubiquinol) 200 mg capsule 400 mg PO QAM 12/27/19 01/28/22 melatonin 10 mg tablet 10 mg PO HS 12/27/19 01/28/22 betamethasone, augmented 0.05 % 1 applic TOPICAL BID PRN 12/17/20 01/28/22 topical ointment cyanocobalamin (vitamin B-12) 1,000 mcg PO QAM 12/17/20 01/28/22 1,000 mcg tablet (Vitamin B-12) diclofenac sodium 1 % topical gel 4 g TOPICAL QID PRN 12/17/20 01/28/22 duloxetine 20 mg capsule,delayed 20 mg PO QAM 12/17/20 01/28/22 release insulin glargine 100 unit/mL (3 14 unit SUBCUT QPM ml 01/07/22 01/28/22 mL) subcutaneous pen (Lantus Solostar U-100 Insulin) linaclotide 290 mcg capsule 290 mcg PO DAILY 01/28/22 01/28/22 (Linzess) omega 3-jlw-ewx-fish oil 1,000 mg 3 cap PO DAILY 01/28/22 01/28/22 (120 mg-180 mg) capsule (Fish Oil) vitamin E 400 unit capsule 400 unit PO DAILY 01/28/22 01/28/22 Previous Rx's Medication Instructions Recorded carvedilol 25 mg tablet 25 mg PO BID #180 tab 01/21/21 amlodipine 5 mg tablet (Norvasc) 5 mg PO QAM #30 tab 04/08/21 clopidogrel 75 mg tablet 75 mg PO QAM #90 tab 07/17/21 pantoprazole 40 mg tablet,delayed 40 mg PO BID #180 tab 08/19/21 release isosorbide mononitrate 120 mg 120 mg PO QAM #90 tab 09/09/21 tablet,extended release 24 hr nitroglycerin 400 mcg/spray 0.4 mg SL DIRECTED PRN #12 g 12/17/21 translingual pravastatin 20 mg tablet 20 mg PO DAILY #90 tab 01/07/22 Results & Data (ED) Vital Signs Vital Signs - 24 hr 01/28/22 00:31 Temperature 37.1 C Temperature Source Oral Pulse Rate 86 Respiratory Rate 14 Respiratory Effort / Characteristics Non-Labored Spontaneous Respiratory Depth Normal Blood Pressure 133/79 Blood Pressure Mean 97 Pulse Oximetry 96 Oxygen Delivery Method Room Air Sepsis Recent Fever Within 48 Hours No Sepsis New/Unexplained Change in Mental Status No Sepsis Action Taken by Nursing No Action Required Laboratory Data Result diagrams: 01/28/22 00:28 01/28/22 00:28 Lab Results 01/28/22 01/28/22 01/28/22 Range/Units 00:28 00:28 00:28 WBC 11.12 H (4.8-10.8) K/uL RBC 4.50 L (4.7-6.1) M/uL Hgb 14.4 (14.0-18.0) g/dL Hct 41.2 L (42-52) % MCV 91.6 (80-100) fL MCH 32.0 (25-34) pg MCHC 35.0 (32-36) g/dL RDW Std Deviation 44.3 (36.4-46.3) fL RDW Coeff of Amalia 13.5 (11.5-14.5) % Plt Count 200 (130-400) K/uL MPV 9.9 (7.4-10.4) fL Immature Gran % (Auto) 0.3 % Neut % (Auto) 57.8 % Lymph % (Auto) 23.0 % [place] % (Auto) 10.3 % Eos % (Auto) 8.1 % Baso % (Auto) 0.5 % Neut # (Auto) 6.42 (1.4-6.5) K/uL Lymph # (Auto) 2.56 (1.2-3.4) K/uL [place] # (Auto) 1.15 H (0.11-0.59) K/uL Eos # (Auto) 0.90 H (0-0.5) K/uL Baso # (Auto) 0.06 (0-0.2) K/uL Immature Gran # (Auto) 0.03 H (0.00-0.02) K/uL PT 10.9 (9.0-12.0) Seconds INR 1.0 (0.9-1.1) APTT 28.0 (21.0-31.0) Seconds PTT Ratio 1.0 Sodium 132 L (136-145) mmol/L Potassium 3.9 (3.5-5.1) mmol/L Chloride 101 (98-107) mmol/L Carbon Dioxide 21 (21-32) mmol/L Anion Gap 10 (3-11) BUN 31 H (6-23) mg/dl Creatinine 1.90 H (0.6-1.4) mg/dl Est Cr Clr Drug Dosing 34.4 ml/min Est GFR ( Amer) 38.8 ml/min Est GFR (Non-Af Amer) 33.5 ml/min BUN/Creatinine Ratio 16.3 (10-20) Glucose 257 H (70-99(Fasting)) mg/dl Calcium 8.7 (8.5-10.1) mg/dl Total Bilirubin 0.4 (0.2-1.0) mg/dl AST 21 (13-39) U/L ALT 14 (7-52) U/L Alkaline Phosphatase 102 (34-104) U/L Troponin I High Sens 1133.4 H* (0-20) pg/ml Total Protein 6.5 (6.0-8.3) gm/dl Albumin 4.0 (3.4-5.0) gm/dl Globulin 2.5 (2.5-4.0) gm/dl Albumin/Globulin Ratio 1.6 (0.9-2) Lipase 45 (11-82) U/L Discharge Plan Visit Data Chief Complaint: Chest Pain Stated Complaint: CHEST PAIN, DIAPHORETIC, PAIN BOTH ARMS ED Provider: Donato Sargent Discharge Problem: Elevated troponin Forms Stand Alone Forms: [facility] Prescriptions Prescriptions: No Action carvedilol 25 mg tablet 25 mg PO BID Qty: 180 RF: 3 amlodipine [Norvasc] 5 mg tablet 5 mg PO QAM Qty: 30 RF: 11 clopidogrel 75 mg tablet 75 mg PO QAM Qty: 90 RF: 3 pantoprazole 40 mg tablet,delayed release (DR/EC) 40 mg PO BID Qty: 180 RF: 3 isosorbide mononitrate 120 mg tablet extended release 24 hr 120 mg PO QAM Qty: 90 RF: 3 nitroglycerin 400 mcg/spray spray,non-aerosol 0.4 mg SL DIRECTED PRN (Reason: Chest Pain) Qty: 12 RF: 3 pravastatin 20 mg tablet 20 mg PO DAILY Qty: 90 RF: 3 aspirin 81 mg Tablet,Delayed Release (Dr/Ec) 81 mg PO QAM RF: 0 coQ10 (ubiquinol) 200 mg Capsule 400 mg PO QAM RF: 0 melatonin 10 mg Tablet 10 mg PO HS RF: 0 cholecalciferol (vitamin D3) [Vitamin D3] 1,000 unit Tablet,Chewable 1,000 unit PO QAM RF: 0 Lantus Solostar U-100 Insulin 100 unit/mL (3 mL) insulin pen 14 unit subcut QPM RF: 0 cyanocobalamin (vitamin B-12) [Vitamin B-12] 1,000 mcg Tablet 1,000 mcg PO QAM RF: 0 betamethasone, augmented 0.05 % ointment 1 applic TOPICAL BID PRN (Reason: Psoriasis) RF: 0 duloxetine 20 mg capsule,delayed release(DR/EC) 20 mg PO QAM RF: 0 diclofenac sodium 1 % gel 4 g TOPICAL QID PRN (Reason: Joint Pain) RF: 0 Linzess 290 mcg capsule 290 mcg PO DAILY RF: 0 vitamin E 400 unit Capsule 400 unit PO DAILY RF: 0 omega 9-zsb-cqo-fish oil [Fish Oil] 1,000 mg (120 mg-180 mg) Capsule 3 cap PO DAILY RF: 0 Referrals Referrals: Shaina Kenyon [Primary Care Provider] -
[2022-01-28 00:43] LABS: Basophils # (auto) 0.06 K/uL (0-0.2); Basophils % (auto) 0.5 %; Eosinophils % (auto) 8.1 %; Hematocrit (blood only) 41.2 % (42-52); Hemoglobin 14.4 g/dL (14.0-18.0); Immature Granulocytes # (auto) 0.03 K/uL (0.00-0.02); Immature Granulocytes % (auto) 0.3 %; Lymphocytes # (auto) 2.56 K/uL (1.2-3.4); Mean Corpuscular Volume 91.6 fL (80-100); Mean Platelet Volume 9.9 fL (7.4-10.4); Monocytes # (auto) 1.15 K/uL (0.11-0.59); Monocytes % (auto) 10.3 %; Neutrophils # (auto) 6.42 K/uL (1.4-6.5); Neutrophils % (auto) 57.8 %; Platelet Count 200 K/uL (130-400); RDW Coefficient of Variation 13.5 % (11.5-14.5); RDW Standard Deviation 44.3 fL (36.4-46.3); White Blood Count 11.12 K/uL (4.8-10.8)
[2022-01-28 00:52] LABS: Prothrombin Time 10.9 Seconds (9.0-12.0)
[2022-01-28 01:08] LABS: Albumin Globulin Ratio 1.6 (0.9-2); BUN Creatinine Ratio 16.3 (10-20); Bilirubin,Total 0.4 mg/dl (0.2-1.0); Calcium 8.7 mg/dl (8.5-10.1); Creatinine Clr Calc Pharmacy 34.4 ml/min; Est GFR (African American) 38.8 ml/min; Est GFR (Non-African American) 33.5 ml/min; Globulin 2.5 gm/dl (2.5-4.0); Potassium 3.9 mmol/L (3.5-5.1); Total Protein 6.5 gm/dl (6.0-8.3)
[2022-01-28 01:14] LABS: Troponin I High Sensitivity 1133.4 pg/ml (0-20)
[2022-01-28] MEDS ORDERED: Heparin IV Adult Wt-Based Standard WITH Bolus Protocol IV STA (01:14)
[2022-01-28] MEDS ORDERED: HEPARIN SOD (PORCINE) 1000 UNIT/ML IV ONE (01:29)
[2022-01-28] MEDS ORDERED: HEPARIN SODIUM/DEXTROSE 25,000 UNITS/500 ML BAG IV SCH (01:30)
--- NOTE | 2022-01-28 01:30 | History & Physical Report ---
Date of Service January 28, 2022 Assessment & Plan (1) Elevated troponin: Plan: Elevated troponin/CAD/left circumflex bare-metal stent/RCA drug-eluting stent/hypertension- The patient will be admitted to telemetry for serial cardiac enzymes, serial EKG's, cardiac rhythm monitoring and a 2-D echocardiogram with Dopplers. Continue heparin drip begun in the ED Continue amlodipine 5 mg every morning, aspirin 81 mg every morning, carvedilol 25 mg p.o. twice daily, clopidogrel 75 mg p.o. every morning, isosorbide mononitrate extended release on 20 mg every morning and nitroglycerin sublingual spray as needed Consult cardiology (2) Presence of bare metal stent in left circumflex coronary artery: Plan: See above (3) Presence of drug-eluting stent in right coronary artery: Plan: See above (4) Diabetes: Plan: Continue insulin glargine 14 units subcu every afternoon Place on Accu-Cheks before meals and at bedtime with NovoLog coverage per scale (5) Chronic kidney disease: Plan: Creatinine 1.90 upon admission, within usual range Follow laboratory serially (6) Obstructive sleep apnea: Plan: CPAP at bedtime as needed (7) Hypertension: Plan: See above (8) Crohn's disease: Plan: Crohn's disease/gastroparesis/GERD Continue Linzess and pantoprazole 40 mg p.o. twice daily (9) GERD (gastroesophageal reflux disease): Plan: See above (10) Gastroparesis: Plan: See above (11) Psoriatic arthropathy: Plan: No active treatment at this time (12) Psoriasis: Plan: No active systemic treatment at this time Topical as needed agents History of Present Illness Chief Complaint: The patient presents to the emergency department with complaint of chest pr essure initially began before going to sleep within 24 hours ago, that persisted throughout the evening causing him to sleep poorly, and woke up in the morning with continued pressure symptoms. Ultimately the discomfort did improve somewhat during the day, but never completely went away. Earlier this evening, the pressure got significantly worse, radiated into his jaws and bilateral arms, was accompanied by shortness of breath, and which caused him to come to the ED for assessment Primary Care Provider: Shaina Kenyon The patient is a 76-year-old male with a past medical history including CAD, stented coronary arteries, left circumflex bare-metal stent, RCA drug-eluting stent, psoriasis, psoriatic arthropathy, diabetes mellitus, thrombocytopenia, CKD, smokeless tobacco use, BROOK, hypertension, Crohn's disease, GERD and gastroparesis. He presents with symptoms as noted above. He reports never having had these kind of symptoms before, even prior to his cardiac catheterization and stents. He denies any change in recent physical activity level or dietary intake. Allergies Allergy/AdvReac Type Severity Reaction Status Date / Time gabapentin AdvReac Intermediate Nightmares Verified 01/28/22 00:28 morphine AdvReac Intermediate Confusion, Verified 01/28/22 00:28 anger Ulztmnz-XFI-JoM Reductase AdvReac Intermediate Muscle Verified 01/28/22 00:28 Inhibitor aches [Pckxojf-Eer-Oih Reductase Inhibitor] Home Medications Medication Instructions Recorded Confirmed Type cholecalciferol (vitamin D3) 25 1,000 unit PO QAM 08/01/19 01/28/22 History mcg (1,000 unit) chewable tablet (Vitamin D3) aspirin 81 mg tablet,delayed 81 mg PO QAM 12/27/19 01/28/22 History release coQ10 (ubiquinol) 200 mg capsule 400 mg PO QAM 12/27/19 01/28/22 History melatonin 10 mg tablet 10 mg PO HS 12/27/19 01/28/22 History betamethasone, augmented 0.05 % 1 applic TOPICAL BID PRN 12/17/20 01/28/22 History topical ointment cyanocobalamin (vitamin B-12) 1,000 mcg PO QAM 12/17/20 01/28/22 History 1,000 mcg tablet (Vitamin B-12) diclofenac sodium 1 % topical gel 4 g TOPICAL QID PRN 12/17/20 01/28/22 History duloxetine 20 mg capsule,delayed 20 mg PO QAM 12/17/20 01/28/22 History release carvedilol 25 mg tablet 25 mg PO BID #180 tab 01/21/21 01/28/22 Rx amlodipine 5 mg tablet (Norvasc) 5 mg PO QAM #30 tab 04/08/21 01/28/22 Rx clopidogrel 75 mg tablet 75 mg PO QAM #90 tab 07/17/21 01/28/22 Rx pantoprazole 40 mg tablet,delayed 40 mg PO BID #180 tab 08/19/21 01/28/22 Rx release isosorbide mononitrate 120 mg 120 mg PO QAM #90 tab 09/09/21 01/28/22 Rx tablet,extended release 24 hr nitroglycerin 400 mcg/spray 0.4 mg SL DIRECTED PRN #12 g 12/17/21 01/28/22 Rx translingual insulin glargine 100 unit/mL (3 14 unit SUBCUT QPM ml 01/07/22 01/28/22 History mL) subcutaneous pen (Lantus Solostar U-100 Insulin) pravastatin 20 mg tablet 20 mg PO DAILY #90 tab 01/07/22 01/28/22 Rx linaclotide 290 mcg capsule 290 mcg PO DAILY 01/28/22 01/28/22 History (Linzess) omega 7-cmp-dyb-fish oil 1,000 mg 3 cap PO DAILY 01/28/22 01/28/22 History (120 mg-180 mg) capsule (Fish Oil) vitamin E 400 unit capsule 400 unit PO DAILY 01/28/22 01/28/22 History Past Med/Surg History Medical History CAD (coronary artery disease) Cervical spine tumor Cervical spondylosis Chest pain (07/11/14) CKD (chronic kidney disease) Crohn's disease Diverticulosis DM type 2 (diabetes mellitus, type 2) Dyslipidemia Fatty liver Gastroparesis GERD (gastroesophageal reflux disease) History of depression History of myocardial infarction History of TIA (transient ischemic attack) HLD (hyperlipidemia) Hypertension NSTEMI (non-ST elevated myocardial infarction) Orthostatic hypotension Osteoarthritis Sleep apnea Vertebral artery stenosis Surgical History H/O cervical discectomy History of cardiac catheterization History of cataract surgery History of cervical spinal surgery History of cholecystectomy History of colonoscopy History of esophagogastroduodenoscopy (EGD) History of removal of cyst History of tooth extraction Family History Father Coronary heart disease Myocardial infarction Brother Colon cancer Pulmonary embolism Hx of CABG Mother Diabetes Coronary heart disease Other No family history of adverse response to anesthesia Social History Smoking Status: Former smoker Tobacco Type: Cigarettes and Smokeless Tobacco (Dip or Chew) packs per day: 1; Years Smoked: 40; Number of Years Since Quit: 35; Second Hand Exposure: No; Hx Alcohol Use: No Hx Substance Use: No Preferred Language: Yi Communication Ability: Effective Home Health Nurse Licensed Practical Required: No Beliefs That Will Affect Care: None marital status: Current Living Situation: Spouse current occupational status: retired current occupation: Retired in his early 50s as a [place] [employer] Feels Safe at Home: Yes Assistive Devices: CPAP, Denture - Upper, Denture - Lower and Glasses Review of Systems 2 Review of Systems: The patient denies palpitations, cough, lower extremity swelling, sore throat, fevers, chills, sweats, nausea, vomiting, diarrhea , constipation, abdominal pain, pelvic pain, blood in urine or stool, dysuria, urinary frequency or urgency, lightheadedness, dizziness, headache, memory loss, loss of consciousness, rash, abnormal bruising or bleeding, imbalance, focal or generalized weakness, numbness or tingling in legs, change in generalized arthralgias or myalgias, back or neck pain, or the development of night sweats. The review of systems is otherwise negative other than for that already noted above, and at least 10 systems have been reviewed. Physical Exam Physical Exam: The patient is awake, alert and oriented 3, well developed and well nourished, normocephalic and atraumatic, lying in bed and in no acute distress. HEENT--PERRL, EOMI, mucous membranes and oropharynx normal. Neck--supple. No JVD. No bruits. Thyroid normal, trachea midline, no adenopathy. Heart--normal S1 and S2. No murmurs, rubs or gallops. Lungs--clear bilaterally, no respiratory distress, no accessory muscle use. Abdomen--normal bowel sounds and soft. Nontender. Nondistended. Morbidly obese Extremities--no cyanosis or clubbing. No edema. Dermatologic--normal skin turgor, normal color, no abnormal lymph nodes, no rash. Neurologic--cranial nerves II through XII grossly intact. Rheumatologic--normal range of motion. Psychiatric--normal affect. Results & Data Results & Data ([facility]) Vital Signs (Past 12 Hours) Vital Signs Temp Pulse Resp BP Pulse Ox 01/28/22 00:31 37.1 C 86 14 133/79 96 Laboratory Results Laboratory Results WBC 11.12 K/uL (4.8-10.8) H 01/28/22: RBC 4.50 M/uL (4.7-6.1) L 01/28/22: Hgb 14.4 g/dL (14.0-18.0) 01/28/22: Hct 41.2 % (42-52) L 01/28/22: MCV 91.6 fL (80-100) 01/28/22: MCH 32.0 pg (25-34) 01/28/22: MCHC 35.0 g/dL (32-36) 01/28/22: RDW Std Deviation 44.3 fL (36.4-46.3) 01/28/22 RDW Coeff of Amalia 13.5 % (11.5-14.5) 01/28/22 Plt Count 200 K/uL (130-400) 01/28/22: MPV 9.9 fL (7.4-10.4) 01/28/22: Immature Gran % (Auto) 0.3 % 01/28/22: Neut % (Auto) 57.8 % 01/28/22: Lymph % (Auto) 23.0 % 01/28/22: Lawrence % (Auto) 10.3 % 01/28/22: Eos % (Auto) 8.1 % 01/28/22: Baso % (Auto) 0.5 % 01/28/22: Neut # (Auto) 6.42 K/uL (1.4-6.5) 01/28/22: Lymph # (Auto) 2.56 K/uL (1.2-3.4) 01/28/22: Lawrence # (Auto) 1.15 K/uL (0.11-0.59) H 01/28/22: Eos # (Auto) 0.90 K/uL (0-0.5) H 01/28/22: Baso # (Auto) 0.06 K/uL (0-0.2) 01/28/22 00: Immature Gran # (Auto) 0.03 K/uL (0.00-0.02) H 01/28/22: PT 10.9 Seconds (9.0-12.0) 01/28/22 INR 1.0 (0.9-1.1) 01/28/22: APTT 28.0 Seconds (21.0-31.0) 01/28/22 PTT Ratio 1.0 01/28/22 Sodium 132 mmol/L (136-145) L 01/28/22: Potassium 3.9 mmol/L (3.5-5.1) 01/28/22 Chloride 101 mmol/L (98-107) 01/28/22 Carbon Dioxide 21 mmol/L (21-32) 01/28/22: Anion Gap 10 (3-11) 01/28/22: BUN 31 mg/dl (6-23) H 01/28/22: Creatinine 1.90 mg/dl (0.6-1.4) H 01/28/22: Est Cr Clr Drug Dosing 34.4 ml/min 01/28/22: Est GFR ( Amer) 38.8 ml/min 01/28/22: Est GFR (Non-Af Amer) 33.5 ml/min 01/28/22 00: BUN/Creatinine Ratio 16.3 (10-20) 01/28/22 Glucose 257 mg/dl (70-99(Fasting)) H 01/28/22: Calcium 8.7 mg/dl (8.5-10.1) 01/28/22: Total Bilirubin 0.4 mg/dl (0.2-1.0) 01/28/22 AST 21 U/L (13-39) 01/28/22: ALT 14 U/L (7-52) 01/28/22: Alkaline Phosphatase 102 U/L (34-104) 01/28/22: Troponin I High Sens 1133.4 pg/ml (0-20) H* 04/28/22 00:28 Total Protein 6.5 gm/dl (6.0-8.3) 01/28/22 00:28 Albumin 4.0 gm/dl (3.4-5.0) 01/28/22 00:28 Globulin 2.5 gm/dl (2.5-4.0) 01/28/22 00:28 Albumin/Globulin Ratio 1.6 (0.9-2) 01/28/22 00:28 Lipase 45 U/L (11-82) 01/28/22 00:28 SARS-CoV-2, RNA, NAAT NEGATIVE (NEGATIVE) 01/28/22 01:00 Code Status & VTE Plan Code Status Full code VTE Prophylaxis Plan VTE Prophylaxis will be ordered: Yes PG Care Time/CCT Total # of Minutes Spent Total Time Spent with Patient: Total time spent is greater than 50% in coordination of care (as documented) at patient's floor/unit and/or counseling patient: Coding Level of Care Code 39799 Initial Inpt Care Lvl 3 Diagnoses Elevated troponin R77.8 Presence of bare metal stent in left circumflex coronary artery Z95.5 Presence of drug-eluting stent in right coronary artery Z95.5 Psoriasis L40.9 Diabetes E11.22; N18.3; Z79.4 Diabetes mellitus type: type 2 Diabetes mellitus retirement insulin use: with terminal operations supervisor use Diabetes mellitus complication status: with kidney complications Diabetes mellitus complication detail: with chronic kidney disease Chronic kidney disease stage: stage 3 (moderate) Chronic kidney disease N18.9 Chronic kidney disease stage: unspecified stage Psoriatic arthropathy L40.50 Obstructive sleep apnea G47.33 Hypertension I10 Hypertension type: unspecified Crohn's disease K50.90 Gastrointestinal tract location: unspecified location Digestive disease complication type: without complication GERD (gastroesophageal reflux disease) K21.9 Esophagitis presence: without esophagitis Gastroparesis K31.84 (1) Diabetes Diabetes mellitus type: type 2 Diabetes mellitus terminal operations supervisor insulin use: with retirement use Diabetes mellitus complication status: with kidney complications Diabetes mellitus complication detail: with chronic kidney disease Chronic kidney disease stage: stage 3 (moderate) Qualified Code(s): E11.22 - Type 2 diabetes mellitus with diabetic chronic kidney disease; N18.3 - Chronic kidney disease, stage 3 (moderate); Z79.4 - buttermaker (current) use of insulin (2) Chronic kidney disease Chronic kidney disease stage: unspecified stage Qualified Code(s): N18.9 - Chronic kidney disease, unspecified (3) Hypertension Hypertension type: unspecified Qualified Code(s): I10 - Essential (primary) hypertension (4) Crohn's disease Gastrointestinal tract location: unspecified location Digestive disease complication type: without complication Qualified Code(s): K50.90 - Crohn's disease, unspecified, without complications (5) GERD (gastroesophageal reflux disease) Esophagitis presence: without esophagitis Qualified Code(s): K21.9 - Gastro- esophageal reflux disease without esophagitis
[2022-01-28] MEDS ORDERED: ACETAMINOPHEN 325 MG TAB PO PRN (01:54)
[2022-01-28] MEDS ORDERED: CARBOHYDRATES FOR HYPOGLYCEMIA PO PRN (01:54)
[2022-01-28] MEDS ORDERED: ONDANSETRON INJ 2 MG/ML 2 ML VIAL IV PRN (01:54)
[2022-01-28] MEDS ORDERED: GLUCOSE 10 TABS/TUBE PO PRN (01:54)
[2022-01-28] MEDS ORDERED: GLUCAGON FOR INJ 1 MG VIAL SQ PRN (01:54)
[2022-01-28] MEDS ORDERED: GLUCOSE 40% GEL 15 GM TUBE PO PRN (01:54)
[2022-01-28] MEDS ORDERED: DEXTROSE 50% 50 ML SYRINGE IV PRN (01:54)
[2022-01-28] MEDS: NITROGLYCERIN 60 SPRAYS/4.9 GM SPRAY SL PRN ×3 (06:09→06:21)
[2022-01-28] MEDS ORDERED: HYDROmorphone INJ 0.5 MG/0.5 ML SYR ONE (06:20)
[2022-01-28 06:34] LABS: Basophils # (auto) 0.06 K/uL (0-0.2); Basophils % (auto) 0.4 %; Eosinophils # (auto) 1.24 K/uL (0-0.5); Hemoglobin 15.2 g/dL (14.0-18.0); Immature Granulocytes # (auto) 0.04 K/uL (0.00-0.02); Immature Granulocytes % (auto) 0.3 %; Lymphocytes # (auto) 4.34 K/uL (1.2-3.4); Lymphocytes % (auto) 31.6 %; Mean Corpuscular Hemoglobin 31.3 pg (25-34); Mean Corpuscular Hgb Conc 34.5 g/dL (32-36); Mean Corpuscular Volume 90.7 fL (80-100); Mean Platelet Volume 10.1 fL (7.4-10.4); Monocytes # (auto) 1.61 K/uL (0.11-0.59); Monocytes % (auto) 11.7 %; Neutrophils # (auto) 6.43 K/uL (1.4-6.5); Platelet Count 209 K/uL (130-400); RDW Coefficient of Variation 13.4 % (11.5-14.5); RDW Standard Deviation 44.1 fL (36.4-46.3); Red Blood Count 4.85 M/uL (4.7-6.1); White Blood Count 13.72 K/uL (4.8-10.8)
--- NOTE | 2022-01-28 06:48 | Communication Note ---
Date of Service: January 28, 2022 Notified by patient's RN around 0600 that patient was reporting 10/10 substernal squeezing-type chest pain. Came to visit patient, who was clutching his chest. He appeared well perfused. HR 161/98, HR 71, RR 15, SpO2 97%. Lungs CTAB w/o crackles or wheezes. NR/RR +s1/s2 w/o m/r/g. Abdomen is NT/ND to palpation. Cap refill 2 seconds. ECG demonstrating new ST-depressions within leads V1-V4 during active chest pain. Given SL nitro x 3 with improvement of pain. Also given Dilaudid 0.5mg IV x 1. Obtain repeat troponin. Called and spoke with Dr. Roth to discuss case. Given his significant history, new ECG findings during pain, and relief with nitro, plan is to proceed with cath. Patient already on heparin. Discussed with RN and attending physician throughout work-up. Can consider adding nitro paste or gtt if needed. Resident Activity Tracking Resident Involvement: Resident Care Provided Care Provided: Adult Hospital Medicine
[2022-01-28] MEDS ORDERED: HYDROmorphone INJ 0.5 MG/0.5 ML SYR IV STA (06:53)
[2022-01-28 07:00] LABS: BUN Creatinine Ratio 15.9 (10-20); Creatinine Clr Calc Pharmacy 35.7 ml/min; Est GFR (African American) 40.9 ml/min; Est GFR (Non-African American) 35.3 ml/min; Potassium 3.9 mmol/L (3.5-5.1)
[2022-01-28] MEDS ORDERED: HEPARIN (PORCINE) 1000 UNIT/ML 10 ML (CATH LAB USE ONLY) ONE (07:12)
[2022-01-28] MEDS ORDERED: NITROGLYCERIN/D5W 100MCG/ML 20ML SYR ONE (07:13)
[2022-01-28] MEDS ORDERED: niCARdipine HCL INJ 2.5 MG/ML 10 ML AMP ONE (07:13)
[2022-01-28] MEDS ORDERED: MIDAZOLAM HCL 1 MG/ML 2ML VIAL ONE (07:13)
[2022-01-28] MEDS ORDERED: fentaNYL citrate 100 MCG/2 ML VIAL ONE (07:13)
[2022-01-28 07:20] LABS: Estimated Average Glucose 194 mg/dl; Hemoglobin A1C 8.4 % (4.5-5.6)
--- NOTE | 2022-01-28 07:30 | XRay Report ---
SINGLE VIEW CHEST CLINICAL HISTORY: Atypical chest pain FINDINGS: An AP, portable, upright chest radiograph is compared to study dated 01/19/2021. Correlation is made with chest CT dated 08/15/2016. The examination is degraded by portable technique and apical lordotic positioning. The heart is top normal for projection noting atherosclerotic calcification of the thoracic aorta. The pulmonary vasculature is noncongested. Chronic interstitial thickening is si milar to previous. Mild atelectasis is noted at the lung bases. The lungs and pleural spaces are othe rwise clear. No pneumothorax is seen. The skeletal structures are osteopenic. The bony thorax is javid sly intact. Fusion hardware is noted in the upper cervical spine. Degenerative change is seen in the shoulders. IMPRESSION: No acute cardiopulmonary abnormality. ACT 112: Negative or not required by law. Electronically signed by: Osbaldo Martinez M.D. 01/28/2022 7:29 AM
--- NOTE | 2022-01-28 07:32 | Pre Anesthesia Assessment ---
Date of Service January 28, 2022 Pre Sedation Assessment Vital Signs Temp Pulse Pulse Resp BP BP Pulse Ox 01/28/22 06:24 71 15 161/98 H 97 01/28/22 06:15 65 20 158/113 H 97 01/28/22 06:06 67 12 173/111 H 96 01/28/22 06:00 75 14 157/109 H 95 01/28/22 05:45 98.2 F 73 14 145/79 H 96 01/28/22 03:02 97.5 F L 72 22 141/79 H 96 01/28/22 02:00 74 01/28/22 01:49 77 14 127/74 97 01/28/22 00:31 98.8 F 86 14 133/79 96 01/28/22 00:27 97 Cardiovascular RRR, no murmur, no edema Respiratory normal respiratory effort, lungs clear to auscultation Pre-Sedation Airway Assessment Smoking Status: Former smoker Hx Sleep Apnea: No Hx Difficult Intubation: No Short, Thick Neck: No Thyromental Distance: > or= 3.5 Finger Breadths Oral Cavity: + WNL Mallampati Class: III ASA: ASA4 Procedure Planning Contraindications for Sedation: none Current Medications Reviewed: Yes Notes The planned sedation has been discussed with the patient. Informed Consent was obtained. I have identified the patient, determined the appropriateness of sedation and have assessed the patient immediately prior to the procedure. All medicine(s) and interventions are by my order.
--- NOTE | 2022-01-28 07:36 | Cardiology Consultation ---
Date of Consultation January 28, 2022 Assessment & Plan (1) ACS (acute coronary syndrome): Presentation concerning for high risk ACS and recommend proceeding with urgent cardiac catheterization and possible PCI Discussed risks, benefits, alternatives of procedure with patient and they are willing to proceed. On heparin infusion, clopidogrel. Further recommendations pending findings of coronary angiography. History of Present Illness Attending Physician: Chetan Renee MD History of Present Illness Mr. Negron is a very pleasant 76-year-old man with a history of coronary artery disease with inferior CT 2003 and 2 prior stents to his RCA (2003, 2007), 1 prior stent to his circumflex (2007) here with NSTEMI. Other medical issues include type 2 diabetes on insulin, chronic kidney disease with baseline creatinine around 1.9, hypertension, Crohn's disease, psoriatic arthritis, GERD. Prior NSTEMI 2020 the setting of spine surgery thought to be related to demand ischemia. Echo showed LVEF 60 to 65% without wall motion abnormalities, mild AI. Patient has been having intermittent chest pain for the last 3 days. Pain worse yesterday evening, radiating to his jaw leading to presentation to ED. initial ECG showed sinus rhythm, with no ST abnormalities. Serial hs troponin elevated initially 1100, next 1200. This morning developed 10 out of 10 crushing chest pain. Repeat ECG showed ST depressions in V1 through V5. Chest pain improved with Dilaudid, nitro. Still with residual chest pain. Echo this morning showed new inferolateral wall motion abnormality. Allergies Allergy/AdvReac Type Severity Reaction Status Date / Time gabapentin AdvReac Intermediate Nightmares Verified 01/28/22 00:28 morphine AdvReac Intermediate Confusion, Verified 01/28/22 00:28 anger Flylcpa-LQL-ExU Reductase AdvReac Intermediate Muscle Verified 01/28/22 00:28 Inhibitor aches [Jjnynws-Wgq-Anp Reductase Inhibitor] Home Medications Medication Instructions Recorded Confirmed Type cholecalciferol (vitamin D3) 25 1,000 unit PO QAM 08/01/19 01/28/22 History mcg (1,000 unit) chewable tablet (Vitamin D3) aspirin 81 mg tablet,delayed 81 mg PO QAM 12/27/19 01/28/22 History release coQ10 (ubiquinol) 200 mg capsule 400 mg PO QAM 12/27/19 01/28/22 History melatonin 10 mg tablet 10 mg PO HS 12/27/19 01/28/22 History betamethasone, augmented 0.05 % 1 applic TOPICAL BID PRN 12/17/20 01/28/22 History topical ointment cyanocobalamin (vitamin B-12) 1,000 mcg PO QAM 12/17/20 01/28/22 History 1,000 mcg tablet (Vitamin B-12) diclofenac sodium 1 % topical gel 4 g TOPICAL QID PRN 12/17/20 01/28/22 History duloxetine 20 mg capsule,delayed 20 mg PO QAM 12/17/20 01/28/22 History release carvedilol 25 mg tablet 25 mg PO BID #180 tab 01/21/21 01/28/22 Rx amlodipine 5 mg tablet (Norvasc) 5 mg PO QAM #30 tab 04/08/21 01/28/22 Rx clopidogrel 75 mg tablet 75 mg PO QAM #90 tab 07/17/21 01/28/22 Rx pantoprazole 40 mg tablet,delayed 40 mg PO BID #180 tab 08/19/21 01/28/22 Rx release isosorbide mononitrate 120 mg 120 mg PO QAM #90 tab 09/09/21 01/28/22 Rx tablet,extended release 24 hr nitroglycerin 400 mcg/spray 0.4 mg SL DIRECTED PRN #12 g 12/17/21 01/28/22 Rx translingual insulin glargine 100 unit/mL (3 14 unit SUBCUT QPM ml 01/07/22 01/28/22 History mL) subcutaneous pen (Lantus Solostar U-100 Insulin) pravastatin 20 mg tablet 20 mg PO DAILY #90 tab 01/07/22 01/28/22 Rx linaclotide 290 mcg capsule 290 mcg PO DAILY 01/28/22 01/28/22 History (Linzess) omega 1-oyh-grb-fish oil 1,000 mg 3 cap PO DAILY 01/28/22 01/28/22 History (120 mg-180 mg) capsule (Fish Oil) vitamin E 400 unit capsule 400 unit PO DAILY 01/28/22 01/28/22 History Patient History Medical History CAD (coronary artery disease) Cervical spine tumor Cervical spondylosis Chest pain (07/11/14) CKD (chronic kidney disease) Crohn's disease Diverticulosis DM type 2 (diabetes mellitus, type 2) Dyslipidemia Fatty liver Gastroparesis GERD (gastroesophageal reflux disease) History of depression History of myocardial infarction History of TIA (transient ischemic attack) HLD (hyperlipidemia) Hypertension NSTEMI (non-ST elevated myocardial infarction) Orthostatic hypotension Osteoarthritis Sleep apnea Vertebral artery stenosis Surgical History H/O cervical discectomy History of cardiac catheterization History of cataract surgery History of cervical spinal surgery History of cholecystectomy History of colonoscopy History of esophagogastroduodenoscopy (EGD) History of removal of cyst History of tooth extraction Family History Father Coronary heart disease Myocardial infarction Brother Colon cancer Pulmonary embolism Hx of CABG Mother Diabetes Coronary heart disease Other No family history of adverse response to anesthesia Social History Smoking Status: Former smoker Tobacco Type: Cigarettes and Smokeless Tobacco (Dip or Chew) packs per day: 1; Years Smoked: 40; Number of Years Since Quit: 35; Second Hand Exposure: No; Hx Alcohol Use: No Hx Substance Use: No Preferred Language: Irish Communication Ability: Effective Counter Intelligence Required: No Beliefs That Will Affect Care: None marital status: Current Living Situation: Spouse current occupational status: retired current occupation: Retired in his early 50s as a [employer] Feels Safe at Home: Yes Assistive Devices: None Review of Systems Review of Systems: Not obtained the setting of urgent titration Physical Exam Physical Exam: General: Uncomfortable HEENT: Sclerae anicteric Lungs: Clear to auscultation bilaterally, no crackles or wheezes Cardiac: Regular rate and rhythm, 2 out of 6 holosystolic murmur at the apex Vascular: 2+ radial Abdomen: Soft, nontender Extremities: Well perfused, no peripheral edema Neuro: Nonfocal Psych: Alert orient x3, normal affect and mood Results & Data ([facility]) Vital Signs (Past 12 Hours) Vital Signs Temp Pulse Pulse Resp BP BP Pulse Ox 01/28/22 06:24 71 15 161/98 H 97 01/28/22 06:15 65 20 158/113 H 97 01/28/22 06:06 67 12 173/111 H 96 01/28/22 06:00 75 14 157/109 H 95 01/28/22 05:45 98.2 F 73 14 145/79 H 96 01/28/22 03:02 97.5 F L 72 22 141/79 H 96 01/28/22 02:00 74 01/28/22 01:49 77 14 127/74 97 01/28/22 00:31 98.8 F 86 14 133/79 96 01/28/22 00:27 97 PG Care Time/CCT Total # of Minutes Spent Total Time Spent with Patient: Total time spent is greater than 50% in coordination of care (as documented) at patient's floor/unit and/or counseling patient: Coding Level of Care Code 51830 Initial Inpt Care Lvl 3 Diagnoses ACS (acute coronary syndrome) I24.9
[2022-01-28] MEDS ORDERED: CLOPIDOGREL BISULFATE 300 MG TAB ONE (08:22)
--- NOTE | 2022-01-28 08:29 | Post Anesthesia Assessment ---
Date of Service January 28, 2022 Post Sedation Assessment Vital Signs Temp Pulse Pulse Resp BP BP Pulse Ox 01/28/22 06:24 71 15 161/98 H 97 01/28/22 06:15 65 20 158/113 H 97 01/28/22 06:06 67 12 173/111 H 96 01/28/22 06:00 75 14 157/109 H 95 01/28/22 05:45 98.2 F 73 14 145/79 H 96 01/28/22 03:02 97.5 F L 72 22 141/79 H 96 01/28/22 02:00 74 01/28/22 01:49 77 14 127/74 97 01/28/22 00:31 98.8 F 86 14 133/79 96 01/28/22 00:27 97 Recovery Score Activity: Moves 4 extremities Respiration: Deep Breath/Cough Circulation: +/-20% PreAnes Value Consciousness: Fully Awake Oxygen Saturation: O2 needed for >90% Discharge Sedation Level of Care: Fast Track Phase II Post Sedation Plan On clinical assessment, the patient appears to have tolerated the sedation without complications. Patient is recovering as anticipated. Patient will continue to be monitored by nursing and may be discharged when sedation discharge criteria are met per below protocol. Upon Completions of procedure up to 15 minutes continue every 5 minute vital signs and the P.A.R. score; then discharge to a Phase I or Fast Track to Phase II per the following guidelines: * Discharge Patient to appropriate Phase II area if PAR is 8 or greater or return to pre- procedure baseline. The post - procedure orders will be as directed. * If PAR score is less than 8 or not return to pre-procedure baseline then patient will follow Phase I monitoring till PAR is reached for Phase II. The Phase I may be done in procedure room or may call to secure a Phase I area. * If naloxone or flumazenil are used for reversal, hold in Phase I for continued monitoring from when last reversal dose was given for a minimum of 60 minutes or longer pending the nurse and/or physician discretion of patient condition before discharge to Phase II. Please call the Sedation Physician to re-evaluate and complete post-note for discharge to Phase II area. Do NOT discharge from procedure sedation or Phase 1 until post- sedation evaluation note is complete by procedure /sedation MD Sedation Discharge Instructions to be given to the patient at discharge to home.
--- NOTE | 2022-01-28 08:35 | Cardiac Catheterization ---
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 Cardiac Status Clinical evaluation leading to the procedure CAD Presenation: Non STEMI Diagnostic Physicians Name: David Roth MD Closure Device Recommendations: PCI without planned CABG Cardiac Cath Procedure Full Procedure Date January 28, 2022 Pre-Procedure Diagnosis Pre-Procedure Diagnosis: Non STEMI AUC Score AUC Score: 8 Post-Procedure Diagnosis Post-Procedure Diagnosis: Severe CAD, Successful PCI and Elevated Intracardiac Pressures Procedure(s) Performed Procedure(s) Performed: Coronary Angiography, Left Heart Cath and Drug Eluting Stent Videotape Sales Representative David Roth MD Pharmacy Benefit Manager(s) Alan Estimated Blood Loss Estimated Blood Loss: 15 Medication(s) Medication(s): Clopidogrel, Fentanyl, Heparin, Lidocaine 1%, Nicardipine, Nitroglycerin and Versed Summary of Findings Indication: High risk NSTEMI Access: 6 Fr right radial artery Catheters: [place], EBU 3.5 guide Findings: LM -normal caliber, no significant disease LAD -medium caliber, heavily calcified, 50-60% proximal disease, mid segment luminal irregularities, distal vessel small and tapers to apex. Small D1, D2 with severe diffuse disease. Circumflex -large caliber, 98% hazy/acute mid stenosis with MANUEL I flow in large OM 2, distal AV groove circumflex. OM 2 bifurcates with residual moderate diffuse disease in both branches. RCA -dominant, small to medium caliber, 90% proximal in-stent restenosis, long mid segment stent with diffuse in-stent restenosis up to 95%. Distal RCA with mild diffuse disease into small right PDA. LVEDP -25 -- PCI -- Antithrombotic therapy: Heparin, clopidogrel Procedure: Left main cannulated with EBU 3.5 guide Pre-procedure flow MANUEL 1 Assistant Health Educator 50 wire placed into distal AV groove circumflex Whisper wire navigated into OM 2 Mid circumflex lesion predilated with 2.5 compliant balloon Dilated lesion stented with 3.5 x 15 mm Malcolm drug-eluting stent Stent post-dilated with 3.5 noncompliant balloon IC vasodilators administered for spasm Post procedure MANUEL 3 flow, stent well expanded with minimal residual stenosis and no apparent cardiac complications. Arterial Closure: TR band Summary: 1. Acute subtotal mid circumflex occlusion just after prior stent 2. Multivessel nonculprit CAD -50 to 60% proximal LAD, diffuse disease in small D1, D2 90% proximal RCA in-stent restenosis, diffuse mid RCA in-stent restenosis up to 95% 3. Elevated intracardiac filling pressure 4. Successful PCI of mid circumflex with single drug-eluting stent (3.5 x 15 mm Malcolm) overlapping distal aspect of prior stent. 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 Any exceptions are noted below. [facility] Card Cath Procedure Codes Cardiac Catheterization Procedure 1: Cardiovascular Cath Procedures: 34703 Coronaries and LHC (+/-LV) Moderate Sedation Procedure 1: Sedation/Anesthesia: 45706 Mod Sedation by the same physician;Init15 Min Child Age 5 & Up Procedure 2: Sedation/Anesthesia: 85631 Mod Sedation by the same physician; Ea [id number] Minutes Stenting Procedure 1: Cardiovascular Stent Procedures: 87047 Perc transluminal revascularization of acute sub/total occl, aMI PG Care Time/CCT Total # of Minutes Spent Total Time Spent with Patient: Total time spent is greater than 50% in coordination of care (as documented) at patient's floor/unit and/or counseling patient:
[2022-01-28] MEDS ORDERED: NON-FORMULARY MEDICATION (Coq10 (Ubiquinol) 200 mg Capsule) PO SCH (09:00)
[2022-01-28] MEDS: INSULIN ASPART PER UNIT SC SCH ×4 (09:57→21:40)
[2022-01-28] MEDS: PANTOprazole 40 MG TAB PO SCH ×2 (10:02→21:35)
[2022-01-28] MEDS: LINACLOTIDE 145 MCG CAPSULE PO SCH (10:02)
[2022-01-28] MEDS: amLODIPine BESYLATE 5 MG TAB PO SCH (10:03)
[2022-01-28] MEDS: ASPIRIN 81 MG ECTAB PO SCH (10:03)
[2022-01-28] MEDS: PRAVASTATIN SOD 20 MG TAB PO SCH (10:03)
[2022-01-28] MEDS: TOCOPHERYL, DL-ALPHA 400 UNITS 180 MG CAP PO SCH (10:03)
[2022-01-28] MEDS: carvediloL 25 MG TAB PO SCH ×2 (10:04→21:33)
[2022-01-28] MEDS: CYANOCOBALAMIN (B-12) 500 MCG TABLET PO SCH (10:04)
[2022-01-28] MEDS: CHOLECALCIFEROL 1,000 UNITS 25 MCG TAB PO SCH (10:04)
[2022-01-28] MEDS: OMEGA-3 (PURIFIED FISH OIL) 1 GM CAP PO SCH (10:05)
[2022-01-28] MEDS: DULoxetine HCL 20 MG CAP PO SCH (10:06)
[2022-01-28] MEDS: ISOSORBIDE MONO EXTENDED REL 60 MG TABCR PO SCH (10:06)
[2022-01-28] MEDS: CLOPIDOGREL BISULFATE 75 MG TAB PO SCH (10:10)
[2022-01-28 10:19] LABS: Partial Thromboplastin Ratio > 5.1
[2022-01-28 10:33] LABS: Partial Thromboplastin Time > 139.0 Seconds (21.0-31.0)
[2022-01-28 10:45] LABS: Troponin I High Sensitivity 1426.6 pg/ml (0-20)
--- NOTE | 2022-01-28 16:19 | XCELERA ---
[id number] \\[id number]
--- NOTE | 2022-01-28 18:44 | Hospitalist Progress Note ---
Date of Service January 28, 2022 Assessment & Plan (1) NSTEMI (non-ST elevation myocardial infarction): Plan: 2nd to occluded left circumflex artery. s/p AJIT today by Dr Roth. chest symptoms resolved. trend troponin until peak is seen. lipid profile in am. need to tighten DM control. will need to d/w Dr Roth the plan for the RCA in-stent stenosis. (2) CAD (coronary artery disease): Plan: Inferior MA 2003. 2 prior stents to his RCA (2003, 2007). 1 prior stent to his circumflex (2007). Now with NSTEMI this am. Cath by Dr Roth with - LM -normal caliber, no significant disease LAD -medium caliber, heavily calcified, 50-60% proximal disease, mid segment luminal irregularities, distal vessel small and tapers to apex. Small D1, D2 with severe diffuse disease. Circumflex -large caliber, 98% hazy/acute mid stenosis with MANUEL I flow in large OM 2, distal AV groove circumflex. OM 2 bifurcates with residual moderate diffuse disease in both branches. RCA -dominant, small to medium caliber, 90% proximal in-stent restenosis, long mid segment stent with diffuse in-stent restenosis up to 95%. Distal RCA with mild diffuse disease into small right PDA. Left Cx was the culprit lesion s/p AJIT today. (3) Chronic renal failure, stage 3b: Plan: Baseline Cr ~1.9. Repeat BMP am. (4) Diabetes mellitus type 2, uncontrolled: Plan: Increase lantus to 16 units BID. Increase novolog correction & carb ratio. A1c noted to be 8.4%. (5) Obstructive sleep apnea: (6) Hypertension: Plan: Uncontrolled. Currently on amlodipine 5mg, coreg 25mg BID, imdur 120mg daily. If still uncontrolled tomorrow would increase amlodipine to 5mg BID. (7) Crohn's disease: (8) GERD (gastroesophageal reflux disease): Plan: PPI daily. (9) Hyperlipidemia: Plan: Currently on pravastatin 20mg daily. Check lipid profile in am. h/o statin intolerance noted. may need to add zetia if he needs more aggressive Rx and cannot increase the statin. Admission and Anticipated Discharge Date Admission Date: January 28, 2022 Subjective patient sitting in the chair when I came to see him this afternoon reports "Feeling really good" and "the chest pain is all gone" denies any cardiopulmonary symptoms able to eat today without difficulty tele normal since his cath by report Physical Exam Physical Exam: gen - NAD, sitting in chair, looks good neck - no JVD heart - RRR, s1 s2, no murmur lungs - CTA b/l abd - soft NT ND BS+; no HSM ext - no edema, pulses 2+ b/l vasc - right radial artery without hematoma or aneurysm Results & Data Results & Data ([facility]) Vital Signs (Past 12 Hours) Vital Signs Temp Pulse Pulse Resp BP BP BP 01/28/22 16:00 80 01/28/22 15:40 37 C 75 22 124/66 01/28/22 15:20 80 20 01/28/22 15:10 76 22 01/28/22 15:00 79 20 01/28/22 14:50 77 19 01/28/22 14:40 76 30 H 01/28/22 14:30 76 28 H 01/28/22 14:20 86 18 01/28/22 14:10 72 22 01/28/22 14:00 74 17 01/28/22 13:50 73 35 H 01/28/22 13:40 68 16 01/28/22 13:30 69 19 01/28/22 13:20 71 22 01/28/22 13:10 72 19 01/28/22 13:00 71 6 L 147/78 H 01/28/22 12:50 70 16 01/28/22 12:40 71 11 L 01/28/22 12:30 78 22 01/28/22 12:20 80 15 01/28/22 12:10 73 18 01/28/22 12:00 75 20 01/28/22 11:50 79 22 01/28/22 11:40 81 19 01/28/22 11:30 70 15 01/28/22 11:20 70 12 01/28/22 11:10 74 16 01/28/22 11:00 75 18 01/28/22 10:50 77 14 01/28/22 10:40 77 17 01/28/22 10:37 76 16 132/73 01/28/22 10:30 74 9 L 135/74 01/28/22 10:20 77 17 106/74 01/28/22 10:10 75 16 01/28/22 10:00 83 22 01/28/22 09:50 72 18 01/28/22 09:40 75 19 01/28/22 09:30 73 21 132/70 01/28/22 09:20 79 24 01/28/22 09:15 79 18 145/81 H 01/28/22 09:10 77 22 01/28/22 09:05 69 12 01/28/22 09:00 67 17 01/28/22 08:45 73 20 154/94 H 01/28/22 08:30 70 20 157/90 H Pulse Ox 01/28/22 16:00 01/28/22 15:40 95 01/28/22 15:20 95 01/28/22 15:10 94 01/28/22 15:00 94 01/28/22 14:50 95 01/28/22 14:40 96 01/28/22 14:30 94 01/28/22 14:20 94 01/28/22 14:10 94 01/28/22 14:00 95 01/28/22 13:50 96 01/28/22 13:40 94 01/28/22 13:30 89 L 01/28/22 13:20 92 01/28/22 13:10 93 01/28/22 13:00 93 01/28/22 12:50 96 01/28/22 12:40 93 01/28/22 12:30 92 01/28/22 12:20 92 01/28/22 12:10 94 01/28/22 12:00 94 01/28/22 11:50 95 01/28/22 11:40 95 01/28/22 11:30 95 01/28/22 11:20 95 01/28/22 11:10 95 01/28/22 11:00 94 01/28/22 10:50 94 01/28/22 10:40 94 01/28/22 10:37 95 01/28/22 10:30 95 01/28/22 10:20 93 01/28/22 10:10 94 01/28/22 10:00 91 01/28/22 09:50 91 01/28/22 09:40 90 01/28/22 09:30 97 01/28/22 09:20 93 01/28/22 09:15 92 01/28/22 09:10 95 01/28/22 09:05 97 01/28/22 09:00 97 01/28/22 08:45 96 01/28/22 08:30 93 Laboratory Results Laboratory Results - last 24 hr 01/28/22 01/28/22 01/28/22 00:28 00:28 00:28 WBC 11.12 H RBC 4.50 L Hgb 14.4 Hct 41.2 L MCV 91.6 MCH 32.0 MCHC 35.0 RDW Std Deviation 44.3 RDW Coeff of Amalia 13.5 Plt Count 200 MPV 9.9 Immature Gran % (Auto) 0.3 Neut % (Auto) 57.8 Lymph % (Auto) 23.0 Dodge % (Auto) 10.3 Eos % (Auto) 8.1 Baso % (Auto) 0.5 Neut # (Auto) 6.42 Lymph # (Auto) 2.56 Dodge # (Auto) 1.15 H Eos # (Auto) 0.90 H Baso # (Auto) 0.06 Immature Gran # (Auto) 0.03 H PT 10.9 INR 1.0 APTT 28.0 PTT Ratio 1.0 Activ Coag Time Kaolin Sodium 132 L Potassium 3.9 Chloride 101 Carbon Dioxide 21 Anion Gap 10 BUN 31 H Creatinine 1.90 H Est Cr Clr Drug Dosing 34.4 Est GFR ( Amer) 38.8 Est GFR (Non-Af Amer) 33.5 BUN/Creatinine Ratio 16.3 Glucose 257 H POC Glucose Estimat Average Glucose Hemoglobin A1c Calcium 8.7 Phosphorus Total Bilirubin 0.4 AST 21 ALT 14 Alkaline Phosphatase 102 Troponin I High Sens 1133.4 H* Total Protein 6.5 Albumin 4.0 Globulin 2.5 Albumin/Globulin Ratio 1.6 Lipase 45 Nasal Screen MRSA (PCR) SARS-CoV-2, RNA, NAAT 01/28/22 01/28/22 01/28/22 01:00 02:10 02:27 WBC RBC Hgb Hct MCV MCH MCHC RDW Std Deviation RDW Coeff of Amalia Plt Count MPV Immature Gran % (Auto) Neut % (Auto) Lymph % (Auto) Dodge % (Auto) Eos % (Auto) Baso % (Auto) Neut # (Auto) Lymph # (Auto) Dodge # (Auto) Eos # (Auto) Baso # (Auto) Immature Gran # (Auto) PT INR APTT PTT Ratio Activ Coag Time Kaolin Sodium Potassium Chloride Carbon Dioxide Anion Gap BUN Creatinine Est Cr Clr Drug Dosing Est GFR ( Amer) Est GFR (Non-Af Amer) BUN/Creatinine Ratio Glucose POC Glucose Estimat Average Glucose Hemoglobin A1c Calcium Phosphorus Total Bilirubin AST ALT Alkaline Phosphatase Troponin I High Sens 1259.3 H* Total Protein Albumin Globulin Albumin/Globulin Ratio Lipase Nasal Screen MRSA (PCR) Negative SARS-CoV-2, RNA, NAAT NEGATIVE 01/28/22 01/28/22 01/28/22 06:07 06:07 06:07 WBC 13.72 H RBC 4.85 Hgb 15.2 Hct 44.0 MCV 90.7 MCH 31.3 MCHC 34.5 RDW Std Deviation 44.1 RDW Coeff of Amalia 13.4 Plt Count 209 MPV 10.1 Immature Gran % (Auto) 0.3 Neut % (Auto) 47.0 Lymph % (Auto) 31.6 Dodge % (Auto) 11.7 Eos % (Auto) 9.0 Baso % (Auto) 0.4 Neut # (Auto) 6.43 Lymph # (Auto) 4.34 H Dodge # (Auto) 1.61 H Eos # (Auto) 1.24 H Baso # (Auto) 0.06 Immature Gran # (Auto) 0.04 H PT INR APTT PTT Ratio Activ Coag Time Kaolin Sodium 136 Potassium 3.9 Chloride 104 Carbon Dioxide 22 Anion Gap 10 BUN 29 H Creatinine 1.82 H Est Cr Clr Drug Dosing 35.7 Est GFR ( Amer) 40.9 Est GFR (Non-Af Amer) 35.3 BUN/Creatinine Ratio 15.9 Glucose 185 H POC Glucose Estimat Average Glucose 194 Hemoglobin A1c 8.4 H Calcium 9.0 Phosphorus 3.0 Total Bilirubin AST ALT Alkaline Phosphatase Troponin I High Sens 1426.6 H* Total Protein Albumin 4.0 Globulin Albumin/Globulin Ratio Lipase Nasal Screen MRSA (PCR) SARS-CoV-2, RNA, NAAT 01/28/22 01/28/22 01/28/22 07:15 08:05 09:04 WBC RBC Hgb Hct MCV MCH MCHC RDW Std Deviation RDW Coeff of Amalia Plt Count MPV Immature Gran % (Auto) Neut % (Auto) Lymph % (Auto) Dodge % (Auto) Eos % (Auto) Baso % (Auto) Neut # (Auto) Lymph # (Auto) Dodge # (Auto) Eos # (Auto) Baso # (Auto) Immature Gran # (Auto) PT INR APTT PTT Ratio Activ Coag Time Kaolin 249 H Sodium Potassium Chloride Carbon Dioxide Anion Gap BUN Creatinine Est Cr Clr Drug Dosing Est GFR ( Amer) Est GFR (Non-Af Amer) BUN/Creatinine Ratio Glucose POC Glucose 188 H 201 H Estimat Average Glucose Hemoglobin A1c Calcium Phosphorus Total Bilirubin AST ALT Alkaline Phosphatase Troponin I High Sens Total Protein Albumin Globulin Albumin/Globulin Ratio Lipase Nasal Screen MRSA (PCR) SARS-CoV-2, RNA, NAAT 01/28/22 01/28/22 01/28/22 09:09 11:36 11:37 WBC RBC Hgb Hct MCV MCH MCHC RDW Std Deviation RDW Coeff of Amalia Plt Count MPV Immature Gran % (Auto) Neut % (Auto) Lymph % (Auto) Dodge % (Auto) Eos % (Auto) Baso % (Auto) Neut # (Auto) Lymph # (Auto) Dodge # (Auto) Eos # (Auto) Baso # (Auto) Immature Gran # (Auto) PT INR APTT > 139.0 H* PTT Ratio > 5.1 Activ Coag Time Kaolin Sodium Potassium Chloride Carbon Dioxide Anion Gap BUN Creatinine Est Cr Clr Drug Dosing Est GFR ( Amer) Est GFR (Non-Af Amer) BUN/Creatinine Ratio Glucose POC Glucose 262 H 251 H Estimat Average Glucose Hemoglobin A1c Calcium Phosphorus Total Bilirubin AST ALT Alkaline Phosphatase Troponin I High Sens Total Protein Albumin Globulin Albumin/Globulin Ratio Lipase Nasal Screen MRSA (PCR) SARS-CoV-2, RNA, NAAT 01/28/22 01/28/22 01/28/22 14:15 14:20 16:02 WBC RBC Hgb Hct MCV MCH MCHC RDW Std Deviation RDW Coeff of Amalia Plt Count MPV Immature Gran % (Auto) Neut % (Auto) Lymph % (Auto) Dodge % (Auto) Eos % (Auto) Baso % (Auto) Neut # (Auto) Lymph # (Auto) Dodge # (Auto) Eos # (Auto) Baso # (Auto) Immature Gran # (Auto) PT INR APTT PTT Ratio Activ Coag Time Kaolin Sodium Potassium Chloride Carbon Dioxide Anion Gap BUN Creatinine Est Cr Clr Drug Dosing Est GFR ( Amer) Est GFR (Non-Af Amer) BUN/Creatinine Ratio Glucose POC Glucose 234 H Estimat Average Glucose Hemoglobin A1c Calcium Phosphorus Total Bilirubin AST ALT Alkaline Phosphatase Troponin I High Sens Cancelled > 31480.0 H* D Total Protein Albumin Globulin Albumin/Globulin Ratio Lipase Nasal Screen MRSA (PCR) SARS-CoV-2, RNA, NAAT Diagnostic Findings echo - preserved EF, wall motion abnormalities; normal valve function PG Care Time/CCT Total # of Minutes Spent Total Time Spent with Patient: Total time spent is greater than 50% in coordination of care (as documented) at patient's floor/unit and/or counseling patient: Coding Level of Care Code None Diagnoses NSTEMI (non-ST elevation myocardial infarction) I21.4 CAD (coronary artery disease) I25.10 Chronic renal failure, stage 3b N18.32 Diabetes mellitus type 2, uncontrolled Obstructive sleep apnea G47.33 Hypertension I10 Hypertension type: unspecified Crohn's disease K50.90 Gastrointestinal tract location: unspecified location Digestive disease complication type: without complication GERD (gastroesophageal reflux disease) K21.9 Esophagitis presence: without esophagitis Hyperlipidemia E78.5 (1) Hypertension Hypertension type: unspecified Qualified Code(s): I10 - Essential (primary) hypertension (2) Crohn's disease Gastrointestinal tract location: unspecified location Digestive disease complication type: without complication Qualified Code(s): K50.90 - Crohn's disease, unspecified, without complications (3) GERD (gastroesophageal reflux disease) Esophagitis presence: without esophagitis Qualified Code(s): K21.9 - Gastro- esophageal reflux disease without esophagitis
[2022-01-28] MEDS ORDERED: INSULIN GLARGINE SOLOSTAR 100 UNITS/ML 3 ML PEN SQ SCH (21:00)
[2022-01-28] MEDS: INSULIN GLARGINE SOLOSTAR 100 UNITS/ML 3 ML PEN SQ SCH (21:33)
[2022-01-28] MEDS: MELATONIN 3 MG TAB PO SCH (21:35)
--- NOTE | 2022-01-28 23:18 | Electrocardiogram Report ---
Test Reason : Blood Pressure : / mmHG Vent. Rate : 075 BPM Atrial Rate : 075 BPM P-R Int : 160 ms QRS Dur : 080 ms QT Int : 362 ms P-R-T Axes : 057 -09 088 degrees QTc Int : 404 ms Normal sinus rhythm Possible Inferior infarct (cited on or before 10-FEB-2021) Nonspecific ST abnormality Abnormal ECG When compared with ECG of 10-FEB-2021 04:22, No significant change Confirmed by Thaddeus Duarte ([id number]) on 01/28/2022 11:18:33 PM Referred By: REFERRED SELF Confirmed By:Thaddeus Duarte
--- NOTE | 2022-01-28 23:23 | Electrocardiogram Report ---
Test Reason : Blood Pressure : / mmHG Vent. Rate : 076 BPM Atrial Rate : 076 BPM P-R Int : 156 ms QRS Dur : 084 ms QT Int : 360 ms P-R-T Axes : 062 003 078 degrees QTc Int : 405 ms Normal sinus rhythm Abnormal ECG When compared with ECG of 28-JAN-2022 00:25, ST more depressed Anterior leads T wave inversion now evident in Anterior leads Confirmed by Thaddeus Duarte ([id number]) on 01/28/2022 11:23:01 PM Referred By: REFERRED SELF Confirmed By:Thaddeus Duarte
[2022-01-29 05:30] LABS: Basophils # (auto) 0.03 K/uL (0-0.2); Basophils % (auto) 0.3 %; Eosinophils # (auto) 0.66 K/uL (0-0.5); Eosinophils % (auto) 6.1 %; Hematocrit (blood only) 40.3 % (42-52); Hemoglobin 13.4 g/dL (14.0-18.0); Immature Granulocytes # (auto) 0.04 K/uL (0.00-0.02); Immature Granulocytes % (auto) 0.4 %; Lymphocytes % (auto) 21.3 %; Mean Corpuscular Hemoglobin 31.2 pg (25-34); Mean Corpuscular Hgb Conc 33.3 g/dL (32-36); Mean Corpuscular Volume 93.7 fL (80-100); Mean Platelet Volume 9.9 fL (7.4-10.4); Monocytes # (auto) 1.34 K/uL (0.11-0.59); Monocytes % (auto) 12.4 %; Neutrophils # (auto) 6.41 K/uL (1.4-6.5); Neutrophils % (auto) 59.5 %; Platelet Count 186 K/uL (130-400); RDW Coefficient of Variation 13.6 % (11.5-14.5); RDW Standard Deviation 46.6 fL (36.4-46.3); White Blood Count 10.78 K/uL (4.8-10.8)
[2022-01-29 05:57] LABS: Albumin Level 3.7 gm/dl (3.4-5.0); BUN Creatinine Ratio 15.6 (10-20); Calcium 8.7 mg/dl (8.5-10.1); Chol HDL Ratio 5.3 (0-5); Creatinine Clr Calc Pharmacy 31.7 ml/min; Est GFR (African American) 35.4 ml/min; Est GFR (Non-African American) 30.6 ml/min; Magnesium 1.4 mg/dl (1.7-2.4); Phosphorus 3.2 mg/dl (2.5-4.9); Potassium 4.3 mmol/L (3.5-5.1)
[2022-01-29] MEDS: INSULIN ASPART PER UNIT SC SCH ×4 (08:07→22:36)
[2022-01-29] MEDS: ASPIRIN 81 MG ECTAB PO SCH (08:09)
[2022-01-29] MEDS: amLODIPine BESYLATE 5 MG TAB PO SCH (08:09)
[2022-01-29] MEDS: CHOLECALCIFEROL 1,000 UNITS 25 MCG TAB PO SCH (08:10)
[2022-01-29] MEDS: CLOPIDOGREL BISULFATE 75 MG TAB PO SCH (08:10)
[2022-01-29] MEDS: carvediloL 25 MG TAB PO SCH ×2 (08:10→22:39)
[2022-01-29] MEDS: TOCOPHERYL, DL-ALPHA 400 UNITS 180 MG CAP PO SCH (08:10)
[2022-01-29] MEDS: LINACLOTIDE 145 MCG CAPSULE PO SCH (08:11)
[2022-01-29] MEDS: CYANOCOBALAMIN (B-12) 500 MCG TABLET PO SCH (08:11)
[2022-01-29] MEDS: OMEGA-3 (PURIFIED FISH OIL) 1 GM CAP PO SCH (08:11)
[2022-01-29] MEDS: DULoxetine HCL 20 MG CAP PO SCH (08:11)
[2022-01-29] MEDS: ISOSORBIDE MONO EXTENDED REL 60 MG TABCR PO SCH (08:11)
[2022-01-29] MEDS: PRAVASTATIN SOD 20 MG TAB PO SCH (08:12)
[2022-01-29] MEDS: PANTOprazole 40 MG TAB PO SCH ×2 (08:12→22:40)
--- NOTE | 2022-01-29 11:56 | Cardiology Progress Note ---
Date of Service January 29, 2022 Assessment & Plan (1) NSTEMI (non-ST elevation myocardial infarction): Plan: Status post PCI with AJIT to subtotal mid circumflex occlusion 2. Chronic kidney disease 3. Hypertension 4. Moderate mitral regurgitation 5. Mild AI 6. Dyslipidemia Chest pain-free. Troponin > 27,000 Hemodynamically and electrically stable. No access to complications Creatinine slightly elevated Continue DAPT with aspirin, clopidogrel Continue home antianginal regimen, amlodipine, Imdur Continue current statin No plans for further intervention to chronic RCA disease. Recommend continued medical management up walking this afternoon. If no recurrent chest pain, troponin downtrending okay with discharge later today or tomorrow morning. Follow-up with Dr. Savage in 1 to 2 weeks. Repeat BMP next week Admission and Anticipated Discharge Date Admission Date: January 28, 2022 Subjective Feeling well today. No recurrent chest pain following PCI yesterday. No other new concerns. Telemetry reviewedno events Review of Systems Review of Systems: All systems reviewed & are unremarkable except as noted in HPI & below Physical Exam Physical Exam: General: Comfortable HEENT: Sclerae anicteric Lungs: Clear to auscultation bilaterally, no crackles or wheezes Cardiac: Regular rate and rhythm, no murmurs. Vascular: Right radial artery access site with no ecchymosis, hematoma. Distal pulse and sensation intact. Abdomen: Soft, nontender Extremities: Well perfused, no peripheral edema Neuro: Nonfocal Psych: Alert orient x3, normal affect and mood Results & Data ([facility]) Vital Signs (Past 12 Hours) Vital Signs Temp Pulse Pulse Resp BP Pulse Ox 01/29/22 07:46 98.8 F 82 24 120/98 94 01/29/22 03:00 98.2 F 77 17 113/57 L 94 01/29/22 00:00 85 PG Care Time/CCT Total # of Minutes Spent Total Time Spent with Patient: Total time spent is greater than 50% in coordination of care (as documented) at patient's floor/unit and/or counseling patient: Coding Level of Care Code 50919 Subseq Hosp Care Lvl 3 Diagnoses NSTEMI (non-ST elevation myocardial infarction) I21.4
[2022-01-29] MEDS: MAGNESIUM SULFATE / D5W 1 GM/100 ML BAG IV SCH ×2 (12:34→14:17)
--- NOTE | 2022-01-29 13:48 | Electrocardiogram Report ---
Test Reason : Blood Pressure : / mmHG Vent. Rate : 077 BPM Atrial Rate : 077 BPM P-R Int : 154 ms QRS Dur : 074 ms QT Int : 386 ms P-R-T Axes : 047 -09 126 degrees QTc Int : 436 ms Normal sinus rhythm Inferior-posterior infarct , age undetermined Abnormal ECG When compared with ECG of 28-JAN-2022 06:03, ST less depressed in Anterior leads T wave inversion no longer evident in Anterior leads Nonspecific T wave abnormality, worse in Lateral leads Confirmed by Kalyan Burr ([id number]) on 01/29/2022 1:47:49 PM Referred By: REFERRED SELF Confirmed By:Kalyan Burr
[2022-01-29 16:22] LABS: Creatinine Clr Calc Pharmacy 26.7 ml/min; Est GFR (African American) 28.7 ml/min; Est GFR (Non-African American) 24.8 ml/min
[2022-01-29] MEDS ORDERED: SODIUM CHLORIDE 0.9% 1000ML 1,000 ML IV SCH (17:00)
--- NOTE | 2022-01-29 21:52 | Hospitalist Progress Note ---
Date of Service January 29, 2022 Assessment & Plan (1) NSTEMI (non-ST elevation myocardial infarction): Plan: 2nd to occluded left circumflex artery. s/p AJIT by Dr Roth. troponin has peaked and is trending down. lipid profile results discussed with patient; LDL 77; high trigs, low HDL. Would benefit from tricor or Rx fish oil. continue to improve his DM control. appreciate Dr Roth' assistance. (2) CAD (coronary artery disease): Plan: Inferior [place] 2003. 2 prior stents to his RCA (2003, 2007). 1 prior stent to his circumflex (2007). Now with NSTEMI 2nd to left circumflex occlusion s/p AJIT. Cath by Dr Roth with - LM -normal caliber, no significant disease LAD -medium caliber, heavily calcified, 50-60% proximal disease, mid segment luminal irregularities, distal vessel small and tapers to apex. Small D1, D2 with severe diffuse disease. Circumflex -large caliber, 98% hazy/acute mid stenosis with MANUEL I flow in large OM 2, distal AV groove circumflex. OM 2 bifurcates with residual moderate diffuse disease in both branches. RCA -dominant, small to medium caliber, 90% proximal in-stent restenosis, long mid segment stent with diffuse in-stent restenosis up to 95%. Distal RCA with mild diffuse disease into small right PDA. Significant RCA in-stent stenosis - I spoke with Dr Roth - the stenosis is chronic and medical management advised. No plans for intervention/stenting. (3) Acute kidney injury: Plan: Cardiorenal in the setting of acute [place] vs contrast injury. Cr now 2.4. Start IV fluids - NS at 75cc/hr. Repeat BMP am. (4) Chronic renal failure, stage 3b: Plan: Baseline Cr ~1.9. Now with ILIA. See above. BMP am. (5) Diabetes mellitus type 2, uncontrolled: Plan: Increased lantus to 16 units BID. Increased novolog correction & carb ratio. A1c noted to be 8.4%. Control slowly improving. May need additional adjustments. (6) Obstructive sleep apnea: (7) Hypertension: Plan: BPs improved today. Currently on amlodipine 5mg, coreg 25mg BID, imdur 120mg daily. Cont current regimen. (8) Crohn's disease: (9) GERD (gastroesophageal reflux disease): Plan: PPI daily. (10) Hyperlipidemia: Plan: Currently on pravastatin 20mg daily. h/o statin intolerance noted but does tolerate pravastatin. HDL is low, trigs are high - again tricor vs prescription fish oil would be advised. LDL 77 - consider increasing pravastatin to 40mg/day. Plan: no discharge today due to ILIA encourage ambulation Admission and Anticipated Discharge Date Admission Date: January 28, 2022 Subjective patient without any complaints today feeling well no chest pain no dyspnea no orthopnea tele stable overnight no pain or swelling over right radial access site Review of Systems Review of Systems: gen - no fatigue cv - no cp pulm - no cough GI - no nausea or emesis; no constipation; had BM today Physical Exam Physical Exam: gen - NAD, eating his meal neck - no JVD mouth - MMM heart - RRR, s1 s2, no murmur lungs - CTA b/l abd - soft NT ND BS+; no HSM ext - no edema, pulses 2+ b/l vasc - right radial artery without hematoma or aneurysm Results & Data Results & Data ([facility]) Vital Signs (Past 12 Hours) Vital Signs Temp Pulse Pulse Resp BP Pulse Ox 01/29/22 19:59 36.6 C 83 18 103/74 93 01/29/22 17:25 88 01/29/22 15:24 36.7 C 75 16 120/65 99 01/29/22 12:00 37.0 C 84 11 L 144/125 H 95 Laboratory Results Laboratory Results - last 24 hr 01/29/22 01/29/22 01/29/22 04:49 04:49 07:40 WBC 10.78 RBC 4.30 L Hgb 13.4 L Hct 40.3 L MCV 93.7 MCH 31.2 MCHC 33.3 RDW Std Deviation 46.6 H RDW Coeff of Amalia 13.6 Plt Count 186 MPV 9.9 Immature Gran % (Auto) 0.4 Neut % (Auto) 59.5 Lymph % (Auto) 21.3 [place] % (Auto) 12.4 Eos % (Auto) 6.1 Baso % (Auto) 0.3 Neut # (Auto) 6.41 Lymph # (Auto) 2.30 [place] # (Auto) 1.34 H Eos # (Auto) 0.66 H Baso # (Auto) 0.03 Immature Gran # (Auto) 0.04 H Sodium 134 L Potassium 4.3 Chloride 103 Carbon Dioxide 25 Anion Gap 6 BUN 32 H Creatinine 2.05 H Est Cr Clr Drug Dosing 31.7 Est GFR ( Amer) 35.4 Est GFR (Non-Af Amer) 30.6 BUN/Creatinine Ratio 15.6 Glucose 169 H POC Glucose 157 H Calcium 8.7 Phosphorus 3.2 Magnesium 1.4 L Troponin I High Sens Albumin 3.7 Triglycerides 310 H Cholesterol 171 LDL Cholesterol, Calc 77 VLDL Cholesterol, Calc 62 H HDL Cholesterol 32 Cholesterol/HDL Ratio 5.3 H 01/29/22 01/29/22 01/29/22 10:47 11:29 15:40 WBC RBC Hgb Hct MCV MCH MCHC RDW Std Deviation RDW Coeff of Amalia Plt Count MPV Immature Gran % (Auto) Neut % (Auto) Lymph % (Auto) [place] % (Auto) Eos % (Auto) Baso % (Auto) Neut # (Auto) Lymph # (Auto) [place] # (Auto) Eos # (Auto) Baso # (Auto) Immature Gran # (Auto) Sodium Potassium Chloride Carbon Dioxide Anion Gap BUN Creatinine 2.44 H D Est Cr Clr Drug Dosing 26.7 Est GFR ( Amer) 28.7 Est GFR (Non-Af Amer) 24.8 BUN/Creatinine Ratio Glucose POC Glucose 199 H Calcium Phosphorus Magnesium Troponin I High Sens > 78184.0 H* Albumin Triglycerides Cholesterol LDL Cholesterol, Calc VLDL Cholesterol, Calc HDL Cholesterol Cholesterol/HDL Ratio 01/29/22 01/29/22 15:40 16:17 WBC RBC Hgb Hct MCV MCH MCHC RDW Std Deviation RDW Coeff of Amalia Plt Count MPV Immature Gran % (Auto) Neut % (Auto) Lymph % (Auto) [place] % (Auto) Eos % (Auto) Baso % (Auto) Neut # (Auto) Lymph # (Auto) [place] # (Auto) Eos # (Auto) Baso # (Auto) Immature Gran # (Auto) Sodium Potassium Chloride Carbon Dioxide Anion Gap BUN Creatinine Est Cr Clr Drug Dosing Est GFR ( Amer) Est GFR (Non-Af Amer) BUN/Creatinine Ratio Glucose POC Glucose 188 H Calcium Phosphorus Magnesium Troponin I High Sens 75379.0 H* Albumin Triglycerides Cholesterol LDL Cholesterol, Calc VLDL Cholesterol, Calc HDL Cholesterol Cholesterol/HDL Ratio PG Care Time/CCT Total # of Minutes Spent Total Time Spent with Patient: Total time spent is greater than 50% in coordination of care (as documented) at patient's floor/unit and/or counseling patient: Coding Level of Care Code 78575 Subseq Hosp Care Lvl 2 Diagnoses NSTEMI (non-ST elevation myocardial infarction) I21.4 CAD (coronary artery disease) I25.10 Chronic renal failure, stage 3b N18.32 Diabetes mellitus type 2, uncontrolled Obstructive sleep apnea G47.33 Hypertension I10 Hypertension type: unspecified Crohn's disease K50.90 Gastrointestinal tract location: unspecified location Digestive disease complication type: without complication GERD (gastroesophageal reflux disease) K21.9 Esophagitis presence: without esophagitis Hyperlipidemia E78.5 Acute kidney injury N17.9 (1) Hypertension Hypertension type: unspecified Qualified Code(s): I10 - Essential (primary) hypertension (2) Crohn's disease Gastrointestinal tract location: unspecified location Digestive disease complication type: without complication Qualified Code(s): K50.90 - Crohn's disease, unspecified, without complications (3) GERD (gastroesophageal reflux disease) Esophagitis presence: without esophagitis Qualified Code(s): K21.9 - Gastro- esophageal reflux disease without esophagitis
[2022-01-29] MEDS: INSULIN GLARGINE SOLOSTAR 100 UNITS/ML 3 ML PEN SQ SCH (22:38)
[2022-01-29] MEDS: MELATONIN 3 MG TAB PO SCH (22:41)
[2022-01-30 05:23] LABS: Basophils # (auto) 0.02 K/uL (0-0.2); Basophils % (auto) 0.2 %; Eosinophils # (auto) 0.75 K/uL (0-0.5); Eosinophils % (auto) 7.8 %; Hematocrit (blood only) 39.2 % (42-52); Hemoglobin 13.1 g/dL (14.0-18.0); Immature Granulocytes # (auto) 0.03 K/uL (0.00-0.02); Immature Granulocytes % (auto) 0.3 %; Lymphocytes # (auto) 2.86 K/uL (1.2-3.4); Lymphocytes % (auto) 29.7 %; Mean Corpuscular Hemoglobin 30.6 pg (25-34); Mean Corpuscular Hgb Conc 33.4 g/dL (32-36); Mean Corpuscular Volume 91.6 fL (80-100); Mean Platelet Volume 10.1 fL (7.4-10.4); Monocytes # (auto) 1.07 K/uL (0.11-0.59); Monocytes % (auto) 11.1 %; Neutrophils % (auto) 50.9 %; Platelet Count 173 K/uL (130-400); RDW Coefficient of Variation 13.6 % (11.5-14.5); RDW Standard Deviation 44.9 fL (36.4-46.3); Red Blood Count 4.28 M/uL (4.7-6.1); White Blood Count 9.63 K/uL (4.8-10.8)
[2022-01-30 05:56] LABS: Albumin Level 3.6 gm/dl (3.4-5.0); BUN Creatinine Ratio 16.2 (10-20); Calcium 8.4 mg/dl (8.5-10.1); Est GFR (African American) 34.4 ml/min; Est GFR (Non-African American) 29.7 ml/min; Magnesium 1.7 mg/dl (1.7-2.4); Phosphorus 3.7 mg/dl (2.5-4.9); Potassium 3.8 mmol/L (3.5-5.1)
[2022-01-30] MEDS: INSULIN ASPART PER UNIT SC SCH ×3 (08:29→14:25)
[2022-01-30] MEDS: amLODIPine BESYLATE 5 MG TAB PO SCH (08:31)
[2022-01-30] MEDS: CHOLECALCIFEROL 1,000 UNITS 25 MCG TAB PO SCH (08:32)
[2022-01-30] MEDS: CLOPIDOGREL BISULFATE 75 MG TAB PO SCH (08:32)
[2022-01-30] MEDS: CYANOCOBALAMIN (B-12) 500 MCG TABLET PO SCH (08:32)
[2022-01-30] MEDS: carvediloL 25 MG TAB PO SCH (08:32)
[2022-01-30] MEDS: ASPIRIN 81 MG ECTAB PO SCH (08:32)
[2022-01-30] MEDS: OMEGA-3 (PURIFIED FISH OIL) 1 GM CAP PO SCH (08:33)
[2022-01-30] MEDS: PRAVASTATIN SOD 20 MG TAB PO SCH (08:33)
[2022-01-30] MEDS: LINACLOTIDE 145 MCG CAPSULE PO SCH (08:33)
[2022-01-30] MEDS: PANTOprazole 40 MG TAB PO SCH (08:33)
[2022-01-30] MEDS: TOCOPHERYL, DL-ALPHA 400 UNITS 180 MG CAP PO SCH (08:33)
[2022-01-30] MEDS: DULoxetine HCL 20 MG CAP PO SCH (08:33)
[2022-01-30] MEDS: ISOSORBIDE MONO EXTENDED REL 60 MG TABCR PO SCH (08:33)
--- NOTE | 2022-01-30 14:50 | Discharge Summary ---
Date of Service date of admission - January 28, 2022 date of discharge - January 30, 2022 Admission HPI Per Admitting Provider The patient is a 76-year-old male with a past medical history including CAD, stented coronary arteries, left circumflex bare-metal stent, RCA drug-eluting stent, psoriasis, psoriatic arthropathy, diabetes mellitus, thrombocytopenia, CKD, smokeless tobacco use, BROOK, hypertension, Crohn's disease, GERD and gastroparesis. He presents with symptoms as noted above. He reports never having had these kind of symptoms before, even prior to his cardiac catheterization and stents. He denies any change in recent physical activity level or dietary intake. Principal Diagnosis NSTEMI Discharge Exam gen - NAD, pleasant neck - no JVD mouth - MMM heart - RRR, s1 s2, no murmur lungs - CTA b/l abd - soft NT ND BS+; no HSM ext - no edema, pulses 2+ b/l vasc - right radial artery without hematoma or aneurysm Discharge Data Allergies Allergy/AdvReac Type Severity Reaction Status Date / Time gabapentin AdvReac Intermediate Nightmares Verified 02/03/22 08:31 morphine AdvReac Intermediate Confusion, Verified 02/03/22 08:31 anger [id number]-WDK-IiP Reductase AdvReac Intermediate Muscle Verified 02/03/22 08:31 Inhibitor aches [Zrpcuyl-Ayg-Oet Reductase Inhibitor] Consultations [facility] [place] [facility] - David Roth MD Cardiac Rehabilitation Procedures Performed Operation Date: 01/28/22 07:30 Actual Procedures s Cineradiography w/Routine Exam - David Roth MD s Cath, Left with Cors and Vent - David Roth MD p Drug Eluting Stent SGl Vessel - David Roth MD Findings: LM -normal caliber, no significant disease LAD -medium caliber, heavily calcified, 50-60% proximal disease, mid segment luminal irregularities, distal vessel small and tapers to apex. Small D1, D2 with severe diffuse disease. Circumflex -large caliber, 98% hazy/acute mid stenosis with MANUEL I flow in large OM 2, distal AV groove circumflex. OM 2 bifurcates with residual moderate diffuse disease in both branches. RCA -dominant, small to medium caliber, 90% proximal in-stent restenosis, long mid segment stent with diffuse in-stent restenosis up to 95%. Distal RCA with mild diffuse disease into small right PDA. Summary: 1. Acute subtotal mid circumflex occlusion just after prior stent 2. Multivessel nonculprit CAD - -50 to 60% proximal LAD, diffuse disease in small D1, D2 -90% proximal RCA in-stent restenosis, diffuse mid RCA in-stent restenosis up to 95% 3.Elevated intracardiac filling pressure 4. Successful PCI of mid circumflex with single drug-eluting stent (3.5 x 15 mm Malcolm) overlapping distal aspect of prior stent. Ordered Studies Echocardiogram - * EF 60-65% * mild LVH * right ventricular systolic pressure 40-50mmHg * moderate basal posterior hypokinesis & dyskinesis of the posterior apex Hospital Course (1) NSTEMI (non-ST elevation myocardial infarction): 2nd to occluded left circumflex artery. s/p AJIT by Dr David Roth. HS Troponin peaked at 27,000 then trended down. Following his AJIT to the culprit vessel the patient had no further cardiovascular symptoms. Telemetry remained stable the entire stay. Echo showed preserved EF despite the NSTEMI. Lipid profile results discussed with patient - LDL 77; triglycerides 310, and HDL 32. Suggested that he increase his pravastatin to 40mg/day (from 20mg/day) to drive his LDL to <70. With respect to the high triglycerides & low HDL I recommended he speak with his PCP about potentially adding tricor or prescription fish oil. Patient will follow-up with his primary residential real estate agent, Dr Mckinney, within 1-2 weeks of discharge. (2) CAD (coronary artery disease): Inferior [place] 2003. 2 prior stents to his RCA (2003, 2007). 1 prior stent to his circumflex (2007). Now with NSTEMI 2nd to left circumflex occlusion s/p AJIT. Cath by Dr Roth with - LM -normal caliber, no significant disease LAD -medium caliber, heavily calcified, 50-60% proximal disease, mid segment luminal irregularities, distal vessel small and tapers to apex. Small D1, D2 with severe diffuse disease. Circumflex -large caliber, 98% hazy/acute mid stenosis with MANUEL I flow in large OM 2, distal AV groove circumflex. OM 2 bifurcates with residual moderate diffuse disease in both branches. RCA -dominant, small to medium caliber, 90% proximal in-stent restenosis, long mid segment stent with diffuse in-stent restenosis up to 95%. Distal RCA with mild diffuse disease into small right PDA. Although his cath showed RCA in-stent stenosis Dr Roth felt that this lesion would be best served with medical management only. No plans for intervention/stenting at this time. See #1 regarding statin therapy. (3) Acute kidney injury: Cardiorenal in the setting of acute [place] vs contrast injury vs both. Peak Cr 2.4. s/p IV fluids with improvement in creatinine to 2.1 on day of discharge. Baseline creatinine is about 1.9. (4) Chronic renal failure, stage 3b: Baseline Cr ~1.9. ILIA during the visit - see #3 above. (5) Diabetes mellitus type 2, uncontrolled: HbA1c noted to be 8.4% BSGs were high throughout the hospitalization. Recommendations - Increase lantus to 15 units BID at discharge. Novolog 5 units with breakfast and 5 units with evening meal (patient reports eating only 2 meals/day). Follow-up with PCP shortly after discharge to discuss the diabetes further. (6) Obstructive sleep apnea: (7) Hypertension: Continue amlodipine 5mg daily, coreg 25mg BID, imdur 120mg daily. BPs were controlled on this regimen while hospitalized. (8) Crohn's disease: (9) GERD (gastroesophageal reflux disease): Continue PPI. (10) Hyperlipidemia: Was taking pravastatin 20mg daily at time of admission. The patient has h/o statin intolerance but does tolerate pravastatin. Dating back to 2018 his LDL has never been <70. Further, his LDL this admission was 77. He was willing to try taking 40mg of pravastatin daily. Again, in light of high triglycerides & low HDL, I also encouraged him to speak with his PCP about a dedicated agent for these 2 lipids. Total Time Total Time Spent Total Time Spent (In Minutes): 50 Discharge Plan Discharge Items Patient Disposition: Home - Self-Care Reason For Visit: Acute Heart Attack Discharge Diagnosis: 1. Acute Heart Attack - due to a blocked, previously stented coronary artery - deployment of new stent by Dr David Roth 2. High cholesterol 3. Uncontrolled diabetes Activity: Per Instructions section Non-emergency contact: Primary Care Provider and Snuff Blender Call non-emergency contact if: you have any medication questions, your symptoms worsen, your pain is not controlled, your pain is worsening, your pain is unusual for you and your pain is concerning for you Follow-up/Referrals: Ranjan Savage Jr, MD, [facility] [Physician] - 02/03/22 8:30 am (Follow up appointment scheduled with Dr. Savage on Tuesday02/03/22 at 8:30 am.) Martin Roth MD [Physician] - (Follow up appointment scheduled with Dr. Savage.) Shaina Kenyon [Primary Care Provider] - 02/03/22 10:50 am () Diet: Carb Consistent or DM2 and Heart Healthy Addtl Attending Provider Instructions: Mr Negron, You were admitted to the hospital after suffering a heart attack. Dr David Roth took you to the catheterization lab and found that a previously stented coronary artery was 100% blocked. He placed a new stent in this artery, relieving the blockage. Following the catheterization your chest pain resolved and you remained stable for the rest of your stay. The heart catheterization did also show another artery that has significant clogging/blockage in it. Dr Roth is recommending medical management of this other blockage (medications, improvement in diet, etc) rather than placing a new stent in this other artery. Recommendations - 1. Cholesterol - * please increase your pravastatin to 40mg once daily (your previous dose was 20mg); new prescription sent to your pharmacy for you * in addition, please speak to Dr Kenyon about treating your high triglycerides and low HDL ("good cholesterol"); you may need an additional medication on top of the pravastatin 2. uncontrolled diabetes - * please check your blood sugars more frequently; ideally you should check first thing in the morning before breakfast, before your evening meal, and at bedtime each and every day * if you eat 3 meals/day then check the sugar 4 times each day (before breakfast, before lunch, before dinner, and at bedtime) * please write these numbers down for your family doctor to review * please ask Dr Kenyon about obtaining a "continuous glucose monitoring" system which will make testing your sugars much more easily * INCREASE your lantus from 14 units to 15 units at bedtime; start this TONIGHT * START novolog pen insulin with your meals - * take 5 units with your morning breakfast * take 5 units with your evening meal * novolog is a SHORT-ACTING insulin; it only works for your meals; it is entirely different/separate from the Lantus * the novolog pen requires a "pen needle" much like the lantus pen; I have refilled the pen needles for you 3. I have refilled your bottle of sublingual nitroglycerin for you. This is an emergency medication. Keep it with you at all times. The bottle is good for about 1 year. If you have to take the nitroglycerin for chest pain please seek medical attention right away. Follow-up - see separate section Return to [facility] if - * you develop chest pains * you have shortness of breath * you have any concerns about the right wrist where the heart catheterization was done * you have to use nitroglycerin tablets * any other concerns It was our pleasure caring for you! Take care, Dr Vicente Addtl Recruiting Specialist Provider Instructions: ACTIVITY RECOMMENDATIONS following your heart catheterization: It is common to feel weak and fatigue for a few days. * Do not drive or operate any motorized equipment for the next 3 days. * Limit stair usage (2 or 3 trips a day only) for the next 3 days. * Do not lift anything heavier than 10 pounds for the next 3 days. * Do not engage in vigorous exercise or any sports until cleared to do so by cardiology / Dr Savage. * You may shower at this time, but do not immerse the RIGHT WRIST REGION for three days. Cleanse the site gently with soap and water. SPECIAL CARE INSTRUCTIONS: * You may replace the pressure dressing or band-aid the morning after the procedure. * After your procedure, it is normal to have a small bruise or small lump at the site. Examine your site daily for any change in the bruise or lump, redness, swelling, drainage or numbness. Notify your doctor if any change. BLEEDING: * If there is a small amount of bleeding at the site, lie down and apply firm pressure with a clean cloth for ten minutes. When the bleeding stops, lie quietly keeping the procedure limb straight for six hours. Notify your doctor as soon as possible. * If the bleeding does not stop after ten minutes or if there is a large amount of bleeding or spurting, call 911 immediately. Continue to lie down and hold firm pressure until help arrives. SKIN IRRITATION: * You may experience some redness and/or swelling in the area where radiation was administered. If any skin irritation occurs, please contact your family physician. Home Care following your heart attack: * Take your medications exactly as directed. Don't skip doses. * Remember that recovery after a heart attack takes time. Plan to rest for at lease 4-8 weeks while you recover. Then return to normal activity when your doctor says it's okay. * Ask your doctor about joining a heart rehabilitation program. * Tell your doctor if you are feeling depressed. Feelings of sadness are common after a heart attack, but it is important that you speak to someone if you are feeling overwhelmed by these feelings. * If you are having chest pain, call 911 for an ambulance. Do NOT drive yourse lf to the hospital. * Ask your family members to learn CPR. * Learn to take your own blood pressure and pulse. Keep a record of your results. Ask your doctor when you should seek emergency medical attention. He or she will tell you which blood pressure reading is dangerous. Lifestyle Changes: * Maintain a healthy weight. Get help to lose any extra pounds. * Cut back on salt. * Limit canned, dried, packaged, and fast foods. * Don't add salt to your food. * Season foods with herbs instead of salt when you cook. * Break the smoking habit. Enroll in a stop-smoking program to improve your chances of success. * Limit fatty foods. * Ask your doctor about having your lipid levels checked regularly. * Build up your activity according to your doctor's recommendation. * Ask your doctor when it's okay to resume sexual activity. * Tell your doctor about any erectile dysfunction (ED) medication you are taking. Some ED medications are not safe if you take certain heart medications. * Try to manage stress. Follow Up: It is important for you to keep your follow up appointments with your medical provider. Pending Studies at Discharge: No Stand-Alone Forms: [facility] Shared Spectrum, Smoking Cessation Medications and DC Order Prescriptions: New insulin aspart U-100 [Novolog Flexpen U-100 Insulin] 100 unit/mL (3 mL) insulin pen 5 unit subcut BIDM Qty: 15 RF: 1 (DME) pen needle, diabetic [Pen Needle] 31 gauge x 5/16" needle See Rx Instructions .Route Qty: 100 RF: 1 Continued clopidogrel 75 mg tablet 75 mg PO QAM Qty: 90 RF: 3 pantoprazole 40 mg tablet,delayed release (DR/EC) 40 mg PO BID Qty: 180 RF: 3 isosorbide mononitrate 120 mg tablet extended release 24 hr 120 mg PO QAM Qty: 90 RF: 3 carvedilol 25 mg tablet 25 mg PO BID Qty: 180 RF: 3 aspirin 81 mg Tablet,Delayed Release (Dr/Ec) 81 mg PO QAM RF: 0 coQ10 (ubiquinol) 200 mg Capsule 400 mg PO QAM RF: 0 melatonin 10 mg Tablet 10 mg PO HS RF: 0 cholecalciferol (vitamin D3) [Vitamin D3] 1,000 unit Tablet,Chewable 1,000 unit PO QAM RF: 0 cyanocobalamin (vitamin B-12) [Vitamin B-12] 1,000 mcg Tablet 1,000 mcg PO QAM RF: 0 betamethasone, augmented 0.05 % ointment 1 applic TOPICAL BID PRN (Reason: Psoriasis) RF: 0 duloxetine 20 mg capsule,delayed release(DR/EC) 20 mg PO QAM RF: 0 Linzess 290 mcg capsule 290 mcg PO DAILY RF: 0 vitamin E 400 unit Capsule 400 unit PO DAILY RF: 0 omega 3-hif-zpz-fish oil [Fish Oil] 1,000 mg (120 mg-180 mg) Capsule 3 cap PO DAILY RF: 0 Changed pravastatin 40 mg tablet 40 mg PO DAILY Qty: 30 RF: 1 Lantus Solostar U-100 Insulin 100 unit/mL (3 mL) insulin pen 15 unit subcut QPM Qty: 0 RF: 0 Discontinued nitroglycerin 400 mcg/spray spray,non-aerosol 0.4 mg SL DIRECTED PRN (Reason: Chest Pain) Qty: 12 RF: 3 diclofenac sodium 1 % gel 4 g TOPICAL QID PRN (Reason: Joint Pain) RF: 0 No Action amlodipine [Norvasc] 5 mg tablet 5 mg PO QAM Qty: 90 RF: 3 nitroglycerin 0.4 mg tablet, sublingual 0.4 mg sublingual Q5M PRN (Reason: chest pain) Qty: 1 RF: 3 Discharge Orders: Discharge Order (Routine); Ordered 01/30/22 Ordered By: Gregorio Smith/Other Patient Handouts: Novolog Pen Injector 100 IU/mL, Hypoglycemia (Low Blood Sugar), Managing Type 2 Diabetes Admission Data Admit Date/Time: 01/28/22 01:29 Attending Provider: Gregorio Vicente Admit Provider: Chetan Renee Primary Care Provider: Shaina Kenyon Other Providers: Chetan Renee Other Interventions: Discharge Summary Assessment (RN) Last Done: 01/30/22 14:59 Coding Level of Care Code D/C DAY MANAGEMENT >30 MINS Diagnoses NSTEMI (non-ST elevation myocardial infarction) I21.4 CAD (coronary artery disease) I25.10 Acute kidney injury N17.9 Chronic renal failure, stage 3b N18.32 Diabetes mellitus type 2, uncontrolled Obstructive sleep apnea G47.33 Hypertension I10 Hypertension type: unspecified Crohn's disease K50.90 Digestive disease complication type: without complication Gastrointestinal tract location: unspecified location GERD (gastroesophageal reflux disease) K21.9 Esophagitis presence: without esophagitis Hyperlipidemia E78.5
--- NOTE | 2022-02-01 06:18 | Electrocardiogram Report ---
Test Reason : Blood Pressure : / mmHG Vent. Rate : 071 BPM Atrial Rate : 071 BPM P-R Int : 160 ms QRS Dur : 074 ms QT Int : 404 ms P-R-T Axes : 052 002 120 degrees QTc Int : 439 ms Normal sinus rhythm Possible Inferior infarct (cited on or before 29-JAN-2022) Abnormal ECG When compared with ECG of 29-JAN-2022 06:02, Inverted T waves have replaced nonspecific T wave abnormality in Lateral leads Confirmed by Familia Palencia ([id number]) on 02/01/2022 6:17:58 AM Referred By: REFERRED SELF Confirmed By:Familia Palencia
== END 2022-01-30 16:36 | disposition home or self-care (01) | DRG 247 ==
LOC: ED 00:19 → 1E 01:29 → SUATTDRO 01:29 → 1E 01:49

== ENCOUNTER 2025-07-05 14:29 | Observation (INO) ==
[2025-07-05 15:06] LABS: Hematocrit (blood only) 43.6 % (42.0-52.0); Hemoglobin 14.8 g/dl (14.0-18.0); Immature Granulocytes # (auto) 0.05 K/uL (0.01-0.20); Immature Granulocytes % (auto) 0.5 %; Mean Corpuscular Hemoglobin 31.4 pg (25.0-34.0); Mean Corpuscular Volume 92.4 fL (80.0-100.0); Platelet Count 165 K/uL (130-400); RDW Standard Deviation 47.9 fL (36.4-46.3); Red Blood Count 4.72 M/uL (4.70-6.10); White Blood Count 9.71 K/ul (4.8-10.8)
--- NOTE | 2025-07-05 15:07 | Emergency Department Note ---
Impression & Plan Dizziness, Near syncope ED Provider Note HISTORY OF PRESENT ILLNESS: Patient is a 79-year-old male presenting after a presyncopal episode. Patient reports he had gotten up from his recliner to go to the bathroom when he felt dizzy and lightheaded like he was going to pass out. He states that after going to the bathroom he was standing at the sink and again felt very lightheaded and dizzy. He called for his and found him slumped over on the sink. Patient did not lose consciousness but helped assist him to the ground and he laid flat on the ground. Patient reports he was feeling dizzy like he was going to pass out. He feels this way often when his blood pressure gets low. He denies any chest pain. He does report that the last 2 days he has felt slightly more short of breath with any sort of exertion. He states that yesterday while watching his grandchild he was more winded than normal with only a few steps. He denies any DVT or PE history. He is on Eliquis. He currently feels back to his normal self on arrival to the emergency department. reports that she had taken his blood pressure at home and it was in the 50s systolic. No recent fevers. ROS: as above PHYSICAL EXAM: Constitutional: Patient appears in no acute distress. HENT: Head: Normocephalic and atraumatic. Eyes: EOMI, PERRL Mouth/Throat: Mucous membranes moist. Neck: Trachea midline. Neck supple. Cardiovascular: RRR, No murmurs, rubs or gallops. Intact distal pulses. Pulmonary/Chest: No respiratory distress. Breath sounds clear and equal bilaterally. No wheezes or rales. Abdominal: Abdomen soft, no tenderness, rebound or guarding. Musculoskeletal: No edema, tenderness or deformity noted. Skin: Warm and dry. No rash, erythema, pallor or cyanosis Psychiatric: Appropriate mood and affect for situation. Neurological: Alert and keenly responsive. CN II-XII grossly intact, moving all extremities equally and fully. MDM: - Vitals signs stable - History obtained via patient. History as above. - Chronic conditions affecting care: Crohn's disease; GERD; HLD; HTN; DM-2; CKD - Differential diagnoses include, but are not limited to: CVA; intracranial hemorrhage; dehydration; dysrhythmia; electrolyte abnormality; ACS - Order placed for continuous cardiac monitoring. At this time, monitor showed rate of 60 bpm with normal sinus rhythm, per my interpretation. - External medical records reviewed. Nephrology office visit note dated 01/2025 was reviewed. Patient follows in their clinic for his CKD. Baseline creatinine is 2.0. - EKG image interpreted by myself showed normal sinus rhythm. Rate 62 bpm. QT 446. No acute ischemic changes. - Laboratory workup interpreted by myself showed normal WBC; normal PT/INR; baseline CKD; normal troponin; elevated TSH with normal T4 - CXR image reviewed and interpreted by myself is negative for pneumonia, per my interpretation. - CT head wo contrast negative for acute pathology - Patient given 1L NS in ER. - Patient attempted to ambulate to the bathroom with nursing staff but became very lightheaded and dizzy. Orthostatic vital signs within normal limit - Discussion was had with corrections caseworker about patient's case and need for admission - Hospitalist consulted for admission - Patient admitted to [facility] for further evaluation and management. ASSESSMENT AND PLAN: Diagnosis: Dizziness; near syncope Plan: Abdomen Past Med/Surg History Problem List (Updated 07/05/25 @ 17:00 by Nataliya Lloyd MD) Near syncope (Acute) Dizziness (Acute) Hyperlipidemia Statin myopathy Statin intolerance Nonsustained supraventricular tachycardia Chronic anticoagulation Paroxysmal atrial fibrillation Hypertension Palpitations Arthritis (Chronic) Vitamin D deficiency (Chronic) Microscopic hematuria Type II diabetes mellitus with complication (Acute) Smokeless tobacco use (Acute) Sleep disturbances (Acute) Former smoker (Acute) Fatty liver (Acute) Fatigue (Acute) Cervical spondylosis (Acute) Arteriosclerotic coronary artery disease (Acute) Dizziness Cerumen impaction Diplopia (Acute) Vertigo (Acute) Headache Cervical radicular pain Vertebral artery stenosis Presence of drug-eluting stent in left circumflex coronary artery Chronic kidney disease, stage III (moderate) Postural lightheadedness Antiplatelet or antithrombotic long-term use Sleep apnea CPAP Orthostatic hypotension CPAP; new sleep study on 11/30/22 Medical History COVID-19 Constipation Complicated urinary tract infection Acute kidney injury Diabetes mellitus type 2, uncontrolled Chronic renal failure, stage 3b NSTEMI (non-ST elevation myocardial infarction) ACS (acute coronary syndrome) Elevated troponin Presence of bare metal stent in left circumflex coronary artery Presence of drug-eluting stent in right coronary artery NSTEMI (non-ST elevated myocardial infarction) Ventricular tachycardia Non-ST elevation (NSTEMI) myocardial infarction Cervical stenosis of spinal canal Diverticulosis CAD (coronary artery disease) Cervical spine tumor Cervical spondylosis Vertebral artery stenosis Osteoarthritis CKD (chronic kidney disease) Fatty liver DM type 2 (diabetes mellitus, type 2) History of depression History of TIA (transient ischemic attack) History of myocardial infarction HLD (hyperlipidemia) Stroke-like symptoms Blurred vision Hypertension Bloating Dyslipidemia Obstructive sleep apnea Psoriatic arthropathy Chest pain (07/11/14) Gastroparesis Psoriasis GERD (gastroesophageal reflux disease) Crohn's disease Surgical History History of cataract surgery H/O cervical discectomy S/P coronary artery stent placement History of cervical spinal surgery History of tooth extraction History of cholecystectomy History of removal of cyst History of esophagogastroduodenoscopy (EGD) History of colonoscopy History of cardiac catheterization Family History Father Coronary heart disease Myocardial infarction Brother Colon cancer Pulmonary embolism Hx of CABG Mother Diabetes Coronary heart disease Other No family history of adverse response to anesthesia Social History Smoking Status: Never smoker Tobacco Type: Cigarettes and Smokeless Tobacco (Dip or Chew) Age Started Using Tobacco: 18; Age Quit Using Tobacco: 78; packs per day: 1; Second Hand Exposure: No; Do You Dip or Chew Tobacco: Yes (1 can/1-2 days; advised); Hx Alcohol Use: No Hx Substance Use: No Preferred Language: [place] Communication Ability: Effective Visual Impairment: No Limitations Hearing Ability: Normal Rn Cardiovascular Icu Required: No Beliefs That Will Affect Care: None marital status: Current Living Situation: Spouse current occupational status: retired current occupation: Retired in his early 50s as a [place] Feels Safe at Home: Yes Diet: regular caffeine: Yes Dental Care, Regularly: Yes Physical Activity Frequency: Does not Exercise Seatbelt Use: always Do you think of yourself as: straight/heterosexual Gender Identity: Male Assistive Devices: CPAP, Denture - Upper and Denture - Lower Allergies Allergies Allergy/AdvReac Type Severity Reaction Status Date / Time gabapentin AdvReac Intermediate Nightmares Verified 06/25/25 10:56 morphine AdvReac Intermediate Confusion, Verified 06/25/25 10:56 anger Irrrwew-[id number]-[id number] Reductase AdvReac Intermediate Muscle Verified 06/25/25 10:56 Inhibitor aches [Oadedcu-Fje-Yly Reductase Inhibitor] Home Meds Home Medications Medication Instructions Recorded Confirmed coQ10 (ubiquinol) 200 mg capsule 400 mg PO QAM 12/27/19 07/05/25 betamethasone, augmented 0.05 % 1 applic topical BID PRN Psoriasis 12/17/20 07/05/25 topical ointment cyanocobalamin (vitamin B-12) 1,000 mcg PO QAM 12/17/20 07/05/25 1,000 mcg tablet (Vitamin B-12) pravastatin 40 mg tablet 40 mg PO HS 11/18/22 07/05/25 blood sugar diagnostic (Four InteractiveTouch #10 ea 03/25/25 07/05/25 Ultra Test strips) lancets 33 gauge (Four InteractiveTouch Delica #100 ea 03/25/25 07/05/25 Plus Lancet) ascorbic acid (vitamin C) 250 mg 250 mg PO DAILY 06/25/25 07/05/25 tablet bupropion HCl 150 mg 24 hr tablet, 150 mg PO DAILY 06/25/25 07/05/25 extended release insulin glargine 100 unit/mL (3 12 unit subcut DAILY 06/25/25 07/05/25 mL) subcutaneous pen (Basaglar KwikPen U-100 Insulin) lisinopril 5 mg tablet 5 mg PO DAILY 06/25/25 07/05/25 pantoprazole 20 mg tablet,delayed 20 mg PO DAILY 06/25/25 07/05/25 release amlodipine 2.5 mg tablet See Rx Instructions .Route .COMPLEX 07/05/25 07/05/25 insulin aspart U-100 100 unit/mL 5 unit subcut AC 07/05/25 07/05/25 (3 mL) subcutaneous pen (Novolog FlexPen U-100 Insulin aspart) Previous Rx's Medication Instructions Recorded pen needle, diabetic 31 gauge x #100 ea 01/30/22 5/16" (Pen Needle) nitroglycerin 0.4 mg sublingual 0.4 mg sublingual Q5M PRN chest 02/08/22 tablet pain #1 btl isosorbide mononitrate 120 mg 120 mg PO QAM #90 tabs 06/22/24 tablet,extended release 24 hr ergocalciferol (vitamin D2) 1,250 1,250 mcg PO MONTHLY #3 caps 01/07/25 mcg (50,000 unit) capsule apixaban 2.5 mg tablet (Eliquis) 2.5 mg PO BID #180 tabs 03/12/25 carvedilol 25 mg tablet 25 mg PO BID #180 tabs 03/12/25 clopidogrel 75 mg tablet 75 mg PO QAM #90 tabs 03/28/25 Results & Data (ED) Vital Signs Vital Signs - 24 hr 07/05/25 14:34 07/05/25 14:35 07/05/25 14:50 Temperature 36.7 C Temperature Source Oral Pulse Rate - Lying Pulse Rate - Sitting Pulse Rate - Standing Pulse Rate 64 76 63 Pulse Rate [Finger] Pulse Rate from SpO2 Sensor 63 Pulse Rhythm Regular Pulse Rhythm [Finger] Pulse Strength [Finger] Respiratory Rate 20 17 17 Respiratory Effort / Characteristics Non-Labored Spontaneous Respiratory Depth Normal Respiratory Pattern Regular Blood Pressure - Lying Blood Pressure - Sitting Blood Pressure- Standing Blood Pressure 118/66 118/66 116/63 Blood Pressure [Right Arm] Blood Pressure Mean 83 83 80 Blood Pressure Mean [Right Arm] Blood Pressure Position Sitting Blood Pressure Position [Right Arm] Pulse Oximetry 98 98 Oxygen Delivery Method Room Air Sepsis Recent Fever Within 48 Hours No Sepsis New/Unexplained Change in Mental Status No Sepsis Action Taken by Nursing No Action Required 07/05/25 15:08 07/05/25 15:09 07/05/25 15:51 Temperature Temperature Source Pulse Rate - Lying Pulse Rate - Sitting Pulse Rate - Standing Pulse Rate 63 61 Pulse Rate [Finger] Pulse Rate from SpO2 Sensor 63 Pulse Rhythm Pulse Rhythm [Finger] Pulse Strength [Finger] Respiratory Rate 16 Respiratory Effort / Characteristics Respiratory Depth Respiratory Pattern Blood Pressure - Lying Blood Pressure - Sitting Blood Pressure- Standing Blood Pressure 95/50 L Blood Pressure [Right Arm] Blood Pressure Mean 65 Blood Pressure Mean [Right Arm] Blood Pressure Position Blood Pressure Position [Right Arm] Pulse Oximetry 98 98 Oxygen Delivery Method Room Air Sepsis Recent Fever Within 48 Hours Sepsis New/Unexplained Change in Mental Status Sepsis Action Taken by Nursing 07/05/25 16:28 07/05/25 16:55 07/05/25 18:00 Temperature Temperature Source Pulse Rate - Lying 60 Pulse Rate - Sitting 71 Pulse Rate - Standing 68 Pulse Rate Pulse Rate [Finger] 59 L 59 L Pulse Rate from SpO2 Sensor Pulse Rhythm Pulse Rhythm [Finger] Regular Pulse Strength [Finger] Normal Respiratory Rate 18 16 Respiratory Effort / Characteristics Non-Labored Spontaneous Respiratory Depth Normal Respiratory Pattern Regular Blood Pressure - Lying 110/71 Blood Pressure - Sitting 118/67 Blood Pressure- Standing 106/66 Blood Pressure Blood Pressure [Right Arm] 112/75 143/80 H Blood Pressure Mean Blood Pressure Mean [Right Arm] 87 101 Blood Pressure Position Blood Pressure Position [Right Arm] Sitting Lying Pulse Oximetry 98 98 Oxygen Delivery Method Room Air Sepsis Recent Fever Within 48 Hours Sepsis New/Unexplained Change in Mental Status Sepsis Action Taken by Nursing Laboratory Data 07/05/25 14:45 07/05/25 14:45 Lab Results 07/05/25 Range/Units 14:45 WBC 9.71 (4.8-10.8) K/ul RBC 4.72 (4.70-6.10) M/uL Hgb 14.8 (14.0-18.0) g/dl Hct 43.6 (42.0-52.0) % MCV 92.4 (80.0-100.0) fL MCH 31.4 (25.0-34.0) pg MCHC 33.9 (32.0-36.0) g/dL RDW Std Deviation 47.9 H (36.4-46.3) fL RDW Coeff of Amalia 14.1 (11.5-14.5) % Plt Count 165 (130-400) K/uL MPV 10.5 (9.4-12.4) fL Immature Gran % (Auto) 0.5 % Neut % (Auto) 64.0 % Lymph % (Auto) 18.8 % Brewster % (Auto) 11.0 % Eos % (Auto) 5.1 % Baso % (Auto) 0.6 % Neut # (Auto) 6.20 (1.40-6.50) K/uL Lymph # (Auto) 1.83 (1.20-3.40) K/uL Brewster # (Auto) 1.07 H (0.11-0.59) K/uL Eos # (Auto) 0.50 (0.00-0.50) K/uL Baso # (Auto) 0.06 (0.00-0.20) K/uL Immature Gran # (Auto) 0.05 (0.01-0.20) K/uL PT 11.9 (9.0-12.0) Seconds INR 1.1 (0.9-1.1) Sodium 142 (136-145) mmol/L Potassium 3.6 (3.5-5.1) mmol/L Chloride 110 H (98-107) mmol/L Carbon Dioxide 25 (21-32) mmol/L Anion Gap 7 (3-11) BUN 20 (6-23) mg/dl Creatinine 1.88 H (0.6-1.4) mg/dl Est Cr Clr Drug Dosing 28.8 ml/min eGFR 35.89 BUN/Creatinine Ratio 10.6 (10-20) Glucose 105 H (70-99(Fasting)) mg/dl Calcium 8.6 (8.6-10.3) mg/dl Magnesium 1.7 (1.7-2.4) mg/dl Total Bilirubin 0.6 (0.2-1.0) mg/dl AST 21 (13-39) U/L ALT 12 (7-52) U/L Alkaline Phosphatase 76 (34-104) U/L Troponin I High Sens 14.1 (0-20) pg/ml Total Protein 6.2 (6.0-8.3) gm/dl Albumin 3.7 (3.4-5.0) gm/dl Globulin 2.5 (2.5-4.0) gm/dl Albumin/Globulin Ratio 1.5 (0.9-2) TSH 4.674 H (0.300-4.500) uIu/ml Free T4 1.00 (0.61-1.60) ng/dl Administered Medications Discontinued Medications Sodium Chloride (Nss) 1,000 mls @ 999 mls/hr IV .Q1H1M ONE Stop: 07/05/25 15:54 Last Infusion: 07/05/25 16:30 Dose: Infused Documented By: Admin: 07/05/25 15:09 Dose: 999 mls/hr Documented By: AISHAE Imaging Data Radiologist's Impression: Chest X-Ray 07/05/25 16:11 Chest radiograph, one view History: Near syncope Comparison: 11/25/2023 Findings: Single AP view of the chest performed. No focal consolidation or pleural effusion. No pneumothorax. The cardiomediastinal silhouette is within normal limits. Normal pulmonary vascularity. No evidence for lymphadenopathy. No visualized bony or soft tissue abnormality. Impression: Normal chest radiograph Electronically signed by David Turcios 07-05-2025 4:[address] 07/05/25 16:11 Clinical History: Near-syncope Technique: Axial computed tomography images were obtained of the brain without intravenous contrast. Findings: There is diffuse cerebral atrophy, within expected limits for the patient's age. Areas of decreased attenuation are seen within the periventricular white matter, likely representing chronic small vessel ischemic disease. There is no definite sign of acute or old infarction. No intracranial hemorrhage is evident. No definite mass lesion is seen on this noncontrast examination. There is no midline shift or other form of herniation. No hydrocephalus is seen. No fracture is identified. The orbits and the visualized paranasal sinuses appear unremarkable. The mastoid air cells appear clear. Impression: 1. Cerebral atrophy and chronic small vessel ischemic disease 2. Otherwise unremarkable noncontrast CT of the brain Electronically signed by Bobby Osorio 07-05-2025 4:31 PM Discharge Plan Visit Data Chief Complaint: Syncope (Near Syncope) Stated Complaint: NEAR SYNCOPE, HYPOTENSION ED Provider: Nataliya Lloyd Discharge Problem: Dizziness, Near syncope Condition: Fair Forms Stand Alone Forms: [facility] [place] Prescriptions Prescriptions: No Action nitroglycerin 0.4 mg tablet, sublingual 0.4 mg sublingual Q5M PRN (Reason: chest pain) Qty: 1 3RF Rx Instructions: max 3 doses in 15 minutes. isosorbide mononitrate 120 mg tablet extended release 24 hr 120 mg PO QAM Qty: 90 3RF clopidogrel 75 mg tablet 75 mg PO QAM Qty: 90 3RF Eliquis 2.5 mg tablet 2.5 mg PO BID Qty: 180 3RF carvedilol 25 mg tablet 25 mg PO BID Qty: 180 3RF (DME) OneTouch Ultra Test Strip See Rx Instructions .ROUTE .MEDSUPPLY Qty: 10 Rx Instructions: As directed (DME) lancets [OneTouch Delica Plus Lancet] 33 gauge misc See Rx Instructions .ROUTE .MEDSUPPLY Qty: 100 Rx Instructions: As directed ergocalciferol (vitamin D2) 1,250 mcg (50,000 unit) capsule 1,250 mcg PO MONTHLY Qty: 3 4RF Rx Instructions: TAKE WITH LARGEST MEAL OF THE DAY pantoprazole 20 mg tablet,delayed release (DR/EC) 20 mg PO DAILY bupropion HCl 150 mg tablet extended release 24 hr 150 mg PO DAILY lisinopril 5 mg tablet 5 mg PO DAILY ascorbic acid (vitamin C) 250 mg tablet 250 mg PO QAM insulin glargine [Basaglar KwikPen U-100 Insulin] 100 unit/mL (3 mL) insulin pen 12 unit subcut DAILY coQ10 (ubiquinol) 200 mg Capsule 400 mg PO QAM cyanocobalamin (vitamin B-12) [Vitamin B-12] 1,000 mcg Tablet 1,000 mcg PO QAM betamethasone, augmented 0.05 % ointment 1 applic TOPICAL BID PRN (Reason: Psoriasis) (DME) pen needle, diabetic [Pen Needle] 31 gauge x 5/16" needle See Rx Instructions .Route Qty: 100 1RF Rx Instructions: As directed with lantus & novolog pens. pravastatin 40 mg tablet 40 mg PO HS amlodipine 2.5 mg tablet See Rx Instructions .ROUTE .COMPLEX Rx Instructions: TAKE 1 TABLET BY MOUTH DAILY IN THE MORNING AND 1 TABLET DAILY IN THE EVENING IF BP IS OVER 160/90 insulin aspart U-100 [Novolog FlexPen U-100 Insulin] 100 unit/mL (3 mL) insulin pen 5 unit SUBCUT AC Referrals Referrals: Shaina Kenyon [Primary Care Provider] -
[2025-07-05] MEDS: SODIUM CHLORIDE 0.9% 1,000 ML IV ONE (15:09)
[2025-07-05 15:28] LABS: Alanine Aminotransferase 12.0 U/L (7-52); Albumin Globulin Ratio 1.5 (0.9-2); Albumin Level 3.7 gm/dl (3.4-5.0); Alkaline Phosphatase 76.0 U/L (34-104); Anion Gap 7.0 (3-11); Bilirubin,Total 0.6 mg/dl (0.2-1.0); Blood Urea Nitrogen 20.0 mg/dl (6-23); Calcium 8.6 mg/dl (8.6-10.3); Carbon Dioxide 25.0 mmol/L (21-32); Chloride 110.0 mmol/L (98-107); Creatinine Clr Calc Pharmacy 28.8 ml/min; Globulin 2.5 gm/dl (2.5-4.0); Glucose 105.0 mg/dl (70-99(Fasting)); Magnesium 1.7 mg/dl (1.7-2.4); Potassium 3.6 mmol/L (3.5-5.1); Sodium 142.0 mmol/L (136-145); Total Protein 6.2 gm/dl (6.0-8.3)
[2025-07-05 15:36] LABS: INR 1.1 (0.9-1.1); Prothrombin Time 11.9 Seconds (9.0-12.0)
[2025-07-05 15:44] LABS: Thyroid Stimulating Hormone 4.674 uIu/ml (0.300-4.500)
[2025-07-05 16:18] LABS: T4 Free Thyroxine 1.0 ng/dl (0.61-1.60)
--- NOTE | 2025-07-05 16:31 | CT Scan Report ---
Clinical History: Near-syncope Technique: Axial computed tomography images were obtained of the brain without intravenous contrast. Findings: There is diffuse cerebral atrophy, within expected limits for the patient's age. Areas of decreased attenuation are seen within the periventricular white matter, likely representing chronic small vessel ischemic disease. There is no definite sign of acute or old infarction. No intracranial hemorrhage is evident. No definite mass lesion is seen on this noncontrast examination. There is no midline shift or other form of herniation. No hydrocephalus is seen. No fracture is identified. The orbits and the visualized paranasal sinuses appear unremarkable. The mastoid air cells appear clear. Impression: 1. Cerebral atrophy and chronic small vessel ischemic disease 2. Otherwise unremarkable noncontrast CT of the brain Electronically signed by Bobby Osorio 07-05-2025 4:31 PM
--- NOTE | 2025-07-05 16:58 | XRay Report ---
Chest radiograph, one view History: Near syncope Comparison: 11/25/2023 Findings: Single AP view of the chest performed. No focal consolidation or pleural effusion. No pneumothorax. The cardiomediastinal silhouette is within normal limits. Normal pulmonary vascularity. No evidence for lymphadenopathy. No visualized bony or soft tissue abnormality. Impression: Normal chest radiograph Electronically signed by David Turcios 07-05-2025 4:58 PM
--- NOTE | 2025-07-05 18:55 | Electrocardiogram Report ---
Test Reason : Blood Pressure : */* mmHG Vent. Rate : 62 BPM Atrial Rate : 62 BPM P-R Int : 162 ms QRS Dur : 80 ms QT Int : 446 ms P-R-T Axes : 40 -8 60 degrees QTcB Int : 452 ms Sinus rhythm with Premature atrial complexes Possible Inferior infarct (cited on or before 25-Nov-2023) Abnormal ECG When compared with ECG of 05-Apr-2024 09:41, Premature atrial complexes are now Present Confirmed by David Christianson ([id number]) on 07/05/2025 6:54:32 PM Referred By: Confirmed By: David Christianson
--- NOTE | 2025-07-05 19:50 | History & Physical Report ---
Date of Service July 05, 2025 Assessment & Plan (1) Dizziness: (2) Hyperlipidemia: Plan #Dizziness - admit to tele - CT head negative, no focality on exam - s/p 1L bolus - encourage oral hydration - reassess orthostatic vitals in the AM - encouraged pt to slow movement instead of getting up and walking right away to allow body to adjust to position change #Paroxysmal AFib - cont eliquis #CAD - cont plavix - cont coreg imdur #HLD - cont pravastatin #HTN - cont lisinopril #DM II - cont insulin #Anxiety - cont bupropion History of Present Illness Chief Complaint: dizziness Primary Care Provider: Shaina Kenyon 79 yr old M with PMhx of CAD, HTN, HLD, paroxysmal AFib presents to the hospital for dizziness. Pt has been having long standing postural dizziness. Today, he was walking to the bathroom and he felt dizzy and hunched over the sink for support. Pt's helped him to the floor. His systolic BP was in the 50s. He never lost consciousness. She was then able to get him to the chair and his SBP was in the 70s. EMS was called and he was brought to the hospital. He never lost consciousness during this episode. In the ED, his BP was in the 90s / 50s but improved to normal. He was ambulated in the ED to discharge, however, he became dizzy prompting admission. He has no other symptoms at this time. His workup otherwise unremarkable. Allergies Allergy/AdvReac Type Severity Reaction Status Date / Time gabapentin AdvReac Intermediate Nightmares Verified 06/25/25 10:56 morphine AdvReac Intermediate Confusion, Verified 06/25/25 10:56 anger Hswmvgn-BXK-YpY Reductase AdvReac Intermediate Muscle Verified 06/25/25 10:56 Inhibitor aches [Slfllch-Hof-Uzh Reductase Inhibitor] Home Medications Medication Instructions Recorded Confirmed Type coQ10 (ubiquinol) 200 mg capsule 400 mg PO QAM 12/27/19 07/05/25 History betamethasone, augmented 0.05 % 1 applic topical BID PRN Psoriasis 12/17/20 07/05/25 History topical ointment pen needle, diabetic 31 gauge x #100 ea 01/30/22 07/05/25 Rx 5/16" (Pen Needle) nitroglycerin 0.4 mg sublingual 0.4 mg sublingual Q5M PRN chest 02/08/22 07/05/25 Rx tablet pain #1 btl pravastatin 40 mg tablet 40 mg PO HS 11/18/22 07/05/25 History isosorbide mononitrate 120 mg 120 mg PO QAM #90 tabs 06/22/24 07/05/25 Rx tablet,extended release 24 hr ergocalciferol (vitamin D2) 1,250 1,250 mcg PO MONTHLY #3 caps 01/07/25 07/05/25 Rx mcg (50,000 unit) capsule apixaban 2.5 mg tablet (Eliquis) 2.5 mg PO BID #180 tabs 03/12/25 07/05/25 Rx carvedilol 25 mg tablet 25 mg PO BID #180 tabs 03/12/25 07/05/25 Rx blood sugar diagnostic (OneTouch #10 ea 03/25/25 07/05/25 History Ultra Test strips) lancets 33 gauge (OneTouch Delica #100 ea 03/25/25 07/05/25 History Plus Lancet) clopidogrel 75 mg tablet 75 mg PO QAM #90 tabs 03/28/25 07/05/25 Rx ascorbic acid (vitamin C) 250 mg 250 mg PO QAM 06/25/25 07/05/25 History tablet bupropion HCl 150 mg 24 hr tablet, 150 mg PO QAM 06/25/25 07/05/25 History extended release insulin glargine 100 unit/mL (3 12 unit subcut QPM 06/25/25 07/05/25 History mL) subcutaneous pen (Basaglar KwikPen U-100 Insulin) lisinopril 5 mg tablet 5 mg PO QAM 06/25/25 07/05/25 History pantoprazole 20 mg tablet,delayed 20 mg PO QAM 06/25/25 07/05/25 History release amlodipine 2.5 mg tablet See Rx Instructions .Route .COMPLEX 07/05/25 07/05/25 History insulin aspart U-100 100 unit/mL 5 unit subcut AC 07/05/25 07/05/25 History (3 mL) subcutaneous pen (Novolog FlexPen U-100 Insulin aspart) Past Med/Surg History Problem List (Updated 07/05/25 @ 17:00 by Nataliya Lloyd MD) Near syncope (Acute) Dizziness (Acute) Hyperlipidemia Statin myopathy Statin intolerance Nonsustained supraventricular tachycardia Chronic anticoagulation Paroxysmal atrial fibrillation Hypertension Palpitations Arthritis (Chronic) Vitamin D deficiency (Chronic) Microscopic hematuria Type II diabetes mellitus with complication (Acute) Smokeless tobacco use (Acute) Sleep disturbances (Acute) Former smoker (Acute) Fatty liver (Acute) Fatigue (Acute) Cervical spondylosis (Acute) Arteriosclerotic coronary artery disease (Acute) Dizziness Cerumen impaction Diplopia (Acute) Vertigo (Acute) Headache Cervical radicular pain Vertebral artery stenosis Presence of drug-eluting stent in left circumflex coronary artery Chronic kidney disease, stage III (moderate) Postural lightheadedness Antiplatelet or antithrombotic long-term use Sleep apnea CPAP Orthostatic hypotension CPAP; new sleep study on 11/30/22 Medical History COVID-19 Constipation Complicated urinary tract infection Acute kidney injury Diabetes mellitus type 2, uncontrolled Chronic renal failure, stage 3b NSTEMI (non-ST elevation myocardial infarction) ACS (acute coronary syndrome) Elevated troponin Presence of bare metal stent in left circumflex coronary artery Presence of drug-eluting stent in right coronary artery NSTEMI (non-ST elevated myocardial infarction) Ventricular tachycardia Non-ST elevation (NSTEMI) myocardial infarction Cervical stenosis of spinal canal Diverticulosis CAD (coronary artery disease) Cervical spine tumor Cervical spondylosis Vertebral artery stenosis Osteoarthritis CKD (chronic kidney disease) Fatty liver DM type 2 (diabetes mellitus, type 2) History of depression History of TIA (transient ischemic attack) History of myocardial infarction HLD (hyperlipidemia) Stroke-like symptoms Blurred vision Hypertension Bloating Dyslipidemia Obstructive sleep apnea Psoriatic arthropathy Chest pain (07/11/14) Gastroparesis Psoriasis GERD (gastroesophageal reflux disease) Crohn's disease Surgical History History of cataract surgery H/O cervical discectomy S/P coronary artery stent placement History of cervical spinal surgery History of tooth extraction History of cholecystectomy History of removal of cyst History of esophagogastroduodenoscopy (EGD) History of colonoscopy History of cardiac catheterization Family History Father Coronary heart disease Myocardial infarction Brother Colon cancer Pulmonary embolism Hx of CABG Mother Diabetes Coronary heart disease Other No family history of adverse response to anesthesia Social History Smoking Status: Never smoker Tobacco Type: Cigarettes and Smokeless Tobacco (Dip or Chew) Age Started Using Tobacco: 18; Age Quit Using Tobacco: 78; packs per day: 1; Second Hand Exposure: No; Do You Dip or Chew Tobacco: Yes (1 can/1-2 days; advised); Hx Alcohol Use: No Hx Substance Use: No Preferred Language: Faroese Communication Ability: Effective Visual Impairment: No Limitations Hearing Ability: Normal Double Ending Machine Operator Required: No Beliefs That Will Affect Care: None marital status: Current Living Situation: Spouse current occupational status: retired 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 Physical Exam Physical Exam: Gen: no acute distress, lying in bed comfortable HEENT: NC/AT, MMM Lungs: nonlabored breathing, CTAB CVS: s1s2nl, RRR Abd: nl bowel sounds, soft, NT / ND : no ansari Ext: no edema Neuro: AAOx3 Psych: calm, cooperative Results & Data Results & Data Vital Signs (Past 12 Hours) Vital Signs Temp Pulse Pulse Resp BP BP Pulse Ox 07/05/25 18:00 59 L 16 143/80 H 98 07/05/25 16:28 59 L 18 112/75 98 07/05/25 15:51 61 07/05/25 15:09 98 07/05/25 15:08 63 16 95/50 L 98 07/05/25 14:50 63 17 116/63 98 07/05/25 14:35 76 17 118/66 07/05/25 14:34 36.7 C 64 20 118/66 98 O2 Del Method 07/05/25 18:00 Room Air 07/05/25 16:28 07/05/25 15:51 07/05/25 15:09 Room Air 07/05/25 15:08 10/03/25 14:50 07/05/25 14:35 07/05/25 14:34 Room Air Code Status & VTE Plan VTE Prophylaxis Plan VTE Prophylaxis will be ordered: Yes PG Care Time/CCT Total # of Minutes Spent Total Time Spent with Patient: Total time spent is greater than 50% in coordination of care (as documented) at patient's floor/unit and/or counseling patient: Coding Level of Care Code 82510 INT INP/OBS CARE 3/75MIN Diagnoses Dizziness R42 Hyperlipidemia E78.5
[2025-07-05] MEDS: LANTUS PER UNIT CHARGE SQ SCH (22:37)
[2025-07-05] MEDS: PRAVASTATIN SOD 40 MG TAB PO SCH (22:37)
[2025-07-05] MEDS: APIXABAN 2.5 MG TAB PO SCH (22:37)
[2025-07-06 04:16] LABS: Appearance Urine Clear (Clear); Bacteria Urine Automated None Seen (None Seen); Epithelial Cell Urine Auto 0-2 /hpf (0-2); Glucose Urine UA Negative (Negative); RBC Urine Automated 0-2 /hpf (0-2); WBC Urine Automated 0-5 /hpf (0-5)
[2025-07-06 07:34] LABS: Hematocrit (blood only) 41.1 % (42.0-52.0); Hemoglobin 13.2 g/dl (14.0-18.0); Mean Corpuscular Hemoglobin 29.9 pg (25.0-34.0); Mean Corpuscular Volume 93.0 fL (80.0-100.0); Platelet Count 141 K/uL (130-400); RDW Standard Deviation 49.8 fL (36.4-46.3); Red Blood Count 4.42 M/uL (4.70-6.10); White Blood Count 8.68 K/ul (4.8-10.8)
[2025-07-06] MEDS: INSULIN ASPART PER UNIT CHARGE SQ SCH (07:40)
[2025-07-06 07:53] LABS: Anion Gap 5.0 (3-11); Blood Urea Nitrogen 23.0 mg/dl (6-23); Calcium 8.4 mg/dl (8.6-10.3); Carbon Dioxide 26.0 mmol/L (21-32); Chloride 110.0 mmol/L (98-107); Creatinine Clr Calc Pharmacy 32.0 ml/min; Glucose 114.0 mg/dl (70-99(Fasting)); Magnesium 1.6 mg/dl (1.7-2.4); Potassium 4.1 mmol/L (3.5-5.1); Sodium 141.0 mmol/L (136-145)
[2025-07-06] MEDS: ISOSORBIDE MONO EXTENDED REL 60 MG TABCR PO SCH (08:43)
[2025-07-06] MEDS: PLASMA-LYTE A 1,000 ML IV SCH ×2 (08:44→16:58)
[2025-07-06] MEDS: CLOPIDOGREL BISULFATE 75 MG TAB PO SCH (08:45)
[2025-07-06] MEDS: MAGNESIUM OXIDE 400 MG TAB PO ONE (11:12)
--- NOTE | 2025-07-06 16:42 | Hospitalist Progress Note ---
Date of Service July 06, 2025 Assessment & Plan (1) Dizziness: (2) Hyperlipidemia: Plan 79 yr old M with PMhx of CAD, HTN, HLD, paroxysmal AFib presents to the hospital for dizziness. #Dizziness - CT head negative, no focality on exam - s/p 1L bolus on admission, additional 0.5L - advised pt to slow movement instead of getting up and walking right away to allow body to adjust to position change - encourage oral hydration - check ECHO to assess EF - orthostatic vitals positive - place compression stockings - will add plasma lyte IV @80cc/hr #Paroxysmal AFib - cont eliquis #CAD - cont plavix - cont coreg imdur #HLD - cont pravastatin #HTN - cont lisinopril #DM II - cont insulin #Anxiety - cont bupropion #Dispo: pending clinical improvement and resolution of orthostatic hypotension Admission and Anticipated Discharge Date Admission Date: July 05, 2025 Subjective No acute events overnight Currently pt states he has no symptoms Review of Systems Review of Systems: Comprehensive ROS completed and is otherwise negative. Physical Exam Physical Exam: Gen: no acute distress, sitting in chair comfortable HEENT: NC/AT, MMM Lungs: nonlabored breathing, CTAB CVS: s1s2nl, RRR Abd: nl bowel sounds, soft, NT / ND : no ansari Ext: no edema Neuro: AAOx3 Psych: calm, cooperative Results & Data Results & Data Vital Signs (Past 12 Hours) Vital Signs Temp Pulse Pulse Resp BP Pulse Ox O2 Del Method 07/06/25 15:54 36.9 C 68 21 151/64 H 99 Room Air 07/06/25 13:01 62 07/06/25 11:05 36.7 C 66 20 135/75 96 Room Air 07/06/25 07:59 36.8 C 19 97 Room Air 07/06/25 05:40 58 L PG Care Time/CCT Total # of Minutes Spent Total Time Spent with Patient: Total time spent is greater than 50% in coordination of care (as documented) at patient's floor/unit and/or counseling patient: Coding Level of Care Code 55119 SUB INP/OBS CARE 3/50MIN Diagnoses Dizziness R42 Hyperlipidemia E78.5
[2025-07-07 08:15] LABS: Hematocrit (blood only) 41.0 % (42.0-52.0); Hemoglobin 13.6 g/dl (14.0-18.0); Mean Corpuscular Hemoglobin 30.5 pg (25.0-34.0); Mean Corpuscular Volume 91.9 fL (80.0-100.0); Platelet Count 131 K/uL (130-400); RDW Standard Deviation 47.8 fL (36.4-46.3); Red Blood Count 4.46 M/uL (4.70-6.10); White Blood Count 8.33 K/ul (4.8-10.8)
[2025-07-07 08:29] LABS: Anion Gap 5.0 (3-11); Blood Urea Nitrogen 22.0 mg/dl (6-23); Calcium 8.8 mg/dl (8.6-10.3); Carbon Dioxide 29.0 mmol/L (21-32); Chloride 107.0 mmol/L (98-107); Creatinine Clr Calc Pharmacy 37.7 ml/min; Glucose 111.0 mg/dl (70-99(Fasting)); Magnesium 1.6 mg/dl (1.7-2.4); Potassium 3.8 mmol/L (3.5-5.1); Sodium 141.0 mmol/L (136-145)
--- NOTE | 2025-07-07 10:58 | Ultrasound Report ---
EXAM: US Duplex Bilateral Extracranial Arteries INDICATION: Dizziness TECHNIQUE: Real-time duplex ultrasound scan of the extracranial arteries integrating B-mode two-dimensional vascular structure, Doppler spectral analysis and color flow Doppler imaging. COMPARISON: No relevant prior studies available. FINDINGS: Right common carotid artery: Distal plaque. Peak systolic velocity 128 cm/s. No occlusion or segmental stenosis on color flow and spectral Doppler imaging. Right internal carotid artery: Moderate plaque at the bulb. Peak systolic velocity 76 cm/s. No occlusion or segmental stenosis on color flow and spectral Doppler imaging. Right external carotid artery: Moderate plaque with elevated velocity of 301 cm/s. Right vertebral artery: No abnormality noted. Antegrade flow. Right ICA/CCA ratio: 0.6. Left common carotid artery: Distal plaque noted. Peak systolic velocity 86 cm/s no occlusion or segmental stenosis on color flow and spectral Doppler imaging. Left internal carotid artery: Moderate plaque noted. Peak systolic velocity 81 cm/s no occlusion or segmental stenosis on color flow and spectral Doppler imaging. Left external carotid artery: Moderate plaque with elevated velocity of 175 cm/s. Left vertebral artery: No abnormality noted. Antegrade flow. Left ICA/CCA ratio: 0.9 Lymph nodes: No abnormality noted. No lymphadenopathy. CAROTID STENOSIS REFERENCE USING IAC CRITERIA: Mild - <50% stenosis. ICA PSV is less than 180 cm/s and plaque or intimal thickening is visible. Moderate - 50-69% stenosis. ICA PSV is 180 to 230 cm/s and plaque is visible. Severe - 70-94% stenosis. ICA PSV is more than 230 cm/s and visible plaque with lumen narrowing is seen. Near occlusion - 95-99% stenosis. ICA PSV is variable and significant plaque with luminal narrowing is seen. Occluded - 100% stenosis. No flow identified. IMPRESSION: 1. There is bilateral common and internal carotid atherosclerosis with less than 50% stenosis. 2. Elevated external carotid artery velocity and plaque consistent with some level of stenosis. ACT 112: N/A Electronically signed by Kimmy Villatoro 07-07-2025 10:58 AM
--- NOTE | 2025-07-07 11:39 | XCELERA ---
[id number]
[2025-07-07 11:52] VITALS: BP 129/67; RESP 17; TEMP 97.9; O2SAT 96
--- NOTE | 2025-07-07 14:03 | Discharge Summary ---
Discharge Summary Date of Service July 07, 2025 Principal Dx & Hospital Course #1 = Principal Diagnosis (1) Dizziness: (2) Hyperlipidemia: Plan 79 yr old M with PMhx of CAD, HTN, HLD, paroxysmal AFib presents to the hospital for dizziness. #Dizziness #Orthostatic hypotension - CT head negative, no focality on exam - s/p 1L bolus on admission, additional 0.5L - advised pt to slow movement instead of getting up and walking right away to allow body to adjust to position change - encourage oral hydration - carotid US: bilateral common and internal carotid atherosclerosis with <50% stenosis - ECHO nl LV systolic fn, EF: 60-65%, mild concentric LVH - orthostatic vitals positive, some improvement with compression stockings - continue to monitor at home as pt is asymptomatic at this time - follow up with cardiology as outpatient for further management #Paroxysmal AFib - cont eliquis #CAD - cont plavix - cont coreg imdur #HLD - cont pravastatin #HTN - cont lisinopril #DM II - cont insulin #Anxiety - cont bupropion #Dispo: discharge home. care and plan explained to his Admission HPI Per Admitting Provider 79 yr old M with PMhx of CAD, HTN, HLD, paroxysmal AFib presents to the hospital for dizziness. Pt has been having long standing postural dizziness. Today, he was walking to the bathroom and he felt dizzy and hunched over the sink for support. Pt's helped him to the floor. His systolic BP was in the 50s. He never lost consciousness. She was then able to get him to the chair and his SBP was in the 70s. EMS was called and he was brought to the hospital. He never lost consciousness during this episode. In the ED, his BP was in the 90s / 50s but improved to normal. He was ambulated in the ED to discharge, however, he became dizzy prompting admission. He has no other symptoms at this time. His workup otherwise unremarkable. Discharge Exam Gen: no acute distress, sitting in chair comfortable HEENT: NC/AT, MMM Lungs: nonlabored breathing, CTAB CVS: s1s2nl, RRR Abd: nl bowel sounds, soft, NT / ND : no ansari Ext: no edema Neuro: AAOx3 Psych: calm, cooperative Discharge Plan Discharge Items Patient Disposition: Home - Self-Care Reason For Visit: DIZZINESS Discharge Diagnosis: Orthostatic hypotension Condition on Discharge: Fair Activity: Resume your previous activity Non-emergency contact: Primary Care Provider and Analytics Intern Call non-emergency contact if: you have any medication questions and your symptoms worsen Follow-up/Referrals: Shaina Kenyon [Primary Care Provider] - Diet: Carb Consistent or DM2 and Heart Healthy Addtl Attending Provider Instructions: You were admitted to the hospital for the evaluation of dizziness and low blood pressure. You were found to have orthostatic hypotension. You were given IV fluids with some improvement. However, your pressures were dropping while standing. Compression stockings were applied and this has helped your pressures. Your did not have any symptoms at this time. You will need to continue to monitor this at home. If your pressures are dropping and you are having dizziness, please call your pop singer's office for additional management. Please follow up with your pop singer in about 7 to 10 days. You are medically stable for discharge. You will need to follow up with your primary care doctor in about 7 to 10 days. It was a pleasure being a part of your medical care team during your stay at [facility]. Pending Studies at Discharge: No Stand-Alone Forms: My [facility] [employer], Smoking Cessation Medications and DC Order Prescriptions: Continued nitroglycerin 0.4 mg tablet, sublingual 0.4 mg sublingual Q5M PRN (Reason: chest pain) Qty: 1 3RF Rx Instructions: max 3 doses in 15 minutes. isosorbide mononitrate 120 mg tablet extended release 24 hr 120 mg PO QAM Qty: 90 3RF clopidogrel 75 mg tablet 75 mg PO QAM Qty: 90 3RF Eliquis 2.5 mg tablet 2.5 mg PO BID Qty: 180 3RF carvedilol 25 mg tablet 25 mg PO BID Qty: 180 3RF (DME) OneTouch Ultra Test Strip See Rx Instructions .ROUTE .MEDSUPPLY Qty: 10 Rx Instructions: As directed (DME) lancets [OneTouch Delica Plus Lancet] 33 gauge misc See Rx Instructions .ROUTE .MEDSUPPLY Qty: 100 Rx Instructions: As directed ergocalciferol (vitamin D2) 1,250 mcg (50,000 unit) capsule 1,250 mcg PO MONTHLY Qty: 3 4RF Rx Instructions: TAKE WITH LARGEST MEAL OF THE DAY pantoprazole 20 mg tablet,delayed release (DR/EC) 20 mg PO QAM bupropion HCl 150 mg tablet extended release 24 hr 150 mg PO QAM lisinopril 5 mg tablet 5 mg PO QAM ascorbic acid (vitamin C) 250 mg tablet 250 mg PO QAM insulin glargine [Basaglar KwikPen U-100 Insulin] 100 unit/mL (3 mL) insulin pen 12 unit subcut QPM coQ10 (ubiquinol) 200 mg Capsule 400 mg PO QAM betamethasone, augmented 0.05 % ointment 1 applic TOPICAL BID PRN (Reason: Psoriasis) (DME) pen needle, diabetic [Pen Needle] 31 gauge x 5/16" needle See Rx Instructions .Route Qty: 100 1RF Rx Instructions: As directed with lantus & novolog pens. pravastatin 40 mg tablet 40 mg PO HS amlodipine 2.5 mg tablet See Rx Instructions .ROUTE .COMPLEX Rx Instructions: TAKE 1 TABLET BY MOUTH DAILY IN THE MORNING AND 1 TABLET DAILY IN THE EVENING IF BP IS OVER 160/90 insulin aspart U-100 [Novolog FlexPen U-100 Insulin] 100 unit/mL (3 mL) insulin pen 5 unit SUBCUT AC Discharge Orders: Discharge Order (Routine); Ordered 07/07/25 Ordered By: Saadia Faulkner Admission Data Admit Date/Time: 07/05/25 19:47 Attending Provider: Saadia Faulkner Admit Provider: Saadia Faulkner Primary Care Provider: Shaina Kenyon Other Providers: Lobo Coronado Hospital Stay Data Consultations 07/05/25 17:09 ED Decision to Admit Stat Diagnostic Imagining Performed 07/05/25 16:11 CT head/brain wo con Stat 07/07/25 08:36 US carotid doppler BI Routine Pending Results Patient Have Any Pending Studies at Discharge: No Discharge Instructions Given to Patient (Per Discharging Provider) You were admitted to the hospital for the evaluation of dizziness and low blood pressure. You were found to have orthostatic hypotension. You were given IV fluids with some improvement. However, your pressures were dropping while standing. Compression stockings were applied and this has helped your pressures. Your did not have any symptoms at this time. You will need to continue to monitor this at home. If your pressures are dropping and you are having dizziness, please call your pop singer's office for additional management. Please follow up with your pop singer in about 7 to 10 days. You are medically stable for discharge. You will need to follow up with your primary care doctor in about 7 to 10 days. It was a pleasure being a part of your medical care team during your stay at [facility]. Total Time Total Time Spent Total Time Spent (In Minutes): 45 Coding Level of Care Code 80387 INP/OBS DISCH >30 MIN Diagnoses Dizziness R42 Hyperlipidemia E78.5
[2025-07-07 14:32] VITALS: PULSE 66
== END 2025-07-07 14:54 | disposition home or self-care (01) ==
LOC: ED 14:29 → 2S 14:29